=== PATIENT | female | born 1945 | race Caucasian/White ===

== ENCOUNTER 2022-08-26 08:41 | Emergency (ER) | payer MEDICARE, BC, SELFPAY ==
[2022-08-26 08:54] VITALS: BP 205/90; PULSE 54; RESP 18; TEMP 36.6; O2SAT 98; BMI 33.8
[2022-08-26 09:00] VITALS: BP 210/91; PULSE 53; RESP 16; O2SAT 98; O2SAT 99
--- NOTE | 2022-08-26 09:03 | CRLHL7_ITS ---
For Patients: As a result of the Century Cures Act, medical imaging exams and procedure reports are released immediately into your electronic medical record. You may view this report before your referring provider. If you have questions, please contact your health care provider. HISTORY: Chest pain. TECHNIQUE: One view of the chest. COMPARISON: 08/26/2012. FINDINGS: Cardiac size is within normal limits. No pulmonary vascular congestion. No focal lung infiltrate or pulmonary edema. No pneumothorax or pleural effusion. No acute bony abnormality. IMPRESSION: No acute disease. Dictated by Manuel Araiza MD @ 08/26/2022 9:45:52 AM Dictated by: Manuel Araiza MD @ 08/26/2022 09:45:59 (Electronically Signed)
--- NOTE | 2022-08-26 09:05 | ED_ITS ---
"HPI - General Adult General Time Seen by Provider: 09:06 Date Seen: 08/26/22 Chief complaint: Chest Pain Stated complaint: Chest pain Time Seen by Provider: 08/26/22 08:42 Source: patient Mode of arrival: ambulatory Limitations: no limitations History of Present Illness HPI narrative: Patient is a very pleasant 76-year-old female from [place] who has hypertension and non-insulin diabetes presents with chest pain after midnight last night. She reported the last several hours.. She also reports that it did not radiate to her neck or jaw or arm. No shortness of breath, no diaphoresis. Patient has no history of cardiac issues, but as mentioned does have hypertension and non-insulin diabetes. She also reports that she has had pain in her chest in a similar area when she turns or moves certain ways. No leg swelling, no edema in the lower extremities are upper extremities, no travel or clotting history. Past medical history significant for hypertension, non insulin-dependent diabetes, hypothyroidism Related Data Home Medications Medication Instructions Recorded Confirmed aspirin 81 mg tablet,delayed 81 mg PO DAILY 08/26/22 08/26/22 release (Adult Aspirin Regimen) atenolol 50 mg tablet mg 08/26/22 atorvastatin 40 mg tablet mg 08/26/22 hydrochlorothiazide 25 mg tablet mg 08/26/22 levothyroxine 88 mcg tablet mcg 08/26/22 losartan 100 mg tablet mg 08/26/22 metformin 500 mg tablet mg 08/26/22 Allergies Allergy/AdvReac Type Severity Reaction Status Date / Time No Known Drug Allergies Allergy Verified 08/26/22 09:52 Review of Systems Status of ROS: Reports: 10 or more systems reviewed and unremarkable except as noted in History and below [facility] Social History service: No Exam Narrative: Exam Narrative: Objective: Vital signs show elevated blood pressure Patient is in no apparent distress, denies any symptoms at all at this time HEENT is unremarkable Neck is supple Chest is clear Heart rhythm regular with occasional ectopic beat 2/6 systolic murmur Abdomen obese benign nontender extremities without edema neurologic nonfocal Skin warm and dry Mental status appropriate Const: Vital Signs, click to edit/add: Vital Signs - 24 hr 08/26/22 08:54 08/26/22 09:00 08/26/22 09:00 Temperature 98 F Pulse Rate [Pulse Oximeter] 54 L 53 L Respiratory Rate 18 16 Blood Pressure [Le ft Upper Arm] 205/90 H 210/91 H Pulse Oximetry 98 98 99 Oxygen Delivery Me thod Room Air Room Air 08/26/22 10:00 08/26/22 10:30 Temperature Pulse Rate [Pulse Oximeter] 50 L 52 L Respiratory Rate 18 18 Blood Pressure [Le ft Upper Arm] 181/80 H 169/88 H Pulse Oximetry 96 96 Oxygen Delivery Me thod Room Air Room Air Course Vital Signs Vital signs: Initial Vital Signs Temperature 98 F 08/26/22 08:54 Temperature Source Oral 08/26/22 08:54 Pulse Rate 54 L 08/26/22 08:54 Respiratory Rate 18 08/26/22 08:54 Blood Pressure 205/90 H 08/26/22 08:54 Blood Pressure Mean 128 08/26/22 08:54 Blood Pressure Position Supine 08/26/22 08:54 Pulse Oximetry 98 08/26/22 08:54 Oxygen Delivery Method 08/26/22 08:54 Vital Signs Temperature 98 F 08/26/22 08:54 Pulse Rate 54 L 08/26/22 08:54 Respiratory Rate 18 08/26/22 08:54 Blood Pressure 205/90 H 08/26/22 08:54 Pulse Oximetry 98 08/26/22 08:54 Oxygen Delivery Method 08/26/22 08:54 Temperature 98 F 08/26/22 08:54 Pulse Rate 52 L 08/26/22 10:30 Respiratory Rate 18 08/26/22 10:30 Blood Pressure 169/88 H 08/26/22 10:30 Pulse Oximetry 96 08/26/22 10:30 Oxygen Delivery Method 08/26/22 10:30 Medical Decision Making [facility] Narrative Medical decision making narrative: Patient is a 76-year-old female with episode of chest discomfort after midnight now resolved. She also has some symptoms of some chest wall discomfort with certain movement causing pain. I think could be appropriate to get an EKG, labs, chest x-ray, troponin. Will give aspirin, cardiac monitoring and oximetry. Disposition pending findings above. Addendum: The patient's EKG by my read shows sinus bradycardia with occasional PACs no obvious ischemic changes. Patient's chest x-ray by my read is unremarkable, because of her elevated D-dimer a chest CT was done that shows some micro nodules but no acute inflammatory change, no pneumonia and no pulmonary embolus. As mention her proBNP is slightly elevated 159 troponin less than 0.01 white count was elevated 14,007 and 30, hemoglobin 13.8. ER profile is largely unremarkable, glucose is 223 nonfasting CRP is 0.8 which is normal COVID influenza and RSV are negative. I think at this point she likely has some chest wall discomfort prep some mild inflammatory chest wall condition, would recommend some ibuprofen over the next few days, follow-up with primary care in the next 2-3 days changes concerns worsening. Also her blood pressure is elevated she should follow this up with her primary care doctor within the next couple of days. Continue her at-home medicines Lab Data Labs: Lab Results 08/26/22 08/26/22 08/26/22 Range/Units 09:00 09:00 09:00 WBC 14.73 H (4.50-11.00) K/uL RBC 5.16 (4.00-5.20) m/uL Hgb 13.8 (12.0-16.0) gm/dL Hct 42.3 (33.0-51.0) % MCV 82 (80-100) fL MCH 27 (26-34) pg MCHC 33 (32-36) gm/dL RDW Coeff of Jordyn 12.8 (11.5-15.5) % Plt Count 361 (140-440) K/uL Neut % (Auto) 82.1 H (42.0-72.0) % Lymph % (Auto) 11.5 L (20-44) % [place] % (Auto) 5.0 (0.0-11.0) % Eos % (Auto) 0.7 (0.0-7.0) % Baso % (Auto) 0.4 (0.0-3.0) % Neut # (Auto) 12.10 H (1.7-7.0) K/uL Lymph # (Auto) 1.70 (0.90-2.90) K/uL [place] # (Auto) 0.70 (0.00-0.90) K/UL Eos # (Auto) 0.10 (0.00-0.50) K/uL Baso # (Auto) 0.10 (0.00-0.30) K/uL Abs Immat Gran (auto) 0.00 (0.00-0.30) K/uL Imm/Tot Granulo (auto) 0.3 % INR 1.05 (0.91-1.10) D-Dimer Quant (PE/DVT) 2.30 H (0.00-0.50) ug/ml Sodium 137 (135-149) mmol/L Potassium 3.6 (3.6-5.1) mmol/L Chloride 100 (96-114) mmol/L Carbon Dioxide 28 (20-32) mmol/L BUN 20 (7-30) mg/dL Creatinine 1.1 (0.5-1.5) mg/dL Estimated Creat Clear 38.75 Estimated GFR 53 ml/min Glucose 223 H (60-115) mg/dL Calcium 9.3 (8.4-10.6) mg/dL Total Bilirubin 0.8 (0.1-1.5) mg/dL Direct Bilirubin 0.1 (0.0-0.5) mg/dL AST 26 (12-35) U/L ALT 24 (4-35) U/L Alkaline Phosphatase 127 (40-150) U/L Troponin I < 0.01 L (0.01-0.04) ng/mL C-Reactive Protein 0.8 (0.5-1.0) mg/dL NT-Pro-B Natriuret Pep 159 H (0-125) PG/mL Total Protein 7.9 (6.0-8.3) g/dL Albumin 4.5 (3.3-5.0) g/dL SARS-CoV-2 (PCR) (Negative) Influenza Type A (PCR) (Negative) Influenza Type B (PCR) (Negative) RSV (PCR) (Negative) 08/26/22 Range/Units 09:00 WBC (4.50-11.00) K/uL RBC (4.00-5.20) m/uL Hgb (12.0-16.0) gm/dL Hct (33.0-51.0) % MCV (80-100) fL MCH (26-34) pg MCHC (32-36) gm/dL RDW Coeff of Jordyn (11.5-15.5) % Plt Count (140-440) K/uL Neut % (Auto) (42.0-72.0) % Lymph % (Auto) (20-44) % [place] % (Auto) (0.0-11.0) % Eos % (Auto) (0.0-7.0) % Baso % (Auto) (0.0-3.0) % Neut # (Auto) (1.7-7.0) K/uL Lymph # (Auto) (0.90-2.90) K/uL [place] # (Auto) (0.00-0.90) K/UL Eos # (Auto) (0.00-0.50) K/uL Baso # (Auto) (0.00-0.30) K/uL Abs Immat Gran (auto) (0.00-0.30) K/uL Imm/Tot Granulo (auto) % INR (0.91-1.10) D-Dimer Quant (PE/DVT) (0.00-0.50) ug/ml Sodium (135-149) mmol/L Potassium (3.6-5.1) mmol/L Chloride (96-114) mmol/L Carbon Dioxide (20-32) mmol/L BUN (7-30) mg/dL Creatinine (0.5-1.5) mg/dL Estimated Creat Clear Estimated GFR ml/min Glucose (60-115) mg/dL Calcium (8.4-10.6) mg/dL Total Bilirubin (0.1-1.5) mg/dL Direct Bilirubin (0.0-0.5) mg/dL AST (12-35) U/L ALT (4-35) U/L Alkaline Phosphatase (40-150) U/L Troponin I (0.01-0.04) ng/mL C-Reactive Protein (0.5-1.0) mg/dL NT-Pro-B Natriuret Pep (0-125) PG/mL Total Protein (6.0-8.3) g/dL Albumin (3.3-5.0) g/dL SARS-CoV-2 (PCR) Negative SARS-CoV-2 (Negative) Influenza Type A (PCR) Negative PCR FLU A (Negative) Influenza Type B (PCR) Negative PCR FLU B (Negative) RSV (PCR) Negative PCR RSV (Negative) Discharge Plan Discharge Clinical Impression: Chest pain, Chest wall pain Patient Disposition: Home, Self-Care Condition: Improved Additional Instructions: Light activity, regular diet, continue home medications, monitor blood pressure and get recheck with primary care clinic within the next 2 days. Return any change concerns worsening, blood tests and EKG and CT scan of the chest were reassuring, will recommend Advil 2 tablets 3 times a day for the next 3 days. Continue to monitor blood pressure as mentioned as it was elevated today and follow up with regular doctor the appointment 2 days. could usealeve if dont have advil, 2 tablets 2 x day x 3 days. Activity Level: Light activity Discharge Diet: Regular Prescriptions: No Action atorvastatin 40 mg tablet Label Comments: TAKE 1 TABLET BY MOUTH EVERY DAY metformin 500 mg tablet Label Comments: TAKE 1 TABLET BY MOUTH TWICE A DAY WITH MEALS levothyroxine 88 mcg tablet Label Comments: TAKE 1 TABLET BY MOUTH EVERY DAY hydrochlorothiazide 25 mg tablet Label Comments: TAKE 1 TABLET BY MOUTH EVERY DAY losartan 100 mg tablet Label Comments: TAKE 1 TABLET BY MOUTH EVERY DAY atenolol 50 mg tablet aspirin [Adult Aspirin Regimen] 81 mg tablet,delayed release (DR/EC) 81 mg PO DAILY Stand Alone Forms: [employer] - Payments Anytime | Anywhere Info Instructions"
--- NOTE | 2022-08-26 09:11 | ED.NURSE ---
forestry technician swab for covid
[2022-08-26 09:21] LABS: Basophils Percent Auto 0.4 % (0.0-3.0); Eosinophils Percent Auto 0.7 % (0.0-7.0); Hematocrit 42.3 % (33.0-51.0); Hemoglobin* 13.8 gm/dL (12.0-16.0); Immature Granulocytes Pct Auto 0.3 %; Lymphocytes Percent Auto 11.5 % (20-44); Mean Corpuscular HGB Conc 33 gm/dL (32-36); Mean Corpuscular Hemoglobin 27 pg (26-34); Mean Corpuscular Volume 82 fL (80-100); Neutrophils Percent Auto 82.1 % (42.0-72.0); Platelet Count* 361 K/uL (140-440); RDW Coefficient of Variation % 12.8 % (11.5-15.5); Red Blood Count 5.16 m/uL (4.00-5.20); White Blood Count* 14.73 K/uL (4.50-11.00)
[2022-08-26 09:22] LABS: Slide Review Reflex No
[2022-08-26 09:28] LABS: Chloride* 100 mmol/L (96-114)
[2022-08-26 09:29] LABS: Albumin* 4.5 g/dL (3.3-5.0); Potassium* 3.6 mmol/L (3.6-5.1); Sodium* 137 mmol/L (135-149)
[2022-08-26 09:31] LABS: Creatinine* 1.1 mg/dL (0.5-1.5); Est. Creatinine Clearance* 38.75; Estimated Glomerular Filt Rate 53 ml/min
[2022-08-26 09:32] LABS: Alanine Aminotransferase* 24 U/L (4-35); Alkaline Phosphatase* 127 U/L (40-150); Aspartate Amino Transferase* 26 U/L (12-35); Bilirubin Direct* 0.1 mg/dL (0.0-0.5); Bilirubin Total* 0.8 mg/dL (0.1-1.5); Blood Urea Nitrogen* 20 mg/dL (7-30); Calcium* 9.3 mg/dL (8.4-10.6); Carbon Dioxide* 28 mmol/L (20-32); Glucose* 223 mg/dL (60-115); INR 1.05 (0.91-1.10); Prothrombin Time 14.3 Seconds; Total Protein* 7.9 g/dL (6.0-8.3)
[2022-08-26 09:35] LABS: C Reactive Protein* 0.8 mg/dL (0.5-1.0)
[2022-08-26] MEDS: ASPIRIN 81 MG TAB.CHEW 324 MG PO (09:37)
[2022-08-26] MEDS: 0.9 % SODIUM CHLORIDE 500 ML 500 ML IV (09:38)
[2022-08-26 09:41] LABS: NT Pro B Type NatriureticPept* 159 PG/mL (0-125)
--- NOTE | 2022-08-26 09:43 | CRLHL7_ITS ---
For Patients: As a result of the Cures Act, medical imaging exams and procedure reports are released immediately into your electronic medical record. You may view this report before your referring provider. If you have questions, please contact your health care provider. HISTORY: Chest pain. Elevated D-dimer. TECHNIQUE: Intravenous contrast enhanced CT of the chest. 95 mL Isovue 370 intravenous contrast administered. COMPARISON: Chest radiograph 08/26/2022. FINDINGS: There is no acute pulmonary embolism. Atherosclerotic changes of the thoracic aorta without aneurysm. Coronary calcifications are present. There is no pericardial effusion. No technically enlarged mediastinal or hilar lymph nodes. No technically enlarged axillary lymph nodes. - There are scattered bilateral pulmonary micro nodules. For example, 3 - 4 mm micro nodule right lower lobe image #95 series 4. 3 mm micro nodule right lower lobe image #139. 3 mm micro nodule left lower lobe image 147. Greater than 20 micro nodules are present. There is no lung consolidation. No pleural effusion or pneumothorax. - Small hiatal hernia. - Degenerative changes of the spine. No acute fractures. IMPRESSION: 1. No acute pulmonary embolism. 2. Scattered bilateral pulmonary micro nodules. 3. No lung consolidation. 4. Atherosclerotic changes of the thoracic aorta without aneurysm. 5. Coronary artery disease. Dictated by Manuel Araiza MD @ 08/26/2022 10:39:55 AM Please note that all CT scans at this facility use dose modulation, iterative reconstruction, and/or weight-based dosing when appropriate to reduce radiation dose to as low as reasonably achievable. Dictated by: Manuel Araiza MD @ 08/26/2022 10:40:01 (Electronically Signed)
[2022-08-26 09:47] LABS: Troponin I* < 0.01 ng/mL (0.01-0.04)
[2022-08-26 10:00] VITALS: BP 181/80; PULSE 50; RESP 18; O2SAT 96
[2022-08-26 10:04] LABS: PCR FLU A Negative PCR FLU A (Negative); PCR FLU B Negative PCR FLU B (Negative); PCR RSV Negative PCR RSV (Negative)
[2022-08-26 10:28] LABS: SARS PCR* Negative SARS-CoV-2 (Negative)
[2022-08-26 10:30] VITALS: BP 169/88; PULSE 52; RESP 18; O2SAT 96
== END 2022-08-26 11:05 | disposition home or self-care (01) ==
PROVIDERS: Emergency Provider Family Medicine
DX: R07.89 Other chest pain (principal); I10 Essential (primary) hypertension
CPT/HCPCS: 36415; 71045; 71260; 80048; 80076; 83880; 84484; 85025; 85379; 85610; 86140; 87502; 87634; 87635; 93005; 94761; 96360; 99284; A9270; J7120; Q9967

== ENCOUNTER 2022-09-21 10:50 | Outpatient (CLI) | payer MEDICARE, BC, SELFPAY ==
[2022-09-21 22:13] LABS: Cholesterol* 201 mg/dL (90-199)
[2022-09-21 22:14] LABS: HDL Cholesterol* 36 mg/dL (>=50); LDL Cholesterol Calculated 124 mg/dL (<100); Triglycerides* 203 mg/dL (40-149)
== END 2022-09-21 10:51 | disposition home or self-care (01) ==
PROVIDERS: Visit Provider Physician Assistant Medical
DX: E78.5 Hyperlipidemia, unspecified (principal); I10 Essential (primary) hypertension; E03.9 Hypothyroidism, unspecified; E11.9 Type 2 diabetes mellitus without complications; R30.0 Dysuria
CPT/HCPCS: 80061; 84443; 87086

== ENCOUNTER 2024-03-23 07:04 | Emergency (ER) | payer MEDICARE, BC, SELFPAY ==
[2024-03-23 07:13] VITALS: BP 202/96; PULSE 75; RESP 20; TEMP 36.4; O2SAT 97; BMI 32.8
--- NOTE | 2024-03-23 07:26 | CRLHL7_ITS ---
For Patients: As a result of the Cures Act, medical imaging exams and procedure reports are released immediately into your electronic medical record. You may view this report before your referring provider. If you have questions, please contact your health care provider. Indication: Weakness recent bronchitis Comparison: None available. Technique: Single AP view chest Findings: Mild nonspecific central bronchial thickening. There is no focal consolidation, effusion, or pneumothorax. The cardiomediastinal silhouette is within normal limits. The bony thorax is grossly intact. Impression: Mild nonspecific central bronchial thickening without dense consolidation. Dictated by Mohit Lane MD @ 03/23/2024 8:10:13 AM (Electronically Signed)
--- NOTE | 2024-03-23 07:46 | ED_ITS ---
HPI - General Adult General Chief complaint: Weakness Stated complaint: Dizziness Time Seen by Provider: 03/23/24 07:46 Source: patient and EMS Limitations: no limitations History of Present Illness HPI narrative: 78-year-old female presents the emergency department with generalized weakness. Reports that she does typically use a cane or walker to ambulate but did not have these around her this morning. She says when she got up this morning she wishes feeling off balance. No specific focal neurological changes. She thought maybe her blood sugar might be low so than check it, she drank an entire bottle of cranberry juice. She had recently been on prednisone for an upper respiratory infection by her primary care provider and completed her last dose last night. She was worried that she would fall when she was feeling off ben nce so she lowered herself to the floor and called 911. She considered using the furniture to get herself back up since she was feeling better but was worried with her knee replacements and strength this would be difficult for her. EMS checked her blood sugar and it was over 600. Appetite has been good. No fever. She has not been having any dysuria or diarrhea. She other than the prednisone, there have been no recent medication changes. She continues to take her diabetes medications, is not typically insulin-dependent. Denies any recent fall, no chest pain, abdominal pain. She still has a cough that is productive of yellowish sputum. Past medical history notable for diabetes, depression, bipolar disorder, hypothyroidism, hypertension. Home meds are reviewed, accurate as listed. ROS is notable for the generalized weakness and elevated blood sugar as described above. Otherwise she denies any focal symptoms besides the respiratory changes times 12 systems. She does typically have to call police or EMS to help her up at least once a year. Related Data Home Medications ?Medication ?Instructions ?Recorded ?Confirmed aspirin 81 mg tablet,delayed 81 mg PO DAILY 08/26/22 12/12/23 release (Adult Aspirin Regimen) metformin 1,000 mg tablet 1,000 mg PO BID 12/31/23 Previous Rx's ?Medication ?Instructions ?Recorded blood-glucose meter (Blood Glucose #1 ea 09/22/22 Monitoring kit) lancets #100 ea 09/22/22 levothyroxine 88 mcg tablet 88 mcg PO QDAY #90 tabs 09/22/22 losartan 100 mg tablet 100 mg PO QDAY #90 tabs 09/22/22 blood sugar diagnostic (Accu-Chek #100 ea 10/04/22 Guide test strips) albuterol sulfate 90 mcg/actuation 2 puff inhalation Q6H PRN 03/06/23 aerosol inhaler (Ventolin HFA) shortness of breath or wheezing #8.5 grams glipizide 10 mg tablet 10 mg PO BID #180 tabs 03/21/23 oxybutynin chloride 10 mg 10 mg PO QDAY #30 tabs 03/21/23 tablet,extended release 24 hr bupropion HCl 150 mg 24 hr tablet, 150 - 300 mg (1 - 2 x 150 mg) PO 04/10/23 extended release QAM #60 tabs divalproex 250 mg tablet,delayed 250 - 500 mg (1 - 2 x 250 mg) PO 04/10/23 release (Depakote) BID #100 tabs rosuvastatin 20 mg tablet 20 mg PO DAILY #90 tabs 10/02/23 hydrochlorothiazide 25 mg tablet 25 mg PO DAILY #90 tabs 11/16/23 atenolol 50 mg tablet 50 mg PO DAILY #90 tabs 12/28/23 blood sugar diagnostic (Blood #100 ea 01/14/24 Glucose Test strips) levofloxacin 250 mg tablet 250 mg PO DAILY #4 tabs 03/23/24 Allergies Allergy/AdvReac Type Severity Reaction Status Date / Time NSAIDS (Non-Steroidal AdvReac Low Kidney Verified 12/12/23 14:05 Anti-Inflamma Function [facility] Medical History Bipolar depression ?F31.9 - Bipolar disorder, unspecified (ICD-10) Hx of falling ?Z91.81 - History of falling (ICD-10) Hx of gout ?Z87.39 - Personal history of other diseases of the musculoskeletal system and connective tissue (ICD-10) Hx of colonic polyps ?Z86.010 - Personal history of colonic polyps (ICD-10) History of depression ?Z86.59 - Personal history of other mental and behavioral disorders (ICD-10) Medication management ?Z79.899 - Other long term care administrator (current) drug therapy (ICD-10) Chronic kidney disease (CKD) stage G3a/A1, moderately decreased glomerular filtration rate (GFR) between 45-59 mL/min/1.73 square meter and albuminuria c reatinine ratio less than 30 mg/g ?N18.31 - Chronic kidney disease, stage 3a (ICD-10) Anxiety ?F41.9 - Anxiety disorder, unspecified (ICD-10) Surgical History History of colonoscopy ?Z98.890 - Other specified postprocedural states (ICD-10) Family History Brother Multiple sclerosis Social History Smoking Status: Never smoker Do you use any of these nicotine containing products: None Second hand tobacco smoke exposure: No How often do you have a drink containing alcohol: never AUDIT-C Alcohol total score: 0 Non-prescribed substance use: denies use Little interest or pleasure in doing things: nearly every day Feeling down, depressed, or hopeless: nearly every day service: No Exam Const: Vital Signs, click to edit/add: Vital Signs - 24 hr 03/23/24 07:13 03/23/24 08:40 Temperature 97.6 F Pulse Rate [Pulse Oximeter] 75 64 Respiratory Rate 20 18 Blood Pressure [Ri ght Upper Arm] 202/96 H 146/83 H Pulse Oximetry 97 96 Oxygen Delivery Me thod Room Air Room Air Documenting provider has reviewed patient's vital signs: yes Common normals: no apparent distress General appearance: cooperative, comfortable and well kempt HENMT: Common normals: normocephalic and oropharynx normal Head and scalp: normocephalic Mouth: oral and palatal mucosa normal Eye: Common normals: conjunctivae normal General eye: normal appearance of both eyes Conjunctiva: conjunctiva(e) normal Neck & C-Spine: General: normal visual inspection Resp: Common normals: normal respiratory effort Other: Coarse upper airway sounds to improve mostly with cough. I thought I was hearing a little bit of consolidation in the right posterior mid lung devlin but it did seem to improve with cough. No wheeze. Cardio: Common normals: regular rate, regular rhythm, S1 normal heart sound, S2 normal heart sound and no murmurs Rate: regular rate Rhythm: regular rhythm Heart sounds: S1 normal and S2 normal GI: Common normals: Normal to inspection, nondistended, normoactive bowel sounds present, soft to palpation, non-tender, no hepatosplenomegaly and no masses Palpation: soft and no hepatosplenomegaly Extremity: Common normals: normal capillary refill Other: Trace bilateral edema, equal and symmetric. Extremities do move easily on command, is able to transfer to bedside commode without difficulty. Neuro: Common normals: moves all extremities Psych: Appearance: well kempt Attitude: engaged Activity/motor behavior: appropriate eye contact Mood and affect: euthymic mood Insight: insight good Judgement: judgment good Skin: Common normals: no rashes or lesions noted General skin exam: no rashes or lesions noted Course Course ED Course: 78-year-old female with weakness in the setting of hyperglycemia and recent respiratory infection. Seems to be feeling better and probably not that dissimilar to her baseline. I recommend we check a chest x-ray, some basic labs, give 1 L of fluid and 10 of subQ insulin. The hyperglycemia is most likely from the prednisone and also her decision to drink a whole jug of cranberry juice. Will also check a urinalysis. Will need road testing prior to discharge but can likely be discharged home if everything checks out okay. She has completed her steroids, therefore I do not think additional blood sugar management will be needed at home other than resuming her typical metformin and glipizide. Will be handing over care to my in coming day shift partner. Reevaluation(s) Reevaluation #1: Patient updated on lab and imaging findings. Concern for early bladder infection. Leukocytosis with left shift noted. This could either be from the bronchitis which is not fully improving after the prednisone or early bladder infection. I think OB best if we do treat with antibiotics. Will begin Levaquin 250 for 5 days. First dose given here in ED. Renally dosed due to her abnormal creatinine. No additional steroids indicated. She was given a dose of subcu insulin for her hyperglycemia. Is tolerating this well. Blood sugars are coming down. 1 L of IV fluid has been given. Will be allowed to drink water. Will restart her typical oral medications. Can discharge once blood sugar under 470. No signs of acidosis based on labs. Encouraged not to drink large amounts of sugary juice again. Vital Signs Vital signs: Initial Vital Signs Temperature 97.6 F 03/23/24 07:13 Temperature Source Temporal Artery Scan 03/23/24 07:13 Pulse Rate 75 03/23/24 07:13 Pulse Rhythm Regular 03/23/24 07:13 Respiratory Rate 20 03/23/24 07:13 Blood Pressure 202/96 H 03/23/24 07:13 Blood Pressure Mean 131 H 03/23/24 07:13 Blood Pressure Position Sitting 03/23/24 07:13 Pulse Oximetry 97 03/23/24 07:13 Oxygen Delivery Method Room Air 03/23/24 07:13 Vital Signs Temperature 97.6 F 03/23/24 07:13 Pulse Rate 75 03/23/24 07:13 Respiratory Rate 20 03/23/24 07:13 Blood Pressure 202/96 H 03/23/24 07:13 Pulse Oximetry 97 03/23/24 07:13 Oxygen Delivery Method Room Air 03/23/24 07:13 Temperature 97.6 F 03/23/24 07:13 Pulse Rate 64 03/23/24 08:40 Respiratory Rate 18 03/23/24 08:40 Blood Pressure 146/83 H 03/23/24 08:40 Pulse Oximetry 96 03/23/24 08:40 Oxygen Delivery Method Room Air 03/23/24 08:40 Medications Administered Medications: Discontinued Medications Generic Name Dose Route Start Last Admin Trade Name Freq PRN Reason Stop Dose Admin Sodium Chloride 1,000 mls @ 500 mls/hr 03/23/24 07:27 03/23/24 08:24 0.9 % Sodium Chloride 1000 Ml IV 03/23/24 09:26 500 mls/hr .Q2H ANNA Administration Insulin Human Regular 10 unit 03/23/24 07:54 03/23/24 08:27 Insulin Regular 100 Unit/Ml Inj SUBCUT 03/23/24 07:55 10 unit ONCE ONE Administration Medical Decision Making Lab Data Lab results reviewed: Yes I reviewed the patient's lab results Lab results narrative: Mild leukocytosis could be secondary to respiratory infection, findings of mild bladder infection and or margins a alcocer from her prednisone, difficult to tell. Hyperglycemia. Labs: Lab Results 03/23/24 03/23/24 03/23/24 Range/Units 07:10 08:12 09:05 WBC 15.52 H (4.50-11.00) K/uL RBC 5.11 (4.00-5.20) m/uL Hgb 13.6 (12.0-16.0) gm/dL Hct 41.6 (33.0-51.0) % MCV 81 (80-100) fL MCH 27 (26-34) pg MCHC 33 (32-36) gm/dL RDW Coeff of Jordyn 13.6 (11.5-15.5) % Plt Count 306 (140-440) K/uL Neut % (Auto) 86.3 H (42.0-72.0) % Lymph % (Auto) 8.1 L (20-44) % [place] % (Auto) 5.2 (0.0-11.0) % Eos % (Auto) 0.0 (0.0-7.0) % Baso % (Auto) 0.1 (0.0-3.0) % Neut # (Auto) 13.40 H (1.7-7.0) K/uL Lymph # (Auto) 1.30 (0.90-2.90) K/uL [place] # (Auto) 0.80 (0.00-0.90) K/UL Eos # (Auto) 0.00 (0.00-0.50) K/uL Baso # (Auto) 0.00 (0.00-0.30) K/uL Abs Immat Gran (auto) 0.00 (0.00-0.30) K/uL Imm/Tot Granulo (auto) 0.3 % VBG pH 7.460 H (7.32-7.43) VBG pCO2 37 L (40-50) mmHG VBG pO2 64.9 H (25-47) mmHG VBG HCO3 27 (21-28) mmol/L Sodium 132 L (135-149) mmol/L Potassium 4.4 (3.6-5.1) mmol/L Chloride 97 (96-114) mmol/L Carbon Dioxide 27 (20-32) mmol/L Anion Gap 8 (7-15) mEq/L BUN 31 H (7-30) mg/dL Creatinine 0.8 (0.5-1.5) mg/dL Estimated Creat Clear 39.59 Estimated GFR 76 ml/min Glucose 593 H* (60-115) mg/dL Lactate 2.5 H (0.5-1.9) mmol/L Calcium 9.1 (8.4-10.6) mg/dL Total Bilirubin 0.8 (0.1-1.5) mg/dL AST 17 (12-35) U/L ALT 19 (4-35) U/L Alkaline Phosphatase 140 (40-150) U/L Troponin I < 0.01 L (0.01-0.04) ng/mL C-Reactive Protein 1.7 H (0.5-1.0) mg/dL Total Protein 7.0 (6.0-8.3) g/dL Albumin 3.9 (3.3-5.0) g/dL Urine Color Yellow (Yellow) Urine Appearance Slightly Cloudy A (Clear) Urine pH 5.0 (5.0-8.5) Ur Specific [place] <= 1.005 (1.000-1.030) Urine Protein Negative (Negative) Urine Glucose (UA) 3+ A (Negative) Urine Ketones Negative (Negative) Urine Blood Trace-intact A (Negative) Urine Nitrite Negative (Negative) Urine Bilirubin Negative (Negative) Urine Urobilinogen 0.2 (0.2-1.0) Ur Leukocyte Esterase 1+ A (Negative) Urine RBC 5-10 A (0-2) Urine WBC 5-10 A (0-5) Ur Squamous Epith Cells Few (None-Few) Urine Bacteria Few A (None) Urine Yeast Few A (None) POC Glucose 510 H* (60-115) mg/dl POC Troponin I 0.01 (0.01-0.04) ng/ml Imaging Data Chest x-ray: Attestation: I have reviewed the pertinent imaging results. My impression: Bronchial congestion but no pleural effusions or focal infiltrate. Radiologist's impression: Impression: Mild nonspecific central bronchial thickening without dense consolidation. Dictated by Mohit Lane MD @ 03/23/2024 8:10:13 AM Discharge Plan Discharge Clinical Impression: Bladder infection, Generalized weakness, Acute hyperglycemia Patient Disposition: Home w/ Parent or Adult Condition: Improved Instructions: Diabetic Hyperglycemia (ED) Additional Instructions: Your blood sugar was quite elevated, likely from a combination of the prednisone and the cranberry juice. The insulin will help this come down. Try to limit your sugar and carbohydrate intake for today but the prednisone should wear off by tomorrow. Continue to take your glipizide and metformin as prescribed. You do seem to have a mild bladder infection. I have sent a prescription for levofloxacin to your pharmacy. You will take this for 4 more days, 1st dose was given here in the emergency department. Your next dose will be tomorrow morning. The remainder of your labs look quite good. Use your cane or walker until you are feeling stronger. Follow up with her primary care provider if you are not feeling better in 5 days. Activity Level: Activity as Tolerated Discharge Diet: Diabetic Prescriptions: New levofloxacin 250 mg tablet 250 mg PO DAILY Qty: 4 0RF No Action levothyroxine 88 mcg tablet 88 mcg PO QDAY Qty: 90 3RF losartan 100 mg tablet 100 mg PO QDAY Qty: 90 3RF albuterol sulfate [Ventolin HFA] 90 mcg/actuation HFA aerosol inhaler 2 puff inhalation Q6H PRN (Reason: shortness of breath or wheezing) Qty: 8.5 12RF Rx Instructions: dispense whichever albuterol inhaler is covered oxybutynin chloride 10 mg tablet extended release 24hr 10 mg PO QDAY Qty: 30 0RF glipizide 10 mg tablet 10 mg PO BID Qty: 180 0RF divalproex [Depakote] 250 mg tablet,delayed release (DR/EC) 250 - 500 mg PO BID Qty: 100 0RF Rx Instructions: take 1 t po bid x 1 wk then increase to 2 t bid for mood bupropion HCl 150 mg tablet extended release 24 hr 150 - 300 mg PO QAM Qty: 60 0RF Rx Instructions: take 1 t po qam x 1 wk then increase to 2 t po qam for mood aspirin [Adult Aspirin Regimen] 81 mg tablet,delayed release (DR/EC) 81 mg PO DAILY ([facility]) blood-glucose meter [Blood Glucose Monitoring] Kit See Rx Instructions .Route Qty: 1 0RF Rx Instructions: As directed ([facility]) lancets Misc See Rx Instructions .Route Qty: 100 3RF Rx Instructions: use once per day (DME) Accu-Chek Guide test strips Strip See Rx Instructions .Route Qty: 100 3RF Rx Instructions: Test once daily rosuvastatin 20 mg tablet 20 mg PO DAILY Qty: 90 0RF hydrochlorothiazide 25 mg tablet 25 mg PO DAILY Qty: 90 0RF atenolol 50 mg tablet 50 mg PO DAILY Qty: 90 0RF metformin 1,000 mg tablet 1,000 mg PO BID (DME) Blood Glucose Test Strip See Rx Instructions .Route Qty: 100 0RF Rx Instructions: Test once per day Follow Up/Referrals: Kayla Montelongo PA-C [Physician Composition Weatherboard Installer] - Stand Alone Forms: [employer] Info Instructions
--- OUTSIDE RECORDS SUMMARY | 2024-03-23 08:04 | XMS_ITS | Clinical Summary ---
Author Organization [place] Address [address] [place] [address] Care Team Providers Care Mix Chemist Name Role Phone Anne-Marie Pike MD Unavailable [phone] Ricky Munoz PA-C Primary Care Provider Ricky Munoz PA-C Unavailable [phone] Allergies Active Allergy Reactions Criticality Noted Date Comments Nsaids 04/10/2017 Low kidney function Medications Medication Sig Dispensed Refills Start Date End Date Status Divalproex Sodium (DEPAKOTE PO) Take 500 mg by mouth 2 times daily Active aspirin (ASA) 81 MG EC tablet Take 81 mg by mouth Active buPROPion (WELLBUTRIN XL) 300 MG 24 hr tablet TAKE 1 TABLET BY MOUTH EVERY DAY IN THE MORNING 05/10/2021 Active cholecalciferol 25 MCG (1000 UT) TABS Take 1 tablet by mouth daily 08/31/2021 Active escitalopram (LEXAPRO) 10 MG tablet TAKE ONE AND ONE-HALF TABLETS BY MOUTH EVERY DAY . 11/28/2021 Active atenolol (TENORMIN) 50 MG tabletIndications:Esse ntial hypertension with goal blood pressure less than 140/90 TAKE 1 TABLET BY MOUTH TWICE A DAY 180 tablet 1 05/30/2022 Active atorvastatin (LIPITOR) 40 MG tabletIndications:Type 2 diabetes mellitus with diabetic neuropathy, without long-term current use of insulin (H),Mixed hyperlipidemia TAKE 1 TABLET BY MOUTH EVERY DAY 90 tablet 06/28/2022 Active levothyroxine (SYNTHROID/LEVOTHROID) 88 MCG tabletIndications:Hypo thyroidism, unspecified type TAKE 1 TABLET BY MOUTH EVERY DAY 90 tablet 07/17/2022 Active hydrochlorothiazide (HYDRODIURIL) 25 MG tabletIndications:Esse ntial hypertension with goal blood pressure less than 140/90 TAKE 1 TABLET BY MOUTH EVERY DAY 90 tablet 08/27/2022 Active losartan (COZAAR) 100 MG tabletIndications:Esse ntial hypertension with goal blood pressure less than 140/90 TAKE 1 TABLET BY MOUTH EVERY DAY 30 tablet 09/05/2022 Active metFORMIN (GLUCOPHAGE) 500 MG tabletIndications:Type 2 diabetes mellitus with diabetic neuropathy, without long-term current use of insulin (H) TAKE 1 TABLET BY MOUTH TWICE A DAY WITH MEALS 60 tablet 09/11/2022 Active Active Problems Problem Noted Date Diagnosed Date Generalized anxiety disorder 05/27/2020 Adjustment disorder with mixed anxiety and depre ssed mood 04/16/2019 Hypertensive heart and chron ic kidney disease with heart failure and stage 1 through stage 4 chronic kidney disease, or chronic kidney disease 03/24/2019 Obesity (BMI 35.0-39.9) with comorbidity 018 Status post total knee replacement, left 018 Status post total knee replacement, right 2016 Chronic pain of left knee 01/10/2017 Chronic pain of right knee 01/10/2017 Major depressive disorder, recurrent episode, mi ld (H24) 10/05/2016 Type 2 diabetes mellitus wit h diabetic neuropathy, without long-term current use of insulin 10/05/2016 CKD stage 3 due to type 2 diabetes mellitus 07/16 Diabetic nephropathy associa oscar with type 2 diabetes mellitus 08/05/2015 Foreign body 01/07/2015 CKD (chronic kidney disease) stage 3, GFR 30-59 ml/min 01/07/2015 Advanced directives, counseling/discussion 03/20 Overview: Advance Care Planning: ACP Review and Resources Provided: Reviewed chart for advance care plan. Ely Ramachandran has no plan or code status on file. Discussed available resources and provided with information. Added by Tea Quintana on 03/20/2013 HTN, goal below 140/90 03/11/2013 Hyperlipidemia LDL goal <100 02/23/2013 S/P colonoscopy 03/11/2011 Overview: F/u 5 yrs, benign colon polyp PSC (posterior subcapsular cataract) 01/18/2010 Hypermetropia 08/27/2007 Presbyopia 08/27/2007 Benign neoplasm of colon 12/18/2006 Overview: Overview: Colonoscopy 06/2009 normal repeat in 5 years Depressive disorder 12/18/2006 Sebaceous cyst 12/18/2006 Overview: Overview: hydradenitis suppurativa Pure hypercholesterolemia 09/03/2006 Bipolar 2 disorder 06/11/2006 Overview: Overview: [place] was effective but caused skin problems. Zyprexa led to her feeling like a zombie. She did not tolerate prozac at doses high enough to treat her depression. She was hospitalized at [facility] in May 2004 with depression. Hypothyroidism 01/01/2004 Overview: Problem list name updated by automated process. Provider to review Bipolar I disorder, most recent episode depresse d 01/01/2004 Overview: Problem list name updated by automated process. Provider to review Rheumatoid arthritis 01/01/2004 Overview: Problem list name updated by automated process. Provider to review Resolved Problems Problem Noted Date Diagnosed Date Resolved Date Left knee pain 01/23/2018 03/20/2018 Aftercare following left kne e joint replacement surgery 01/23/2018 03/20/2018 Right knee pain 04/26/2017 07/09/2017 Aftercare following right kn ee joint replacement surgery 04/26/2017 07/09/2017 Morbid obesity 08/05/2015 08/16/2015 Neck pain 04/21/2013 06/02/2013 Obesity 03/11/2013 08/05/2015 Type 2 diabetes, HbA1c goal < 7% 02/23/2005 08/05/2015 Essential hypertension, benign 01/01/2004 03/11/2013 Immunizations Name Administration Dates Next Due COVID-19 Bivalent 12+ (Pfizer) 08/16/2022 COVID-19 MONOVALENT 12+ (Pfizer) 12/28/2020,11/16 Influenza (H1N1) 11/29/2009 Influenza (High Dose) 3 raúl nt vaccine 08/06/2022,08/02/2021,09/24/2019,2016 Influenza (IIV3) PF 07/24/2008, 7,07/31/2006,2004,08/16/2004,08/15/2003 Influenza Vaccine 65+ (FLUAD) 08/05/2022, 021 Influenza Vaccine 65+ (Fluzone HD) 07/13/2020 Influenza Vaccine >6 months,quad, PF 08/07/2013 Influenza, seasonal, injectable, PF 10/11/2012,1 11/13/2010,12/22/2010 Pneumo Conj 13-V (2010&after) 11/28/2016 Pneumococcal 23 valent 01/01/2014,10/16/2007, TD,PF 7+ (Tenivac) 06/30/2005 TDAP (Adacel,Boostrix) 12/22/2010 Zoster vaccine, live 03/18/2012,11/26/2011 Family History Medical History Relation Comments Neurologic Disorder Brother 3 MS [place] Brother 4 Diabetes Brother 5 Diabetes Father Hypertension Father Breast Cancer Maternal Aunt Hypertension Mother Relation Status Comments Brother 1 Alive Brother 2 Alive Brother 3 Brother 4 Brother 5 Daughter Alive Father Maternal Aunt Mother Social History Tobacco Use Types Packs/Day Years Used Date Smoking Tobacco: Never Smokeless Tobacco: Never Alcohol Use Standard Drinks/Week Comments No 0 (1 standard drink = 0.6 oz pur e alcohol) PHQ-2 Answer Date Recorded PHQ-2 Score 1 06/16/2021 Adolescent Education Answer Date Record ed Getting School Help Needed Not on file 07/06 Sex and Gender Information Value Date Recorded Sex Assigned at Not on file Gender Identity Not on file Sexual Orientation Not on file Last Filed Vital Signs Vital Sign Reading Time Taken Comments Blood Pressure 128/88 06/16/2021 10:56 AM CDT Pulse 56 06/16/2021 10:56 AM CDT Temperature 36.8 ??C (98.2 ??F) 06/16/2021 10:56 AM C DT Respiratory Rate 16 06/16/2021 10:56 AM CDT Oxygen Saturation 95% 06/16/2021 10:56 AM CDT Inhaled Oxygen Concentration - - Weight 95.9 kg (211 lb 8 oz) 06/16/2021 10:56 AM CDT Height 162.6 cm (5' 4) 07/01/2020 12:04 PM CDT Body Mass Index 36.3 07/01/2020 12:04 PM CDT Plan of Treatment Health Maintenance Due Date Last Done Comments CT COLONOGRAPHY 1945 FIT 1945 FLEX SIG 1945 HF ACTION PLAN 1945 URINE DRUG SCREEN 1945 sDNA (Cologuard) 1945 RSV VACCINE ( & 60+) (1 - 1-dose 60+ series) 2007 ZOSTER IMMUNIZATION (2 of 3) 05/13/2012 03/18/2012, 11/26/2011 DTAP/TDAP/TD IMMUNIZATION (2 - Td or Tdap) 12/22/2020 12/22/2010, 06/30/2005 MICROALBUMIN 07/13/2021 07/13/2020, 11/16, 03/30/2017, Additional history exists A1C 12/14/2021 06/16/2021, 06/16, 09/24/2019, Additional history exists BMP 12/14/2021 06/16/2021, 06/16, 09/24/2019, Additional history exists ANNUAL REVIEW OF HM ORDERS 04/07/2022 04/07/2021 ALT 06/16/2022 06/16/2021, 06/16, 03/15/2018, Additional history exists CBC 06/16/2022 06/16/2021, 09/15, 03/15/2018, Additional history exists DIABETIC FOOT EXAM 06/16/2022 06/16/2021, 0 03/24/2019, 05/04/2017, Additional history exists FALL RISK ASSESSMENT 06/16/2022 06/16/2021, 09/24/2019, 09/24/2019, Additional history exists HEMOGLOBIN 06/16/2022 06/16/2021, 09/15, 03/15/2018, Additional history exists LIPID 06/16/2022 06/16/2021, 06/16, 03/24/2019, Additional history exists MEDICARE ANNUAL WELLNESS VISIT 06/16/2022 06/16/2021, 09/24/2019 COVID-19 Vaccine ( season) 2023 08/16/2022, 07/25/2021, 12/28/2020, Additional history exists INFLUENZA VACCINE (Season Ended) 2024 08/06/2022, 08/05/2022, 08/02/2021, Additional history exists EYE EXAM 08/15/2024 08/15/2023, 10/2022, 08/10/2022, Additional history exists ADVANCE CARE PLANNING 06/16/2026 06/16/2021 , 03/20/2013, 03/11/2013 COLONOSCOPY 08/31/2026 08/31/2021, 08/15, 06/08/2015, Additional history exists COLORECTAL CANCER SCREENING 08/31/2026 DEXA 09/19/2034 09/19/2019, 09/02/2013 HEPATITIS C SCREENING Completed 10/05/2016 Pneumococcal Vaccine: 65+ Years Completed 11/28/2016, 01/01/2014, 10/16/2007, Additional history exists URINALYSIS Completed 04/13/2017 MAMMO SCREENING Discontinued 09/19/2019, 12/13, 09/02/2013, Additional history exists TSH W/FREE T4 REFLEX Completed 06/16/2021, 07/13/2020, 03/24/2019, Additional history exists HPV IMMUNIZATION Aged Out No longer e ligible based on patient's age to complete this topic IPV IMMUNIZATION Aged Out No longer e ligible based on patient's age to complete this topic MENINGITIS IMMUNIZATION Aged Out No l onger eligible based on patient's age to complete this topic RSV MONOCLONAL ANTIBODY Aged Out No l onger eligible based on patient's age to complete this topic Medical Devices Implanted Type Area Director Of Plant Operations Device Identifier Shelf Expiration Date Model / Serial / Lot Bone Cement Radiopaque Simplex Hv Full Dose 6194-1-001 Implanted:Qty: 1 on 04/10/2017 by Marlon Mcfadden MD at [facility] Cement, Bone Right: Knee [employer] 11/14/2018 6194-1-001 / / [id number] Bone Cement Simplex W/Gentamicin 6195-1-001 Implanted:Qty: 1 on 04/10/2017 by Marlon Mcfadden MD at [facility] Cement, Bone Right: Knee [employer] 06/14/2018 6195-1-001 / / [id number] Bone Cement Radiopaque Simplex Hv Full Dose 6194-1-001 Implanted:Qty: 1 on 01/08/2018 by Marlon Mcfadden MD at [facility] Cement, Bone Left: Knee [employer] 04/13/2019 6194-1-001 / / [id number] Bone Cement Simplex W/Gentamicin 6195-1-001 Implanted:Qty: 1 on 01/08/2018 by Marlon Mcfadden MD at [facility] Cement, Bone Left: Knee [employer] 05/14/2019 6195-1-001 / / [id number] Eye Imp Iol Lorrie Pcl [employer] Zcb00 21.0 Implanted:Qty: 1 on 09/19/2011 at [facility] Right: Eye [employer] 07/14/2014 ZCB00 21.0 / [id number] / Eye Imp Iol [place] Pcl Tecnis Zcb00 21.5 Implanted:Qty: 1 on 05/12/2014 by Akil Nguyen MD at [facility] Left: Eye [employer] 03/13/2018 ZCB00 21.5 / [id number] / Imp Tibial Tray Size 3 Implanted:Qty: 1 on 04/10/2017 by Marlon Mcfadden MD at [facility] Right: Knee 05/20/2021 90-SRK-200 300 / / [id number] Imp Femoral Component Type Ps Size 4r Implanted:Qty: 1 on 04/10/2017 by Marlon Mcfadden MD at [facility] Right: Knee 04/13/2021 90-SRK-331 400 / / [id number] Imp Patella Oval 38mm Implanted:Qty: 1 on 04/10/2017 by Marlon Mcfadden MD at [facility] Right: Knee 05/16/2021 90-SRK-410 300 / / [id number] Imp Poly Insert Type Ps Size 4 12mm Implanted:Qty: 1 on 04/10/2017 by Marlon Mcfadden MD at [facility] Right: Knee 05/15/2021 90-SRK-130 412 / / [id number] Poly Insert Implanted:Qty: 1 on 01/08/2018 by Marlon Mcfadden MD at [facility] Left: Knee [employer] 05/15/2021 90-SRK-130 412 / / [id number] Patella Implanted:Qty: 1 on 01/08/2018 by Marlon Mcfadden MD at [facility] Left: Knee [employer] 05/16/2021 90-SRK-410 300 / / [id number] Femoral Component Implanted:Qty: 1 on 01/08/2018 by Marlon Mcfadden MD at [facility] Left: Knee [employer] 04/13/2021 90-SRK-332 400 / / [id number] Tibial Tray Implanted:Qty: 1 on 01/08/2018 by Marlon Mcfadden MD at [facility] Left: Knee [employer] 05/17/2021 90-SRK-200 300 / / [id number] Procedures Procedure Name Priority Date/Time Associated Diagnosis Comments EYE EXAM - HIM SCAN 08/15/2023 1 2:00 AM CDT COLONOSCOPY - HIM SCAN 08/31/2021 12:00 AM FIELDWORK COORDINATOR CBC WITH PLATELETS Routine 06/16/2021 11 :32 AM CDT Encounter for Medicare annual wellness exam TSH WITH FREE T4 REFLEX Routine 06/16/2021 11:32 AM CDT Hypothyroidism, unspecified type LIPID REFLEX TO DIRECT LDL PANEL Routine 06/16/2021 11:32 AM CDT Encounter for Medicare annual wellness exam Screening for hyperlipidemia COMPREHENSIVE METABOLIC PANEL Routine 06/16/2021 11:32 AM CDT Type 2 diabetes mellitus with diabetic neuropathy, without long-term current use of insulin (H) Essential hypertension with goal blood pressure less than 140/90 HEMOGLOBIN A1C Routine 06/16/2021 11:32 AM CDT Type 2 diabetes mellitus with diabetic neuropathy, without long-term current use of insulin (H) ALBUMIN RANDOM URINE QUANTITATIVE Routine 07/13/2020 3:01 PM CDT Type 2 diabetes mellitus with diabetic neuropathy, without long-term current use of insulin (H) MA SCREENING DIGITAL BILATERAL Routine 09/19/2019 2:07 PM FIELDWORK COORDINATOR Visit for screening mammogram DX HIP/PELVIS/SPINE W LAT FRACTION ANALYSIS Routine 09/19/2019 1:23 PM FIELDWORK COORDINATOR Disorder of bone Osteopenia, unspecified location Rheumatoid arthritis involving right knee, unspecified rheumatoid factor presence (H) ROUTINE UA WITH MICROSCOPIC REFLEX TO CULTURE STAT 04/13/2017 9:55 AM CDT Status post total knee replacement, right HEPATITIS C SCREEN REFLEX TO HCV RNA QUANT AND GENOTYPE Routine 10/05/2016 11:02 AM FIELDWORK COORDINATOR Need for hepatitis C screening test C FOOT EXAM Routine 05/04/2014 11:01 AM CDT Screening for diabetic peripheral neuropathy from Last 3 Months or Most Recently Relevant to Health Maintenance Results * EYE EXAM - HIM SCAN (08/15/2023 12:00 AM CDT) RETINOPATHY NEGATIVE 08/15/2023 Provider Outside OTHER * COLONOSCOPY - HIM SCAN (08/31/2021 12:00 AM FIELDWORK COORDINATOR) 08/31/2021 Provider Outside PROCEDURES * TSH WITH FREE T4 REFLEX (06/16/2021 11:32 AM CDT) TSH 1.97 0.40 - 4.00 mU/L 06/17/2021 10:31 AM CDT [facility] Blood STRUCTURE OF LEFT UPPER LIMB / Unknown Venipuncture / Unknown 06/16/2021 11:32 AM CDT 06/16/2021 11:32 AM CDT Ricky Munoz PA-C LAB - BLOOD OR DERABLES [facility] [address] Lab (no room number, 1st floor of clinic) [place] [address], [facility] [phone] * (ABNORMAL) Lipid panel reflex to direct LDL Fasting (06/16/2021 11:32 AM CDT) Cholesterol 222(H) <200 mg/dL 06/17/2021 10:24 AM CDT [facility] Comment: Age 0-19 years Desirable: <170 mg/dL Borderline high: ??170-199 mg/dl High: ?>199 mg/dl Age 20 years and older Desirable: <200 mg/dL Triglycerides 197(H) <150 mg/dL 06/17/2021 10:24 AM CDT [facility] Comment: 0-9 years: Normal: ?Less than 75 mg/dL Borderline high: ??75-99 mg/dL High: ? Greater than or equal to 100 mg/dL 0-19 years: Normal: ?Less than 90 mg/dL Borderline high: ??90-129 mg/dL High: ? Greater than or equal to 130 mg/dL 20 years and older: Normal: ?Less than 150 mg/dL Borderline high: ??150-199 mg/dL High: ? 200-499 mg/dL Very high: ?? Greater than or equal to 500 mg/dL Direct Measure HDL 49(L) >=50 mg/dL 06/17/2021 10:24 AM CDT [facility] Comment: 0-19 years: ? Greater than or equal to 45 mg/dL Low: Less than 40 mg/dL Borderline low: 40-44 mg/dL 20 years and older: Female: Greater than or equal to 50 mg/dL Male: ?? Greater than or equal to 40 mg/dL LDL Cholesterol Calculated 134(H) <=100 mg/dL 06/17/2021 10:24 AM CDT [facility] Comment: Age 0-19 years: Desirable: 0-110 mg/dL Borderline high: 110-129 mg/dL High: >= 130 mg/dL Age 20 years and older: Desirable: <100mg/dL Above desirable: 100-129 mg/dL Borderline high: 130-159 mg/dL High: 160-189 mg/dL Very high: >= 190 mg/dL Non HDL Cholesterol 173(H) <130 mg/dL 06/17/2021 10:24 AM CDT [facility] Comment: 0-19 years: Desirable: ? Less than 120 mg/dL Borderline high: ?? 120-144 mg/dL High: ? Greater than or equal to 145 mg/dL 20 years and older: Desirable: ? 130 mg/dL Above Desirable: 130-159 mg/dL Borderline high: ?? 160-189 mg/dL High: ? 190-219 mg/dL Very high: ?? Greater than or equal to 220 mg/dL Patient Fasting > 8hrs? Yes 06/17/2021 10:24 AM CDT [facility] Blood STRUCTURE OF LEFT UPPER LIMB / Unknown Venipuncture / Unknown 06/16/2021 11:32 AM CDT 06/16/2021 11:32 AM CDT Ricky Munoz PA-C LAB - BLOOD OR DERABLES O[facility] [address] Lab (no room number, 1st floor of clinic) [place] [address], [facility] [phone] * (ABNORMAL) HEMOGLOBIN A1C (06/16/2021 11:32 AM CDT) Hemoglobin A1C 6.2(H) 0.0 - 5.6 % 06/16/2021 11:33 AM CDT [facility] Comment: Normal <5.7% Prediabetes 5.7-6.4% ?? Diabetes 6.5% or higher Note: Adopted from ADA consensus guidelines. Blood STRUCTURE OF LEFT UPPER LIMB / Unknown Venipuncture / Unknown 06/16/2021 11:32 AM CDT 06/16/2021 11:32 AM CDT Ricky Munoz PA-C LAB - BLOOD OR DERABLES RM [facility]AT[facility] [address] [facility] Lab (no room number, 1st floor of clinic) [place] [address], [facility] [phone] * (ABNORMAL) Comprehensive metabolic panel (BMP + Alb, Alk Phos, ALT, AST, Total. Bili, TP) (06/16/2021 11:32 AM CDT) Sodium 136 133 - 144 mmol/L 06/17/2021 10:23 AM CDT [facility] Potassium 4.3 3.4 - 5.3 mmol/L 06/17/2021 10:23 AM CDT [facility] Chloride 102 94 - 109 mmol/L 06/17/2021 10:23 AM CDT [facility] Carbon Dioxide (CO2) 24 20 - 32 mmol/L 06/17/2021 10:23 AM CDT [facility] Anion Gap 10 3 - 14 mmol/L 06/17/2021 10:23 AM CDT [facility] Urea Nitrogen 15 7 - 30 mg/dL 06/17/2021 10:23 AM CDT [facility] Creatinine 1.18(H) 0.52 - 1.04 mg/dL 06/17/2021 10:23 AM CDT [facility] Calcium 9.2 8.5 - 10.1 mg/dL 06/17/2021 10:23 AM CDT [facility] Glucose 84 70 - 99 mg/dL 06/17/2021 10:23 AM CDT [facility] Alkaline Phosphatase 65 40 - 150 U/L 06/17/2021 10:23 AM CDT [facility] AST 25 0 - 45 U/L 06/17/2021 10:23 AM CDT [facility] ALT 28 0 - 50 U/L 06/17/2021 10:23 AM CDT [facility] Protein Total 7.7 6.8 - 8.8 g/dL 06/17/2021 10:23 AM CDT [facility] Albumin 3.6 3.4 - 5.0 g/dL 06/17/2021 10:23 AM CDT [facility] Bilirubin Total 0.6 0.2 - 1.3 mg/dL 06/17/2021 10:23 AM CDT [facility] GFR Estimate 46(L) >60 mL/min/1.7 3m2 06/17/2021 10:23 AM CDT [facility] Comment:As of April 24, 2021, eGFR is calculated by the CKD-EPI creatinine equation, without race adjustment. eGFR can be influenced by muscle mass, exercise, and diet. The reported eGFR is an estimation only and is only applicable if the renal function is stable. Blood STRUCTURE OF LEFT UPPER LIMB / Unknown Venipuncture / Unknown 06/16/2021 11:32 AM CDT 06/16/2021 11:32 AM CDT Ricky Munoz PA-C LAB - BLOOD OR DERABLES LABORATORY [facility] [address] Lab (no room number, 1st floor of clinic) [place] [address], [facility] [phone] * CBC with platelets (06/16/2021 11:32 AM CDT) WBC Count 8.5 4.0 - 11.0 10e3/uL 06/16/2021 11:35 AM CDT [facility] RBC Count 4.93 3.80 - 5.20 10e6/uL 06/16/2021 11:35 AM CDT [facility] Hemoglobin 13.7 11.7 - 15.7 g/dL 06/16/2021 11:35 AM CDT [facility] Hematocrit 42.9 35.0 - 47.0 % 06/16/2021 11:35 AM CDT [facility] MCV 87 78 - 100 fL 06/16/2021 11:35 AM CDT LABORATORY MCH 27.8 26.5 - 33.0 pg 06/16/2021 11:35 AM CDT LABORATORY MCHC 31.9 31.5 - 36.5 g/dL 06/16/2021 11:35 AM CDT LABORATORY RDW 14.9 10.0 - 15.0 % 06/16/2021 11:35 AM CDT LABORATORY Platelet Count 300 150 - 450 10e3/uL 06/16/2021 11:35 AM CDT LABORATORY Blood STRUCTURE OF LEFT UPPER LIMB / Unknown Venipuncture / Unknown 06/16/2021 11:32 AM CDT 06/16/2021 11:32 AM CDT Ricky Munoz PA-C LAB - BLOOD OR DERABLES RM [facility]AT[facility] [address] [facility] (no room number, 1st floor of clinic) [place] [address], [facility] [phone] * Albumin Random Urine Quantitative with Creat Ratio (07/13/2020 3:01 PM CDT) Creatinine Urine 237 mg/dL 07/14/2020 3:27 PM CDT [facility] Albumin Urine mg/L 22 mg/L 07/14/2020 3:38 PM CDT [facility] Albumin Urine mg/g Cr 9.37 0 - 25 mg/g Cr 07/14/2020 3:38 PM CDT [facility] Urine specimen (specimen) 07/13/2020 3:01 PM CDT 07/13/2020 4:20 PM CDT Ricky Munoz PA-C LAB - URINE OR DERABLES Performing Organization Address City/[facility]/ZIP Co de Phone Number [facility] [address] [place] [address] * MA Screening Digital Bilateral (09/19/2019 2:07 PM FIELDWORK COORDINATOR) Anatomical Region Laterality Modality Breast Bilateral Mammography Impressions 09/19/2019 2:59 PM FIELDWORK COORDINATOR IMPRESSION: BI-RADS CATEGORY: 1 - ??Negative RECOMMENDED FOLLOW-UP: Annual Mammography. Exam results letter mailed to patient. NICK HARPER MD Narrative 09/19/2019 2:59 PM FIELDWORK COORDINATOR SCREENING MAMMOGRAM, BILATERAL, DIGITAL w/CAD - 09/19/2019 2:07 PM BREAST SYMPTOMS: No current breast complaints. COMPARISON: ??09/02/2013, 01/23/2012, 12/27/2010. BREAST DENSITY: Scattered fibroglandular densities. COMMENTS: No findings of suspicion for malignancy. Procedure Note Nick Harper MD - 09/19/2019 SCREENING MAMMOGRAM, BILATERAL, DIGITAL w/CAD - 09/19/2019 2:07 PM BREAST SYMPTOMS: No current breast complaints. COMPARISON: 09/02/2013, 01/23/2012, 12/27/2010. BREAST DENSITY: Scattered fibroglandular densities. COMMENTS: No findings of suspicion for malignancy. IMPRESSION: BI-RADS CATEGORY: 1 - Negative RECOMMENDED FOLLOW-UP: Annual Mammography. Exam results letter mailed to patient. NICK HARPER MD Kirsten Suarez MD IMG MAMMOGRAPHY ORDERABLES * DX Hip/Pelvis/Spine w Lateral (09/19/2019 1:23 PM FIELDWORK COORDINATOR) Anatomical Region Laterality Modality Dexa Bone Mineral Den sity Impressions 09/19/2019 2:12 PM FIELDWORK COORDINATOR IMPRESSION: Lumbar spine and right hip osteopenia. ROB MONTERO MD Narrative 09/19/2019 2:12 PM FIELDWORK COORDINATOR DX HIP/PELVIS/SPINE W LAT FRACTION ANALYSIS ??09/19/2019 1:23 PM HISTORY: ??osteopenia 2012; Disorder of bone; Osteopenia, unspecified location; Rheumatoid arthritis involving right knee, unspecified rheumatoid factor presence (H) FINDINGS: This DEXA scan was performed using a mLED scanner. DEXA results are reported according to T-score. ??The T-score is the standard deviation from the peak bone mass in a normal young adult population. ??In accordance with the ISCD (International Society of Clinical Densitometry), the lower of the total proximal femur vs femoral neck T-score is reported. ??Osteopenia is defined as a T-score of -1.0 to -2.5. ??Osteoporosis is defined as a T-score of less than -2.5. T-SCORES: Lumbar Spine L1-L4 T-score: -1.2 Left Hip T-score: -0.8 Right Hip T-score: -1.5 Hip lowest neck BMD: 0.832 gm/cm2. PERCENT CHANGE since 09/02/2013: Lumbar Spine: Not significantly changed, 0.1% Femurs: Not significantly changed, -6.7% No evidence of lumbar spine compression fracture. ??A spine fracture would indicate a 5x risk for subsequent spine fracture and a 2x risk for subsequent hip fracture. This study is only for screening purposes. Radiographic correlation should be obtained to verify abnormal findings or if there is clinical suspicion of lumbar spine fracture. Procedure Note Rob Montero MD - 09/19/2019 DX HIP/PELVIS/SPINE W LAT FRACTION ANALYSIS 09/19/2019 1:23 PM HISTORY: osteopenia 2012; Disorder of bone; Osteopenia, unspecified location; Rheumatoid arthritis involving right knee, unspecified rheumatoid factor presence (H) FINDINGS: This DEXA scan was performed using a mLED scanner. DEXA results are reported according to T-score. The T-score is the standard deviation from the peak bone mass in a normal young adult population. In accordance with the ISCD (International Society of Clinical Densitometry), the lower of the total proximal femur vs femoral neck T-score is reported. Osteopenia is defined as a T-score of -1.0 to -2.5. Osteoporosis is defined as a T-score of less than -2.5. T-SCORES: Lumbar Spine L1-L4 T-score: -1.2 Left Hip T-score: -0.8 Right Hip T-score: -1.5 Hip lowest neck BMD: 0.832 gm/cm2. PERCENT CHANGE since 09/02/2013: Lumbar Spine: Not significantly changed, 0.1% Femurs: Not significantly changed, -6.7% No evidence of lumbar spine compression fracture. A spine fracture would indicate a 5x risk for subsequent spine fracture and a 2x risk for subsequent hip fracture. This study is only for screening purposes. Radiographic correlation should be obtained to verify abnormal findings or if there is clinical suspicion of lumbar spine fracture. IMPRESSION: Lumbar spine and right hip osteopenia. ROB MONTERO MD Ricky Munoz PA-C IMG DEXA ORDER KYLE * (ABNORMAL) UA with Microscopic reflex to Culture (04/13/2017 9:55 AM CDT) Color Urine Yellow [facility] Appearance Urine Clear [facility] Glucose Urine Negative NEG mg/dL [facility] Bilirubin Urine Negative NEG [facility] Ketones Urine Negative NEG mg/dL [facility] Specific Braymer Urine 1.008 1.003 - 1.035 [facility] Blood Urine Negative NEG [facility] pH Urine 5.0 5.0 - 7.0 pH [facility] Protein Albumin Urine Negative NEG mg/dL [facility] Urobilinogen mg/dL Normal 0.0 - 2.0 mg/dL [facility] Nitrite Urine Negative NEG [facility] Leukocyte Esterase Urine Negative NEG [facility] Source Midstream Urine [facility] WBC Urine 3(H) 0 - 2 /HPF [facility] RBC Urine 1 0 - 2 /HPF [facility] Squamous Epithelial /HPF Urine 1 0 - 1 /HPF [facility] Urine specimen (specimen) URINE SPECIMEN OBTAINED BY CLEAN CATCH PROCEDURE / Unknown 04/13/2017 9:55 AM CDT 04/13/2017 11:11 AM CDT Nolan Godfrey MD LAB - URINE ORDERABL ES [facility] [address] [place] [address], [facility] [phone] * Hepatitis C Screen Reflex to HCV RNA Quant and Genotype (10/05/2016 11:02 AM FIELDWORK COORDINATOR) Hepatitis C Antibody Nonreactive Assay performance characteristics have not been established for newborns, infants, and children [facility] Blood specimen (specimen) 10/05/2016 11:02 AM FIELDWORK COORDINATOR 10/05/2016 11:03 AM FIELDWORK COORDINATOR Ricky Munoz PA-C LAB - BLOOD OR DERABLES [facility] [address] [place] [address] from Last 3 Months or Most Recently Relevant to Health Maintenance Advance Directives For more information, please contact: [phone] * Full Code (Latest Code Status on File) Date Activated Date Inactivated Comments 01/08/2018 4:01 PM 01/11/2018 3:55 PM * Full Code Date Activated Date Inactivated Comments 04/10/2017 5:22 PM 04/13/2017 4:22 PM Care Teams Mix Chemist Relationship Specialty Start Date End Date Ricky Munoz PA-C [address] [place] [address] PCP - General Physician Thread Clipper - Medical 06/18/20 Anne-Marie Pike MD [facility] [address] [place] [address] Family Practice 09/19/11 Ricky Munoz PA-C [address] [place] [address] Assigned PCP 06/26/21
--- OUTSIDE RECORDS SUMMARY | 2024-03-23 08:05 | XMS_ITS | Encounter Summary ---
Author Organization [place] Address [address] [place] [address]. [place] [address] Care Team Providers Care Glue Mixer Name Role Phone Anne-Marie Pike MD Unavailable [phone] Ricky Munoz PA-C Primary Care Provider Ricky Munoz PA-C Unavailable [phone] Reason for Visit * Reason Comments Medication Refill Encounter Details Date Type Department Care Team (Late st Contact Info) Description 08/12/[address] [address] [place] [address] [place] [address] Medication Refill Social History Tobacco Use Types Packs/Day Years Used Date Smoking Tobacco: Never Smokeless Tobacco: Never Alcohol Use Standard Drinks/Week Comments No 0 (1 standard drink = 0.6 oz pur e alcohol) PHQ-2 Answer Date Recorded PHQ-2 Score 1 06/16/2021 Sex and Gender Information Value Date Recorded Sex Assigned at Not on file Gender Identity Not on file Sexual Orientation Not on file COVID-19 Exposure Response Date Recorded In the last 10 days, have yo u been in contact with someone who was confirmed or suspected to have Coronavirus/COVID-19? No / Unsure 08/15/2022 2:31 PM CDT documented as of this encounter Miscellaneous Notes * Telephone Encounter - Leticia Gaona - 08/17/2022 10:34 AM CDT Pt is scheduled for A1C on 08/21 Leticia Gaona Human Factors Scientist * Telephone Encounter - Ricky Munoz PA-C - 08/16/2022 8:23 AM CDT She keeps cancelling. I need her to come in please. * Telephone Encounter - Katia Tesfaye RN - 08/14/2022 2:56 PM CDT Routing refill request to provider for review/approval because: Rosalia given x1 and patient did not follow up, please advise DM labs overdue Lab Results Component Value Date A1C 6.2 06/16/2021 Katia Tesfaye RN, BSN [facility] documented in this encounter Plan of Treatment Not on file documented as of this encounter Visit Diagnoses Diagnosis Type 2 diabetes mellitus with diabetic neuropathy, without long-term current use of insulin (H) documented in this encounter Additional Health Concerns Assessment Noted Time PHQ-9 Depression Total Score: 7 07/01/20 20 12:02 PM CDT documented as of this encounter Care Teams Glue Mixer Relationship Specialty Start Date End Date Ricky Munoz PA-C [address] [place] [address] PCP - General Physician Bpo Specialist - Medical 06/18/20 Anne-Marie Pike MD [place] [address] [place] [address] Family Practice 09/19/11 Ricky Munoz PA-C [address] [place] [address] Assigned PCP 06/26/21 documented as of this encounter
--- OUTSIDE RECORDS SUMMARY | 2024-03-23 08:05 | XMS_ITS | Encounter Summary ---
Author Organization [place] Address [address] [place] [address] Care Team Providers Care Furnace Setter Name Role Phone Anne-Marie Pike MD Unavailable [phone] Kirsten Suarez MD Primary Care Provider + Ricky Munoz PA-C Unavailable + Damon Escalante MD Unavailable + Ricky Munoz PA-C Primary Care Provider + Melida Lopez RN Unavailable Unavailable Ricky Munoz PA-C Unavailable + Ricky Munoz PA-C Unavailable + Ricky Munoz PA-C Unavailable + Encounter Details Date Type Department Care Team (Late st Contact Info) Description 12/08/2019 [facility] Advice [address], [address] [place] [address] Leisa Hernández Social History Tobacco Use Types Packs/Day Years Used Date Smoking Tobacco: Never Smokeless Tobacco: Never Alcohol Use Standard Drinks/Week Comments No 0 (1 standard drink = 0.6 oz pur e alcohol) PHQ-2 Answer Date Recorded PHQ-2 Score 0 09/24/2019 Sex and Gender Information Value Date Recorded Sex Assigned at Not on file Gender Identity Not on file Sexual Orientation Not on file documented as of this encounter Plan of Treatment Not on file documented as of this encounter Visit Diagnoses Not on filedocumented in this encounter Additional Health Concerns Assessment Noted Time PHQ-9 Depression Total Score: 5 03/24/20 19 12:08 PM CDT documented as of this encounter Care Teams Furnace Setter Relationship Specialty Start Date End Date Kirsten Suarez MD [address] [place] [address] PCP - General Family Practice 03/11/13 06/17/20 Ricky Munoz PA-C [address] [place] [address] PCP - General Physician Ehs Engineer - Medical 06/18/20 Anne-Marie Pike MD [address] [place] [address] Family Practice 09/19/11 Ricky Munoz PA-C [address] [place] [address] Assigned PCP 10/19/19 03/27/20 [place] [address] [place] [address] Assigned PCP 03/28/20 06/19/20 Melida Lopez, RN Personal Advocate & Liaison (PAL) Family Practice 06/23/20 10/20/20 Ricky Munoz PA-C [address] [place] [address] Assigned PCP 07/18/20 06/25/21 Ricky Munoz PA-C [address] [place] [address] Assigned PCP 06/20/20 07/17/20 Ricky Munoz PA-C [address] [address] Assigned PCP 06/26/21 documented as of this encounter
--- OUTSIDE RECORDS SUMMARY | 2024-03-23 08:05 | XMS_ITS | Encounter Summary ---
Author Organization [place] Address [address] [place] [address] Care Team Providers Care Compound Coating Machine Offbearer Name Role Phone Anne-Marie Pike MD Unavailable [phone] Ricky Munoz PA-C Primary Care Provider Ricky Munoz PA-C Unavailable + [phone] Encounter Details Date Type Department Care Team (Late st Contact Info) Description 08/15/2022 [facility] [id number] [place] [address] Emani Rivera Social History Tobacco Use Types Packs/Day Years [...] PM CDT documented as of this encounter Plan of Treatment Not on file documented as of this encounter Visit Diagnoses Not on filedocumented in this encounter Additional Health Concerns Assessment Noted Time PHQ-9 Depression Total Score: 7 07/01/20 20 12:02 PM CDT documented as of this encounter Care Teams Compound Coating Machine Offbearer Relationship Specialty Start Date End Date Ricky Munoz PA-C [address] [place] [address] PCP - General Physician Solutions Manager - Medical 06/18/20 Anne-Marie Pike MD [place] [id number] [facility] [place] [address] [facility] Practice 09/19/11 Ricky Munoz PA-C [address] [address] Assigned PCP 06/26/21 documented as of this encounter
--- OUTSIDE RECORDS SUMMARY | 2024-03-23 08:05 | XMS_ITS | Encounter Summary ---
Author Organization [place] Address [facility] [place] [address] Care Team Providers Care Clothing Patternmaker Name Role Phone Anne-Marie Pike MD Unavailable [phone] Ricky Munoz PA-C Primary Care Provider Ricky Munoz PA-C Unavailable + [phone] Ricky Munoz PA-C Unavailable + [phone] Reason for Visit * Reason Comments Medication Refill Atenolol Encounter Details Date Type Department Care Team (Late st Contact Info) Description 05/28/2021 Refill [facility] [address] [place] [address] Ricky Munoz PA-C [address] [place] [address] Medication Refill (Atenolol) Social History Tobacco Use Types Packs/Day Years Used Date Smoking Tobacco: Never Smokeless Tobacco: Never Alcohol Use Standard Drinks/Week Comments No 0 (1 standard drink = 0.6 oz pur e alcohol) PHQ-2 Answer Date Recorded PHQ-2 Score 3 07/01/2020 Sex and Gender Information Value Date Recorded Sex Assigned at Not on file Gender Identity Not on file Sexual Orientation Not on file documented as of this encounter Miscellaneous Notes * Telephone Encounter - Evon Reid RN - 05/30/2021 1:32 PM CDT Failed protocol for atenolol - has not had a bp checked since 2019. * Telephone Encounter - Rahel Garrett - 05/30/2021 7:16 AM CDT Patients appointment for today was cancelled by PCP. Please refill until she can be seen on 06/16/21. documented in this encounter Plan of Treatment Not on file documented as of this encounter Visit Diagnoses Diagnosis Essential hypertension with goal blood pressure less than 140/90 documented in this encounter Additional Health Concerns Assessment Noted Time PHQ-9 Depression Total Score: 7 07/01/20 12:02 PM CDT documented as of this encounter Care Teams Clothing Patternmaker Relationship Specialty Start Date End Date Ricky Munoz PA-C [address] [address] PCP - General Physician Racing Driver - Medical 06/18/20 Anne-Marie Pike MD [facility] MEDICAL [address] [place] [address] [facility] Practice 09/19/11 Ricky Munoz PA-C [address] [address] [address] Assigned PCP 07/18/20 06/25/21 Ricky Munoz PA-C [address] [address] [place] [address] Assigned PCP 06/26/21 documented as of this encounter
--- OUTSIDE RECORDS SUMMARY | 2024-03-23 08:05 | XMS_ITS | Encounter Summary ---
Author Organization [place] Address [address] [place] [address] Care Team Providers Care Protection Chief Industrial Plant Name Role Phone Anne-Marie Pike MD Unavailable [phone] Kirsten Suarez MD Primary Care Provider + Ricky MunozC Unavailable + Damon Escalante MD Unavailable + Ricky Munoz PA-C Unavailable + Damon Escalante MD Unavailable + Ricky Munoz PA-C Primary Care Provider + Melida Lopez RN Unavailable Unavailable Ricky MunozC Unavailable + Ricky MunozC Unavailable + Ricky MunozC Unavailable + Encounter Details Date Type Department Care Team (Late st Contact Info) Description 01/21/2019 [facility] Medical Advice [address], [address] [place] [address] Ximena Day RN Social History Tobacco Use Types Packs/Day Years Used Date Smoking Tobacco: Never Smokeless Tobacco: Never Alcohol Use Standard Drinks/Week Comments No 0 (1 standard drink = 0.6 oz pur e alcohol) PHQ-2 Answer Date Recorded PHQ-2 Score 1 10/22/2018 Sex and Gender Information Value Date Recorded Sex Assigned at Not on file Gender Identity Not on file Sexual Orientation Not on file documented as of this encounter Plan of Treatment Not on file documented as of this encounter Visit Diagnoses Not on filedocumented in this encounter Additional Health Concerns Assessment Noted Time PHQ-9 Depression Total Score: 3 02/03/20 18 7:40 AM CDT documented as of this encounter Care Teams Protection Chief Industrial Plant Relationship Specialty Start Date End Date Kirsten Suarez MD [address] [place] [address] PCP - General Family Practice 03/11/13 06/17/20 Ricky Munoz PA-C [address] [place] [address] PCP - General Physician Cotton Weigher - Medical 06/18/20 Anne-Marie Pike MD [address] [place] [address] Family Practice 09/19/11 Ricky Munoz PA-C [address] [place] [address] Assigned PCP 01/19/19 10/11/19 [place] [address] [place] [address] Assigned PCP 10/12/19 10/18/19 Ricky Munoz PA-C [address] [place] [address] Assigned PCP 10/19/19 03/27/20 [place] [address] [address] [place] [address] Assigned PCP 03/28/20 06/19/20 Melida Lopez, RN Personal Advocate & Liaison (PAL) Family Practice 06/23/20 10/20/20 Ricky Munoz PA-C [address] [address] [address] Assigned PCP 07/18/20 06/25/21 Ricky Munoz PA-C [address] [address] [id number] Assigned PCP 06/20/20 07/17/20 Ricky Munoz PA-C [address] [address] [id number] Assigned PCP 06/26/21 documented as of this encounter
--- OUTSIDE RECORDS SUMMARY | 2024-03-23 08:05 | XMS_ITS | Referral Summary ---
Author Organization [place] Address [address] [place] [address] Care Team Providers Care Stereo Compiler Name Role Phone Anne-Marie Pike MD Unavailable [phone] Ricky Munoz PA-C Primary Care Provider Ricky Munoz PA-C Unavailable [phone] Allergies Active Allergy Reactions Criticality Noted Date [...] 09/03/2006 Bipolar 2 disorder 06/11/2006 Overview: Overview: [place] was effective but caused skin problems. Zyprexa led to her feeling like a zombie. She did not tolerate prozac at doses high enough to treat her depression. She was hospitalized at [place] in May 2004 with depression. Hypothyroidism 01/01/2004 [...] TDAP (Adacel,Boostrix) 12/22/2010 Zoster vaccine, live 03/18/2012,11/26/2011 Social History Tobacco Use Types Packs/Day Years [...] 07/01/2020 12:04 PM CDT Plan of Treatment Not on file Medical Devices Implanted Type Area School Inspector Device Identifier Shelf Expiration Date Model / Serial / Lot Bone Cement Radiopaque Simplex Hv Full Dose 6194-1-001 Implanted:Qty: 1 on 04/10/2017 by Marlon Mcfadden MD at [facility] Cement, Bone Right: Knee [employer] 11/14/2018 6194-1-001 / / [id number] Bone Cement Simplex W/Gentamicin 6195-1-001 Implanted:Qty: 1 on 04/10/2017 by Marlon Mcfadden MD at [facility] Cement, Bone Right: Knee [employer] 06/14/2018 6195-1-001 / / [id number] Bone Cement Radiopaque Simplex Hv Full Dose 6194-1-001 Implanted:Qty: 1 on 01/08/2018 by Marlon Mcfadden MD at [facility] Cement, Bone Left: Knee [employer] 04/13/2019 6194-1-001 / / [id number] Bone Cement Simplex W/Gentamicin 6195-1-001 Implanted:Qty: 1 on 01/08/2018 by Marlon Mcfadden MD at [facility] Cement, Bone Left: Knee [employer] 05/14/2019 6195-1-001 / / [id number] Eye Imp Iol Lorrie Pcl Technis Zcb00 21.0 Implanted:Qty: 1 on 09/19/2011 at [facility] Right: Eye [employer] 07/14/2014 ZCB00 21.0 / [id number] / Eye Imp Iol Lorrie Pcl Tecnis Zcb00 21.5 Implanted:Qty: 1 on 05/12/2014 by Akil Nguyen MD at [facility] Left: Eye [employer] 03/13/2018 ZCB00 21.5 / [id number] / Imp Tibial Tray Size 3 Implanted:Qty: 1 on 04/10/2017 by Marlon Mcfadden MD at [facility] Right: Knee 05/20/2021 90-SRK-200 300 / / [id number] Imp Femoral Component Type Ps Size 4r Implanted:Qty: 1 on 04/10/2017 by Marlon Mcfadden MD at [facility] Right: Knee 04/13/2021 90-SRK-331 400 / / [id number] Imp Patella Oval 38mm Implanted:Qty: 1 on 04/10/2017 by Marlon Mcfadden MD at [facility] Right: Knee 05/16/2021 90-SRK-410 300 / / [id number] Imp Poly Insert Type Ps Size 4 12mm Implanted:Qty: 1 on 04/10/2017 by Marlon Mcfadden MD at [facility] Right: Knee 05/15/2021 90-SRK-130 412 / / [id number] Poly Insert Implanted:Qty: 1 on 01/08/2018 by Marlon Mcfadden MD at [facility] Left: Knee [employer] 05/15/2021 90-SRK-130 412 / / [id number] Patella Implanted:Qty: 1 on 01/08/2018 by Marlon Mcfadden MD at [facility] Left: Knee [employer] 05/16/2021 90-SRK-410 300 / / [id number] Femoral Component Implanted:Qty: 1 on 01/08/2018 by Marlon Mcfadden MD at [facility] Left: Knee [employer] 04/13/2021 90-SRK-332 400 / / [id number] Tibial Tray Implanted:Qty: 1 on 01/08/2018 by Marlon Mcfadden MD at [facility] Left: Knee [employer] 05/17/2021 90-SRK-200 300 / / [id number] Procedures Procedure Name Priority Date/Time Associated Diagnosis Comments EYE EXAM - HIM SCAN 08/15/2023 1 2:00 AM CDT COLONOSCOPY - HIM SCAN 08/31/2021 12:00 AM SAMPLE WASHER CBC WITH PLATELETS Routine 06/16/2021 11 :32 [...] SCREENING DIGITAL BILATERAL Routine 09/19/2019 2:07 PM SAMPLE WASHER Visit for screening mammogram DX HIP/PELVIS/SPINE W LAT FRACTION ANALYSIS Routine 09/19/2019 1:23 PM SAMPLE WASHER Disorder of bone Osteopenia, unspecified location Rheumatoid arthritis involving right knee, unspecified rheumatoid factor presence (H) ROUTINE UA WITH MICROSCOPIC REFLEX TO CULTURE STAT 04/13/2017 9:55 AM CDT Status post total knee replacement, right HEPATITIS C SCREEN REFLEX TO HCV RNA QUANT AND GENOTYPE Routine 10/05/2016 11:02 AM SAMPLE WASHER Need for hepatitis C screening test C FOOT EXAM Routine 05/04/2014 11:01 AM CDT Screening for diabetic peripheral neuropathy from Last 3 Months or Most Recently Relevant to Health Maintenance Results * EYE EXAM - HIM SCAN (08/15/2023 12:00 AM CDT) RETINOPATHY NEGATIVE 08/15/2023 Provider Outside OTHER * COLONOSCOPY - HIM SCAN (08/31/2021 12:00 AM SAMPLE WASHER) 08/31/2021 Provider Outside PROCEDURES * TSH WITH FREE T4 REFLEX (06/16/2021 11:32 AM CDT) TSH 1.97 0.40 - 4.00 mU/L 06/17/2021 10:31 AM CDT [facility] Blood STRUCTURE OF LEFT UPPER LIMB / Unknown Venipuncture / Unknown 06/16/2021 11:32 AM CDT 06/16/2021 11:32 AM CDT Ricky Munoz PA-C LAB - BLOOD OR DERABLES [facility] [address] Lab (no room number, 1st floor of clinic) [place] [address], [facility] [phone] * (ABNORMAL) Lipid panel reflex to direct [...] Munoz PA-C LAB - BLOOD OR DERABLES Performing Organization Address [facility]/ZIP Co de Phone Number OX LABORATORY [facility] [address] Lab (no room number, 1st floor of clinic) [place] [address], [facility] [phone] * (ABNORMAL) HEMOGLOBIN A1C (06/16/2021 11:32 AM CDT) Hemoglobin A1C 6.2(H) 0.0 - 5.6 % 06/16/2021 11:33 AM CDT LABORATORY Comment: Normal <5.7% Prediabetes 5.7-6.4% ?? Diabetes 6.5% or higher Note: Adopted from ADA consensus guidelines. Blood STRUCTURE OF LEFT UPPER LIMB / Unknown Venipuncture / Unknown 06/16/2021 11:32 AM CDT 06/16/2021 11:32 AM CDT Ricky Munoz PA-C LAB - BLOOD OR DERABLES Performing Organization Address [facility]/ZIP Co de Phone Number LABORATORY [facility] [address] [facility] Lab (no room number, 1st floor of [facility]) [place] [address], [facility] [phone] * (ABNORMAL) Comprehensive metabolic panel (BMP + [...] LAB - BLOOD OR DERABLES OX LABORATORY [facility] [address] Lab (no room number, 1st floor of clinic) [place] [address], [facility] [phone] * CBC with platelets (06/16/2021 11:32 AM CDT) WBC Count 8.5 4.0 - 11.0 10e3/uL 06/16/2021 11:35 AM CDT LABORATORY RBC Count 4.93 3.80 - 5.20 10e6/uL 06/16/2021 11:35 AM CDT LABORATORY Hemoglobin 13.7 11.7 - 15.7 g/dL 06/16/2021 11:35 AM CDT LABORATORY Hematocrit 42.9 35.0 - 47.0 % 06/16/2021 11:35 AM CDT LABORATORY MCV 87 78 - 100 fL [...] - BLOOD OR DERABLES LABORATORY [facility] [address] [facility] Lab (no room number, 1st floor of clinic) [place] [address], [facility] [phone] * Albumin Random Urine Quantitative with Creat Ratio (07/13/2020 3:01 PM CDT) Creatinine Urine 237 mg/dL 07/14/2020 3:27 PM CDT [facility] Albumin Urine mg/L 22 mg/L 07/14/2020 3:38 PM CDT [facility] Albumin Urine mg/g Cr 9.37 0 - 25 mg/g Cr 07/14/2020 3:38 PM CDT [facility] Urine specimen (specimen) 07/13/2020 3:01 PM CDT 07/13/2020 4:20 PM CDT Ricky Munoz PA-C LAB - URINE OR DERABLES [facility] [address] [place] [address] * MA Screening Digital Bilateral (09/19/2019 2:07 PM SAMPLE WASHER) Anatomical Region Laterality Modality Breast Bilateral Mammography Impressions 09/19/2019 2:59 PM SAMPLE WASHER IMPRESSION: BI-RADS CATEGORY: 1 - ??Negative RECOMMENDED FOLLOW-UP: Annual Mammography. Exam results letter mailed to patient. NICK HARPER MD Narrative 09/19/2019 2:59 PM SAMPLE WASHER SCREENING MAMMOGRAM, BILATERAL, DIGITAL w/CAD - 09/19/2019 [...] DX Hip/Pelvis/Spine w Lateral (09/19/2019 1:23 PM SAMPLE WASHER) Anatomical Region Laterality Modality Dexa Bone Mineral Den sity Impressions 09/19/2019 2:12 PM SAMPLE WASHER IMPRESSION: Lumbar spine and right hip osteopenia. ROB MONTERO MD Narrative 09/19/2019 2:12 PM SAMPLE WASHER DX HIP/PELVIS/SPINE W LAT FRACTION ANALYSIS ??09/19/2019 1:23 PM HISTORY: ??osteopenia 2012; Disorder of bone; Osteopenia, unspecified location; Rheumatoid arthritis involving right knee, unspecified rheumatoid factor presence (H) FINDINGS: This DEXA scan was performed using a [employer] iDXA scanner. DEXA results are reported according to [...] This DEXA scan was performed using a [employer] iDXA scanner. DEXA results are reported according to [...] (04/13/2017 9:55 AM CDT) Color Urine Yellow [facility] Appearance Urine Clear [facility] Glucose Urine Negative NEG mg/dL [facility] Bilirubin Urine Negative NEG [facility] Ketones Urine Negative NEG mg/dL [facility] Specific [place] Urine 1.008 1.003 - 1.035 [facility] Blood Urine Negative NEG [facility] pH Urine 5.0 5.0 - 7.[address] [facility] Protein Albumin Urine Negative NEG mg/dL [facility] Urobilinogen mg/dL Normal 0.0 - 2.0 mg/dL [facility] Nitrite Urine Negative NEG [facility] Leukocyte Esterase Urine Negative NEG [facility] Source Midstream Urine [facility] WBC Urine 3(H) 0 - 2 /HPF [facility] RBC Urine 1 0 - 2 /HPF [facility] Squamous Epithelial /HPF Urine 1 0 - 1 /HPF [facility] Urine specimen (specimen) URINE SPECIMEN OBTAINED BY CLEAN CATCH PROCEDURE / Unknown 04/13/2017 9:55 AM CDT 04/13/2017 11:11 AM CDT Nolan Godfrey MD LAB - URINE ORDERABL ES [facility] [address] [place] [address], [facility] [phone] * Hepatitis C Screen Reflex to HCV RNA Quant and Genotype (10/05/2016 11:02 AM SAMPLE WASHER) Hepatitis C Antibody Nonreactive Assay performance characteristics have not been established for newborns, infants, and children NR [facility] Blood specimen (specimen) 10/05/2016 11:02 AM SAMPLE WASHER 10/05/2016 11:03 AM SAMPLE WASHER Ricky Munoz PA-C LAB - BLOOD OR DERABLES [facility] [address] [place] [address] from Last 3 Months or Most Recently Relevant to Health Maintenance Advance Directives For more information, please contact: [phone] * Full Code (Latest Code Status on File) Date Activated Date Inactivated Comments 01/08/2018 4:01 PM 01/11/2018 3:55 PM * Full Code Date Activated Date Inactivated Comments 04/10/2017 5:22 PM 04/13/2017 4:22 PM Care Teams Stereo Compiler Relationship Specialty Start Date End Date Ricky Munoz PA-C [address] [place] [address] PCP - General Physician Learning Support Services Director - Medical 06/18/20 Anne-Marie Pike MD [address] [place] [address] Family Practice 09/19/11 Ricky Munoz PA-C [address] [place] [address] Assigned PCP 06/26/21
--- OUTSIDE RECORDS SUMMARY | 2024-03-23 08:05 | XMS_ITS | Encounter Summary ---
Author Organization [place] Address [address] [place] [address]. [place] [address] Care Team Providers Care Chief Radiologic Technologist Name Role Phone Anne-Marie Pike MD Unavailable [phone] Ricky Munoz PA-C Primary Care Provider Ricky Munoz PA-C Unavailable + [phone] Reason for Visit * Reason Comments Medication Refill Encounter Details Date Type Department Care Team (Late st Contact Info) Description 08/25/2022 Refill [facility] [address] [place] [address] Ricky Munoz PA-C [address] [place] [address] Medication Refill Social History Tobacco [...] suspected to have Coronavirus/COVID-19? No / Unsure 08/21/2022 4:07 PM SUPERVISOR TUMBLING AND ROLLING documented as of this encounter Miscellaneous Notes * Telephone Encounter - Katherine Sutton RN - 08/25/2022 11:27 AM SUPERVISOR TUMBLING AND ROLLING Routing refill request to provider for review/approval because: Labs out of range: creatinine Labs not current: potassium, sodium, BP Creatinine Date Value Ref Range Status 06/16/2021 1.18 (H) 0.52 - 1.04 mg/dL Final 07/13/2020 1.00 0.52 - 1.04 mg/dL Final BP Readings from Last 3 Encounters: 06/16/21 128/88 10/10/19 124/80 09/24/19 128/78 Potassium Date Value Ref Range Status 06/16/2021 4.3 3.4 - 5.3 mmol/L Final 07/13/2020 3.3 (L) 3.4 - 5.3 mmol/L Final Sodium Date Value Ref Range Status 06/16/2021 136 133 - 144 mmol/L Final 07/13/2020 138 133 - 144 mmol/L Final Katherine Sutton RN [employer]IS[employer]UMBLING [employer] ROLLING documented in this encounter Plan of Treatment Not on file documented as of this encounter Visit Diagnoses Diagnosis Essential hypertension with goal blood pressure less than 140/90 documented in this encounter Additional Health Concerns Assessment Noted Time PHQ-9 Depression Total Score: 7 07/01/20 20 12:02 PM CDT documented as of this encounter Care Teams Chief Radiologic Technologist Relationship Specialty Start Date End Date Ricky Munoz PA-C [address] [address] PCP - General Physician Chain Hoist Operator - Medical 06/18/20 Anne-Marie Pike MD [facility] MEDICAL [facility] [address] [place] [address] Family Practice 09/19/11 Ricky Munoz PA-C [address] [address] Assigned PCP 06/26/21 documented as of this encounter
--- OUTSIDE RECORDS SUMMARY | 2024-03-23 08:05 | XMS_ITS | Encounter Summary ---
Author Organization [place] Address [address] [place] [address] Care Team Providers Care Final Canoe Inspector Name Role Phone Anne-Marie Pike MD Unavailable [phone] Kirsten Suarez MD Primary Care Provider + Ricky Munoz-C Unavailable + Christa Schafer UNIX SYSTEM ADMINISTRATOR INSTALLMENT AGENT Unavailable + Ricky Munoz-C Unavailable + Christa Schafer UNIX SYSTEM ADMINISTRATOR INSTALLMENT AGENT Unavailable + Ricky Munoz-C Unavailable + Damon Escalante MD Unavailable + Ricky Munoz-C Unavailable + Damon Escalante MD Unavailable + Ricky Munoz-C Primary Care Provider + Melida Lopez RN Unavailable Unavailable Ricky Munoz-C Unavailable + Ricky Munoz-C Unavailable + Ricky Munoz-C Unavailable + Encounter Details Date Type Department Care Team (Late st Contact Info) Description 01/04/2016 MyC Medical Advice [facility] [id number] [place] [address], [address] [place] [address] Aleja Kramer BURLING AND JOINING SUPERVISOR Social History Tobacco Use Types Packs/Day Years Used Date Smoking Tobacco: Never Smokeless Tobacco: Never Alcohol Use Standard Drinks/Week Comments No 0 (1 standard drink = 0.6 oz pur e alcohol) Sex and Gender Information Value Date Recorded Sex Assigned at Not on file Gender Identity Not on file Sexual Orientation Not on file documented as of this encounter Plan of Treatment Not on file documented as of this encounter Visit Diagnoses Not on filedocumented in this encounter Care Teams Final Canoe Inspector Relationship Specialty Start Date End Date Kirsten Suarez MD [place] [id number] [place] [address] PCP - General [facility] Practice 03/11/13 06/17/20 Ricky Munoz PA-C [address] [place] [address] PCP - Assigned PCP 08/18/18 12/17/18 Christa Schafer APRN [facility] [place] [address] PCP - Assigned PCP 08/11/18 08/17/18 Ricky Munoz [place] [address] [place] [address] PCP - General Physician Bailer Operators Supervisor - Medical 06/18/20 Anne-Marie Pike MD [place] [id number] [place] [address] [facility] Practice 09/19/11 Ricky Munoz PA-C [address] [place] [address] Assigned PCP 08/18/18 12/21/18 Christa Schafer APRN INSTALLMENT AGENT [address] [place] [address] Assigned PCP 12/22/18 01/11/19 Ricky Munoz PA-C [address] [place] [address] Assigned PCP 01/19/19 10/11/19 [place] [address] [place] [address] Assigned PCP 10/12/19 10/18/19 Ricky Munoz PA-C [address] [place] [address] Assigned PCP 10/19/19 03/27/20 [place] [address] [place], [place] 0[address] Assigned PCP 03/28/20 06/19/20 Melida Lopez RN Personal Advocate & Liaison (PAL) Family Practice 06/23/20 10/20/20 Ricky Munoz PA-C [address] [place] [address] Assigned PCP 07/18/20 06/25/21 Ricky Munoz PA-C [address] [place] [address] Assigned PCP 06/20/20 07/17/20 Ricky Munoz PA-C [address] [address] Assigned PCP 06/26/21 documented as of this encounter
--- OUTSIDE RECORDS SUMMARY | 2024-03-23 08:05 | XMS_ITS | Encounter Summary ---
Author Organization [place] Address [address] [place] [address] Care Team Providers Care Four H Agent Name Role Phone Anne-Marie Pike MD Unavailable [phone] Kirsten Suarez MD Primary Care Provider Ricky Munoz PA-C Unavailable + Damon Escalante MD Unavailable + Ricky Munoz PA-C Unavailable + Damon Escalante MD Unavailable + Ricky Munoz PA-C Primary Care Provider + Melida Lopez RN Unavailable Unavailable Ricky Munoz PA-C Unavailable + Ricky Munoz PA-C Unavailable + Ricky Munoz PA-C Unavailable + Reason for Visit * Reason Onset Date Comments Medication Refill 03/07/2019 atenolol (TENO RMIN) 50 MG tablet Encounter Details Date Type Department Care Team (Late st Contact Info) Description 03/07/2019 Refill [facility], [address] [place] [address] Ricky Munoz PA-C [address] [place] [address] Medication Refill (atenolol (TENORMIN) 50 MG tablet) Social History Tobacco Use Types Packs/Day Years [...] encounter Miscellaneous Notes * Telephone Encounter - Kimber Vazquez - 03/07/2019 8:35 AM CDT Images from the original note were not included. Requested Prescriptions Pending Prescriptions Disp Refills ??? atenolol (TENORMIN) 50 MG tablet [Pharmacy Med Name: ATENOLOL 50 MG TABLET] 180 tablet 1 Sig: TAKE 1 TABLET (50 MG) BY MOUTH 2 TIMES DAILY Last Written Prescription Date: 08/15/18 Last Fill Quantity: 180, # refills: 1 Last Office Visit: 08/15/2018 Munoz Return in about 6 months (around 02/12/2019) for Med Check. Future Office Visit: Beta-Blockers Protocol Passed - 03/07/2019 1:27 AM Passed - Blood pressure under 140/90 in past 12 months BP Readings from Last 3 Encounters: 08/15/18 120/70 02/01/18 120/68 01/17/18 138/74 Passed - Patient is age 6 or older Passed - Recent (12 mo) or future (30 days) visit within the authorizing provider's specialty Patient had office visit in the last 12 months or has a visit in the next 30 days with authorizing provider or within the authorizing provider's specialty. See Patient Info tab in inbasket, or Choose Columns in Meds & Orders section of the refill encounter. Passed - Medication is active on med list documented in this encounter Plan of Treatment Not on file documented as of this encounter Visit Diagnoses Diagnosis Essential hypertension with goal blood pressure less than 140/90 documented in this encounter Additional Health Concerns Assessment Noted Time PHQ-9 Depression Total Score: 3 02/03/20 18 7:40 AM CDT documented as of this encounter Care Teams Four H Agent Relationship Specialty Start Date End Date Kirsten Suarez MD [facility] [address] [place] [address] PCP - General Family Practice 03/11/13 06/17/20 Ricky Munoz PA-C [address] [place] [address] PCP - General Physician Tapper Supervisor - Medical 06/18/20 Anne-Marie Pike MD [facility] [address] [place] [address] [facility] Practice 09/19/11 Ricky Munoz PA-C [address] [place] [address] Assigned PCP 01/19/19 10/11/19 [place] [address] [address] [address] Assigned PCP 10/12/19 10/18/19 Ricky Munoz PA-C [address] [place] [address] Assigned PCP 10/19/19 03/27/20 [place] [address] [address] [address] Assigned PCP 03/28/20 06/19/20 Melida Lopez, RN Personal Advocate & Liaison (PAL) Family Practice 06/23/20 10/20/20 Ricky Munoz PA-C [address] [place] [address] Assigned PCP 07/18/20 06/25/21 Ricky Munoz PA-C [address] [place] [address] Assigned PCP 06/20/20 07/17/20 Ricky Munoz PA-C [address] [place] [address] Assigned PCP 06/26/21 documented as of this encounter
--- OUTSIDE RECORDS SUMMARY | 2024-03-23 08:05 | XMS_ITS | Encounter Summary ---
Author Organization [place] Address [address] [place] [address] Care Team Providers Care Food Service Ambassador Name Role Phone Anne-Marie Pike MD Unavailable [phone] Kirsten Suarez MD Primary Care Provider Ricky Munoz PA-C Unavailable + Damon Escalante MD Unavailable + Ricky Munoz PA-C Unavailable + Damon Escalante MD Unavailable + Ricky Munoz PA-C Primary Care Provider + Melida Lopez RN Unavailable Unavailable Ricky MunozC Unavailable + Ricky Munoz PA-C Unavailable + Ricky Munoz PA-C Unavailable + Reason for Visit * Reason Onset Date Comments Outreach 07/24/2019 [facility] MAMMO -ATT 1 Encounter Details Date Type Department Care Team (Late st Contact Info) Description 07/24/2019 Telephone [place] Centralized Scheduling [facility] [place] [address] [place] [address] [place] [address] Outreach ([facility] MAMMO -ATT 1) Social History Tobacco Use Types Packs/Day Years [...] encounter Miscellaneous Notes * Telephone Encounter - Gertrude Templeton Carrie - 07/24/2019 4:07 PM CDT 07/24/2019 Attempt 1 Contacted patient in regards to scheduling [facility] mammogram, FM for AUG 04. Message on [employer] Patient is also due for - Comments: Outreach Rn Clinician LR documented in this encounter Plan of Treatment Not on file documented as of this encounter Visit Diagnoses Not on filedocumented in this encounter Additional Health Concerns Assessment Noted Time PHQ-9 Depression Total Score: 5 03/24/20 19 12:08 PM CDT documented as of this encounter Care Teams Food Service Ambassador Relationship Specialty Start Date End Date Kirsten Suarez MD [facility] MEDICAL [facility] [address] [place] [address] PCP - General Family Practice 03/11/13 06/17/20 Ricky Munoz PA-C [address] [place] [address] PCP - General Physician Warehouse Analyst - Medical 06/18/20 Anne-Marie Pike MD [facility] MEDICAL [facility] [address] [place] [address] Family Practice 09/19/11 Ricky Munoz PA-C [address] [place] [address] Assigned PCP 01/19/19 10/11/19 [place] [address] [place] [address] Assigned PCP 10/12/19 10/18/19 Ricky Munoz PA-C [address] [place] [address] Assigned PCP 10/19/19 03/27/20 [place] [address] [place] [address] Assigned PCP 03/28/20 06/19/20 Melida Lopez, RN Personal Advocate & Liaison (PAL) Family Practice 06/23/20 10/20/20 Ricky Munoz PA-C [address] [place] [address] Assigned PCP 07/18/20 06/25/21 Ricky Munoz PA-C [address] [place] [address] Assigned PCP 06/20/20 07/17/20 Ricky Munoz PA-C [address] [place] [address] Assigned PCP 06/26/21 documented as of this encounter
--- OUTSIDE RECORDS SUMMARY | 2024-03-23 08:05 | XMS_ITS | Encounter Summary ---
Author Organization [facility] Address [address] [place] [address] Care Team Providers Care Quill Layer Name Role Phone Anne-Marie Pike MD Unavailable [phone] Ricky Munoz PA-C Primary Care Provider Ricky Munoz PA-C Unavailable + [phone] Ricky Munoz PA-C Unavailable + [phone] Reason for Visit * Reason Comments Medication Refill Encounter Details Date Type Department Care Team (Late st Contact Info) Description 03/27/2021 Refill [place] [id number] [facility], [address] [place] [address] Ricky Munoz PA-C [address] [place] [address] Medication Refill Social History Tobacco [...] encounter Miscellaneous Notes * Telephone Encounter - Tea Quintana RN - 04/07/2021 4:08 PM CDT Images from the original note were not included. Spoke with patient and she is scheduled for her colonoscopy on 04/14/2021. MAY 30 2021 08:45 AM - PHYSICAL [facility] - VISHAL Sherman RN * Telephone Encounter - Tea Quintana RN - 04/07/2021 2:31 PM CDT LMOM for patient to call clinic back and talk to any of the triage nurses. Tea Quintana RN * Telephone Encounter - Ricky Munoz PA-C - 04/07/2021 2:16 PM CDT When is her colonoscopy? * Telephone Encounter - Evon Reid RN - 04/06/2021 3:58 PM CDT Will forward to Ricky Munoz - see below. * Telephone Encounter - Merline Parker - 04/06/2021 11:30 AM CDT Patient calls back, she wants to wait to come in for her physical until after she has her colonoscopy. If she has to come in sooner, please call her back.[phone] (home) * Telephone Encounter - Emani Rivera - 04/05/2021 10:26 AM CDT Attempt 2, LVM for Maryann to return call Kimmie Rivera- Pricing Analyst * Telephone Encounter - Emani Rivera - 03/29/2021 11:00 AM CDT LVM for Ely to call back to see if we can move up her PX Kimmie Rivera- Pricing Analyst * Telephone Encounter - Ricky Munoz PA-C - 03/29/2021 9:44 AM CDT Why is she waiting two months for the physical? Can we get her in sooner? Last in person visit was 09/2019. Please call to see if we can push up the visit. Thanks! Ricky * Telephone Encounter - Evon Reid RN - 03/28/2021 4:27 PM CDT Routing refill request to provider for review/approval because: Failed protocol for atenolol - needs bp - has appt in 2 months documented in this encounter Plan of Treatment Not on file documented as of this encounter Visit Diagnoses Diagnosis Essential hypertension with goal blood pressure less than 140/90 documented in this encounter Additional Health Concerns Assessment Noted Time PHQ-9 Depression Total Score: 7 07/01/20 20 12:02 PM CDT documented as of this encounter Care Teams Quill Layer Relationship Specialty Start Date End Date Ricky Munoz PA-C 475[address] [address]OY [address] PCP - General Physician Upper Shaper - Medical 06/18/20 Anne-Marie Pike MD [place] [address] [address] [place] [address] Family Practice 09/19/11 Ricky Munoz PA-C 31639 [address] [address] Assigned PCP 07/18/20 06/25/21 Ricky Munoz PA-C 52295 [address] [place] [address] Assigned PCP 06/26/21 documented as of this encounter
--- OUTSIDE RECORDS SUMMARY | 2024-03-23 08:05 | XMS_ITS | Encounter Summary ---
Author Organization [facility] Address [address] [place] [address] Care Team Providers Care Religion Professor Name Role Phone Anne-Marie Pike MD Unavailable [phone] Kirsten Suarez MD Primary Care Provider + Damon Escalante MD Unavailable + Ricky Munoz PA-C Primary Care Provider + Melida Lopez RN Unavailable Unavailable Ricky Munoz PA-C Unavailable + Ricky Munoz PA-C Unavailable + Ricky Munoz PA-C Unavailable + Encounter Details Date Type Department Care Team (Late st Contact Info) Description 03/31/2020 [facility] Medical Advice [address] [address] Leisa Hernández Social History Tobacco Use Types [...] documented as of this encounter Care Teams Religion Professor Relationship Specialty Start Date End Date Kirsten Suarez MD [place] [id number] [facility] [place] [address] PCP - General Family Practice 03/11/13 06/17/20 Ricky Munoz PA-C [address] [place] [address] PCP - General Physician Staying Machine Operator - Medical 06/18/20 Anne-Marie Pike MD [address] [place] [address] [facility] Practice 09/19/11 [place] [address] [place] [address] Assigned PCP 03/28/20 06/19/20 Melida Lopez, RN Personal Advocate & Liaison (PAL) [facility] Practice 06/23/20 10/20/20 Ricky Munoz PA-C [address] [place] [address] Assigned PCP 07/18/20 06/25/21 Ricky Munoz PA-C [address] [place] [address] Assigned PCP 06/20/20 07/17/20 Ricky Munoz PA-C [address] [place] [address] Assigned PCP 06/26/21 documented as of this encounter
--- OUTSIDE RECORDS SUMMARY | 2024-03-23 08:05 | XMS_ITS | Encounter Summary ---
Author Organization [place] Address [address] [place] [address] Care Team Providers Care Energy Systems Engineer Name Role Phone Anne-Marie Pike MD Unavailable [phone] Kirsten Suarez MD Primary Care Provider + Ricky Munoz-C Unavailable + Christa Schafer BOTTLE DEALER PIT FURNACE MELTER Unavailable + Ricky Munoz-C Unavailable + Christa Schafer BOTTLE DEALER PIT FURNACE MELTER Unavailable + Ricky Munoz-C Unavailable + Damon Escalante MD Unavailable + Ricky Munoz-C Unavailable + Damon Escalante MD Unavailable + Ricky Munoz-C Primary Care Provider + Melida Lopez RN Unavailable Unavailable Ricky Munoz PA-C Unavailable + Ricky Munoz-C Unavailable + Ricky Munoz-C Unavailable + Encounter Details Date Type Department Care Team (Late st Contact Info) Description 12/12/2017 [facility] [address] [place] [phone] Marlon Mcfadden MD [facility] [address] [place] [address] Pre-operative laboratory examination (Primary Dx) Social History Tobacco Use Types Packs/Day Years [...] on file documented as of this encounter Results * Methicillin Resist/Sens S. aureus PCR (12/13/2017 12:30 PM ENERGY TRADER) Specimen Description Nares 12/13/2017 1:52 PM ENERGY TRADER [facility] Methicillin Resist/Sens S. aureus PCR Negative NEG^Negat yonis 12/13/2017 6:52 PM ENERGY TRADER [facility] Comment: MRSA Negative: SA Positive MRSA target DNA not detected, presumed negative for MRSA colonization or the number of bacteria present may be below the limit of detection. Staphylococcus aureus target DNA detected, presumed positive for SA colonization. A positive test does not necessarily indicate the presence of viable organisms. ??It is, however, presumptive for the presence of SA. ??This result does not preclude MRSA nasal colonization. FDA approved assay performed using gantto GeneXpert(R) real-time PCR. Nasal structure (body structure) 12/13/2017 12:30 PM ENERGY TRADER 12/13/2017 1:52 PM ENERGY TRADER Marlon Mcfadden MD LAB - MICRO GENERAL ORDERABLES [facility] [address] [place] [address], [facility] [address] [place] [address], [facility] [phone] documented in this encounter Visit Diagnoses Diagnosis Pre-operative laboratory examination- Primary Pre-procedural laboratory examination documented in this encounter Additional Health Concerns Assessment Noted Time PHQ-9 Depression Total Score: 2 12/30/19 17 7:13 AM CDT documented as of this encounter Care Teams Energy Systems Engineer Relationship Specialty Start Date End Date Kirsten Suarez MD [place] [phone] [facility] [place] [address] PCP - General Family Practice 03/11/13 06/17/20 Ricky Munoz PA-C [address] [place] [address] PCP - Assigned PCP 08/18/18 12/17/18 Christa Schafer APRN PIT FURNACE MELTER [address] [place] [address] PCP - Assigned PCP 08/11/18 08/17/18 Ricky Munzo PA-C [address] [place] [address] PCP - General Physician Salon Shampoo Assistant - Medical 06/18/20 Anne-Marie Pike MD [address] [place] [address] [facility] Practice 09/19/11 Ricky Munoz PA-C [address] [place] [address] Assigned PCP 08/18/18 12/21/18 Christa Schafer APRN PIT FURNACE MELTER [address] [place] [address] Assigned PCP 12/22/18 01/11/19 Ricky Munoz PA-C [address] [place] [address] Assigned PCP 01/19/19 10/11/19 [place] [address] [address] [address] Assigned PCP 10/12/19 10/18/19 Ricky Munoz PA-C 55726 [address] [address] Assigned PCP 10/19/19 03/27/20 [place] [address] [place] [address] Assigned PCP 03/28/20 06/19/20 Melida Lopez RN Personal Advocate & Liaison (PAL) Family Practice 06/23/20 10/20/20 Ricky Munoz PA-C 40389 [place] [address] Assigned PCP 07/18/20 06/25/21 Ricky Munoz PA-C [address] [place] [address] Assigned PCP 06/20/20 07/17/20 Ricky Munoz PA-C [address] [place] [address] Assigned PCP 06/26/21 documented as of this encounter
--- OUTSIDE RECORDS SUMMARY | 2024-03-23 08:05 | XMS_ITS | Encounter Summary ---
Author Organization [facility] Address [address] [place] [address] Care Team Providers Care Groover And Turner Name Role Phone Anne-Marie Pike MD Unavailable [phone] Kirsten Suarez MD Primary Care Provider + Ricky Munoz-C Unavailable + Ricky Munoz-C Unavailable + Christa Schafer APRN FORM GRADER OPERATOR Unavailable + Ricky Munoz-C Unavailable + Damon Escalante MD Unavailable + Ricky Munoz-C Unavailable + Damon Escalante MD Unavailable + Ricky Munoz-C Primary Care Provider + Melida Lopez RN Unavailable Unavailable Ricky Munoz PA-C Unavailable + Ricky Munoz PA-C Unavailable + Ricky Munoz-C Unavailable + Reason for Visit * Reason Onset Date Comments Lab Result Notice 12/12/2018 Encounter Details Date Type Department Care Team (Late st Contact Info) Description 12/12/2018 [facility] Medical Advice [facility] [address] [facility], [address] [place] [address] Ricky Munoz PA-C [address] [address] [address] Lab Result Notice Social History Tobacco Use Types Packs/Day Years [...] documented as of this encounter Care Teams Groover And Turner Relationship Specialty Start Date End Date Kirsten Suarez MD [address] [place] [address] PCP - General Family Practice 03/11/13 06/17/20 Ricky Munoz PA-C 74385 [address] MALL[address] [address] PCP - Assigned PCP 08/18/18 12/17/18 Ricky Munoz PA-C 39227 [address] [address] PCP - General Physician Front End Loader Driver - Medical 06/18/20 Anne-Marie Pike MD [place] [address] [place] [address] Family Practice 09/19/11 Ricky Munoz PA-C 43260 [address] [address] Assigned PCP 08/18/18 12/21/18 Christa Schafer APRN [facility] [address] [place] [address] Assigned PCP 12/22/18 01/11/19 Ricky Munoz PA-C [address] [place] [address] Assigned PCP 01/19/19 10/11/19 [place] [address] [place] [address] Assigned PCP 10/12/19 10/18/19 Ricky Munoz PA-C 27397 [place] [address] Assigned PCP 10/19/19 03/27/20 [place] [address] [place] [address] Assigned PCP 03/28/20 06/19/20 Melida Lopez RN Personal Advocate & Liaison (PAL) Family Practice 06/23/20 10/20/20 Ricky Munoz PA-C [address] [place] [address] Assigned PCP 07/18/20 06/25/21 Ricky Munoz PA-C 46342 [place] [address] Assigned PCP 06/20/20 07/17/20 Ricky Munoz PA-C [address] [place] [address] Assigned PCP 06/26/21 documented as of this encounter
--- OUTSIDE RECORDS SUMMARY | 2024-03-23 08:05 | XMS_ITS | Encounter Summary ---
Author Organization [facility] Address [address] [place] [address] Care Team Providers Care Replenisher Name Role Phone Anne-Marie Pike MD Unavailable [phone] Kirsten Suarez MD Primary Care Provider + Ricky MunozC Unavailable + Christa Schafer WEB CONTENT DIRECTOR LABOR RELATIONS OFFICER Unavailable + Ricky MunozC Unavailable + Christa Schafer WEB CONTENT DIRECTOR LABOR RELATIONS OFFICER Unavailable + Ricky Munoz PA-C Unavailable + Damon Escalante MD Unavailable + Ricky Munoz PA-C Unavailable + Damon Escalante MD Unavailable + Ricky MunozC Primary Care Provider + Melida Lopez RN Unavailable Unavailable Ricky Munoz PA-C Unavailable + Ricky Munoz PA-C Unavailable + Ricky Munoz PA-C Unavailable + Reason for Visit * Reason Onset Date Comments Medication Refill 12/17/2017 atenolol (TENO RMIN) 50 MG tablet Encounter Details Date Type Department Care Team (Late st Contact Info) Description 12/17/2017 Refill [facility], [address] [place] [address] [place] [address] [place] [address] Medication Refill (atenolol (TENORMIN) 50 MG tablet) [...] Telephone Encounter - Tea Quintana RN - 12/18/2017 8:57 AM CST Prescription approved per [facility] Refill Protocol. Tea Quintana RN CY OFFICER * Telephone Encounter - Kimber Vazquez - 12/17/2017 1:36 PM CST Requested Prescriptions Pending Prescriptions Disp Refills ??? atenolol (TENORMIN) 50 MG tablet [Pharmacy Med Name: ATENOLOL 50 MG TABLET] 180 tablet 1 Last Written Prescription Date: 05/22/17 Last Fill Quantity: 60, # refills: 5 Last Office Visit: 05/22/2017 Future Office Visit: Next 5 appointments (look out 90 days) Dec 18, 2017 9:20 AM POLICY OFFICER Pre-Op physical with Kirsten Suarez MD [facility], [address] [place] [phone] Sig: TAKE 1 TABLET (50 MG) BY MOUTH 2 TIMES DAILY Beta-Blockers Protocol Passed 12/17/2017 9:15 AM Passed - Blood pressure under 140/90 in past 12 months BP Readings from Last 3 Encounters: 06/26/17 120/70 05/22/17 (!) 150/98 05/18/17 148/90 Passed - Patient is age 6 or older Passed - Recent (12 mo) or future (30 days) visit within the authorizing provider's specialty Patient had office visit in the last year or has a visit in the next 30 days with authorizing provider. See Patient Info tab in inbasket, or Choose Columns in Meds & Orders section of the refill encounter. CY OFFICER documented in this encounter Plan of Treatment Not on file documented as of this encounter Visit Diagnoses Diagnosis Essential hypertension with goal blood pressure less than 140/90 documented in this encounter Additional Health Concerns Assessment Noted Time PHQ-9 Depression Total Score: 2 12/30/19 17 7:13 AM CDT documented as of this encounter Care Teams Replenisher Relationship Specialty Start Date End Date Kirsten Suarez MD [address] [place] [address] PCP - General Family Practice 03/11/13 06/17/20 Ricky Munoz PA-C [address] [place] [address] PCP - Assigned PCP 08/18/18 12/17/18 Christa Schafer APRN CNP [address] [place] [address] PCP - Assigned PCP 08/11/18 08/17/18 Ricky Munoz PA-C [address] [place] [address] PCP - General Physician Parachute Line Tier - Medical 06/18/20 Anne-Marie Pike MD [place] [address] [place] [address] [facility] 09/19/11 Ricky Munoz PA-C [address] [place] [address] Assigned PCP 08/18/18 12/21/18 Christa Schafer APRN CNP [address] [place] [address] Assigned PCP 12/22/18 01/11/19 Ricky Munoz PA-C 36888 [place] [address] Assigned PCP 01/19/19 10/11/19 [place] [address] [place] [address] Assigned PCP 10/12/19 10/18/19 Ricky Munoz PA-C 154[address] [place] [address] Assigned PCP 10/19/19 03/27/20 [place] [address] [place] [address] Assigned PCP 03/28/20 06/19/20 Melida Lopez, RN Personal Advocate & Liaison (PAL) Family Practice 06/23/20 10/20/20 Ricky Munoz PA-C 37109 [place] [address] Assigned PCP 07/18/20 06/25/21 Ricky Munoz PA-C [address] [place] [address] Assigned PCP 06/20/20 07/17/20 Ricky Munoz PA-C 99011 [address] [address] Assigned PCP 06/26/21 documented as of this encounter
--- OUTSIDE RECORDS SUMMARY | 2024-03-23 08:05 | XMS_ITS | Encounter Summary ---
Author Organization [facility] Address [address] [place] [address] Care Team Providers Care Rn Examiner Name Role Phone Anne-Marie Pike MD Unavailable [phone] Kirsten Suarez MD Primary Care Provider + Ricky Munoz PA-C Unavailable + Christa Schafer LEVEL GLASS FORMING MACHINE OPERATOR BALANCE STAFF STAKER Unavailable + Ricky Munoz PA-C Unavailable + Christa Schafer LEVEL GLASS FORMING MACHINE OPERATOR BALANCE STAFF STAKER Unavailable + Ricky Munoz PA-C Unavailable + Damon Escalante MD Unavailable + Ricky Munoz PA-C Unavailable + Damon Escalante MD Unavailable + Ricky Munoz PA-C Primary Care Provider + Melida Lopez RN Unavailable Unavailable Ricky Munoz PA-C Unavailable + Ricky Munoz PA-C Unavailable + Ricky Munoz PA-C Unavailable + Reason for Visit * Reason Onset Date Comments Medication Refill 07/22/2018 levothyroxine (SYNTHROID/LEVOTHROID) 88 MCG tablet Encounter Details Date Type Department Care Team (Late st Contact Info) Description 07/21/[address], [address] [place] [address] Ricky Munoz PA-C [address] [place] [address] Medication Refill (levothyroxine (SYNTHROID/LEVOTHROID) 88 MCG tablet) Social History Tobacco Use Types Packs/Day [...] Telephone Encounter - Tea Quintana RN - 07/23/2018 12:38 PM CDT Prescription approved per [facility] Refill Protocol. Tea Quintana RN * Telephone Encounter - Kimber Vazquez - 07/22/2018 9:02 AM CDT Requested Prescriptions Pending Prescriptions Disp Refills ??? levothyroxine (SYNTHROID/LEVOTHROID) 88 MCG tablet [Pharmacy Med Name: LEVOTHYROXINE 88 MCG TABLET] 90 tablet 1 Last Written Prescription Date: 12/27/17 Last Fill Quantity: 90, # refills: 1 Last Office Visit: 02/01/2018 Future Office Visit: Sig: TAKE 1 TABLET (88 MCG) BY MOUTH DAILY Thyroid Protocol Passed 07/21/2018 1:37 AM Passed - Patient is 12 years or older Passed - Recent (12 mo) [...] section of the refill encounter. Passed - Normal TSH on file in past 12 months Recent Labs Lab Test 12/20/17 1054 TSH 2.21 Passed - No active on record If patient is or has had a positive test, please check TSH. Passed - No positive test in past 12 months If patient is or has had a positive test, please check TSH. documented in this encounter Plan of Treatment Not on file documented as of this encounter Visit Diagnoses Diagnosis Hypothyroidism, unspecified type documented in this encounter Additional Health Concerns Assessment Noted Time PHQ-9 Depression Total Score: 3 02/03/20 18 7:40 AM CDT documented as of this encounter Care Teams Rn Examiner Relationship Specialty Start Date End Date Kirsten Suarez MD [address] [place] [address] PCP - General Family Practice 03/11/13 06/17/20 Ricky Munoz PA-C [address] [place] [address] PCP - Assigned PCP 08/18/18 12/17/18 Christa Schafer APRN [facility] [address] [place] [address] PCP - Assigned PCP 08/11/18 08/17/18 Ricky Munoz PA-C [address] [place] [address] PCP - General Physician Dice Manager - Medical 06/18/20 Anne-Marie Pike MD [id number] [facility] 09/19/11 Ricky Munoz PA-C [address] [address] [address] Assigned PCP 08/18/18 12/21/18 Christa Schafer APRN [facility] [address] [place] [address] Assigned PCP 12/22/18 01/11/19 Ricky Munoz PA-C [address] [place] [address] Assigned PCP 01/19/19 10/11/19 [place] [address] [place] [address] Assigned PCP 10/12/19 10/18/19 Ricky Munoz PA-C [address] [place] [address] Assigned PCP 10/19/19 03/27/20 [place] [address] [place] [address] Assigned PCP 03/28/20 06/19/20 Melida Lopez RN Personal Advocate & Liaison (PAL) Family Practice 06/23/20 10/20/20 Ricky Munoz PA-C 66761 [place] [address] Assigned PCP 07/18/20 06/25/21 Ricky Munoz PA-C 95869 [place] [address] Assigned PCP 06/20/20 07/17/20 Ricky Munoz PA-C 30524 [place] [address] Assigned PCP 06/26/21 documented as of this encounter
--- OUTSIDE RECORDS SUMMARY | 2024-03-23 08:05 | XMS_ITS | Encounter Summary ---
Author Organization [place] Address [address] [place] [address] Care Team Providers Care Hand Rigger Name Role Phone Anne-Marie Pike MD Unavailable [phone] Kirsten Suarez MD Primary Care Provider + Ricky Munoz-C Unavailable + Christa Schafer DIET THERAPIST WEIGHT YARDAGE CHECKER Unavailable + Ricky Munoz-C Unavailable + Christa Schafer DIET THERAPIST WEIGHT YARDAGE CHECKER Unavailable + Ricky Munoz-C Unavailable + Damon Escalante MD Unavailable + Ricky Munoz-C Unavailable + Damon Escalante MD Unavailable + Ricky Munoz-C Primary Care Provider + Melida Lopez RN Unavailable Unavailable Ricky Munoz-C Unavailable + Ricky Munoz-C Unavailable + Ricky Munoz-Vineet Unavailable + Reason for Visit * Reason Onset Date Comments Medication Refill 08/09/2018 blood glucose monitoring (SOFTCLIX) lancets Encounter Details Date Type Department Care Team (Late st Contact Info) Description 08/09/[address] [facility] [id number] [place] [address], [address] [place] [phone] Ricky Munoz PA-C [address] [place] [address] Medication Refill (blood glucose monitoring (SOFTCLIX) lancets) Social History Tobacco Use Types Packs/Day Years [...] Telephone Encounter - Tea Quintana RN - 08/13/2018 9:28 AM CDT Prescription approved per [facility] Refill Protocol. Tea Quintana RN * Telephone Encounter - Kimber Vazquez - 08/09/2018 2:50 PM CDT Requested Prescriptions Pending Prescriptions Disp Refills ??? blood glucose monitoring (SOFTCLIX) lancets [Pharmacy Med Name: ACCU-CHEK SOFTCLIX LANCETS] 100each 1 Last Written Prescription Date: 10/05/16 Last Fill Quantity: 1 box, # refills: 3 Last Office Visit: 02/01/2018 Future Office Visit: Next 5 appointments (look out 90 days) Aug 15, 2018 11:00 AM CDT Office Visit with Ricky Munoz PA-C [facility] ([facility]) [facility], [address] [facility] [address] Sig: USE TO TEST BLOOD SUGARS 1 TIME DAILY OR DIRECTED Diabetic Supplies Protocol Passed 08/09/2018 2:07 PM Passed - Patient is 18 years of age or older Passed - Recent (6 mo) or future (30 days) visit within the authorizing provider's specialty Patient had office visit in the last 6 months or has a visit in the next 30 days with authorizing provider. See Patient Info tab in inbasket, or Choose Columns in Meds & Orders section of therefill encounter. documented in this encounter Plan of Treatment Not on file documented as of this encounter Visit Diagnoses Diagnosis Type 2 diabetes mellitus with diabetic neuropathy, without long-term current use of insulin (H) documented in this encounter Additional Health Concerns Assessment Noted Time PHQ-9 Depression Total Score: 3 02/03/20 18 7:40 AM CDT documented as of this encounter Care Teams Hand Rigger Relationship Specialty Start Date End Date Kirsten Suarez MD [address] [place] [address] PCP - General Family Practice 03/11/13 06/17/20 Ricky Munoz PA-C [address] [place] [address] PCP - Assigned PCP 08/18/18 12/17/18 Christa Schafer APRN [facility] [address] [place] [address] PCP - Assigned PCP 08/11/18 08/17/18 Ricky Munoz [place] [address] [place] [address] PCP - General Physician Embossing Press Operator Apprentice - Medical 06/18/20 Anne-Marie Pike MD [place] [address] [place] [address] [facility] 09/19/11 Ricky Munoz [place]-C [address] [place] [address] Assigned PCP 08/18/18 12/21/18 Christa Schafer APRN [facility] [address] [place] [address] Assigned PCP 12/22/18 01/11/19 Ricky Munoz PA-C [address] [place] [address] Assigned PCP 01/19/19 10/11/19 [place] [address] [place] [address] Assigned PCP 10/12/19 10/18/19 Ricky Munoz PA-C [address] [place] [address] Assigned PCP 10/19/19 03/27/20 [place] [address] [place] [address] Assigned PCP 03/28/20 06/19/20 Melida Lopez, RN Personal Advocate & Liaison (PAL) Family Practice 06/23/20 10/20/20 Ricky Munoz PA-C [address] [place] [address] Assigned PCP 07/18/20 06/25/21 Ricky Munoz PA-C [address] [place] [address] Assigned PCP 06/20/20 07/17/20 Ricky Munoz PA-C [address] [place] [address] Assigned PCP 06/26/21 documented as of this encounter
--- OUTSIDE RECORDS SUMMARY | 2024-03-23 08:05 | XMS_ITS | Encounter Summary ---
Author Organization [place] Address [facility] [place] [address] Care Team Providers Care Pediatric Psychologist Name Role Phone Anne-Marie Pike MD Unavailable [phone] Ricky Munoz PA-C Primary Care Provider Ricky Munoz PA-C Unavailable + [phone] Reason for Visit * Reason Onset Date Comments Refill Request 09/25/2022 metFORMIN (GLUCO PHAGE) 500 MG tablet Encounter Details Date Type Department Care Team (Late st Contact Info) Description 09/25/[address] [facility] [address] [place] [address] Ricky Munoz PA-C [address] [place] [address] Refill Request (metFORMIN (GLUCOPHAGE) 500 MG tablet) Social History Tobacco Use Types [...] encounter Miscellaneous Notes * Telephone Encounter - Sara Vaughn RN - 09/27/2022 4:20 PM CST Denied, per refill approved 2 weeks ago for a 1 month supply. Has upcoming appointment, further refills to be addressed at OV. Sara, RN on 09/27/2022 at 4:20 PM L WORKER * Telephone Encounter - Frieda Romo - 09/27/2022 2:00 PM CST Requesting a 90 day supply. L WORKER documented in this encounter Plan of Treatment Not on file documented as of this encounter Visit Diagnoses Diagnosis Type 2 diabetes mellitus with diabetic neuropathy, without long-term current use of insulin (H) documented in this encounter Additional Health Concerns Assessment Noted Time PHQ-9 Depression Total Score: 7 07/01/20 20 12:02 PM CDT documented as of this encounter Care Teams Pediatric Psychologist Relationship Specialty Start Date End Date Ricky Munoz PA-C [address] [address] [place] [address] PCP - General Physician Solar Installation Helper - Medical 06/18/20 Anne-Marie Pike MD [address] [place] [id number] Family Practice 09/19/11 Ricky Munoz PA-C [address] [place] [address] Assigned PCP 06/26/21 documented as of this encounter
--- OUTSIDE RECORDS SUMMARY | 2024-03-23 08:05 | XMS_ITS | Encounter Summary ---
Author Organization [facility] Address [address] [place] [address] Care Team Providers Care Orthopedic Shoe Maker Name Role Phone Anne-Marie Pike MD Unavailable [phone] Kirsten Suarez MD Primary Care Provider + [...] Team (Late st Contact Info) Description 07/24/2019 MyC Medical Advice [facility] Centralized Scheduling [facility] [place] [address] Reason, Gertrude Butler Social History Tobacco Use Types Packs/Day Years [...] documented as of this encounter Care Teams Orthopedic Shoe Maker Relationship Specialty Start Date End Date Kirsten Suarez MD [address] [place] [address] PCP - General Family Practice 03/11/13 06/17/20 Ricky Munoz PA-C [address] [place] [id number] PCP - General Physician Corporate Controller - Medical 06/18/20 Anne-Marie Pike MD [address] [place] [address] Family Practice 09/19/11 Ricky Munoz PA-C [address] [place] [address] Assigned PCP 01/19/19 10/11/19 [place] [address] [place] [address] Assigned PCP 10/12/19 10/18/19 Ricky Munoz PA-C [address] [place] [address] Assigned PCP 10/19/19 03/27/20 [place] [address] [address] [place] [id number] Assigned PCP 03/28/20 06/19/20 Melida Lopez, RN Personal Advocate & Liaison (PAL) Family Practice 06/23/20 10/20/20 Ricky Munoz PA-C [address] [place] [address] Assigned PCP 07/18/20 06/25/21 Ricky Munoz PA-C [address] [place] [address] Assigned PCP 06/20/20 07/17/20 Ricky Munoz PA-C [address] [place] [address] Assigned PCP 06/26/21 documented as of this encounter
--- OUTSIDE RECORDS SUMMARY | 2024-03-23 08:05 | XMS_ITS | Encounter Summary ---
Author Organization [place] Address [address] [place] [address]. [place] [address] Care Team Providers Care Shank Scourer Name Role Phone Anne-Marie Pike MD Unavailable [phone] Ricky Munoz PA-C Primary Care Provider Melida Lopez RN Unavailable Unavailable Ricky Munoz PA-C Unavailable + [phone] Ricky Munoz PA-C Unavailable + [phone] Encounter Details Date Type Department Care Team (Late st Contact Info) Description 10/04/2020 [facility] Medical Advice [facility] [address] [place] [address] Maida Bradford Social History Tobacco Use Types Packs/Day Years [...] documented as of this encounter Care Teams Shank Scourer Relationship Specialty Start Date End Date Ricky Munoz PA-C [address] [place] [address] PCP - General Physician Stitching Machine Feeder Or Offbearer - Medical 06/18/20 Anne-Marie Pike MD [place] [phone] [facility] [place] [address] [facility] 09/19/11 Melida Lopez, RN Personal Advocate & Liaison (PAL) [facility] 06/23/20 10/20/20 Ricky Munoz PA-C [address] [place] [address] Assigned PCP 07/18/20 06/25/21 Ricky Munoz PA-C [address] [place] [address] Assigned PCP 06/26/21 documented as of this encounter
--- OUTSIDE RECORDS SUMMARY | 2024-03-23 08:05 | XMS_ITS | Encounter Summary ---
Author Organization [facility] Address [address] [place] [address] Care Team Providers Care Continuous Washer Operator Name Role Phone Anne-Marie Pike MD Unavailable [phone] Kirsten Suarez MD Primary Care Provider Ricky Munoz PA-C Unavailable + Damon Escalante MD Unavailable + Ricky Munoz PA-C Unavailable + Damon Escalante MD Unavailable + Ricky Munoz PA-C Primary Care Provider + Melida Lopez RN Unavailable Unavailable Ricky Munoz PA-C Unavailable + Ricky Munoz PA-C Unavailable + Ricky Munoz PA-C Unavailable + Reason for Visit * Reason Onset Date Comments Medication Refill 03/18/2019 levothyroxine (SYNTHROID/LEVOTHROID) 88 MCG tablet Encounter Details Date Type Department Care Team (Late st Contact Info) Description 03/17/[address], [address] [place] [address] Ricky Munoz PA-C [address] [place] [address] Medication Refill (levothyroxine (SYNTHROID/LEVOTHROID) 88 [...] encounter Miscellaneous Notes * Telephone Encounter - Winnie Jara RN - 03/20/2019 10:29 AM CDT Routing refill request to provider for review/approval because: Rosalia given x1 and patient did not follow up, please advise Labs not current: TSH Patient needs to be seen because: Past due for OV Winnie Jara RN, BSN * Telephone Encounter - George Kimber - 03/18/2019 9:12 AM CDT Images from the original note were not included. Requested Prescriptions Pending Prescriptions Disp Refills ??? levothyroxine (SYNTHROID/LEVOTHROID) 88 MCG tablet [Pharmacy Med Name: LEVOTHYROXINE 88 MCG TABLET] 30 tablet 0 Sig: TAKE 1 TABLET (88 MCG) BY MOUTH DAILY NEEDS APPT Last Written Prescription Date: 01/21/19 Last Fill Quantity: 30, # refills: 0 Last Office Visit: 08/15/2018 Munoz Return in about 6 months (around 02/12/2019) for Med Check. Future Office Visit: Thyroid Protocol Failed - 03/17/2019 11:34 AM Failed - Normal TSH on file in past 12 months Recent Labs Lab Test 12/20/17 1054 TSH 2.21 Passed - Patient is 12 years or [...] - Medication is active on med list Passed - No active on record If [...] documented as of this encounter Care Teams Continuous Washer Operator Relationship Specialty Start Date End Date Kirsten Suarez MD [address] [place] [address] PCP - General Family Practice 03/11/13 06/17/20 Ricky Munoz PA-C [address] [place] [address] PCP - General Physician Cold Roll Inspector - Medical 06/18/20 Anne-Marie Pike MD [address] [place] [address] Family Practice 09/19/11 Ricky Munoz PA-C [address] [place] [address] Assigned PCP 01/19/19 10/11/19 [place] [address] [place] [address] Assigned PCP 10/12/19 10/18/19 Ricky Munoz PA-C 64793 [place] [address] Assigned PCP 10/19/19 03/27/20 [place] [address] [place] [address] Assigned PCP 03/28/20 06/19/20 Melida Lopez RN Personal Advocate & Liaison (PAL) Family Practice 06/23/20 10/20/20 Ricky Munoz PA-C [address] [address] [place], [place] [address] Assigned PCP 07/18/20 06/25/21 Ricky Munoz PA-C [address] [place] [address] Assigned PCP 06/20/20 07/17/20 Ricky Munoz PA-C 416[address] [address] [place], JASSON [id number] Assigned PCP 06/26/21 documented as of this encounter
--- OUTSIDE RECORDS SUMMARY | 2024-03-23 08:05 | XMS_ITS | Encounter Summary ---
Author Organization [place] Address [address] [place] [address] Care Team Providers Care Pill Coater Name Role Phone Anne-Marie Pike MD Unavailable [phone] Kirsten Suarez MD Primary Care Provider + Ricky Munoz-C Unavailable + Christa Schafer CORPORATE COUNSELOR COOK SPECIALTY Unavailable + Ricky Munoz-C Unavailable + Christa Schafer CORPORATE COUNSELOR COOK SPECIALTY Unavailable + Ricky Munoz-C Unavailable + Damon Escalante MD Unavailable + Ricky Munoz-C Unavailable + Damon Escalante MD Unavailable + Ricky MunozC Primary Care Provider + Melida Lopez RN Unavailable Unavailable Ricky Munoz-C Unavailable + Ricky Munoz-C Unavailable + Ricky Munoz PA-C Unavailable + Reason for Visit * Reason Onset Date Comments Lab Result Notice 04/02/2017 Kidney functio ns Encounter Details Date Type Department Care Team (Late st Contact Info) Description 04/02/2017 MyC Medical Advice [facility] [id number] [place] [address], [address] [place] [phone] [place] [address] [place] [address] Lab Result Notice (Kidney functions) Social History Tobacco Use Types Packs/Day Years [...] documented as of this encounter Care Teams Pill Coater Relationship Specialty Start Date End Date Kirsten Suarez MD [place] [address] [place] [address] PCP - General Family Practice 03/11/13 06/17/20 Ricky Munoz PA-C [address] [place] [address] PCP - Assigned PCP 08/18/18 12/17/18 Christa Schafer APRN [facility] [address] [place] [address] PCP - Assigned PCP 08/11/18 08/17/18 Ricky Munoz PA-C [address] [place] [address] PCP - General Physician Electricians Top Helper - Medical 06/18/20 Anne-Marie Pike MD [place] [address] [place] [address] Family Practice 09/19/11 Ricky Munoz PA-C [address] [place] [address] Assigned PCP 08/18/18 12/21/18 Christa Schafer APRN [facility] [address] [place] [address] Assigned PCP 12/22/18 01/11/19 Ricky Munoz PA-C [address] [place] [address] Assigned PCP 01/19/19 10/11/19 [place] [address] [place] [address] Assigned PCP 10/12/19 10/18/19 Ricky Munoz PA-C [address] [place] [address] Assigned PCP 10/19/19 03/27/20 [place] [address] [place] [address] Assigned PCP 03/28/20 06/19/20 Melida Lopez, LUCRECIA Personal Advocate & Liaison (PAL) Family Practice 06/23/20 10/20/20 Ricky Munoz PA-C [address] [place] [address] Assigned PCP 07/18/20 06/25/21 Ricky Munoz PA-C [address] [place] [address] Assigned PCP 06/20/20 07/17/20 Ricky Munoz PA-C 29981 [place] [address] Assigned PCP 06/26/21 documented as of this encounter
--- OUTSIDE RECORDS SUMMARY | 2024-03-23 08:05 | XMS_ITS | Encounter Summary ---
Author Organization [place] [facility] Address [address] [place] [address] Care Team Providers Care Block And Case Maker Name Role Phone Anne-Marie Pike MD Unavailable [phone] Kirsten Suarez MD Primary Care Provider Ricky Munoz PA-C Unavailable + Damon Escalante MD Unavailable [phone] Ricky Munoz PA-C Primary Care Provider Melida Lopez RN Unavailable Unavailable Ricky Munoz PA-C Unavailable + Ricky Munoz PA-C Unavailable + Ricky Munoz PA-C Unavailable [phone] Reason for Visit * Reason Comments Medication Refill Encounter Details Date Type Department Care Team (Late st Contact Info) Description 02/06/2020 Refill [facility] [address] [facility], [address] [place] [address] Ricky Munoz PA-C [address] [place] [address] Medication Refill Social History Tobacco [...] encounter Miscellaneous Notes * Telephone Encounter - Sharon Roper Sanford - 02/10/2020 9:01 AM CDT Prescription approved per [facility] Refill Protocol. documented in this encounter Plan of Treatment Not on file documented as of this encounter Visit Diagnoses Diagnosis Essential hypertension with goal blood pressure less than 140/90 documented in this encounter Additional Health Concerns Assessment Noted Time PHQ-9 Depression Total Score: 5 03/24/20 19 12:08 PM CDT documented as of this encounter Care Teams Block And Case Maker Relationship Specialty Start Date End Date Kirsten Suarez MD [address] [place] [address] PCP - General Family Practice 03/11/13 06/17/20 Ricky Munoz PA-C [address] [place] [address] PCP - General Physician Nuclear Plant Instrument Technician - Medical 06/18/20 Anne-Marie Pike MD [address] [place] [address] Family Practice 09/19/11 Ricky Munoz PA-C [address] [place] [address] Assigned PCP 10/19/19 03/27/20 [place] [address] [address] [place] [id number] Assigned PCP 03/28/20 06/19/20 Melida Lopez, RN Personal Advocate & Liaison (PAL) Family Practice 06/23/20 10/20/20 Ricky Munoz PA-C 16103 [place] [address] Assigned PCP 07/18/20 06/25/21 Ricky Munoz PA-C [address]7938 [place] [address] Assigned PCP 06/20/20 07/17/20 Ricky Munoz PA-C [address]8462 [place] [address] Assigned PCP 06/26/21 documented as of this encounter
--- OUTSIDE RECORDS SUMMARY | 2024-03-23 08:05 | XMS_ITS | Encounter Summary ---
Author Organization [facility] Address [address] [place] [address]. [place] [address] Care Team Providers Care Shuttle Inspector Name Role Phone Anne-Marie Pike MD Unavailable [phone] Ricky Munoz PA-C Primary Care Provider Ricky Munoz PA-C Unavailable + [phone] Encounter Details Date Type Department Care Team (Late st Contact Info) Description 05/09/2022 [facility] Medical Advice [address] [address] Maida Bradford Social History Tobacco Use Types [...] documented as of this encounter Care Teams Shuttle Inspector Relationship Specialty Start Date End Date Ricky Munoz PA-C [address] [place] [address] PCP - General Physician Dining Room Busser - Medical 06/18/20 Anne-Marie Pike MD [facility] [address] [place] [address] [facility] Practice 09/19/11 Ricky Munoz PA-C [address] [place] [place] [address] Assigned PCP 06/26/21 documented as of this encounter
--- OUTSIDE RECORDS SUMMARY | 2024-03-23 08:05 | XMS_ITS | Encounter Summary ---
Author Organization [facility] Address [address] [place] [address] Care Team Providers Care Human Resources Office Manager Name Role Phone Anne-Marie Pike MD Unavailable [phone] Kirsten Suarez MD Primary Care Provider + [...] Care Team (Late st Contact Info) Description 01/23/2019 [facility] Medical Advice [address], [address] [place] [address] Tracey Hunt MA Social History Tobacco Use Types Packs/Day Years [...] documented as of this encounter Care Teams Human Resources Office Manager Relationship Specialty Start Date End Date Kirsten Suarez MD [address] [place] [address] PCP - General Family Practice 03/11/13 06/17/20 Ricky Munoz PA-C [address] [place] [address] PCP - General Physician Backend Python Developer - Medical 06/18/20 Anne-Marie Pike MD [address] [place] [address] Family Practice 09/19/11 Ricky Munoz PA-C 77154 [place] [address] Assigned PCP 01/19/19 10/11/19 [place] [address] [place] [address] Assigned PCP 10/12/19 10/18/19 Ricky Munoz PA-C 32052 [place] [address] Assigned PCP 10/19/19 03/27/20 [place] [address] [address] [place] [address] Assigned PCP 03/28/20 06/19/20 Melida Lopez RN Personal Advocate & Liaison (PAL) Family Practice 06/23/20 10/20/20 Ricky Munoz PA-C 55261 [place] [id number] Assigned PCP 07/18/20 06/25/21 Ricky Munoz PA-C 31698 [place] [address] Assigned PCP 06/20/20 07/17/20 Ricky Munoz PA-C [address]1442 [place] [address] Assigned PCP 06/26/21 documented as of this encounter
--- OUTSIDE RECORDS SUMMARY | 2024-03-23 08:05 | XMS_ITS | Encounter Summary ---
Author Organization [place] Address [address] [place] [address]. [place] [address] Care Team Providers Care Toy Electric Train Repairer Name Role Phone Anne-Marie Pike MD Unavailable [phone] Ricky Munoz PA-C Primary Care Provider Ricky Munoz PA-C Unavailable [phone] Reason for Visit * Reason Comments Medication Refill Encounter Details Date Type Department Care Team (Late st Contact Info) Description 09/27/2021 Refill [facility] [address] [place] [phone] Heriberto Leblanc PA-C [address] [place] [id number] Medication Refill Social History Tobacco Use Types [...] encounter Miscellaneous Notes * Telephone Encounter - Lexi Cooley RN - 09/28/2021 4:19 PM SPRAY PAINTER HELPER Prescription approved per [facility], [facility] or [facility] refill protocol. Lexi Castro - Registered Nurse [facility] Acute [facility] Diagnostic Services Y PAINTER HELPER documented in this encounter Plan of Treatment Not on file documented as of this encounter Visit Diagnoses Diagnosis Type 2 diabetes mellitus with diabetic neuropathy, without long-term current use of insulin (H) documented in this encounter Additional Health Concerns Assessment Noted Time PHQ-9 Depression Total Score: 7 07/01/20 20 12:02 PM CDT documented as of this encounter Care Teams Toy Electric Train Repairer Relationship Specialty Start Date End Date Ricky Munoz PA-C [address] [place] [address] PCP - General Physician Brush Maker - Medical 06/18/20 Anne-Marie Pike MD [address] [place] [address] [facility] Practice 09/19/11 Ricky Munoz PA-C [address] [place] [address] Assigned PCP 06/26/21 documented as of this encounter
--- OUTSIDE RECORDS SUMMARY | 2024-03-23 08:06 | XMS_ITS | Encounter Summary ---
Author Organization [facility] Address [address] [place] [id number] Care Team Providers Care Manufacturing Millwright Name Role Phone Anne-Marie Pike MD Unavailable [phone] Kirsten Suarez MD Primary Care Provider + Ricky Munoz-C Unavailable + Christa Schafer RUBBER PRODUCTION MACHINE OPERATOR SECURITY SYSTEMS SALES REPRESENTATIVE Unavailable + Ricky Munoz-C Unavailable + Christa Schafer APRN SECURITY SYSTEMS SALES REPRESENTATIVE Unavailable + Ricky Munoz-C Unavailable + Damon Escalante MD Unavailable + Ricky Munoz-C Unavailable + Damon Escalante MD Unavailable + Ricky Munoz-C Primary Care Provider + Melida Lopez RN Unavailable Unavailable Ricky Munoz PA-C Unavailable + Ricky Munoz-C Unavailable + Ricky Munoz-C Unavailable + Encounter Details Date Type Department Care Team (Late st Contact Info) Description 06/22/2015 [facility] [id number] [place] [id number] Winnie Jara APRN SECURITY SYSTEMS SALES REPRESENTATIVE [address] [place] [address] Social History Tobacco Use Types Packs/Day Years [...] on filedocumented in this encounter Care Teams Manufacturing Millwright Relationship Specialty Start Date End Date Kirsten Suarez MD [address] [place] [address] PCP - General Family Practice 03/11/13 06/17/20 Ricky Munoz PA-C [address] [place] [address] PCP - Assigned PCP 08/18/18 12/17/18 Christa Schafer APRN SECURITY SYSTEMS SALES REPRESENTATIVE [address] [place] [address] PCP - Assigned PCP 08/11/18 08/17/18 Ricky Munoz PA-C [address] [place] [address] PCP - General Physician [facility] [facility] [facility] - Medical 06/18/20 Anne-Marie Pike MD [place] [address] [place] [address] [facility] 09/19/11 Ricky Munoz PA-C [address] [place] [address] Assigned PCP 08/18/18 12/21/18 Christa Schafer APRN SECURITY SYSTEMS SALES REPRESENTATIVE [address] [place] [address] Assigned PCP 12/22/18 01/11/19 Ricky Munoz PA-C [address] [place] [address] Assigned PCP 01/19/19 10/11/19 [place] [address] [place] [address] Assigned PCP 10/12/19 10/18/19 Ricky Munoz PA-C [address] [place] [address] Assigned PCP 10/19/19 03/27/20 [place] [address] [place] [address] Assigned PCP 03/28/20 06/19/20 Melida Lopez, RN Personal Advocate & Liaison (PAL) Family Practice 06/23/20 10/20/20 Ricky Munoz PA-C [address] [place] [address] Assigned PCP 07/18/20 06/25/21 Ricky Munoz PA-C [address] [place] [address] Assigned PCP 06/20/20 07/17/20 Ricky Munoz PA-C [address] [place] [address] Assigned PCP 06/26/21 documented as of this encounter
--- OUTSIDE RECORDS SUMMARY | 2024-03-23 08:06 | XMS_ITS | Clinical Summary ---
Author Organization [facility] Address [place], [place] [address] Care Team Providers Care Land Reclamation Specialist Name Role Phone None Primary Care Provider Unavailabl e Allergies Active Allergy Reactions Criticality Noted Date Comments Aripiprazole Nausea And Vomiting 01/17/2024 Nsaids (Non-Steroidal Anti-Inflammatory Drug) Other - Describe In Comment Field 04/10/2017 Low kidney function Medications Medication Sig Dispensed Refills Start Date End Date Status SOFTCLIX LANCETSIndications:Type II or unspecified type diabetes mellitus without mention of complication, not stated as uncontrolled use tid 200 1 year 7 Active BLOOD GLUCOSE TEST STRIPS use tid 200 1 year 7 Active aspirin (ADULT LOW DOSE ASPIRIN) 81 mg enteric coated tablet Take 81 mg by mouth. Active lancets (ACCU-CHEK SOFTCLIX LANCETS) Use to test blood sugars 1 time daily or as directed 6 Active ACCU-CHEK COMPACT PLUS TEST strp USE TO TEST BLOOD SUGARS 1 TIMES EVERY DAY OR DIRECTED. 2 6 Active cholecalciferol (VITAMIN D3) 1,000 unit tablet Take 1 Tablet by mouth once daily. 1 Active divalproex (DEPAKOTE) 500 mg Delayed-Release tabletIndications:Bipola r 2 disorder (HC) Take 1 Tablet (500 mg) by mouth two times daily. 180 Tablet 4 Active rosuvastatin (CRESTOR) 20 mg tabletIndications:Pure hypercholesterolemia Take 1 Tablet (20 mg) by mouth once daily. 90 Tablet 3 4 Active losartan (COZAAR) 100 mg tabletIndications:Essent ial hypertension Take 1 Tablet (100 mg) by mouth once daily. 90 Tablet 3 4 Active hydroCHLOROthiazide 25 mg tabletIndications:Essent ial hypertension Take 1 Tablet (25 mg) by mouth once daily. 90 Tablet 3 4 Active atenoloL (TENORMIN) 50 mg tabletIndications:Essent ial hypertension One tab twice daily 180 Tablet 3 4 Active metFORMIN (GLUCOPHAGE) 500 mg tabletIndications:Diabet es mellitus without complication (HC) Take 1 Tablet (500 mg) by mouth two times daily with meals. 180 Tablet 3 4 Active levothyroxine (Synthroid) 88 mcg tabletIndications:Hypoth yroidism, unspecified type Take 1 Tablet (88 mcg) by mouth once daily. 90 Tablet 3 4 Active fluconazole (DIFLUCAN) 150 mg tabletIndications:Yeast infection of the vagina Take 1 Tablet (150 mg) by mouth every 72 hours. 3 Tablet 4 Active benzonatate (TESSALON) 200 mg capsuleIndications:Acute cough Take 1 Capsule (200 mg) by mouth 3 times daily if needed for Cough. 21 Capsule 4 Active MULTIVITAMIN ORAL occasional 0 024 Discontinu ed(*Patien t states no longer taking) predniSONE (DELTASONE) 20 mg tabletIndications:Bronch itis Take 2 Tablets (40 mg) by mouth once daily with a meal for 5 days. 10 Tablet 4 024 Active Problems Problem Noted Date Diagnosed Date Hypertensive heart and chron ic kidney disease with heart failure and stage 1 through stage 4 chronic kidney disease, or chronic kidney disease 11/30/2021 Type 2 diabetes mellitus wit h diabetic neuropathy, without long-term current use of insulin 11/30/2021 Morbid obesity 11/30/2021 Stage 3a chronic kidney disease 11/30/2021 Generalized anxiety disorder 05/27/2020 Adjustment disorder with mixed anxiety and depre ssed mood 04/16/2019 PSC (posterior subcapsular cataract) 01/18/2010 Hypermetropia 08/27/2007 Presbyopia 08/27/2007 Obesity, unspecified 12/18/2006 Depressive disorder, not elsewhere classified Sebaceous cyst 12/18/2006 Overview: hydradenitis suppurativa Benign neoplasm of colon 12/18/2006 Overview: Colonoscopy 06/2009 normal repeat in 5 years Unspecified hypothyroidism 09/03/2006 Unspecified essential hypertension 09/03/2006 Pure hypercholesterolemia 09/03/2006 Bipolar 2 disorder 06/11/2006 Overview: [place] was effective but caused skin problems. Zyprexa led to her feeling like a zombie. She did not tolerate prozac at doses high enough to treat her depression. She was hospitalized at [facility] in May 2004 with depression. Type II or unspecified type diabetes mellitus without mention of complication, not stated as uncontrolled 03/02/2006 Overview: Next eye exam 01/23 Resolved Problems Problem Noted Date Diagnosed Date Resolved Date DIABETES MELLITUS TYPE II 01/20/2010 Overview: Next eye exam 01/23 Rheumatoid arthritis(714.0) 12/18/2006 11/30/2021 Overview: [facility] Encounters Date Type Department Care Team Description 03/17/2024 3:50 PM CDT Office Visit [facility] [address] [place] [address] Diego Smyth MD URI (Cough, chest congestion and shortness of breath) 03/17/2024 Travel 03/06/2024 9:45 AM CDT Office Visit [facility] [address] [place] [address] Lloyd Mckeon PsyD, LP Individual Therapy 03/06/2024 Travel 02/21/2024 11:00 AM CDT Office Visit [facility] [address] [place] [address] Liss De uGzman NP Follow Up; Medication Management (feeling, very good) 02/21/2024 Travel 02/12/2024 Telephone [facility] [address] [place] [address] Lloyd Mckeon PsyD, LINETTE Appointment 02/04/2024 11:15 AM CDT Office Visit [facility] [address] [place] [address] Diego Smyth MD Follow Up (Blood pressure has been running high) 02/04/2024 Travel 01/25/2024 3:00 PM CDT Office Visit [facility] [address] [place] [address] Diego Smyth MD Animal Bite; Vaginal Problem 01/25/2024 Travel 01/25/2024 Nurse Triage [facility] [address] [place] [address] Diego Smyth MD Bite; Vaginal Problem 01/17/2024 7:30 AM CDT Office Visit [facility] [address] [place] [address] Liss De Guzman NP Follow Up; Medication Management 01/17/2024 Travel 01/16/2024 Telephone [facility] [address] [place] [address] Liss De Guzman NP 01/11/2024 9:00 AM CDT Orders Only [facility] [address] [place] [address] Lab, [facility] 01/11/2024 Travel 01/10/2024 Telephone [facility] [address] [place] [address] Liss De Guzman NP Follow Up 12/26/2023 Telephone [facility] [address] [place] [address] Liss De Guzman NP Questions 12/24/2023 1:00 PM CDT Office Visit [facility] [address] [place] [address] Malecha, Liss Katia, PORTFOLIO ASSISTANT Follow Up; Medication Management 12/24/2023 Telephone [facility] [address] [place] [address] Liss De Guzman NP Form (RANDY) 12/24/2023 Telephone [facility] [address] [place] [address] Liss De Guzman NP Call Return 12/24/2023 Travel from Last 3 Months Immunizations Name Administration Dates Next Due COVID-19 vaccine (Yotpo 30mcg/0.3mL) PF, MDV 07/25/2021 Influenza A (H1N1), Inactivated 11/29/2009 Influenza, High-dose Inactivated 08/02/2021,09/14,11/28/2016 Influenza, High-dose Quadriv alent Inactivated 07/13/2020 Influenza, IIV3 (Age 6-35 mos) 10/11/2012,2010,12/22/2010 Influenza, IIV3 (Age >=3 years) 07/24/20 08,09/02/2007,07/31/2006,2004,08/16/2004,08/15/2003 Influenza, IIV4 08/07/2013 Influenza, Inactivated AIIV4 (Age 65+ Years) Preserv Free 08/05/2022,08/02/2021 Pneumococcal Poly,23-Valent (Pneumovax) 01/01/2014,10/16/2007,06/30/2005 Pneumococcal conj 13-Valent (Prevnar 13) 11/28/2016 Td (Age >=7 Years) 06/30/2005 Td, Preservative Free (age > = 7 Years) 06/30/2005 Tdap 12/22/2010 Zoster (Zostavax-ZVL, live) 03/18/2012, 2 Family History Medical History Relation Name Comments Allergies Child Diabetes Father Hyperlipidemia Father high choleste rol. Father 2006, age 88. Hypertension Father Other Father dementia/periph eral neuropathy/blindness Psychiatric illness Father mental i llness/depression Arthritis Mother Hyperlipidemia Mother high choleste rol Hypertension Mother Other Mother TIA Stroke Mother age 89 , 2006 Genetic Other diabetes, HTN-D ad~HTN-Mom Relation Name Status Comments Child Father Mother Other Social History Tobacco Use Types Packs/Day Years Used Date Smoking Tobacco: Never Smokeless Tobacco: Never Tobacco Cessation:Counseling Given: No Alcohol Use Standard Drinks/Week Comments No 0 (1 standard drink = 0.6 oz pur e alcohol) PHQ-2 Answer Date Recorded PHQ-2 TOTAL SCORE 0 02/21/2024 Social Connections Answer Date Recorded Frequency of Communication with Friends and Fami ly 0 02/04/2024 Alcohol Use Answer Date Recorded How often do you have a drink containing alcohol ? 0 02/06/2022 Average Number of Drinks Not on file 022 Frequency of Binge Drinking Not on file 01/14 Financial Resource Strain Answer Date R ecorded Difficulty of Paying Living Expenses 3 02/04/2024 Difficulty of Paying Living Expenses Not on file 02/04/2024 Food Insecurity Answer Date Recorded Worried About Running Out of Food in the Last Ye ar 1 02/04/2024 Transportation Needs Answer Date Record ed Lack of Transportation (Medical) 1 02/04/2024 Housing Stability Answer Date Recorded Unable to Pay for Housing in the Last Year 1 02/04/2024 Sex and Gender Information Value Date Recorded Sex Assigned at Not on file Gender Identity Not on file Sexual Orientation Not on file Obstetrics History Para Term AB IAB SAB Ectopic Multiple Livin g Live Births 1 1 1 Date Outcome GA Total Labor Labor/2nd/3rd Weight Sex Type Anes PTL Anne A1 A5 Name Clin Para Last Filed Vital Signs Vital Sign Reading Time Taken Comments Blood Pressure 123/77 03/17/2024 3:55 PM CDT Pulse 65 03/17/2024 3:55 PM CDT Temperature 36.8 ??C (98.2 ??F) 03/17/2024 3:55 PM CD T Respiratory Rate 20 01/25/2024 2:36 PM CDT Oxygen Saturation 94% 03/17/2024 3:55 PM CDT Inhaled Oxygen Concentration - - Weight 96.4 kg (212 lb 8 oz) 03/17/2024 3:55 PM CDT Height 161.3 cm (5' 3.5) 01/25/2024 2:36 PM CDT Body Mass Index 37.05 01/25/2024 2:36 PM CDT Plan of Treatment Upcoming Encounters Date Type Department Care Team (Late st Contact Info) Description 05/12/2024 10:00 AM CDT Office Visit [facility] [address] [place] [address] [place] [address] [place] [address] 06/02/2024 1:30 PM CDT Office Visit [facility] [address] [place] [address] Liss De Guzman NP [address] [place] [address] Health Maintenance Due Date Last Done Comments Hepatitis C screening for ag e 18-79 1963 Zoster (shingles) series for age 50+ (2 of 3) 05/13/2012 03/18/2012, 11/26/2011 DEXA/DXA scan for age 65+ 2012 Medicare Wellness for age 65+ 2012 Tetanus booster 12/22/2020 12/22/2010, 06/15, 06/30/2005 COVID-19 vaccine series ( season) 2023 08/16/2022, 07/25/2021, 12/28/2020, Additional history exists Influenza for age 65+ 06/15/2024 08/05/2022 , 08/02/2021, 08/02/2021, Additional history exists BMI (ht and wt on same day) for age 18+ 01/24/2025 01/25/2024, 03/01/2020, 09/04/2019 Depression screening for age 12+ 02/20/2025 02/21/2024, 01/17/2024, 01/16/2024, Additional history exists Tdap Completed 12/22/2010 Pneumococcal series for age 65+ Completed 11/28/2016, 01/01/2014, 10/16/2007, Additional history exists Procedures Procedure Name Priority Date/Time Associated Diagnosis Comments CBC WITH AUTO DIFFERENTIAL Routine 01/11/2024 9:01 AM CDT Encounter for long-term (current) use of other medications CBC WITH AUTO DIFFERENTIAL Routine 01/11/2024 9:01 AM CDT Encounter for long-term (current) use of other medications COMP METABOLIC PANEL Routine 01/11/2024 9:01 AM CDT Encounter for long-term (current) use of other medications VALPROIC ACID TOTAL Routine 01/11/2024 9 :01 AM CDT Encounter for long-term (current) use of other medications HEMOGLOBIN A1C SCREENING Routine 01/11/2024 9:01 AM CDT Encounter for long-term (current) use of other medications LIPID PANEL W REFLEX MEASURED LDL Routine 01/11/2024 9:01 AM CDT Encounter for long-term (current) use of other medications from Last 3 Months Results * (ABNORMAL) CBC WITH AUTO DIFFERENTIAL (01/11/2024 9:01 AM CDT) WHITE BLOOD COUNT 12.6(H) 4.5 - 11.0 thou/cu mm 01/11/2024 9:16 AM CDT [facility] [place] BLOOD [place] 5.48(H) 4.00 - 5.20 mil/cu mm 01/11/2024 9:16 AM CDT [facility] HEMOGLOBIN 14.8 12.0 - 16.0 g/dL 01/11/2024 9:16 AM CDT [facility] HEMATOCRIT 45.7 33.0 - 51.0 % 01/11/2024 9:16 AM CDT [facility] MCV 83 80 - 100 fL 01/11/2024 9:16 AM CDT [facility] MCH 27.0 26.0 - 34.0 pg 01/11/2024 9:16 AM CDT [facility] MCHC 32.4 32.0 - 36.0 g/dL 01/11/2024 9:16 AM CDT [facility] RDW 14.2 11.5 - 15.5 % 01/11/2024 9:16 AM CDT [facility] PLATELET COUNT 268 140 - 440 thou/cu mm 01/11/2024 9:16 AM CDT [facility] MPV 10.8 6.5 - 11.0 fL 01/11/2024 9:16 AM CDT [facility] [place] % NEUT 70.3 % 01/11/2024 9:16 AM CDT [facility] % LYMPH 19.9 % 01/11/2024 9:16 AM CDT [facility] % MONO 7.5 % 01/11/2024 9:16 AM CDT [facility] % EOS 1.8 % 01/11/2024 9:16 AM CDT [facility] [place] % BASO 0.5 % 01/11/2024 9:16 AM CDT [facility] ABSOLUTE NEUTROPHILS 8.9(H) 1.7 - 7.0 thou/cu mm 01/11/2024 9:16 AM CDT [facility] [place] ABSOLUTE LYMPHOCYTES 2.5 0.9 - 2.9 thou/cu mm 01/11/2024 9:16 AM CDT [facility] [place] ABSOLUTE MONOCYTES 0.9(H) <0.9 thou/cu mm 01/11/2024 9:16 AM CDT [facility] ABSOLUTE EOSINOPHILS 0.2 <0.5 thou/cu mm 01/11/2024 9:16 AM CDT [facility] [place] [place] ABSOLUTE BASOPHILS 0.1 <0.3 thou/cu mm 01/11/2024 9:16 AM CDT [facility] [place] Blood BLOOD SPECIMEN / Unknown Venipuncture / Unknown 01/11/2024 9:01 AM CDT 01/11/2024 9:02 AM CDT Narrative [facility] [place] - 01/11/2024 9:16 AM CDT This procedure was originally ordered at [facility]. Liss De Guzman NP HEMATOLOGY [facility] [place] [address] [place] [address], * (ABNORMAL) HEMOGLOBIN A1C SCREENING (01/11/2024 9:01 AM CDT) HEMOGLOBIN A1C SCREENING 7.5(H) <=6.4 % 01/11/2024 6:58 PM CDT [facility] Blood BLOOD SPECIMEN / Unknown Venipuncture / Unknown 01/11/2024 9:01 AM CDT 01/11/2024 9:02 AM CDT Narrative [facility] - 01/11/2024 6:58 PM CDT ? (<5.7%) ?Normal ? (5.7% to 6.4%) ? Indicates prediabetes ? (>=6.5%) ? Confirms diabetes Falsely low levels may be seen with: Recent Transfusion, Recent Significant Blood Loss, Hemolytic Diseases, or Falsely elevated levels may be seen with: Untreated Anemias, Splenectomy Liss De Guzman NP CHEMISTRY [facility] [address] [place] [address], * LIPID PANEL W REFLEX MEASURED LDL (01/11/2024 9:01 AM CDT) CHOLESTEROL,TOTAL 151 100 - 199 mg/dL 01/11/2024 5:41 PM CDT [facility] Comment: Cholesterol, Total Reference Ranges Desirable <200 mg/dL Borderline 200-239 mg/dL High >=240 mg/dL TRIGLYCERIDES 141 <150 mg/dL 01/11/2024 5:41 PM CDT [facility] HDL CHOLESTEROL 42 >40 mg/dL 5:41 PM CDT [facility] NON-HDL CHOLESTEROL 109 <145 mg/dl 01/11/2024 5:41 PM CDT [facility] CHOL/HDL RATIO 3.60 <4.50 01/11/2024 5:41 PM CDT [facility] LDL CHOLESTEROL 81 <=130 mg/dL 01/11/2024 5:41 PM CDT [facility] VLDL CHOLESTEROL 28 <=30 mg/dL 01/11/2024 5:41 PM CDT [facility] PROVIDER ORDERED STATUS RANDOM 01/11/2024 5:41 PM CDT [facility] Blood BLOOD SPECIMEN / Unknown Venipuncture / Unknown 01/11/2024 9:01 AM CDT 01/11/2024 9:02 AM CDT Liss Katia Gab PORTFOLIO ASSISTANT CHEMISTRY [facility] [address] [place] [address], [place] * VALPROIC ACID TOTAL (01/11/2024 9:01 AM CDT) VALPROIC ACID,TOTAL 68.6 50.0 - 100.0 ug/mL 01/11/2024 5:41 PM CDT [facility] DATE OF LAST DOSE 01/10/2024 01/11/2024 5:41 PM CDT [facility] TIME OF LAST DOSE 11:00 PM 01/11/2024 5:41 PM CDT [facility] Blood BLOOD SPECIMEN / Unknown Venipuncture / Unknown 01/11/2024 9:01 AM CDT 01/11/2024 9:02 AM CDT Liss De Guzman NP CHEMISTRY [facility] [address] [place] [address], [place] * (ABNORMAL) COMP METABOLIC PANEL (01/11/2024 9:01 AM CDT) SODIUM 137 136 - 145 mmol/L 01/11/2024 5:41 PM CDT [facility] POTASSIUM 4.6 3.5 - 5.1 mmol/L 01/11/2024 5:41 PM CDT [facility] CHLORIDE 95(L) 98 - 107 mmol/L 01/11/2024 5:41 PM T [facility] CO2,TOTAL 28 22 - 29 mmol/L 01/11/2024 5:41 PM T [facility] ANION GAP 14 5 - 18 01/11/2024 5:41 PM [facility] GLUCOSE 119(H) 70 - 99 mg/dL 01/11/2024 5:41 PM [facility] CALCIUM 9.9 8.8 - 10.2 mg/dL 01/11/2024 5:41 PM [facility] BUN 20 8 - 23 mg/dL 01/11/2024 5:41 PM [facility] CREATININE 1.21(H) 0.50 - 0.90 mg/dL 01/11/2024 5:41 PM [facility] BUN/CREAT RATIO 17 10 - 20 5:41 PM [facility] eGFR 47(L) >90 mL/min/1.7 3m2 01/11/2024 5:41 PM [facility] Comment:As of 2021, eG FR is calculated by the CKD-EPI creatinine equation without race adjustment. ??eGFR can be influenced by muscle mass, exercise, and diet. ??The reported eGFR is an estimation only and is only applicable if the renal function is stable. ALBUMIN 4.3 4.0 - 4.9 g/dL 01/11/2024 5:41 PM T [facility] PROTEIN,TOTAL 7.7 6.0 - 8.0 g/dL 01/11/2024 5:41 PM [facility] BILIRUBIN,TOTAL 0.5 0.0 - 1.2 mg/dL 01/11/2024 5:41 PM [facility] ALK PHOSPHATASE 94 35 - 104 IU/L 01/11/2024 5:41 PM [facility] ALT (SGPT) 12 10 - 35 IU/L 01/11/2024 5:41 PM CDT [facility] AST (SGOT) 22 10 - 35 IU/L 01/11/2024 5:41 PM CDT [facility] Blood BLOOD SPECIMEN / Unknown Venipuncture / Unknown 01/11/2024 9:01 AM CDT 01/11/2024 9:02 AM CDT Liss De Guzman NP CHEMISTRY [facility] [address] [place] [address], from Last 3 Months Care Teams Land Reclamation Specialist Relationship Specialty Start Date End Date None . PCP - General 10/25/23
--- OUTSIDE RECORDS SUMMARY | 2024-03-23 08:06 | XMS_ITS | Encounter Summary ---
Author Organization [facility] Address [address] [place] [id number] Care Team Providers Care Eyeglass Frames Polisher Name Role Phone Anne-Marie Pike MD Unavailable [phone] Kirsten Suarez MD Primary Care Provider + Ricky Munoz-C Unavailable + Christa Schafer SILVER DESIGNER KNOT TIER Unavailable + Ricky Munoz-C Unavailable + Christa Schafer SILVER DESIGNER KNOT TIER Unavailable + Ricky Munoz-C Unavailable + Damon Escalante MD Unavailable + Ricky Munoz-C Unavailable + Damon Escalante MD Unavailable + Ricky Munoz-C Primary Care Provider + Melida Lopez RN Unavailable Unavailable Ricky Munoz-C Unavailable + Ricky Munoz-C Unavailable + Ricky Munoz-C Unavailable + Reason for Visit * Reason Onset Date Comments Results 01/08/2015 Encounter Details Date Type Department Care Team (Late st Contact Info) Description 01/08/2015 MyC Medical Advice [facility], [address] [place] [address] [place] [id number] [place] [address] Results Social History Tobacco Use Types Packs/Day Years [...] on filedocumented in this encounter Care Teams Eyeglass Frames Polisher Relationship Specialty Start Date End Date Kirsten Suarez MD [address] [place] [address] PCP - General Family Practice 03/11/13 06/17/20 Ricky Munoz PA-C [address] [place] [address] PCP - Assigned PCP 08/18/18 12/17/18 Christa Schafer APRN [facility] [address] [place] [id number] PCP - Assigned PCP 08/11/18 08/17/18 Ricky Munoz PA-C [address] [place] [address] PCP - General Physician Phone Specialist - Medical 06/18/20 Anne-Marie Pike MD [place] [address] [place] [address] Family Practice 09/19/11 Ricky Munoz PA-C [address] [place] [address] Assigned PCP 08/18/18 12/21/18 Christa Schafer AbdirizakWILBERT KNOT TIER [address] [place] [address] Assigned PCP 12/22/18 01/11/19 Ricky Munoz PA-C [address] [place] [address] Assigned PCP 01/19/19 10/11/19 [place] [address] [place] [address] Assigned PCP 10/12/19 10/18/19 Ricky Munoz PA-C [address] [place] [address] Assigned PCP 10/19/19 03/27/20 [place] [address] [place] [address] Assigned PCP 03/28/20 06/19/20 Melida Lopez, RN Personal Advocate & Liaison (PAL) Family Practice 06/23/20 10/20/20 Ricky Munoz PA-C [address] [place] [address] Assigned PCP 07/18/20 06/25/21 Ricky Munoz PA-C [address] [address] Assigned PCP 06/20/20 07/17/20 Ricky Munoz PA-C [address] [address] Assigned PCP 06/26/21 documented as of this encounter
[2024-03-23] MEDS: 0.9 % SODIUM CHLORIDE 1000 ml 1,000 ML 500 ML IV (08:24)
[2024-03-23 08:27] LABS: Basophils Percent Auto 0.1 % (0.0-3.0); HCO3 VBG 27 mmol/L (21-28); Hematocrit 41.6 % (33.0-51.0); Hemoglobin* 13.6 gm/dL (12.0-16.0); Immature Granulocytes Pct Auto 0.3 %; Lactate* 2.5 mmol/L (0.5-1.9); Lymphocytes Percent Auto 8.1 % (20-44); Mean Corpuscular HGB Conc 33 gm/dL (32-36); Mean Corpuscular Hemoglobin 27 pg (26-34); Mean Corpuscular Volume 81 fL (80-100); Monocytes Percent Auto 5.2 % (0.0-11.0); Neutrophils Percent Auto 86.3 % (42.0-72.0); PCO2 VBG 37 mmHG (40-50); PO2 VBG 64.9 mmHG (25-47); Platelet Count* 306 K/uL (140-440); RDW Coefficient of Variation % 13.6 % (11.5-15.5); Red Blood Count 5.11 m/uL (4.00-5.20); White Blood Count* 15.52 K/uL (4.50-11.00)
[2024-03-23 08:29] LABS: Slide Review Reflex No
[2024-03-23 08:32] LABS: Appearance Urine Slightly Cloudy (Clear); Bilirubin Urine Negative (Negative); Blood Urine Trace-intact (Negative); Color Urine Yellow (Yellow); Glucose Urine 3+ (Negative); Ketones Urine Negative (Negative); Leukocyte Esterase Urine 1+ (Negative); Nitrite Urine Negative (Negative); Protein Urine Negative (Negative); Specific Gravity Urine <= 1.005 (1.000-1.030); Urobilinogen Urine 0.2 (0.2-1.0)
[2024-03-23 08:40] VITALS: BP 146/83; PULSE 64; RESP 18; O2SAT 96
[2024-03-23 08:40] LABS: Bacteria Urine Few; Squamous Epithelial Cell Urine Few (None-Few)
[2024-03-23 08:44] LABS: Troponin, Point-of-Care* 0.01 ng/ml (0.01-0.04)
[2024-03-23 08:47] LABS: Albumin* 3.9 g/dL (3.3-5.0); Chloride* 97 mmol/L (96-114)
[2024-03-23 08:48] LABS: Potassium* 4.4 mmol/L (3.6-5.1); Sodium* 132 mmol/L (135-149)
[2024-03-23 08:50] LABS: Bilirubin Total* 0.8 mg/dL (0.1-1.5); Creatinine* 0.8 mg/dL (0.5-1.5); Est. Creatinine Clearance* 39.59; Estimated Glomerular Filt Rate 76 ml/min
[2024-03-23 08:51] LABS: Alanine Aminotransferase* 19 U/L (4-35); Alkaline Phosphatase* 140 U/L (40-150); Anion Gap 8 mEq/L (7-15); Aspartate Amino Transferase* 17 U/L (12-35); Blood Urea Nitrogen* 31 mg/dL (7-30); Calcium* 9.1 mg/dL (8.4-10.6); Carbon Dioxide* 27 mmol/L (20-32)
[2024-03-23 08:53] LABS: C Reactive Protein* 1.7 mg/dL (0.5-1.0)
[2024-03-23 09:08] LABS: Glucose, Point-of-Care* 510 mg/dl (60-115)
[2024-03-23 09:10] LABS: Glucose* 593 mg/dL (60-115); Troponin I* < 0.01 ng/mL (0.01-0.04)
[2024-03-23 09:58] LABS: Glucose, Point-of-Care* 468 mg/dl (60-115)
[2024-03-23] MEDS: levoFLOXacin 250 MG TABLET PO (10:12)
== END 2024-03-23 10:23 | disposition home or self-care (01) ==
PROVIDERS: Emergency Provider Family Medicine; PCP Family Medicine
DX: R53.1 Weakness (principal); N39.0 Urinary tract infection, site not specified; R73.9 Hyperglycemia, unspecified
CPT/HCPCS: 36415; 71045; 80053; 81001; 81003; 82803; 82947; 83605; 84484; 85025; 86140; 87086; 99284; A9270; J7030

== ENCOUNTER 2024-03-26 09:50 | Emergency (ER) | payer MEDICARE, BC, SELFPAY ==
[2024-03-26 09:58] VITALS: BP 135/75; PULSE 63; RESP 18; TEMP 35.9; O2SAT 93; BMI 34.3
--- NOTE | 2024-03-26 10:16 | CRLHL7_ITS ---
For Patients: As a result of the Century Cures Act, medical imaging exams and procedure reports are released immediately into your electronic medical record. You may view this report before your referring provider. If you have questions, please contact your health care provider. INDICATION: Weakness TECHNIQUE: Chest 1 views. COMPARISON: Chest x-ray March 23, 2024. FINDINGS: Cardiovascular and mediastinum: Heart size and vasculature are normal in caliber and appearance. Lungs and pleural spaces: Lungs are clear. No sign of infiltrate. No sign of pleural effusion. No pneumothorax. Bones and soft tissues: No significant findings. IMPRESSION: No evidence of acute cardiopulmonary process. Dictated by Иван Kirby MD @ 03/26/2024 10:58:29 AM (Electronically Signed)
--- NOTE | 2024-03-26 10:18 | ED.GENADULT ---
HPI - General Adult General Chief complaint: Weakness Stated complaint: weakness Time Seen by Provider: 03/26/24 10:06 History of Present Illness HPI narrative: [age] white female was here for weakness in the presumed UTI, started on Levaquin. Just a few days left of the antibiotic. She reported today that her blood pressure was elevated her blood sugar was high. She feels better with the UTI, apparently she got a yeast infection as well she is treating vaginally, but also she is ambulatory. She lives alone in [place] in a condo, her daughter is here reports the patient has pretty significant bipolar disorder and has trouble keeping up her apartment she is contemplating to contacting a social group worker in getting some assessment help for her. Patient denies chest pain breathing problem, fevers, chills, rigors, continue any dysuria, any weakness in her arms or legs that is focal, she describes being a little bit weak when she comes and gets up and goes the bathroom but she is able to walk without difficulty. Related Data Home Medications ?Medication ?Instructions ?Recorded ?Confirmed aspirin 81 mg tablet,delayed 81 mg PO DAILY 08/26/22 12/12/23 release (Adult Aspirin Regimen) metformin 1,000 mg tablet 1,000 mg PO BID 12/31/23 Previous Rx's ?Medication ?Instructions ?Recorded blood-glucose meter (Blood Glucose #1 ea 09/22/22 Monitoring kit) lancets #100 ea 09/22/22 levothyroxine 88 mcg tablet 88 mcg PO QDAY #90 tabs 09/22/22 losartan 100 mg tablet 100 mg PO QDAY #90 tabs 09/22/22 blood sugar diagnostic (Accu-Chek #100 ea 10/04/22 Guide test strips) albuterol sulfate 90 mcg/actuation 2 puff inhalation Q6H PRN 03/06/23 aerosol inhaler (Ventolin HFA) shortness of breath or wheezing #8.5 grams glipizide 10 mg tablet 10 mg PO BID #180 tabs 03/21/23 oxybutynin chloride 10 mg 10 mg PO QDAY #30 tabs 03/21/23 tablet,extended release 24 hr bupropion HCl 150 mg 24 hr tablet, 150 - 300 mg (1 - 2 x 150 mg) PO 04/10/23 extended release QAM #60 tabs divalproex 250 mg tablet,delayed 250 - 500 mg (1 - 2 x 250 mg) PO 04/10/23 release (Depakote) BID #100 tabs rosuvastatin 20 mg tablet 20 mg PO DAILY #90 tabs 10/02/23 hydrochlorothiazide 25 mg tablet 25 mg PO DAILY #90 tabs 11/16/23 atenolol 50 mg tablet 50 mg PO DAILY #90 tabs 12/28/23 blood sugar diagnostic (Blood #100 ea 01/14/24 Glucose Test strips) levofloxacin 250 mg tablet 250 mg PO DAILY #4 tabs 03/23/24 Allergies Allergy/AdvReac Type Severity Reaction Status Date / Time NSAIDS (Non-Steroidal AdvReac Low Kidney Verified 03/26/24 10:04 Anti-Inflamma Function Review of Systems Status of ROS: Reports: 6 or more systems reviewed and unremarkable except as noted in History and below PFSH PFS Medical History Bipolar depression ?F31.9 - Bipolar disorder, unspecified (ICD-10) Hx of falling ?Z91.81 - History of falling (ICD-10) Hx of gout ?Z87.39 - Personal history of other diseases of the musculoskeletal system and connective tissue (ICD-10) Hx of colonic polyps ?Z86.010 - Personal history of colonic polyps (ICD-10) History of depression ?Z86.59 - Personal history of other mental and behavioral disorders (ICD-10) Medication management ?Z79.899 - Other long-term (current) drug therapy (ICD-10) Chronic kidney disease (CKD) stage G3a/A1, moderately decreased glomerular filtration rate (GFR) between 45-59 mL/min/1.73 square meter and albuminuria creatinine ratio less than 30 mg/g ?N18.31 - Chronic kidney disease, stage 3a (ICD-10) Anxiety ?F41.9 - Anxiety disorder, unspecified (ICD-10) Surgical History History of colonoscopy ?Z98.890 - Other specified postprocedural states (ICD-10) Family History Brother Multiple sclerosis Social History Smoking Status: Never smoker Do you use any of these nicotine containing products: None Second hand tobacco smoke exposure: No How often do you have a drink containing alcohol: never AUDIT-C Alcohol total score: 0 Non-prescribed substance use: denies use Little interest or pleasure in doing things: nearly every day Feeling down, depressed, or hopeless: nearly every day service: No Exam Narrative: Exam Narrative: Objective: Patient's vital signs look unremarkable and within normal limits, no fever, blood pressure is 135/75 Alert orient x3 no distress, no cyanosis, mouth is just slightly dry but she is alert, noncyanotic, oriented x3 Neck is supple Chest clear Heart rhythm regular with 2/6 systolic ejection murmur Abdomen benign soft nontender Extremities are no edema neurologic nonfocal, normal strength sensation in upper lower extremities. Patient's peripheral skin is warm and dry. Const: Vital Signs, click to edit/add: Vital Signs - 24 hr 03/26/24 09:58 03/26/24 11:54 03/26/24 11:55 Temperature 96.7 F L Pulse Rate 59 L 61 Pulse Rate [Right Pulse Oximeter] 63 Respiratory Rate 18 16 Blood Pressure 151/57 H Blood Pressure [Ri ght Upper Arm] 135/75 Pulse Oximetry 93 98 98 Oxygen Delivery Me thod Room Air Course Vital Signs Vital signs: Initial Vital Signs Temperature 96.7 F L 03/26/24 09:58 Temperature Source Temporal Artery Scan 03/26/24 09:58 Pulse Rate 63 03/26/24 09:58 Pulse Rhythm Regular 03/26/24 09:58 Respiratory Rate 18 03/26/24 09:58 Blood Pressure 135/75 03/26/24 09:58 Blood Pressure Mean 95 03/26/24 09:58 Blood Pressure Position Supine 03/26/24 09:58 Pulse Oximetry 93 03/26/24 09:58 Oxygen Delivery Method Room Air 03/26/24 09:58 Vital Signs Temperature 96.7 F L 03/26/24 09:58 Pulse Rate 63 03/26/24 09:58 Respiratory Rate 18 03/26/24 09:58 Blood Pressure 135/75 03/26/24 09:58 Pulse Oximetry 93 03/26/24 09:58 Oxygen Delivery Method Room Air 03/26/24 09:58 Temperature 96.7 F L 03/26/24 09:58 Pulse Rate 61 03/26/24 11:55 Respiratory Rate 16 03/26/24 11:54 Blood Pressure 151/57 H 03/26/24 11:54 Pulse Oximetry 98 03/26/24 11:55 Oxygen Delivery Method Room Air 03/26/24 09:58 Medications Administered Medications: Discontinued Medications Generic Name Dose Route Start Last Admin Trade Name Lizeth PRN Reason Stop Dose Admin Sodium Chloride 1,000 mls @ 6,000 mls/hr 03/26/24 10:30 03/26/24 11:50 0.9 % Sodium Chloride 1000 Ml IV 03/26/24 10:39 Infused .Q10M ANNA Infusion Ceftriaxone Sodium 500 mg/ 100 mls @ 200 mls/hr 03/26/24 12:08 03/26/24 13:40 Sodium Chloride IVPB 03/26/24 12:09 Infused ONCE ONE Infusion Insulin Human Regular 5 unit 03/26/24 12:07 03/26/24 12:51 Insulin Regular 100 Unit/Ml Inj SUBCUT 03/26/24 12:08 5 unit ONCE ONE Administration Medical Decision Making MDM Narrative Medical decision making narrative: [age] year white female who presents with ambulance with weakness, she had a recent presumed UTI, but her urinalysis shows mixed Gram-positive mi that is likely contaminant. Will check labs including electrolytes CBC, repeat urinalysis, will give 1 L IV fluid. Her daughter is here with her and can get her home, would recommend observation, follow-up with primary care in the next couple of days, Schmitt ensure that your labs are reassuring. Do think she has mild dehydration which we can correct with hydration. Addendum 12:08 p.m.: The patient still has pyuria, she did have what appeared to be contaminant on her UA, but I think would be appropriate to have her finish her Levaquin, will give her an additional dose of Rocephin 500 mg IV. Have her follow up with primary care in the next week or so. Her blood sugars 340, and should be getting 5 units of subcu insulin. She should monitor her blood sugars at home will check it again before she goes home today, she does feel little bit better. She should monitor blood sugars at home and then follow up with regular doctor in the next 2-3 days. Addendum 1:40 p.m.: The patient was able to walk with a walker quite easily, able to go the bathroom on her own. I think she could try going home. Daughter will investigate other assisted options. I do not really have a good admittable diagnosis at this point. I think she needs continue to monitor sugars see her regular doctor in the next few days, continue home medications. She will finish her antibiotic at home. Return as needed. Of note the patient's chest x-ray looked negative, vital signs look reassuring, white count is elevated slightly at 14,000 but she was just on prednisone, hemoglobin is normal at 14.2, ER profile looks largely unremarkable other than glucose was elevated 343 she did get some insulin. She will continue to monitor her sugar, a urinalysis looked showed some white cells and pyuria, she did not have a specific infection last visit but I think additional Rocephin IV and then finished the Levaquin to be appropriate. Given that she has already started this medication. She did have bacteriuria. Follow up with regular doctor in the next 2-3 days. Lab Data Labs: Lab Results 03/26/24 03/26/24 Range/Units 10:28 10:50 WBC 14.17 H (4.50-11.00) K/uL RBC 5.29 H (4.00-5.20) m/uL Hgb 14.2 (12.0-16.0) gm/dL Hct 42.6 (33.0-51.0) % MCV 81 (80-100) fL MCH 27 (26-34) pg MCHC 33 (32-36) gm/dL RDW Coeff of Jordyn 13.9 (11.5-15.5) % Plt Count 340 (140-440) K/uL Neut % (Auto) 75.5 H (42.0-72.0) % Lymph % (Auto) 16.8 L (20-44) % [place] % (Auto) 6.1 (0.0-11.0) % Eos % (Auto) 0.8 (0.0-7.0) % Baso % (Auto) 0.4 (0.0-3.0) % Neut # (Auto) 10.70 H (1.7-7.0) K/uL Lymph # (Auto) 2.40 (0.90-2.90) K/uL [place] # (Auto) 0.90 (0.00-0.90) K/UL Eos # (Auto) 0.10 (0.00-0.50) K/uL Baso # (Auto) 0.10 (0.00-0.30) K/uL Abs Immat Gran (auto) 0.10 (0.00-0.30) K/uL Imm/Tot Granulo (auto) 0.4 % Sodium 133 L (135-149) mmol/L Potassium 4.0 (3.6-5.1) mmol/L Chloride 97 (96-114) mmol/L Carbon Dioxide 27 (20-32) mmol/L Anion Gap 9 (7-15) mEq/L BUN 27 (7-30) mg/dL Creatinine 0.9 (0.5-1.5) mg/dL Estimated Creat Clear 41.33 Estimated GFR 66 ml/min Glucose 343 H (60-115) mg/dL Calcium 9.1 (8.4-10.6) mg/dL Total Bilirubin 1.3 (0.1-1.5) mg/dL Direct Bilirubin 0.4 (0.0-0.5) mg/dL AST 19 (12-35) U/L ALT 15 (4-35) U/L Alkaline Phosphatase 102 (40-150) U/L C-Reactive Protein 2.1 H (0.5-1.0) mg/dL Total Protein 7.2 (6.0-8.3) g/dL Albumin 4.0 (3.3-5.0) g/dL Urine Color Dark yellow (Yellow) Urine Appearance Turbid A (Clear) Urine pH 5.5 (5.0-8.5) Ur Specific Protivin >= 1.030 (1.000-1.030) Urine Protein 1+ A (Negative) Urine Glucose (UA) 3+ A (Negative) Urine Ketones Trace A (Negative) Urine Blood 1+ A (Negative) Urine Nitrite Negative (Negative) Urine Bilirubin 1+ A (Negative) Urine Urobilinogen 1.0 (0.2-1.0) Ur Leukocyte Esterase Trace A (Negative) Urine RBC 0-2 (0-2) Urine WBC 10-25 A (0-5) Ur Squamous Epith Cells Moderate A (None-Few) Amorphous Sediment Few A (None) Urine Bacteria Moderate A (None) Discharge Plan Discharge Clinical Impression: Dehydration, Pyuria Patient Disposition: Home w/ Parent or Adult Condition: Improved Additional Instructions: Rest, light activity, it would be helpful if he could check her blood sugars a couple times a day and report that your doctor in the next 2-3 days. Would recommend appointment at that time. Would recommend finishing , will give you an additional antibiotic through the vein today to make sure your bladder infection is gone. Light activity as mentioned and return if problems concerns difficulty. Recommend using her walker at all times. Return as needed. Activity Level: Light activity Discharge Diet: Diabetic Prescriptions: No Action levothyroxine 88 mcg tablet 88 mcg PO QDAY Qty: 90 3RF losartan 100 mg tablet 100 mg PO QDAY Qty: 90 3RF albuterol sulfate [Ventolin HFA] 90 mcg/actuation HFA aerosol inhaler 2 puff inhalation Q6H PRN (Reason: shortness of breath or wheezing) Qty: 8.5 12RF Rx Instructions: dispense whichever albuterol inhaler is covered oxybutynin chloride 10 mg tablet extended release 24hr 10 mg PO QDAY Qty: 30 0RF glipizide 10 mg tablet 10 mg PO BID Qty: 180 0RF divalproex [Depakote] 250 mg tablet,delayed release (DR/EC) 250 - 500 mg PO BID Qty: 100 0RF Rx Instructions: take 1 t po bid x 1 wk then increase to 2 t bid for mood bupropion HCl 150 mg tablet extended release 24 hr 150 - 300 mg PO QAM Qty: 60 0RF Rx Instructions: take 1 t po qam x 1 wk then increase to 2 t po qam for mood aspirin [Adult Aspirin Regimen] 81 mg tablet,delayed release (DR/EC) 81 mg PO DAILY levofloxacin 250 mg tablet 250 mg PO DAILY Qty: 4 0RF (DME) blood-glucose meter [Blood Glucose Monitoring] Kit See Rx Instructions .Route Qty: 1 0RF Rx Instructions: As directed (DME) lancets [facility] [place] See Rx Instructions .Route Qty: 100 3RF Rx Instructions: use once per day (DME) Accu-Chek Guide test strips Strip See Rx Instructions .Route Qty: 100 3RF Rx Instructions: Test once daily rosuvastatin 20 mg tablet 20 mg PO DAILY Qty: 90 0RF hydrochlorothiazide 25 mg tablet 25 mg PO DAILY Qty: 90 0RF atenolol 50 mg tablet 50 mg PO DAILY Qty: 90 0RF metformin 1,000 mg tablet 1,000 mg PO BID (DME) Blood Glucose Test Strip See Rx Instructions .Route Qty: 100 0RF Rx Instructions: Test once per day Follow Up/Referrals: Diego Smyth MD [Primary Care Provider] - Stand Alone Forms: Countdown Info Instructions
--- OUTSIDE RECORDS SUMMARY | 2024-03-26 10:29 | XMS_ITS | Encounter Summary ---
Author Organization [facility] Address [facility] [place] [address] Care Team Providers Care Head Of Digital Name Role Phone Anne-Marie Pike MD Unavailable [phone] Ricky Munoz PA-C Primary Care Provider Ricky Munoz PA-C Unavailable + [phone] Reason for Visit * Reason Onset Date Comments Refill Request 09/25/2022 metFORMIN (GLUCO PHAGE) 500 MG tablet Encounter Details Date Type Department Care Team (Late st Contact Info) Description 09/25/2022 Refill [facility] [address] [place] [address] Ricky Munoz PA-C [address] [place] [address] Refill Request (metFORMIN (GLUCOPHAGE) 500 [...] Sara, RN on 09/27/2022 at 4:20 PM FITTER * Telephone Encounter - Frieda Romo - 09/27/2022 2:00 PM CST Requesting a 90 day supply. FITTER documented in this encounter Plan of Treatment Not on file documented as of this encounter Visit Diagnoses Diagnosis Type 2 diabetes mellitus with diabetic neuropathy, without long-term current use of insulin (H) documented in this encounter Additional Health Concerns Assessment Noted Time PHQ-9 Depression Total Score: 7 07/01/20 20 12:02 PM CDT documented as of this encounter Care Teams Head Of Digital Relationship Specialty Start Date End Date Ricky Munoz PA-C [address] [address] [address] PCP - General Physician Rn Medication - Medical 06/18/20 Anne-Marie Pike MD [address] [place] [id number] Family Practice 09/19/11 Ricky Munoz PA-C [address] [address] Assigned PCP 06/26/21 documented as of this encounter
--- OUTSIDE RECORDS SUMMARY | 2024-03-26 10:29 | XMS_ITS | Referral Summary ---
Author Organization [facility] Address [address] [place] [address] Care Team Providers Care Steam Pan Sponger Name Role Phone Anne-Marie Pike MD Unavailable [phone] Ricky Munoz PA-C Primary Care Provider Ricyk Munoz PA-C Unavailable [phone] Allergies Active Allergy Reactions Criticality Noted Date [...] 09/03/2006 Bipolar 2 disorder 06/11/2006 Overview: Overview: [place] was effective but caused skin problems. Zyprexa led to her feeling like a zombie. She did not tolerate prozac at doses high enough to treat her depression. She was hospitalized at [place] in May 2004 with depression. Hypothyroidism 01/01/2004 [...] on file Medical Devices Implanted Type Area Neuro Urologist Device Identifier Shelf Expiration Date Model / Serial / Lot Bone Cement Radiopaque Simplex Hv Full Dose 6194-1-001 Implanted:Qty: 1 on 04/10/2017 by Marlon Mcfadden MD at [facility] Cement, Bone Right: Knee [employer] 11/14/2018 6194-1-001 / / [id number] Bone Cement Simplex W/Gentamicin 6195-1-001 Implanted:Qty: 1 on 04/10/2017 by Marlon Mcfadden MD at [facility] Cement, Bone Right: Knee [employer] 06/14/2018 6195-1-001 / / [id number] Bone Cement Radiopaque Simplex Hv Full Dose 6194-1-001 Implanted:Qty: 1 on 01/08/2018 by Marlon Mcfadden MD at [facility] Cement, Bone Left: Knee [employer] 04/13/2019 6194-1-001 / / [id number] Bone Cement Simplex W/Gentamicin 6195-1-001 Implanted:Qty: 1 on 01/08/2018 by Marlon Mcfadden MD at [facility] Cement, Bone Left: Knee [employer] 05/14/2019 6195-1-001 / / [id number] Eye Imp Iol Davis Pcl Technis Zcb00 21.0 Implanted:Qty: 1 on 09/19/2011 at [facility] Right: Eye [employer] 07/14/2014 ZCB00 21.0 / [id number] / Eye Imp Iol Lorrie Pcl Tecnis Zcb00 21.5 Implanted:Qty: 1 on 05/12/2014 by Akil Nguyen MD at [facility] Left: Eye [employer] 03/13/2018 ZCB00 21.5 / [id number] / Imp Tibial Tray Size 3 Implanted:Qty: 1 on 04/10/2017 by Marlon Mcfadden MD at [facility] Right: Knee 05/20/2021 90-SRK-200 300 / / [id number] Imp Femoral Component Type Ps Size 4r Implanted:Qty: 1 on 04/10/2017 by Marlon Mcfadden MD at [facility] Right: Knee 04/13/2021 90-SRK-331 400 / / [id number] Imp Patella Oval 38mm Implanted:Qty: 1 on 04/10/2017 by Marlon Mcfadden MD at [facility] Right: Knee 05/16/2021 90-SRK-410 300 / / [id number] Imp Poly Insert Type Ps Size 4 12mm Implanted:Qty: 1 on 04/10/2017 by Marlon Mcfadden MD at [facility] Right: Knee 05/15/2021 90-SRK-130 412 / / [id number] Poly Insert Implanted:Qty: 1 on 01/08/2018 by Marlon Mcfadden MD at [facility] Left: Knee [employer] 05/15/2021 90-SRK-130 412 / / [id number] Patella Implanted:Qty: 1 on 01/08/2018 by Marlon Mcfadden MD at [facility] Left: Knee [employer] 05/16/2021 90-SRK-410 300 / / [id number] Femoral Component Implanted:Qty: 1 on 01/08/2018 by Marlon Mcfadden MD at [facility] Left: Knee [employer] 04/13/2021 90-SRK-332 400 / / [id number] Tibial Tray Implanted:Qty: 1 on 01/08/2018 by Marlon Mcfadden MD at [facility] Left: Knee [employer] 05/17/2021 90-SRK-200 300 / / [id number] Procedures Procedure Name Priority Date/Time Associated Diagnosis Comments EYE EXAM - HIM SCAN 08/15/2023 1 2:00 AM CDT COLONOSCOPY - HIM SCAN 08/31/2021 12:00 AM FINANCIAL REPORTING ADVISOR CBC WITH PLATELETS Routine 06/16/2021 11 :32 [...] SCREENING DIGITAL BILATERAL Routine 09/19/2019 2:07 PM FINANCIAL REPORTING ADVISOR Visit for screening mammogram DX HIP/PELVIS/SPINE W LAT FRACTION ANALYSIS Routine 09/19/2019 1:23 PM FINANCIAL REPORTING ADVISOR Disorder of bone Osteopenia, unspecified location Rheumatoid arthritis involving right knee, unspecified rheumatoid factor presence (H) ROUTINE UA WITH MICROSCOPIC REFLEX TO CULTURE STAT 04/13/2017 9:55 AM CDT Status post total knee replacement, right HEPATITIS C SCREEN REFLEX TO HCV RNA QUANT AND GENOTYPE Routine 10/05/2016 11:02 AM FINANCIAL REPORTING ADVISOR Need for hepatitis C screening test C FOOT EXAM Routine 05/04/2014 11:01 AM CDT Screening for diabetic peripheral neuropathy from Last 3 Months or Most Recently Relevant to Health Maintenance Results * EYE EXAM - HIM SCAN (08/15/2023 12:00 AM CDT) RETINOPATHY NEGATIVE 08/15/2023 Provider Outside OTHER * COLONOSCOPY - HIM SCAN (08/31/2021 12:00 AM FINANCIAL REPORTING ADVISOR) 08/31/2021 Provider Outside PROCEDURES * TSH WITH FREE T4 REFLEX (06/16/2021 11:32 AM CDT) TSH 1.97 0.40 - 4.00 mU/L 06/17/2021 10:31 AM CDT [facility] Blood STRUCTURE OF LEFT UPPER LIMB / Unknown Venipuncture / Unknown 06/16/2021 11:32 AM CDT 06/16/2021 11:32 AM CDT Ricky Munoz PA-C LAB - BLOOD OR DERABLES [facility] [address] Lab (no room number, 1st floor of clinic) [place] [address], [facility] [phone] * (ABNORMAL) Lipid panel reflex to direct [...] - BLOOD OR DERABLES Performing Organization Address [facility]/ZIP Co de Phone Number [facility] [address] Lab (no room number, 1st floor of clinic) [place] [address], [facility] [phone] * (ABNORMAL) HEMOGLOBIN A1C (06/16/2021 11:32 AM [...] - BLOOD OR DERABLES Performing Organization Address [facility]/ZIP Co de Phone Number LABORATORY [facility] [address] [facility] Lab (no room number, 1st floor [facility]) [place] [address], [facility] [phone] * (ABNORMAL) Comprehensive metabolic panel (BMP + [...] LAB - BLOOD OR DERABLES OX LAB[facility]AT[facility] [address] Lab (no room number, 1st floor of clinic) [place] [address], [facility] [phone] * CBC with platelets (06/16/2021 11:32 AM [...] PA-C LAB - BLOOD OR DERABLES LABORATORY [facility] [address] [facility] Lab (no room number, 1st floor of clinic) [place] [address], [facility] [phone] * Albumin Random Urine Quantitative with Creat Ratio (07/13/2020 3:01 PM CDT) Creatinine Urine 237 mg/dL 07/14/2020 3:27 PM CDT [facility] Albumin Urine mg/L 22 mg/L 07/14/2020 3:38 PM CDT [facility] Albumin Urine mg/g Cr 9.37 0 - 25 mg/g Cr 07/14/2020 3:38 PM CDT [facility] Urine specimen (specimen) 07/13/2020 3:01 PM CDT 07/13/2020 4:20 PM CDT Ricky Munoz PA-C LAB - URINE OR DERABLES [facility] [address] [place] [address] * MA Screening Digital Bilateral (09/19/2019 2:07 PM FINANCIAL REPORTING ADVISOR) Anatomical Region Laterality Modality Breast Bilateral Mammography Impressions 09/19/2019 2:59 PM FINANCIAL REPORTING ADVISOR IMPRESSION: BI-RADS CATEGORY: 1 - ??Negative RECOMMENDED FOLLOW-UP: Annual Mammography. Exam results letter mailed to patient. NICK HARPER MD Narrative 09/19/2019 2:59 PM FINANCIAL REPORTING ADVISOR SCREENING MAMMOGRAM, BILATERAL, DIGITAL w/CAD - 09/19/2019 [...] DX Hip/Pelvis/Spine w Lateral (09/19/2019 1:23 PM FINANCIAL REPORTING ADVISOR) Anatomical Region Laterality Modality Dexa Bone Mineral Den sity Impressions 09/19/2019 2:12 PM FINANCIAL REPORTING ADVISOR IMPRESSION: Lumbar spine and right hip osteopenia. ROB MONTERO MD Narrative 09/19/2019 2:12 PM FINANCIAL REPORTING ADVISOR DX HIP/PELVIS/SPINE W LAT FRACTION ANALYSIS ??09/19/2019 1:23 PM HISTORY: ??osteopenia 2012; Disorder of bone; Osteopenia, unspecified location; Rheumatoid arthritis involving right knee, unspecified rheumatoid factor presence (H) FINDINGS: This DEXA scan was performed using a PLUQ iDXA scanner. DEXA results are reported according [...] This DEXA scan was performed using a PLUQ iDXA scanner. DEXA results are reported according [...] (04/13/2017 9:55 AM CDT) Color Urine Yellow [facility] Appearance Urine Clear [facility] Glucose Urine Negative NEG mg/dL [facility] Bilirubin Urine Negative NEG [facility] Ketones Urine Negative NEG mg/dL [facility] Specific [place] Urine 1.008 1.003 - 1.035 [facility] Blood Urine Negative NEG [facility] pH Urine 5.0 5.0 - 7.0 pH [facility] Protein Albumin Urine Negative NEG mg/dL [facility] Urobilinogen mg/dL Normal 0.0 - 2.0 mg/dL [facility] Nitrite Urine Negative NEG [facility] Leukocyte Esterase Urine Negative NEG [facility] Source Midstream Urine [facility] WBC Urine 3(H) 0 - 2 /HPF [facility] RBC Urine 1 0 - 2 /HPF [facility] Squamous Epithelial /HPF Urine 1 0 - 1 /HPF [facility] Urine specimen (specimen) URINE SPECIMEN OBTAINED BY CLEAN CATCH PROCEDURE / Unknown 04/13/2017 9:55 AM CDT 04/13/2017 11:11 AM CDT Nolan Godfrey MD LAB - URINE ORDERABL ES [facility] [address] [place] [address], [facility] [phone] * Hepatitis C Screen Reflex to HCV RNA Quant and Genotype (10/05/2016 11:02 AM FINANCIAL REPORTING ADVISOR) Hepatitis C Antibody Nonreactive Assay performance characteristics have not been established for newborns, infants, and children [facility] Blood specimen (specimen) 10/05/2016 11:02 AM FINANCIAL REPORTING ADVISOR 10/05/2016 11:03 AM FINANCIAL REPORTING ADVISOR Ricky Munoz PA-C LAB - BLOOD OR DERABLES [facility] [address] [place] [address] from Last 3 Months or Most Recently Relevant to Health Maintenance Advance Directives For more information, please contact: [phone] * Full Code (Latest Code Status on File) Date Activated Date Inactivated Comments 01/08/2018 4:01 PM 01/11/2018 3:55 PM * Full Code Date Activated Date Inactivated Comments 04/10/2017 5:22 PM 04/13/2017 4:22 PM Care Teams Steam Pan Sponger Relationship Specialty Start Date End Date Ricky Munoz PA-C [address] [place] [address] PCP - General Physician Electrolysis Investigator - Medical 06/18/20 Anne-Marie Pike MD [address] [place] [address] Family Practice 09/19/11 Ricky Munoz PA-C [address] [place] [address] Assigned PCP 06/26/21
--- OUTSIDE RECORDS SUMMARY | 2024-03-26 10:29 | XMS_ITS | Clinical Summary ---
Author Organization [facility] Address [address] [place] [address] Care Team Providers Care Combination Machine Tool Operator Name Role Phone Anne-Marie Pike MD Unavailable [phone] Ricky Munoz PA-C Primary Care Provider Ricky Munoz PA-C Unavailable [phone] Allergies Active Allergy Reactions Criticality Noted Date [...] 09/03/2006 Bipolar 2 disorder 06/11/2006 Overview: Overview: [place] was effective but caused skin problems. Zyprexa led to her feeling like a zombie. She did not tolerate prozac at doses high enough to treat her depression. She was hospitalized at [place] in May 2004 with depression. Hypothyroidism 01/01/2004 [...] this topic Medical Devices Implanted Type Area Avionic Technician Device Identifier Shelf Expiration Date Model / Serial / Lot Bone Cement Radiopaque Simplex Hv Full Dose 6194-1-001 Implanted:Qty: 1 on 04/10/2017 by Marlon Mcfadden MD at [facility] Cement, Bone Right: Knee [employer] 11/14/2018 6194-1-001 / / [id number] Bone Cement Simplex W/Gentamicin 6195-1-001 Implanted:Qty: 1 on 04/10/2017 by Marlon Mcfadden MD at [facility] Cement, Bone Right: Knee [employer] 06/14/2018 6195-1-001 / / [id number] Bone Cement Radiopaque Simplex Hv Full Dose 6194-1-001 Implanted:Qty: 1 on 01/08/2018 by Marlon Mcfadden MD at [facility] Cement, Bone Left: Knee [employer] 04/13/2019 6194-1-001 / / [id number] Bone Cement Simplex W/Gentamicin 6195-1-001 Implanted:Qty: 1 on 01/08/2018 by Marlon Mcfadden MD at [facility] Cement, Bone Left: Knee [employer] 05/14/2019 6195-1-001 / / [id number] Eye Imp Iol Lorrie Pcl Technis Zcb00 21.0 Implanted:Qty: 1 on 09/19/2011 at [facility] Right: Eye [employer] 07/14/2014 ZCB00 21.0 / [id number] / Eye Imp Iol [place] Pcl Tecnis Zcb00 21.5 Implanted:Qty: 1 on 05/12/2014 by Akil Nguyen MD at [facility] Left: Eye [employer] 03/13/2018 ZCB00 21.5 / [id number] / Imp Tibial Tray Size 3 Implanted:Qty: 1 on 04/10/2017 by Marlon Mcfadden MD at [facility] Right: Knee 05/20/2021 90-SRK-200 300 / / [id number] Imp Femoral Component Type Ps Size 4r Implanted:Qty: 1 on 04/10/2017 by Marlon Mcfadden MD at [facility] Right: Knee 04/13/2021 90-SRK-331 400 / / [id number] Imp Patella Oval 38mm Implanted:Qty: 1 on 04/10/2017 by Marlon Mcfadden MD at [facility] Right: Knee 05/16/2021 90-SRK-410 300 / / [id number] Imp Poly Insert Type Ps Size 4 12mm Implanted:Qty: 1 on 04/10/2017 by Marlon Mcfadden MD at [facility] Right: Knee 05/15/2021 90-SRK-130 412 / / [id number] Poly Insert Implanted:Qty: 1 on 01/08/2018 by Marlon Mcfadden MD at [facility] Left: Knee [employer] 05/15/2021 90-SRK-130 412 / / [id number] Patella Implanted:Qty: 1 on 01/08/2018 by Marlon Mcfadden MD at [facility] Left: Knee [employer] 05/16/2021 90-SRK-410 300 / / [id number] Femoral Component Implanted:Qty: 1 on 01/08/2018 by Marlon Mcfadden MD at [facility] Left: Knee [employer] 04/13/2021 90-SRK-332 400 / / [id number] Tibial Tray Implanted:Qty: 1 on 01/08/2018 by Marlon Mcfadden MD at [facility] Left: Knee [employer] 05/17/2021 90-SRK-200 300 / / [id number] Procedures Procedure Name Priority Date/Time Associated Diagnosis Comments EYE EXAM - HIM SCAN 08/15/2023 1 2:00 AM CDT COLONOSCOPY - HIM SCAN 08/31/2021 12:00 AM TINSMITH HELPER CBC WITH PLATELETS Routine 06/16/2021 11 :32 [...] SCREENING DIGITAL BILATERAL Routine 09/19/2019 2:07 PM TINSMITH HELPER Visit for screening mammogram DX HIP/PELVIS/SPINE W LAT FRACTION ANALYSIS Routine 09/19/2019 1:23 PM TINSMITH HELPER Disorder of bone Osteopenia, unspecified location Rheumatoid arthritis involving right knee, unspecified rheumatoid factor presence (H) ROUTINE UA WITH MICROSCOPIC REFLEX TO CULTURE STAT 04/13/2017 9:55 AM CDT Status post total knee replacement, right HEPATITIS C SCREEN REFLEX TO HCV RNA QUANT AND GENOTYPE Routine 10/05/2016 11:02 AM TINSMITH HELPER Need for hepatitis C screening test C FOOT EXAM Routine 05/04/2014 11:01 AM CDT Screening for diabetic peripheral neuropathy from Last 3 Months or Most Recently Relevant to Health Maintenance Results * EYE EXAM - HIM SCAN (08/15/2023 12:00 AM CDT) RETINOPATHY NEGATIVE 08/15/2023 Provider Outside OTHER * COLONOSCOPY - HIM SCAN (08/31/2021 12:00 AM TINSMITH HELPER) 08/31/2021 Provider Outside PROCEDURES * TSH WITH FREE T4 REFLEX (06/16/2021 11:32 AM CDT) TSH 1.97 0.40 - 4.00 mU/L 06/17/2021 10:31 AM CDT [facility] Blood STRUCTURE OF LEFT UPPER LIMB / Unknown Venipuncture / Unknown 06/16/2021 11:32 AM CDT 06/16/2021 11:32 AM CDT Ricky Munoz PA-C LAB - BLOOD OR DERABLES O[facility] LAB[facility]ATORY [facility] [address] Lab (no room number, 1st floor of clinic) [place] [address], [facility] [phone] * (ABNORMAL) Lipid panel reflex to direct [...] LAB - BLOOD OR DERABLES OX LAB[facility]ATORY [facility] [address] Lab (no room number, 1st floor of clinic) [place] [address], [facility] [phone] * (ABNORMAL) HEMOGLOBIN A1C (06/16/2021 11:32 AM [...] LAB - BLOOD OR DERABLES RM LABORATORY [facility] [address] [facility] Lab (no room number, 1st floor of clinic) [place] [address], [facility] [phone] * (ABNORMAL) Comprehensive metabolic panel (BMP + [...] PA-C LAB - BLOOD OR DERABLES LABORATORY [facility] [address] Lab (no room number, 1st floor of clinic) [place] [address], [facility] [phone] * CBC with platelets (06/16/2021 11:32 AM [...] LAB - BLOOD OR DERABLES RM LABORATORY [facility] [address] [facility] (no room number, 1st floor of clinic) [place] [address], [facility] [phone] * Albumin Random Urine Quantitative with Creat Ratio (07/13/2020 3:01 PM CDT) Creatinine Urine 237 mg/dL 07/14/2020 3:27 PM CDT [facility] Albumin Urine mg/L 22 mg/L 07/14/2020 3:38 PM CDT [facility] Albumin Urine mg/g Cr 9.37 0 - 25 mg/g Cr 07/14/2020 3:38 PM CDT [facility] Urine specimen (specimen) 07/13/2020 3:01 PM CDT 07/13/2020 4:20 PM CDT Ricky Munoz PA-C LAB - URINE OR DERABLES Performing Organization Address City/[facility]/ZIP Co de Phone Number [facility] [address] [place] [address] * MA Screening Digital Bilateral (09/19/2019 2:07 PM TINSMITH HELPER) Anatomical Region Laterality Modality Breast Bilateral Mammography Impressions 09/19/2019 2:59 PM TINSMITH HELPER IMPRESSION: BI-RADS CATEGORY: 1 - ??Negative RECOMMENDED FOLLOW-UP: Annual Mammography. Exam results letter mailed to patient. NICK HARPER MD Narrative 09/19/2019 2:59 PM TINSMITH HELPER SCREENING MAMMOGRAM, BILATERAL, DIGITAL w/CAD - 09/19/2019 [...] DX Hip/Pelvis/Spine w Lateral (09/19/2019 1:23 PM TINSMITH HELPER) Anatomical Region Laterality Modality Dexa Bone Mineral Den sity Impressions 09/19/2019 2:12 PM TINSMITH HELPER IMPRESSION: Lumbar spine and right hip osteopenia. ROB MONTERO MD Narrative 09/19/2019 2:12 PM TINSMITH HELPER DX HIP/PELVIS/SPINE W LAT FRACTION ANALYSIS ??09/19/2019 1:23 PM HISTORY: ??osteopenia 2012; Disorder of bone; Osteopenia, unspecified location; Rheumatoid arthritis involving right knee, unspecified rheumatoid factor presence (H) FINDINGS: This DEXA scan was performed using a XAware scanner. DEXA results are reported according to [...] This DEXA scan was performed using a XAware scanner. DEXA results are reported according to [...] (04/13/2017 9:55 AM CDT) Color Urine Yellow [facility] Appearance Urine Clear TASHI RVIEW [facility] Glucose Urine Negative NEG mg/dL [facility] Bilirubin Urine Negative NEG [facility] Ketones Urine Negative NEG mg/dL [facility] Specific [place] Urine 1.008 1.003 - 1.035 [facility] Blood Urine Negative NEG [facility] pH Urine 5.0 5.0 - 7.0 pH [facility] Protein Albumin Urine Negative NEG mg/dL [facility] Urobilinogen mg/dL Normal 0.0 - 2.0 mg/dL [facility] Nitrite Urine Negative NEG [facility] Leukocyte Esterase Urine Negative NEG [facility] Source Midstream Urine [facility] WBC Urine 3(H) 0 - 2 /HPF [facility] RBC Urine 1 0 - 2 /HPF [facility] Squamous Epithelial /HPF Urine 1 0 - 1 /HPF [facility] Urine specimen (specimen) URINE SPECIMEN OBTAINED BY CLEAN CATCH PROCEDURE / Unknown 04/13/2017 9:55 AM CDT 04/13/2017 11:11 AM CDT Nolan Godfrey MD LAB - URINE ORDERABL ES [facility] [address] [place] [address], [facility] [phone] * Hepatitis C Screen Reflex to HCV RNA Quant and Genotype (10/05/2016 11:02 AM TINSMITH HELPER) Hepatitis C Antibody Nonreactive Assay performance characteristics have not been established for newborns, infants, and children [facility] Blood specimen (specimen) 10/05/2016 11:02 AM TINSMITH HELPER 10/05/2016 11:03 AM TINSMITH HELPER Ricky Munoz PA-C LAB - BLOOD OR DERABLES [facility] [address] [place] [address] from Last 3 Months or Most Recently Relevant to Health Maintenance Advance Directives For more information, please contact: [phone] * Full Code (Latest Code Status on File) Date Activated Date Inactivated Comments 01/08/2018 4:01 PM 01/11/2018 3:55 PM * Full Code Date Activated Date Inactivated Comments 04/10/2017 5:22 PM 04/13/2017 4:22 PM Care Teams Combination Machine Tool Operator Relationship Specialty Start Date End Date Ricky Munoz PA-C [address] [place] [address] PCP - General Physician Purchase Request Editor - Medical 06/18/20 Anne-Marie Pike MD [facility] [address] [place] [address] Family Practice 09/19/11 Ricky Munoz PA-C [address] [place] [address] Assigned PCP 06/26/21
--- OUTSIDE RECORDS SUMMARY | 2024-03-26 10:30 | XMS_ITS | Encounter Summary ---
Author Organization [facility] Address [address] [place] [address] Care Team Providers Care Process Coach Name Role Phone Anne-Marie Pike MD Unavailable [phone] Kirsten Suarez MD Primary Care Provider Ricky [...] (Late st Contact Info) Description 03/07/[address] [facility], [address] [place] [address] Ricky Munoz PA-C [address] [place] [address] Medication Refill (atenolol (TENORMIN) 50 [...] documented as of this encounter Care Teams Process Coach Relationship Specialty Start Date End Date Kirsten Suarez MD [facility] [address] [place] [address] PCP - General Family Practice 03/11/13 06/17/20 Ricky Munoz PA-C [address] [place] [address] PCP - General Physician Road Grader - Medical 06/18/20 Anne-Marie Pike MD [facility] [address] [facility] [place] [address] [facility] Practice 09/19/11 Ricky Munoz PA-C [address] [place] [address] Assigned PCP 01/19/19 10/11/19 [place] [address] [address] [address] Assigned PCP 10/12/19 10/18/19 Ricky Munoz PA-C [address] [place] [address] Assigned PCP 10/19/19 03/27/20 [place] [address] [address] [address] Assigned PCP 03/28/20 06/19/20 Melida Lopez, RN Personal Advocate & Liaison (PAL) Family Practice 06/23/20 10/20/20 Ricky Munoz PA-C [address] [place] [address] Assigned PCP 07/18/20 06/25/21 Ricky Mnuoz PA-C [address] [place] [address] Assigned PCP 06/20/20 07/17/20 Ricky Munoz PA-C [address] [place] [address] Assigned PCP 06/26/21 documented as of this encounter
--- OUTSIDE RECORDS SUMMARY | 2024-03-26 10:30 | XMS_ITS | Encounter Summary ---
Author Organization [facility] Address [address] [place] [address]. [place] [address] Care Team Providers Care Parts Interpreter Name Role Phone Anne-Marie Pike MD Unavailable [phone] Ricky Munoz PA-C Primary Care Provider Ricky Munoz PA-C Unavailable [phone] Reason for Visit * Reason Comments Medication Refill Encounter Details Date Type Department Care Team (Late st Contact Info) Description 09/27/2021 Refill [facility] [id number] [place] [address] [phone] Heriberto Leblanc PA-C [address] [place] [address] [id number] Medication Refill Social History Tobacco Use Types [...] Lexi Cooley RN - 09/28/2021 4:19 PM PATIENT CARE ASSISTANT Prescription approved per [facility], [facility] or [facility] refill protocol. Lexi Castro - Registered Nurse [facility] Acute and Diagnostic Services ENT CARE ASSISTANT documented in this encounter Plan of Treatment Not on file documented as of this encounter Visit Diagnoses Diagnosis Type 2 diabetes mellitus with diabetic neuropathy, without long-term current use of insulin (H) documented in this encounter Additional Health Concerns Assessment Noted Time PHQ-9 Depression Total Score: 7 07/01/20 20 12:02 PM CDT documented as of this encounter Care Teams Parts Interpreter Relationship Specialty Start Date End Date Ricky Munoz PA-C [address] [address] [place] [address] PCP - General Physician Museum Technician - Medical 06/18/20 Anne-Marie Pike MD [address] [place] [address] [facility] Practice 09/19/11 Ricky Munoz PA-C [address]4685 [address] [place] [address] Assigned PCP 06/26/21 documented as of this encounter
--- OUTSIDE RECORDS SUMMARY | 2024-03-26 10:30 | XMS_ITS | Encounter Summary ---
Author Organization [place] Address [address] [place] [address] Care Team Providers Care Casino Floor Supervisor Name Role Phone Anne-Marie Pike MD Unavailable [phone] Kirsten Suarez MD Primary Care Provider + Ricky MunozC Unavailable + Christa Schafer CARDIOLOGY PHYSICIAN SENIOR DIRECTOR CREATIVE SERVICES Unavailable + Ricky MunozC Unavailable + Christa Schafer CARDIOLOGY PHYSICIAN SENIOR DIRECTOR CREATIVE SERVICES Unavailable + Ricky Munoz PA-C Unavailable + [...] (Late st Contact Info) Description 12/17/2017 Refill [facility], [address] [place] [phone] [place] [address] [place] [address] Medication Refill (atenolol (TENORMIN) 50 MG tablet) [...] 12/18/2017 8:57 AM CST Prescription approved per [facility] Refill Protocol. Tea Quintana RN [facility] * Telephone Encounter - Kimber Vazquez - [...] 90 days) Dec 18, 2017 9:20 AM [facility] Pre-Op physical with Kirsten Suarez MD [facility], [address] [place] [phone] Sig: TAKE 1 TABLET (50 MG) BY [...] & Orders section of the refill encounter. [facility] documented in this encounter Plan of Treatment Not on file documented as of this encounter Visit Diagnoses Diagnosis Essential hypertension with goal blood pressure less than 140/90 documented in this encounter Additional Health Concerns Assessment Noted Time PHQ-9 Depression Total Score: 2 12/30/19 17 7:13 AM CDT documented as of this encounter Care Teams Casino Floor Supervisor Relationship Specialty Start Date End Date Kirsten Suarez MD [address] [place] [address] PCP - General Family Practice 03/11/13 06/17/20 Ricky Munoz PA-C [address] [place] [address] PCP - Assigned PCP 08/18/18 12/17/18 Christa Schafer APRN CNP [address]00 [place] [address] PCP - Assigned PCP 08/11/18 08/17/18 Ricky Munoz PA-C [address] [place] [address] PCP - General Physician Content Producer - Medical 06/18/20 Anne-Marie Pike MD [place] [address] [place] [address] [facility] 09/19/11 Ricky Munoz PA-C [address] [place] [address] Assigned PCP 08/18/18 12/21/18 Christa Schafer APRN CNP [address] [place] [address] Assigned PCP 12/22/18 01/11/19 Ricky Munoz PA-C [address]658 [place] [address] Assigned PCP 01/19/19 10/11/19 [place] [address] [place] [address] Assigned PCP 10/12/19 10/18/19 Ricky Munoz PA-C 132[address] [place] [address] Assigned PCP 10/19/19 03/27/20 [place] [address] [place] [address] Assigned PCP 03/28/20 06/19/20 Melida Lopez, RN Personal Advocate & Liaison (PAL) Family Practice 06/23/20 10/20/20 Ricky Munoz PA-C [address] [place] [address] Assigned PCP 07/18/20 06/25/21 Ricky Munoz PA-C [address] [place] [address] Assigned PCP 06/20/20 07/17/20 Ricky Munoz PA-C 46789 [place] [address] Assigned PCP 06/26/21 documented as of this encounter
--- OUTSIDE RECORDS SUMMARY | 2024-03-26 10:30 | XMS_ITS | Encounter Summary ---
Author Organization [facility] Address [address] [place] [address]. [place] [address] Care Team Providers Care Paper Mill Supervisor Name Role Phone Anne-Marie Pike MD Unavailable [phone] Ricky Munoz PA-C Primary Care Provider Ricky Munoz PA-C Unavailable [phone] Reason for Visit * Reason Comments Medication Refill Encounter Details Date Type Department Care Team (Late st Contact Info) Description 08/12/[address] [address] [place] [address] [place] [address] Medication Refill Social History Tobacco [...] scheduled for A1C on 08/21 Leticia Gaona Housekeeping Assistant * Telephone Encounter - Ricky Munoz PA-C [...] A1C 6.2 06/16/2021 Katia Tesfaye RN, BSN [facility] documented in this encounter Plan of Treatment Not on file documented as of this encounter Visit Diagnoses Diagnosis Type 2 diabetes mellitus with diabetic neuropathy, without long-term current use of insulin (H) documented in this encounter Additional Health Concerns Assessment Noted Time PHQ-9 Depression Total Score: 7 07/01/20 20 12:02 PM CDT documented as of this encounter Care Teams Paper Mill Supervisor Relationship Specialty Start Date End Date Ricky Munoz PA-C [address] [address] [place] [address] PCP - General Physician Wine Steward - Medical 06/18/20 Anne-Marie Pike MD [place] [address] [address] [place] [address] Family Practice 09/19/11 Ricky Munoz PA-C 64472 [place] [address] Assigned PCP 06/26/21 documented as of this encounter
--- OUTSIDE RECORDS SUMMARY | 2024-03-26 10:30 | XMS_ITS | Encounter Summary ---
Author Organization [place] Address [address] [place] [address] Care Team Providers Care Neon Glass Bender Name Role Phone Anne-Marie Pike MD Unavailable [phone] Kirsten Suarez MD Primary Care Provider Ricky Munoz PA-C Unavailable + Damon Escalante MD Unavailable + Ricky Munoz PA-C Unavailable + Damon Escalante MD Unavailable + Ricky Munoz PA-C Primary Care Provider + Melida Lopez RN Unavailable Unavailable Rciky Munoz PA-C Unavailable + Ricky Munoz PA-C Unavailable + Ricky Munoz PA-C Unavailable + Reason for Visit * Reason Onset Date Comments Medication Refill 03/18/2019 levothyroxine (SYNTHROID/LEVOTHROID) 88 MCG tablet Encounter Details Date Type Department Care Team (Late st Contact Info) Description 03/17/[address], [address] [place] [address] Ricky Munoz PA-C [address] [place] [address] Medication Refill (levothyroxine (SYNTHROID/LEVOTHROID) 88 [...] documented as of this encounter Care Teams Neon Glass Bender Relationship Specialty Start Date End Date Kirsten Suarez MD [address] [place] [address] PCP - General Family Practice 03/11/13 06/17/20 Ricky Munoz PA-C 27585 [place] [address] PCP - General Physician Rotor Winder - Medical 06/18/20 Anne-Marie Pike MD [address] [place] [address] Family Practice 09/19/11 iRcky Munoz PA-C [address] [place] [address] Assigned PCP 01/19/19 10/11/19 [place] [address] [place] [address] Assigned PCP 10/12/19 10/18/19 Ricky Munoz PA-C 60023 [place] [address] Assigned PCP 10/19/19 03/27/20 [place] [address] [place] [address] Assigned PCP 03/28/20 06/19/20 Melida Lopez RN Personal Advocate & Liaison (PAL) Family Practice 06/23/20 10/20/20 Ricky Munoz PA-C 154[address] [address] [place], [place] [address] Assigned PCP 07/18/20 06/25/21 Ricky Munoz PA-C 87256 [place] [address] Assigned PCP 06/20/20 07/17/20 Ricky Munoz PA-C 14357 [place], JASSON [id number] Assigned PCP 06/26/21 documented as of this encounter
--- OUTSIDE RECORDS SUMMARY | 2024-03-26 10:30 | XMS_ITS | Encounter Summary ---
Author Organization [facility] Address [address] [place] [address] Care Team Providers Care Runner Man Name Role Phone Anne-Marie Pike MD Unavailable [phone] Kirsten Suarez MD Primary Care Provider + Ricky Munoz-C Unavailable + Christa Schafer GOOD HUMOR VENDOR AUTOMATIC SEAMER Unavailable + Ricky Munoz-C Unavailable + Christa Schafer GOOD HUMOR VENDOR AUTOMATIC SEAMER Unavailable + Ricky Munoz-C Unavailable + Damon Escalante MD Unavailable + Ricky Munoz-C Unavailable + Damon Escalante MD Unavailable + iRcky Munoz-C Primary Care Provider + Melida Lopez RN Unavailable Unavailable Ricky Munoz-C Unavailable + Ricky Munoz-C Unavailable + Ricky Munoz-Vineet Unavailable + Reason for Visit * Reason Onset Date Comments Medication Refill 08/09/2018 blood glucose monitoring (SOFTCLIX) lancets Encounter Details Date Type Department Care Team (Late st Contact Info) Description 08/09/2018 Refill [facility] [address] [place] [address], [address] [place] [phone] Ricky Munoz PA-C [address] [place] [address] Medication Refill (blood glucose monitoring (SOFTCLIX) lancets) [...] 08/13/2018 9:28 AM CDT Prescription approved per [facility] Refill Protocol. Tea Quintana RN * Telephone [...] CDT Office Visit with Ricky Munoz PA-C [facility], [address] [facility] [address] Sig: USE TO TEST BLOOD [...] documented as of this encounter Care Teams Runner Man Relationship Specialty Start Date End Date Kirsten Suarez MD [address] [place] [address] PCP - General Family Practice 03/11/13 06/17/20 Ricky Munoz PA-C [address] [place] [address] PCP - Assigned PCP 08/18/18 12/17/18 Christa Schafer APRN [facility] [address] [place] [address] PCP - Assigned PCP 08/11/18 08/17/18 Ricky Munoz PA-C [address] [place] [address] PCP - General Physician Merchandise Deliverer - Medical 06/18/20 Anne-Marie Pike MD [place] [address] [place] [address] [facility] 09/19/11 Ricky Munoz PA-C [address] [place] [address] Assigned PCP 08/18/18 12/21/18 Christa Schafer APRN [facility] [address] [place] [address] Assigned PCP 12/22/18 01/11/19 Ricky Munoz PA-C [address] [place] [address] Assigned PCP 01/19/19 10/11/19 [place] [address] [place] [address] Assigned PCP 10/12/19 10/18/19 Ricky Munoz PA-C [address] [place] [address] Assigned PCP 10/19/19 03/27/20 [place] [address] [place] [address] Assigned PCP 03/28/20 06/19/20 Melida Lopez, RN Personal Advocate & Liaison (PAL) Family Practice 06/23/20 10/20/20 Ricky Munoz PA-C [address] [place] [address] Assigned PCP 07/18/20 06/25/21 Ricky Munoz PA-C 17868 [place] [address] Assigned PCP 06/20/20 07/17/20 Ricky Munoz PA-C [address] [place] [address] Assigned PCP 06/26/21 documented as of this encounter
--- OUTSIDE RECORDS SUMMARY | 2024-03-26 10:30 | XMS_ITS | Encounter Summary ---
Author Organization [facility] Address [address] [place] [address] Care Team Providers Care Professional Skater Name Role Phone Anne-Marie Pike MD Unavailable [phone] Kirsten Suarez MD Primary Care Provider + Ricky Munoz-C Unavailable + Christa Schafer SENIOR PORTFOLIO MANAGER TRACK REPAIR PERSON Unavailable + Ricky Munoz-C Unavailable + Christa Schafer SENIOR PORTFOLIO MANAGER TRACK REPAIR PERSON Unavailable + Ricky Munoz-C Unavailable + Damon [...] Contact Info) Description 04/02/2017 [facility] Medical Advice [facility] [address] [place] [address], [address] [place] [phone] [place] [address] [place] [address] Lab Result Notice (Kidney functions) Social History [...] documented as of this encounter Care Teams Professional Skater Relationship Specialty Start Date End Date Kirsten Suarez MD [place] [address] [place] [address] PCP - General Family Practice 03/11/13 06/17/20 Ricky Munoz PA-C [address] [place] [address] PCP - Assigned PCP 08/18/18 12/17/18 Christa Schafer APRN TRACK REPAIR PERSON 1700 [place] [address] PCP - Assigned PCP 08/11/18 08/17/18 Ricky Munoz PA-C [address] [place] [address] PCP - General Physician Automatic Tire Tester - Medical 06/18/20 Anne-Marie Pike MD [place] [address] [place] [address] Family Practice 09/19/11 Ricky Munoz PA-C [address] [place] [address] Assigned PCP 08/18/18 12/21/18 Christa Schafer APRN TRACK REPAIR PERSON [address] [place] [address] Assigned PCP 12/22/18 01/11/19 Ricky Munoz PA-C [address] [place] [address] Assigned PCP 01/19/19 10/11/19 [place] [address] [place] [address] Assigned PCP 10/12/19 10/18/19 Ricky Munoz PA-C [address] [place] [address] Assigned PCP 10/19/19 03/27/20 [place] [address] [place] [address] Assigned PCP 03/28/20 06/19/20 Melida Lopez, LUCRECIA Personal Advocate & Liaison (PAL) Family Practice 06/23/20 10/20/20 Ricky Munoz PA-C [address] [place] [address] Assigned PCP 07/18/20 06/25/21 Ricky Munoz PA-C 77636 [address] [place] [address] Assigned PCP 06/20/20 07/17/20 Ricky Munoz PA-C 61879 [address] [place] [address] Assigned PCP 06/26/21 documented as of this encounter
--- OUTSIDE RECORDS SUMMARY | 2024-03-26 10:30 | XMS_ITS | Encounter Summary ---
Author Organization [facility] Address [address] [place] [address] Care Team Providers Care Brim Cutter Name Role Phone Anne-Marie Pike MD Unavailable [phone] Kirsten Suarez MD Primary Care Provider + Ricky Munoz-C Unavailable + Christa Schafer MEASUREMENT AND SENSING TECHNICIAN MANAGER LOSS PREVENTION Unavailable + Ricky Munoz-C Unavailable + Christa Schafer MEASUREMENT AND SENSING TECHNICIAN MANAGER LOSS PREVENTION Unavailable + Ricky Munoz-C Unavailable + Damon Escalante MD Unavailable + Ricky Munoz-C Unavailable + Damon Escalante MD Unavailable + Ricky Munoz-C Primary Care Provider + Melida Lopez RN Unavailable Unavailable Ricky Munoz PA-C Unavailable + Ricky Munoz-C Unavailable + Ricky Munoz-C Unavailable + Encounter Details Date Type Department Care Team (Late st Contact Info) Description 12/12/2017 [facility] [address] [place] [phone] Marlon Mcfadden MD [facility] [address] [place] [address] Pre-operative laboratory examination (Primary Dx) Social History [...] Resist/Sens S. aureus PCR (12/13/2017 12:30 PM BUSINESS SUPPORT MANAGER) Specimen Description Nares 12/13/2017 1:52 PM BUSINESS SUPPORT MANAGER [facility] Methicillin Resist/Sens S. aureus PCR Negative NEG^Negat yonis 12/13/2017 6:[address] [facility] Comment: MRSA Negative: SA Positive MRSA [...] nasal colonization. FDA approved assay performed using [employer] GeneXpert(R) real-time PCR. Nasal structure (body structure) 12/13/2017 12:30 PM BUSINESS SUPPORT MANAGER 12/13/2017 1:52 PM BUSINESS SUPPORT MANAGER Marlon Mcfadden MD LAB - MICRO GENERAL ORDERABLES [facility] [address] [place] [address], [facility] [address] [place] [address], [facility] [phone] documented in this encounter Visit Diagnoses Diagnosis Pre-operative laboratory examination- Primary Pre-procedural laboratory examination documented in this encounter Additional Health Concerns Assessment Noted Time PHQ-9 Depression Total Score: 2 12/30/19 17 7:13 AM CDT documented as of this encounter Care Teams Brim Cutter Relationship Specialty Start Date End Date Kirsten Suarez MD [place] [id number] [facility] [place] [address] PCP - General Family Practice 03/11/13 06/17/20 Ricky Munoz PA-C [address] [place] [address] PCP - Assigned PCP 08/18/18 12/17/18 Christa Schafer APRN MANAGER LOSS PREVENTION [address] [place] [address] PCP - Assigned PCP 08/11/18 08/17/18 Ricky Munoz [place]-C [address] [place] [address] PCP - General Physician Harness Brusher - Medical 06/18/20 Anne-Marie Pike MD [address] [place] [place] [address] [facility] Practice 09/19/11 Ricky Munoz PA-C [address] [place] [address] Assigned PCP 08/18/18 12/21/18 Christa Schafer APRN MANAGER LOSS PREVENTION [address] [place] [address] Assigned PCP 12/22/18 01/11/19 Ricky Munoz [place]-C [address] [place] [address] Assigned PCP 01/19/19 10/11/19 [place] [address] [address] [place] [address] Assigned PCP 10/12/19 10/18/19 Ricky Munoz PA-C 35833 [address] [address] Assigned PCP 10/19/19 03/27/20 [place] [address] [place] [address] Assigned PCP 03/28/20 06/19/20 Melida Lopez RN Personal Advocate & Liaison (PAL) Family Practice 06/23/20 10/20/20 Ricky Munoz PA-C 67877 [place] [address] Assigned PCP 07/18/20 06/25/21 Ricky Munoz PA-C [address] [place] [address] Assigned PCP 06/20/20 07/17/20 Ricky Munoz PA-C 27433 [place] [address] Assigned PCP 06/26/21 documented as of this encounter
--- OUTSIDE RECORDS SUMMARY | 2024-03-26 10:30 | XMS_ITS | Encounter Summary ---
Author Organization [place] Address [address] [place] [address] Care Team Providers Care Cafe Team Member Name Role Phone Anne-Marie Pike MD Unavailable [phone] Kirsten Suarez MD Primary Care Provider + Ricky Munoz PA-C Unavailable + Damon Escalante MD Unavailable + Ricky Munoz PA-C Primary Care Provider + Melida Lopez RN Unavailable Unavailable Ricky Munoz PA-C Unavailable + Ricky Munoz PA-C Unavailable + Ricky Munoz PA-C Unavailable + Encounter Details Date Type Department Care Team (Late st Contact Info) Description 12/08/2019 [facility] Medical Advice [address], [address] [place] [address] Leisa Hernández Social History Tobacco [...] documented as of this encounter Care Teams Cafe Team Member Relationship Specialty Start Date End Date Kirsten Suarez MD [address] [place] [address] PCP - General Family Practice 03/11/13 06/17/20 Ricky Munoz PA-C [address] [place] [address] PCP - General Physician Ambulance Dispatcher - Medical 06/18/20 Anne-Marie Pike MD [address] [place] [address] Family Practice 09/19/11 Ricky Munoz PA-C [address] [place] [address] Assigned PCP 10/19/19 03/27/20 [place] [address] [place] [address] Assigned PCP 03/28/20 06/19/20 Melida Lopez, RN Personal Advocate & Liaison (PAL) Family Practice 06/23/20 10/20/20 Ricky Munoz PA-C 34182 [place] [address] Assigned PCP 07/18/20 06/25/21 Ricky Munoz PA-C 324[address] [place] [address] Assigned PCP 06/20/20 07/17/20 Ricky Munoz PA-C 44611 [address] [place] [address] Assigned PCP 06/26/21 documented as of this encounter
--- OUTSIDE RECORDS SUMMARY | 2024-03-26 10:30 | XMS_ITS | Encounter Summary ---
Author Organization [place] Address [address] [place] [address]. [place] [address] Care Team Providers Care Rectification Printer Name Role Phone Anne-Marie Pike MD Unavailable [phone] Ricky Munoz PA-C Primary Care Provider Ricky Munoz PA-C Unavailable + [phone] Reason for Visit * Reason Comments Medication Refill Encounter Details Date Type Department Care Team (Late st Contact Info) Description 08/25/2022 Refill [facility] [address] [place] [address] Ricky Munoz PA-C [address] [place] [address] Medication Refill Social History Tobacco [...] Coronavirus/COVID-19? No / Unsure 08/21/2022 4:07 PM PLANT BUYER documented as of this encounter Miscellaneous Notes * Telephone Encounter - Katherine Sutton RN - 08/25/2022 11:27 AM PLANT BUYER Routing refill request to provider for review/approval [...] - 144 mmol/L Final Katherine Sutton RN T BUYER documented in this encounter Plan of Treatment Not on file documented as of this encounter Visit Diagnoses Diagnosis Essential hypertension with goal blood pressure less than 140/90 documented in this encounter Additional Health Concerns Assessment Noted Time PHQ-9 Depression Total Score: 7 07/01/20 20 12:02 PM CDT documented as of this encounter Care Teams Rectification Printer Relationship Specialty Start Date End Date Ricky Munoz PA-C [address] [address] [address] PCP - General Physician Sustainability Manager - Medical 06/18/20 Anne-Marie Pike MD [facility] [address] [place] [address] Family Practice 09/19/11 Ricky Munoz PA-C 10622 [address] [place] [address] Assigned PCP 06/26/21 documented as of this encounter
--- OUTSIDE RECORDS SUMMARY | 2024-03-26 10:30 | XMS_ITS | Encounter Summary ---
Author Organization [facility] [place] Address [address] [place] [address]. [place] [address] Care Team Providers Care Senior Teradata Developer Name Role Phone Anne-Marie Pike MD Unavailable [phone] Ricky Munoz PA-C Primary Care Provider Melida Lopez RN Unavailable Unavailable Ricky Munoz PA-C Unavailable + [phone] Ricky Munoz PA-C Unavailable + [phone] Encounter Details Date Type Department Care Team (Late st Contact Info) Description 10/04/2020 [facility] Medical Advice [facility] [address] [place] [address] Maida Bradford Social History [...] documented as of this encounter Care Teams Senior Teradata Developer Relationship Specialty Start Date End Date Ricky Munoz PA-C [address] [place] [address] PCP - General Physician Extruding Press Operator - Medical 06/18/20 Anne-Marie Pike MD [place] [id number] [facility] [place] [address] [facility] 09/19/11 Melida Lopez, RN Personal Advocate & Liaison (PAL) [facility] 06/23/20 10/20/20 Ricky Munoz PA-C [address]4525 [address] [place] [address] Assigned PCP 07/18/20 06/25/21 Ricky Munoz PA-C 50193 [address] [place] [address] Assigned PCP 06/26/21 documented as of this encounter
--- OUTSIDE RECORDS SUMMARY | 2024-03-26 10:30 | XMS_ITS | Encounter Summary ---
Author Organization [facility] Address [address] [place] [address] Care Team Providers Care Gis Technician Name Role Phone Anne-Marie Pike MD Unavailable [phone] Kirsten Suarez MD Primary Care Provider + Ricky Munoz PA-C Unavailable + Christa Schafer SAP BW ARCHITECT SPECIAL FORCES WEAPONS SERGEANT Unavailable + Ricky Munoz PA-C Unavailable + Christa Schafer SAP BW ARCHITECT SPECIAL FORCES WEAPONS SERGEANT Unavailable + Ricky Munoz PA-C Unavailable + [...] (Late st Contact Info) Description 07/21/[address], [address] [place] [address] Ricky Munoz PA-C [address] [place] [address] Medication Refill (levothyroxine (SYNTHROID/LEVOTHROID) 88 [...] 07/23/2018 12:38 PM CDT Prescription approved per [facility] Refill Protocol. Tea Quintana RN * [...] documented as of this encounter Care Teams Gis Technician Relationship Specialty Start Date End Date Kirsten Suarez MD [address] [place] [address] PCP - General Family Practice 03/11/13 06/17/20 Ricky Munoz PA-C [address] [place] [address] PCP - Assigned PCP 08/18/18 12/17/18 Christa Schafer APRN [facility] [address] [place] [address] PCP - Assigned PCP 08/11/18 08/17/18 Ricky Munoz PA-C [address] [place] [address] PCP - General Physician Blacking Machine Operator - Medical 06/18/20 Anne-Marie Pike MD [address] [id number] [facility] 09/19/11 Ricky Munoz PA-C 56135 JASS[address] MALLOY [address] Assigned PCP 08/18/18 12/21/18 Christa Schafer APRN [facility] [address] [place] [address] Assigned PCP 12/22/18 01/11/19 Ricky Munoz PA-C 70790 [place] [address] Assigned PCP 01/19/19 10/11/19 [place] [address] [place] [address] Assigned PCP 10/12/19 10/18/19 Ricky Munoz PA-C 52563 [place] [address] Assigned PCP 10/19/19 03/27/20 [place] [address] [place] [address] Assigned PCP 03/28/20 06/19/20 Melida Lopez RN Personal Advocate & Liaison (PAL) Family Practice 06/23/20 10/20/20 Ricky Munoz PA-C 60639 [address] [place] [address] Assigned PCP 07/18/20 06/25/21 Ricky Munoz PA-C 61931 [place] [address] Assigned PCP 06/20/20 07/17/20 Ricky Munoz PA-C 12304 [place] [address] Assigned PCP 06/26/21 documented as of this encounter
--- OUTSIDE RECORDS SUMMARY | 2024-03-26 10:30 | XMS_ITS | Encounter Summary ---
Author Organization [place] Address [address] [place] [address] Care Team Providers Care Pumping Station Engineer Name Role Phone Anne-Marie Pike MD Unavailable [phone] Kirsten Suarez MD Primary Care Provider + Ricky Munoz-C Unavailable + Christa Schafer MEDICAL CODING INSTRUCTOR PROPELLER DRIVEN AIRPLANE MECHANIC Unavailable + Ricky Munoz-C Unavailable + Christa Schafer MEDICAL CODING INSTRUCTOR PROPELLER DRIVEN AIRPLANE MECHANIC Unavailable + Ricky Munoz-C Unavailable + Damon Escalante MD Unavailable + Ricky Munoz-C Unavailable + Damon Escalante MD Unavailable + Ricky Munoz-C Primary Care Provider + Melida Lopez RN Unavailable Unavailable Ricky Munoz-C Unavailable + Ricky Munoz-C Unavailable + Ricky Munoz-C Unavailable + Encounter Details Date Type Department Care Team (Late st Contact Info) Description 01/04/2016 MyC Medical Advice [facility] [id number] [place] [address], [address] [place] [address] Aleja Kramer RAILWAY PATROL OFFICER Social History Tobacco Use Types Packs/Day Years [...] on filedocumented in this encounter Care Teams Pumping Station Engineer Relationship Specialty Start Date End Date Kirsten Suarez MD [place] [phone] [place] [address] PCP - General [facility] Practice 03/11/13 06/17/20 Ricky Munoz PA-C [address] [place] [address] PCP - Assigned PCP 08/18/18 12/17/18 Christa Schafer APRN [facility] [place] [address] PCP - Assigned PCP 08/11/18 08/17/18 Ricky Munoz PA-C [address] [place] [address] PCP - General Physician Brazer Induction - Medical 06/18/20 Anne-Marie Pike MD [place] [phone] [place] [address] [facility] Practice 09/19/11 Ricky Munoz PA-C [address] [place] [address] Assigned PCP 08/18/18 12/21/18 Christa Schafer APRN [employer]PL[employer] MECHANIC [address] [place] [address] Assigned PCP 12/22/18 01/11/19 Ricky Munoz PA-C 86866 [place] [address] Assigned PCP 01/19/19 10/11/19 [place] [address] [place] [address] Assigned PCP 10/12/19 10/18/19 Ricky Munoz PA-C [address] [place] [address] Assigned PCP 10/19/19 03/27/20 [place] [address] [address] [place], [place] 5057768 Assigned PCP 03/28/20 06/19/20 Melida Lopez RN Personal Advocate & Liaison (PAL) Family Practice 06/23/20 10/20/20 Ricky Munoz PA-C 49543 [place] [address] Assigned PCP 07/18/20 06/25/21 Ricky Munoz PA-C 28936 [place] [address] Assigned PCP 06/20/20 07/17/20 Ricky Munoz PA-C 21043 JASSON MALLOY [address] Assigned PCP 06/26/21 documented as of this encounter
--- OUTSIDE RECORDS SUMMARY | 2024-03-26 10:30 | XMS_ITS | Encounter Summary ---
Author Organization [facility] Address [address] [place] [address] Care Team Providers Care Verifier Operator Name Role Phone Anne-Marie Pike MD Unavailable [phone] Ricky Munoz PA-C Primary Care Provider Ricky Munoz PA-C Unavailable + [phone] Ricky Munoz PA-C Unavailable + [phone] Reason for Visit * Reason Comments Medication Refill Encounter Details Date Type Department Care Team (Late st Contact Info) Description 03/27/2021 Refill [place] [id number] [facility], [address] [place] [address] Ricky Munoz PA-C 279[address] [place] [address] Medication Refill Social History Tobacco [...] MAY 30 2021 08:45 AM - PHYSICAL [facility] - VISHAL Sherman RN * Telephone Encounter [...] to come in sooner, please call her back.[phone] (home) * Telephone Encounter - Emani Rivera - 04/05/2021 10:26 AM CDT Attempt 2, LVM for Maryann to return call Kimmie Rivera- Leadite Heater * Telephone Encounter - Emani Rivera - 03/29/2021 11:00 AM CDT LVM for Ely to call back to see if we can move up her PX Kimmie Rivera- Leadite Heater * Telephone Encounter - Ricky Munoz PA-C [...] documented as of this encounter Care Teams Verifier Operator Relationship Specialty Start Date End Date Ricky Munoz PA-C 03900 JASSON MALLOY [address] PCP - General Physician Plant Accountant - Medical 06/18/20 Anne-Marie Pike MD [place] [address] [address] [place] [address] Family Practice 09/19/11 Ricky Munoz PA-C 63044 JASS[address] MALLOY [address] Assigned PCP 07/18/20 06/25/21 Ricky Munoz PA-C 44288 JASS[place] M[place] 168[address] Assigned PCP 06/26/21 documented as of this encounter
--- OUTSIDE RECORDS SUMMARY | 2024-03-26 10:30 | XMS_ITS | Encounter Summary ---
Author Organization [facility] Address [address] [place] [address] Care Team Providers Care Superintendent Stevedoring Name Role Phone Anne-Marie Pike MD Unavailable [phone] Kirsten Suarez MD Primary Care Provider + Ricky MunozC Unavailable + Damon Escalante MD Unavailable + Ricky Munoz PA-C Unavailable + Damon Escalante MD Unavailable + Ricky Munoz PA-C Primary Care Provider + Melida Lopez RN Unavailable Unavailable Ricky MunozC Unavailable + Ricky MunozC Unavailable + Ricky MunozC Unavailable + Encounter Details Date Type Department Care Team (Late st Contact Info) Description 01/21/2019 [facility] [address], [address] [place] [address] Ximena Day RN Social History [...] documented as of this encounter Care Teams Superintendent Stevedoring Relationship Specialty Start Date End Date Kirsten Suarez MD [address] [place] [address] PCP - General Family Practice 03/11/13 06/17/20 Ricky Munoz PA-C [address] [place] [address] PCP - General Physician Junior Media Buyer - Medical 06/18/20 Anne-Marie Pike MD [address] [place] [address] Family Practice 09/19/11 Ricky Munoz PA-C 20287 [place] [address] Assigned PCP 01/19/19 10/11/19 [place] [address] [place] [address] Assigned PCP 10/12/19 10/18/19 Ricky Munoz PA-C 24807 [place] [address] Assigned PCP 10/19/19 03/27/20 [place] [address] [address] [place] JASSON [address] Assigned PCP 03/28/20 06/19/20 Melida Lopez, RN Personal Advocate & Liaison (PAL) Family Practice 06/23/20 10/20/20 Ricky Munoz PA-C 62649 JASSON MALLOY [address] Assigned PCP 07/18/20 06/25/21 Ricky Munoz PA-C 66095 JASSON MALLOY [id number] Assigned PCP 06/20/20 07/17/20 Ricky Munoz PA-C 24124 JASSON MALLOY [id number] Assigned PCP 06/26/21 documented as of this encounter
--- OUTSIDE RECORDS SUMMARY | 2024-03-26 10:30 | XMS_ITS | Encounter Summary ---
Author Organization [facility] Address [facility] [place] [address] Care Team Providers Care Boring Machine Operator Helper Name Role Phone Anne-Marie Pike MD Unavailable [phone] Ricky Munoz PA-C Primary Care Provider Ricky Munoz PA-C Unavailable + [phone] Ricky Munoz PA-C Unavailable + [phone] Reason for Visit * Reason Comments Medication Refill Atenolol Encounter Details Date Type Department Care Team (Late st Contact Info) Description 05/28/2021 Refill [facility] [address] [place] [address] Ricky Munoz PA-C [address] [place] [address] Medication Refill (Atenolol) Social History [...] documented as of this encounter Care Teams Boring Machine Operator Helper Relationship Specialty Start Date End Date Ricky Munoz PA-C 09095 JASSON MALLOY [address] PCP - General Physician Director Of Billing - Medical 06/18/20 Anne-Marie Pike MD [facility] [address] [place] [address] [facility] Practice 09/19/11 Ricky Munoz PA-C 82831 JASSON MALLOY [address] Assigned PCP 07/18/20 06/25/21 Ricky Munoz PA-C 50917 JASSON MALLOY [address] Assigned PCP 06/26/21 documented as of this encounter
--- OUTSIDE RECORDS SUMMARY | 2024-03-26 10:30 | XMS_ITS | Encounter Summary ---
Author Organization [place] Address [address] [place] [address]. [place] [address] Care Team Providers Care Cotton Gin Yard Supervisor Name Role Phone Anne-Marie Pike MD Unavailable [phone] Ricky Munoz PA-C Primary Care Provider Ricky Munoz PA-C Unavailable + [phone] Encounter Details Date Type Department Care Team (Late st Contact Info) Description 05/09/2022 [facility] [place] [address] [address] Maida Bradford Social History Tobacco [...] documented as of this encounter Care Teams Cotton Gin Yard Supervisor Relationship Specialty Start Date End Date Ricky Munoz PA-C [address] [place] [address] PCP - General Physician Edge Polisher - Medical 06/18/20 Anne-Marie Pike MD [facility] [address] [facility] [place] [address] [facility] Practice 09/19/11 Ricky Munoz PA-C 54655 JASSON MALLOY [address]871 Assigned PCP 06/26/21 documented as of this encounter
--- OUTSIDE RECORDS SUMMARY | 2024-03-26 10:30 | XMS_ITS | Encounter Summary ---
Author Organization [facility] Address [address] [place] [address] Care Team Providers Care Felt Pad Cutter Name Role Phone Anne-Marie Pike MD Unavailable [phone] Kirsten Suarez MD Primary Care Provider + [...] Contact Info) Description 07/24/2019 MyC Medical Advice [facility] Centralized Scheduling [facility] [place] [address] Reason, Gertrude Butler Social History [...] documented as of this encounter Care Teams Felt Pad Cutter Relationship Specialty Start Date End Date Kirsten Suarez MD [address] [place] [address] PCP - General Family Practice 03/11/13 06/17/20 Ricky Munoz PA-C 95051 JASSON MALLOY [id number] PCP - General Physician Budget Examiner - Medical 06/18/20 Anne-Marie Pike MD [address] [place] [address] Family Practice 09/19/11 Ricky Munoz PA-C 27040 JASSON MALLOY [address] Assigned PCP 01/19/19 10/11/19 [place] [address] JASS[address] MALLOY 06184 Assigned PCP 10/12/19 10/18/19 Ricky Munoz PA-C 64362 JASSON MALLOY [address] Assigned PCP 10/19/19 03/27/20 [place] [address] JASSON MALLOY [id number] Assigned PCP 03/28/20 06/19/20 Melida Lopez, RN Personal Advocate & Liaison (PAL) Family Practice 06/23/20 10/20/20 Ricky Munoz PA-C 19302 [place] [address] Assigned PCP 07/18/20 06/25/21 Ricky Munoz PA-C 64227 [place] [address] Assigned PCP 06/20/20 07/17/20 Ricky Munoz PA-C [address] [place] [address] Assigned PCP 06/26/21 documented as of this encounter
--- OUTSIDE RECORDS SUMMARY | 2024-03-26 10:30 | XMS_ITS | Encounter Summary ---
Author Organization [facility] Address [address] [place] [address] Care Team Providers Care Agent Name Role Phone Anne-Marie Pike MD Unavailable [phone] Kirsten Suarez MD Primary Care Provider Ricky Munoz PA-C Unavailable +[phone] Damon Escalante MD Unavailable [phone] Ricky Munoz PA-C Primary Care Provider Melida Lopez RN Unavailable Unavailable Ricky Munoz PA-C Unavailable + Ricky Munoz PA-C Unavailable + Ricky Munoz PA-C Unavailable +[phone] Reason for Visit * Reason Comments Medication Refill Encounter Details Date Type Department Care Team (Late st Contact Info) Description 02/06/2020 Refill [facility] [address] [facility], [address] [place] [address] Ricky Munoz PA-C [address] [place] [address] Medication Refill Social History Tobacco [...] 02/10/2020 9:01 AM CDT Prescription approved per [facility] Refill Protocol. documented in this encounter Plan of Treatment Not on file documented as of this encounter Visit Diagnoses Diagnosis Essential hypertension with goal blood pressure less than 140/90 documented in this encounter Additional Health Concerns Assessment Noted Time PHQ-9 Depression Total Score: 5 03/24/20 19 12:08 PM CDT documented as of this encounter Care Teams Agent Relationship Specialty Start Date End Date Kirsten Suarez MD [address] [place] [address] PCP - General Family Practice 03/11/13 06/17/20 Ricky Munoz PA-C 18330 [place] [address] PCP - General Physician Solutions Architect Consultant - Medical 06/18/20 Anne-Marie Pike MD [address] [place] [address] Family Practice 09/19/11 Ricky Munoz PA-C 26107 JASSON MALLOY [address] Assigned PCP 10/19/19 03/27/20 [place] [address] JASSON MALLOY [id number] Assigned PCP 03/28/20 06/19/20 Melida Lopez, RN Personal Advocate & Liaison (PAL) Family Practice 06/23/20 10/20/20 Ricky Munoz PA-C 85532 JASSON MALLOY 32346 Assigned PCP 07/18/20 06/25/21 Ricky Munoz PA-C 31326 JASSON MALLOY 577[address] Assigned PCP 06/20/20 07/17/20 Ricky Munoz PA-C 01195 JASSON MALLOY [address] Assigned PCP 06/26/21 documented as of this encounter
--- OUTSIDE RECORDS SUMMARY | 2024-03-26 10:30 | XMS_ITS | Encounter Summary ---
Author Organization [facility] Address [address] [place] [address] Care Team Providers Care Forester Aide Name Role Phone Anne-Marie Pike MD Unavailable [phone] Ricky Munoz PA-C Primary Care Provider Ricky Munoz PA-C Unavailable + [phone] Encounter Details Date Type Department Care Team (Late st Contact Info) Description 08/15/2022 [facility] Medical [facility] [id number] [place] [address] Emani Rivera Social History Tobacco Use [...] documented as of this encounter Care Teams Forester Aide Relationship Specialty Start Date End Date Ricky Munoz PA-C 89885 JASSON MALLOY [address] PCP - General Physician Security Alarm Technician - Medical 06/18/20 Anne-Marie Pike MD [place] [id number] [facility] JASSON [place] [address] [facility] Practice 09/19/11 Ricky Munoz PA-C 89522 JASSON MALLOY 164[address] Assigned PCP 06/26/21 documented as of this encounter
--- OUTSIDE RECORDS SUMMARY | 2024-03-26 10:30 | XMS_ITS | Encounter Summary ---
Author Organization [place] Address [address] [place] [address] Care Team Providers Care Industrial Designer Name Role Phone Anne-Marie Pike MD Unavailable [phone] Kirsten Suarez MD Primary Care Provider + [...] Team (Late st Contact Info) Description 01/23/2019 [facility] Medical Advice [address], [address] [place] [address] Tracey Hunt MA Social History [...] documented as of this encounter Care Teams Industrial Designer Relationship Specialty Start Date End Date Kirsten Suarez MD [address] [place] [address] PCP - General Family Practice 03/11/13 06/17/20 Ricky Munoz PA-C 30189 JASSON MALLOY [address] PCP - General Physician Counselor Camp - Medical 06/18/20 Anne-Marie Pike MD [address] [place] [address] Family Practice 09/19/11 Ricky Munoz PA-C 28222 JASSON MALLOY 17873 Assigned PCP 01/19/19 10/11/19 [place] [address] JASSON MALLOY [address] Assigned PCP 10/12/19 10/18/19 Ricky Munoz PA-C 20967 JASSON MALLOY [address] Assigned PCP 10/19/19 03/27/20 [place] [address] JASSON MALLOY 09910 Assigned PCP 03/28/20 06/19/20 Melida Lopez RN Personal Advocate & Liaison (PAL) Family Practice 06/23/20 10/20/20 Ricky Munoz PA-C 85247 JASSON MALLOY [id number] Assigned PCP 07/18/20 06/25/21 Ricky Munoz PA-C 59504 JASSON MALLOY [address] Assigned PCP 06/20/20 07/17/20 Ricky Munoz PA-C 49037 JASSON MALLOY 333[address] Assigned PCP 06/26/21 documented as of this encounter
--- OUTSIDE RECORDS SUMMARY | 2024-03-26 10:30 | XMS_ITS | Encounter Summary ---
Author Organization [place] Address [address] [place] [address] Care Team Providers Care Eyewear Manufacturing Tech Name Role Phone Anne-Marie Pike MD Unavailable [phone] Kirsten Suarez MD Primary Care Provider + Ricky Munoz-C Unavailable + Ricky Munoz-C Unavailable + Christa Schafer APRN TERRAZZO FINISHER Unavailable + Ricky Munoz-C Unavailable + Damon [...] Team (Late st Contact Info) Description 12/12/2018 [facility] Medical Advice [facility] [address] [facility], [address] [place] [address] Ricky Munoz PA-C 63277 JASSON MALLOY [address] Lab Result Notice Social History Tobacco Use [...] documented as of this encounter Care Teams Eyewear Manufacturing Tech Relationship Specialty Start Date End Date Kirsten Suarez MD [address] [place] [address] PCP - General Family Practice 03/11/13 06/17/20 Ricky Munoz PA-C 57316 JASSON MALLOY [address] PCP - Assigned PCP 08/18/18 12/17/18 Ricky Munoz PA-C 93110 JASSON MALLOY [address] PCP - General Physician Manager Company - Medical 06/18/20 Anne-Marie Pike MD [place] [address] [place] [address] Family Practice 09/19/11 Ricky Munoz PA-C 80674 JASSON MALLOY [address] Assigned PCP 08/18/18 12/21/18 Christa Schafer APRN [facility] 1700 [place] [address] Assigned PCP 12/22/18 01/11/19 Ricky Munoz PA-C 16689 [place] [address] Assigned PCP 01/19/19 10/11/19 [place] [address] [place] [address] Assigned PCP 10/12/19 10/18/19 Ricky Munoz PA-C 10939 [place] [address] Assigned PCP 10/19/19 03/27/20 [place] [address] [place] [address] Assigned PCP 03/28/20 06/19/20 Melida Lopez RN Personal Advocate & Liaison (PAL) Family Practice 06/23/20 10/20/20 Ricky Munoz PA-C 35555 [place] [address] Assigned PCP 07/18/20 06/25/21 Ricky Munoz PA-C 41241 [place] [address] Assigned PCP 06/20/20 07/17/20 Ricky Munoz PA-C 10916 [place] [address] Assigned PCP 06/26/21 documented as of this encounter
--- OUTSIDE RECORDS SUMMARY | 2024-03-26 10:30 | XMS_ITS | Encounter Summary ---
Author Organization [facility] Address [address] [place] [address] Care Team Providers Care Natural Gas Shothole Driller Name Role Phone Anne-Marie Pike MD Unavailable [phone] Kirsten Suarez MD Primary Care Provider + Damon Escalante MD Unavailable + Ricky Munoz PA-C Primary Care Provider + Melida Lopez RN Unavailable Unavailable Ricky Munoz PA-C Unavailable + Ricky Munoz PA-C Unavailable + Ricky Munoz PA-C Unavailable + Encounter Details Date Type Department Care Team (Late st Contact Info) Description 03/31/2020 [facility] Medical Advice [address] [address] Leisa Hernández Social History Tobacco [...] documented as of this encounter Care Teams Natural Gas Shothole Driller Relationship Specialty Start Date End Date Kirsten Suarez MD [place] [id number] [place] [address] PCP - General Family Practice 03/11/13 06/17/20 Ricky Munoz PA-C 57266 [place] [address] PCP - General Physician Distance Education Teacher - Medical 06/18/20 Anne-Marie Pike MD [address] [place] [address] [facility] Practice 09/19/11 [place] [address] [place] [address] Assigned PCP 03/28/20 06/19/20 Melida Lopez, RN Personal Advocate & Liaison (PAL) [facility] Practice 06/23/20 10/20/20 Ricky Munoz PA-C 53777 [place] [address] Assigned PCP 07/18/20 06/25/21 Ricky Munoz PA-C 10797 [place] [address] Assigned PCP 06/20/20 07/17/20 Ricky Munoz PA-C 12278 [place] [address] Assigned PCP 06/26/21 documented as of this encounter
--- OUTSIDE RECORDS SUMMARY | 2024-03-26 10:30 | XMS_ITS | Encounter Summary ---
Author Organization [facility] Address [address] [place] [address] Care Team Providers Care Systems Mgr Name Role Phone Anne-Marie Pike MD Unavailable [phone] Kirsten Suarez MD Primary Care Provider Ricky Munoz PA-C Unavailable + Damon Escalante MD Unavailable + Ricky Munoz PA-C Unavailable + Damon Escalante MD Unavailable + Ricky Munoz PA-C Primary Care Provider + Melida Lopez RN Unavailable Unavailable Ricky MunozC Unavailable + Ricky Munoz PA-C Unavailable + Ricky Munoz PA-C Unavailable + Reason for Visit * Reason Onset Date Comments Outreach 07/24/2019 [facility] MAM[facility] -ATT 1 Encounter Details Date Type Department Care Team (Late st Contact Info) Description 07/24/2019 Telephone [facility] Centralized Scheduling [facility] [place] [address] [place] [address] [place] [address] Outreach ([facility] MAMMO -ATT 1) [...] mammogram, FM for AUG 04. Message on [employer] Patient is also due for - Comments: Outreach Tab Builder LR documented in this encounter Plan of Treatment Not on file documented as of this encounter Visit Diagnoses Not on filedocumented in this encounter Additional Health Concerns Assessment Noted Time PHQ-9 Depression Total Score: 5 03/24/20 19 12:08 PM CDT documented as of this encounter Care Teams Systems Mgr Relationship Specialty Start Date End Date Kirsten Suarez MD [facility] [address] [place] [address] PCP - General Family Practice 03/11/13 06/17/20 Ricky Munoz PA-C [address] [place] [address] PCP - General Physician Credit Risk Management Director - Medical 06/18/20 Anne-Marie Pike MD [facility] [address] [place] [address] Family Practice 09/19/11 Ricky Munoz PA-C [address] [place] [address] Assigned PCP 01/19/19 10/11/19 [place] [address] [place] [address] Assigned PCP 10/12/19 10/18/19 Ricky Munoz PA-C [address] [place] [address] Assigned PCP 10/19/19 03/27/20 [place] [address] [place] [address] Assigned PCP 03/28/20 06/19/20 Melida Lopez, RN Personal Advocate & Liaison (PAL) Family Practice 06/23/20 10/20/20 Ricky Munoz PA-C [address] [place] [address] Assigned PCP 07/18/20 06/25/21 Ricky Munoz PA-C [address] [place] [address] Assigned PCP 06/20/20 07/17/20 Ricky Munoz PA-C [address] [place] [address] Assigned PCP 06/26/21 documented as of this encounter
--- OUTSIDE RECORDS SUMMARY | 2024-03-26 10:31 | XMS_ITS | Encounter Summary ---
Author Organization [place] Address [address] [place] [address] Care Team Providers Care Dental Professional Name Role Phone Anne-Marie Pike MD Unavailable [phone] Kirsten Suarez MD Primary Care Provider + Ricky Munoz-C Unavailable + Christa Schafer SAP FICO BUSINESS ANALYST MARKETING ACCOUNT EXECUTIVE Unavailable + Ricky Munoz-C Unavailable + Christa Schafer SAP FICO BUSINESS ANALYST MARKETING ACCOUNT EXECUTIVE Unavailable + Ricky Munoz-C Unavailable + Damon [...] Contact Info) Description 01/08/2015 MyC Medical Advice [facility], [address] [place] [address] [place] [address] [place] [address] Results Social History Tobacco Use Types Packs/Day [...] on filedocumented in this encounter Care Teams Dental Professional Relationship Specialty Start Date End Date Kirsten Suarez MD [address] [place] [address] PCP - General Family Practice 03/11/13 06/17/20 Ricky Munoz PA-C [address] [place] [address] PCP - Assigned PCP 08/18/18 12/17/18 Christa Schafer APRN [facility] [address] [place] [address] PCP - Assigned PCP 08/11/18 08/17/18 Ricky Munoz PA-[place] [address] [place] [address] PCP - General Physician Internet Marketing Coordinator - Medical 06/18/20 Anne-Marie Pike MD [place] [address] [place] [address] Family Practice 09/19/11 Ricky Munoz PA-C [address] [place] [address] Assigned PCP 08/18/18 12/21/18 Christa Schafer AbdirizakWILBERT MARKETING ACCOUNT EXECUTIVE [address] [place] [address] Assigned PCP 12/22/18 01/11/19 Ricky Munoz PA-C [address] [place] [address] Assigned PCP 01/19/19 10/11/19 [place] [address] [place] [address] Assigned PCP 10/12/19 10/18/19 Ricky Munoz PA-C [address] [place] [address] Assigned PCP 10/19/19 03/27/20 [place] [address] [place] [address] Assigned PCP 03/28/20 06/19/20 Melida Lopez, RN Personal Advocate & Liaison (PAL) Family Practice 06/23/20 10/20/20 Ricky Munoz PA-C [address] [place] [address] Assigned PCP 07/18/20 06/25/21 Ricky Munoz PA-C [address] [address] Assigned PCP 06/20/20 07/17/20 Ricky Munoz PA-C [address] [address] Assigned PCP 06/26/21 documented as of this encounter
--- OUTSIDE RECORDS SUMMARY | 2024-03-26 10:31 | XMS_ITS | Encounter Summary ---
Author Organization [place] Address [address] [place] [address] Care Team Providers Care Data Processing Systems Consultant Name Role Phone Anne-Marie Pike MD Unavailable [phone] Kirsten Suarez MD Primary Care Provider + Ricky Munoz-C Unavailable + Christa Schafer DIRECTOR CAREER CONTRACT ADMINISTRATION COORDINATOR Unavailable + Ricky Munoz-C Unavailable + Christa Schafer APRN CONTRACT ADMINISTRATION COORDINATOR Unavailable + Ricky Munoz-C Unavailable + Damon Escalante MD Unavailable + Ricky Munoz-C Unavailable + Damon Escalante MD Unavailable + Ricky Munoz-C Primary Care Provider + Melida Lopez RN Unavailable Unavailable Ricky Munoz PA-C Unavailable + Ricky Munoz-C Unavailable + Ricky Munoz-C Unavailable + Encounter Details Date Type Department Care Team (Late st Contact Info) Description 06/22/2015 [facility] [address] [place] [phone] Winnie Jara APRN CONTRACT ADMINISTRATION COORDINATOR [address] [place] [address] Social History Tobacco Use Types Packs/Day Years [...] on filedocumented in this encounter Care Teams Data Processing Systems Consultant Relationship Specialty Start Date End Date Kirsten Suarez MD [address] [place] [address] PCP - General Family Practice 03/11/13 06/17/20 Ricky Munoz PA-C [address] [place] [address] PCP - Assigned PCP 08/18/18 12/17/18 Christa Schafer APRN CONTRACT ADMINISTRATION COORDINATOR [address] [place] [address] PCP - Assigned PCP 08/11/18 08/17/18 Ricky Munoz PA-C [address] [place] [address] PCP - General Physician Shop Router - Medical 06/18/20 Anne-Marie Pike MD [place] [address] [place] [address] [facility] Practice 09/19/11 Ricky Munoz PA-C [address] [place] [address] Assigned PCP 08/18/18 12/21/18 Christa Schafer APRN CONTRACT ADMINISTRATION COORDINATOR [address] [place] [address] Assigned PCP 12/22/18 01/11/19 Ricky Munoz PA-C 50[address] [place] [address] Assigned PCP 01/19/19 10/11/19 [place] [address] [place] [address] Assigned PCP 10/12/19 10/18/19 Ricky Munoz PA-C [address] [place] [address] Assigned PCP 10/19/19 03/27/20 [place] [address] [place] [address] Assigned PCP 03/28/20 06/19/20 Melida Lopez, RN Personal Advocate & Liaison (PAL) Family Practice 06/23/20 10/20/20 Ricky Munoz PA-C [address] [place] [address] Assigned PCP 07/18/20 06/25/21 Ricky Munoz PA-C 35[address] [place] [address] Assigned PCP 06/20/20 07/17/20 Ricky Munoz PA-C [address] [address] Assigned PCP 06/26/21 documented as of this encounter
--- OUTSIDE RECORDS SUMMARY | 2024-03-26 10:31 | XMS_ITS | Clinical Summary ---
Author Organization [facility] Address [place], [place] [address] Care Team Providers Care Donkey Ride Operator Name Role Phone None Primary Care Provider [...] once daily. 90 Tablet 3 4 Active benzonatate (TESSALON) 200 mg capsuleIndications:Acute cough Take 1 Capsule (200 mg) by mouth 3 times daily if needed for Cough. 21 Capsule 4 Active levoFLOXacin (LEVAQUIN) 250 mg tablet Take 250 mg by mouth once daily. 4 Active fluconazole (DIFLUCAN) 150 mg tabletIndications:Yeast infection of the vagina Take 1 Tablet (150 mg) by mouth every 72 hours. 3 Tablet 4 Active MULTIVITAMIN ORAL occasional 0 Discontinu ed(*Patien t states no longer taking) fluconazole (DIFLUCAN) 150 mg tabletIndications:Yeast infection of the vagina Take 1 Tablet (150 mg) by mouth every 72 hours. 3 Tablet 4 024 Discontinu ed(Reorder (E-cancel not sent)) predniSONE (DELTASONE) 20 mg tabletIndications:Bronch itis Take 2 Tablets (40 mg) by mouth once daily with a meal for 5 days. 10 Tablet 4 Active Problems Problem Noted Date Diagnosed Date [...] hypercholesterolemia 09/03/2006 Bipolar 2 disorder 06/11/2006 Overview: Nanafalia was effective but caused skin problems. Zyprexa led to her feeling like a zombie. She did not tolerate prozac at doses high enough to treat her depression. She was hospitalized at [facility] in May 2004 with depression. Type II or unspecified type diabetes mellitus without mention of complication, not stated as uncontrolled 03/02/2006 Overview: Next eye exam 01/23 Resolved Problems Problem Noted Date Diagnosed Date Resolved Date DIABETES MELLITUS TYPE II 01/20/2010 Overview: Next eye exam 01/23 Rheumatoid arthritis(714.0) 12/18/2006 11/30/2021 Overview: [facility] ' Encounters Date Type Department Care Team Description 03/25/2024 Telephone [facility] [address] [place] [address] Diego Smyth MD Medication Management (UTI/vaginal itch ) 03/24/2024 11:40 AM CDT Office Visit [facility] [address] [place] [address] Diego Smyth MD ER Follow up 03/24/2024 Travel 03/17/2024 3:50 PM CDT Office Visit [facility] [address] [place] [address] Diego Smyth MD URI (Cough, chest congestion and shortness of breath) 03/17/2024 Travel 03/06/2024 9:45 AM CDT Office Visit [facility] [address] [place] [address] Lloyd Mckeon PsyD, LP Individual Therapy 03/06/2024 Travel 02/21/2024 11:00 AM CDT Office Visit [facility] [address] [place] [address] Liss De Guzman NP Follow Up; Medication Management (feeling, very good) 02/21/2024 Travel 02/12/2024 Telephone [facility] [address] [place] [address] Lloyd Mckeon PsyD, LP Appointment 02/04/2024 11:15 AM CDT Office Visit [facility] [address] [place] [address] Diego Smyth MD Follow Up (Blood pressure has been running high) 02/04/2024 Travel 01/25/2024 3:00 PM CDT Office Visit [facility] [address] [place] [address] Diego Smyth MD Animal Bite; Vaginal Problem 01/25/2024 Travel 01/25/2024 Nurse Triage [facility] [address] [place] [address] Diego Smyth MD Bite; Vaginal Problem 01/17/2024 7:30 AM CDT Office Visit [facility] [address] [place] [address] Liss De Guzman NP Follow Up; Medication Management 01/17/2024 Travel 01/16/2024 Telephone [facility] [address] [place] [address] Liss De Guzman NP 01/11/2024 9:00 AM CDT Orders Only [facility] [address] [place] [address] Lab, [facility] 01/11/2024 Travel 01/10/2024 Telephone [facility] [address] [place] [address] Liss De Guzman NP Follow Up 12/26/2023 Telephone [facility] [address] [place] [address] Lsis De Guzman NP Questions from Last 3 Months Immunizations Name Administration Dates Next Due COVID-19 vaccine (Indexing 30mcg/0.3mL) PF, MDV 07/25/2021 Influenza A (H1N1), [...] Other Mother TIA Stroke Mother age 89 2006 Genetic Other diabetes, HTN-D ad~HTN-Mom Relation [...] Sign Reading Time Taken Comments Blood Pressure 124/72 03/24/2024 11:50 AM CDT Pulse 71 03/24/2024 11:50 AM CDT Temperature 36.8 ??C (98.2 ??F) 03/17/2024 [...] Care Team (Late st Contact Info) Description 03/28/2024 3:25 PM CDT Office Visit [facility] [address] [place] [address] [place] [address] [place] [address] 05/12/2024 10:00 AM CDT Office Visit [facility] [address] [place] [address] [place] [address] [place] [address] 06/02/2024 1:30 PM CDT Office Visit [facility] [address] [place] [address] Liss De Guzman, [place] [address] [place] [address] Health Maintenance Due Date Last Done Comments [...] WITH AUTO DIFFERENTIAL (01/11/2024 9:01 AM CDT) [facility] WHITE BLOOD COUNT 12.6(H) 4.5 - 11.0 thou/cu mm 01/11/2024 9:16 AM CDT [facility] RED BLOOD COUNT 5.48(H) 4.00 - 5.20 mil/cu mm 01/11/2024 9:16 AM CDT [facility] HEMOGLOBIN 14.8 12.0 - 16.0 g/dL 01/11/2024 9:16 AM CDT [facility] HEMATOCRIT 45.7 33.0 - 51.0 % 01/11/2024 9:16 AM CDT [facility] MCV 83 80 - 100 fL 01/11/2024 9:16 AM CDT [facility] MCH 27.0 26.0 - 34.0 pg 01/11/2024 9:16 AM CDT [facility] MCHC 32.4 32.0 - 36.0 g/dL 01/11/2024 9:16 AM CDT [facility] RDW 14.2 11.5 - 15.5 % 01/11/2024 9:16 AM CDT [facility] PLATELET COUNT 268 140 - 440 thou/cu mm 01/11/2024 9:16 AM CDT [facility] MPV 10.8 6.5 - 11.0 fL 01/11/2024 9:16 AM CDT [facility] % NEUT 70.3 % 01/11/2024 9:16 AM CDT [facility] % LYMPH 19.9 % 01/11/2024 9:16 AM CDT [facility] % MONO 7.5 % 01/11/2024 9:16 AM CDT [facility] % EOS 1.8 % 01/11/2024 9:16 AM CDT [facility] % BASO 0.5 % 01/11/2024 9:16 AM CDT [facility] ABSOLUTE NEUTROPHILS 8.9(H) 1.7 - 7.0 thou/cu mm 01/11/2024 9:16 AM CDT [facility] ABSOLUTE LYMPHOCYTES 2.5 0.9 - 2.9 thou/cu mm 01/11/2024 9:16 AM CDT [facility] ABSOLUTE MONOCYTES 0.9(H) <0.9 thou/cu mm 01/11/2024 9:16 AM CDT [facility] ABSOLUTE EOSINOPHILS 0.2 <0.5 thou/cu mm 01/11/2024 9:16 AM CDT [facility] ABSOLUTE BASOPHILS 0.1 <0.3 thou/cu mm 01/11/2024 9:16 AM T [facility] Blood BLOOD SPECIMEN / Unknown Venipuncture / Unknown 01/11/2024 9:01 AM CDT 01/11/2024 9:02 AM CDT Narrative [facility] - 01/11/2024 9:16 AM CDT This procedure was originally ordered at [facility]. Liss De Guzman NP HEMATOLOGY Performing Organization Address City/[facility]/ZIP Co de Phone Number [facility] [address] [place] [address], * (ABNORMAL) HEMOGLOBIN A1C SCREENING (01/11/2024 9:01 AM CDT) HEMOGLOBIN A1C SCREENING 7.5(H) <=6.4 % 01/11/2024 6:58 PM CDT [facility] Blood BLOOD SPECIMEN / Unknown Venipuncture / Unknown 01/11/2024 9:01 AM CDT 01/11/2024 9:02 AM CDT Narrative [facility] - 01/11/2024 6:58 PM CDT ? (<5.7%) ?Normal ? (5.7% to 6.4%) ? Indicates prediabetes ? (>=6.5%) ? Confirms diabetes Falsely low levels may be seen with: Recent Transfusion, Recent Significant Blood Loss, Hemolytic Diseases, or Falsely elevated levels may be seen with: Untreated Anemias, Splenectomy Liss De Guzman NP CHEMISTRY [facility] [address] [place] [address], * LIPID PANEL W REFLEX MEASURED LDL (01/11/2024 9:01 AM CDT) CHOLESTEROL,TOTAL 151 100 - 199 mg/dL 01/11/2024 5:41 PM CDT [facility] Comment: Cholesterol, Total Reference Ranges Desirable <200 mg/dL Borderline 200-239 mg/dL High >=240 mg/dL TRIGLYCERIDES 141 <150 mg/dL 01/11/2024 5:41 PM CDT [facility] HDL CHOLESTEROL 42 >40 mg/dL 5:41 PM CDT [facility] NON-HDL CHOLESTEROL 109 <145 mg/dl 01/11/2024 5:41 PM CDT [facility] CHOL/HDL RATIO 3.60 <4.50 01/11/2024 5:41 PM CDT [facility] LDL CHOLESTEROL 81 <=130 mg/dL 01/11/2024 5:41 PM CDT [facility] VLDL CHOLESTEROL 28 <=30 mg/dL 01/11/2024 5:41 PM CDT [facility] PROVIDER ORDERED STATUS RANDOM 01/11/2024 5:41 PM CDT [facility] Blood BLOOD SPECIMEN / Unknown Venipuncture / Unknown 01/11/2024 9:01 AM CDT 01/11/2024 9:02 AM CDT Liss De Guzman NP [facility]Y [facility] [address] [place] [address], * VALPROIC ACID TOTAL (01/11/2024 9:01 AM CDT) VALPROIC ACID,TOTAL 68.6 50.0 - 100.0 ug/mL 01/11/2024 5:41 PM CDT [facility] DATE OF LAST DOSE 01/10/2024 01/11/2024 5:41 PM CDT [facility] TIME OF LAST DOSE 11:00 PM 01/11/2024 5:41 PM CDT [facility] Blood BLOOD SPECIMEN / Unknown Venipuncture / Unknown 01/11/2024 9:01 AM CDT 01/11/2024 9:02 AM CDT Liss De Guzman PARIMUTUEL CLERK CHEMISTRY [facility] [address] [place] [address], * (ABNORMAL) COMP METABOLIC PANEL (01/11/2024 9:01 AM CDT) SODIUM 137 136 - 145 mmol/L 01/11/2024 5:41 PM CDT [facility] POTASSIUM 4.6 3.5 - 5.1 mmol/L 01/11/2024 5:41 PM CDT [facility] CHLORIDE 95(L) 98 - 107 mmol/L 01/11/2024 5:41 PM CDT [facility] CO2,TOTAL 28 22 - 29 mmol/L 01/11/2024 5:41 PM CDT [facility] ANION GAP 14 5 - 18 01/11/2024 5:41 PM CDT [facility] GLUCOSE 119(H) 70 - 99 mg/dL 01/11/2024 5:41 PM CDT [facility] CALCIUM 9.9 8.8 - 10.2 mg/dL 01/11/2024 5:41 PM CDT [facility] BUN 20 8 - 23 mg/dL 01/11/2024 5:41 PM T [facility] CREATININE 1.21(H) 0.50 - 0.90 mg/dL 01/11/2024 5:41 PM T [facility] BUN/CREAT RATIO 17 10 - 20 5:41 PM T [facility] eGFR 47(L) >90 mL/min/1.7 3m2 01/11/2024 5:41 PM T [facility] Comment:As of 2021, eG FR is calculated by the CKD-EPI creatinine equation without race adjustment. ??eGFR can be influenced by muscle mass, exercise, and diet. ??The reported eGFR is an estimation only and is only applicable if the renal function is stable. ALBUMIN 4.3 4.0 - 4.9 g/dL 01/11/2024 5:41 PM CDT [facility] PROTEIN,TOTAL 7.7 6.0 - 8.0 g/dL 01/11/2024 5:41 PM CDT [facility] BILIRUBIN,TOTAL 0.5 0.0 - 1.2 mg/dL 01/11/2024 5:41 PM CDT [facility] ALK PHOSPHATASE 94 35 - 104 IU/L 01/11/2024 5:41 PM CDT [facility] ALT (SGPT) 12 10 - 35 IU/L 01/11/2024 5:41 PM CDT [facility] AST (SGOT) 22 10 - 35 IU/L 01/11/2024 5:41 PM CDT [facility] Blood BLOOD SPECIMEN / Unknown Venipuncture / Unknown 01/11/2024 9:01 AM CDT 01/11/2024 9:02 AM CDT Liss De Guzman NP CHEMISTRY [facility] [address] [place] [address], from Last 3 Months Care Teams Donkey Ride Operator Relationship Specialty Start Date End Date None . PCP - General 10/25/23
[2024-03-26 10:34] LABS: Appearance Urine Turbid (Clear); Bilirubin Urine 1+ (Negative); Blood Urine 1+ (Negative); Color Urine Dark yellow (Yellow); Glucose Urine 3+ (Negative); Ketones Urine Trace (Negative); Leukocyte Esterase Urine Trace (Negative); Nitrite Urine Negative (Negative); Protein Urine 1+ (Negative); Specific Gravity Urine >= 1.030 (1.000-1.030); pH Urine 5.5 (5.0-8.5)
[2024-03-26 10:49] LABS: Amorphous Sediment Urine Few; Bacteria Urine Moderate; RBC Urine 0-2 (0-2); Squamous Epithelial Cell Urine Moderate (None-Few)
[2024-03-26] MEDS: 0.9 % SODIUM CHLORIDE 1000 ml 1,000 ML 6000 ML IV (10:54)
[2024-03-26 11:12] LABS: Basophils Percent Auto 0.4 % (0.0-3.0); Eosinophils Percent Auto 0.8 % (0.0-7.0); Hematocrit 42.6 % (33.0-51.0); Hemoglobin* 14.2 gm/dL (12.0-16.0); Immature Granulocytes Pct Auto 0.4 %; Lymphocytes Percent Auto 16.8 % (20-44); Mean Corpuscular HGB Conc 33 gm/dL (32-36); Mean Corpuscular Hemoglobin 27 pg (26-34); Mean Corpuscular Volume 81 fL (80-100); Monocytes Percent Auto 6.1 % (0.0-11.0); Neutrophils Percent Auto 75.5 % (42.0-72.0); Platelet Count* 340 K/uL (140-440); RDW Coefficient of Variation % 13.9 % (11.5-15.5); Red Blood Count 5.29 m/uL (4.00-5.20); White Blood Count* 14.17 K/uL (4.50-11.00)
[2024-03-26 11:25] LABS: Slide Review Reflex No
[2024-03-26 11:46] LABS: Chloride* 97 mmol/L (96-114)
[2024-03-26 11:47] LABS: Sodium* 133 mmol/L (135-149)
[2024-03-26 11:49] LABS: Alanine Aminotransferase* 15 U/L (4-35); Alkaline Phosphatase* 102 U/L (40-150); Anion Gap 9 mEq/L (7-15); Aspartate Amino Transferase* 19 U/L (12-35); Bilirubin Direct* 0.4 mg/dL (0.0-0.5); Bilirubin Total* 1.3 mg/dL (0.1-1.5); Blood Urea Nitrogen* 27 mg/dL (7-30); Carbon Dioxide* 27 mmol/L (20-32); Creatinine* 0.9 mg/dL (0.5-1.5); Est. Creatinine Clearance* 41.33; Estimated Glomerular Filt Rate 66 ml/min; Glucose* 343 mg/dL (60-115); Total Protein* 7.2 g/dL (6.0-8.3)
[2024-03-26 11:50] LABS: Calcium* 9.1 mg/dL (8.4-10.6)
[2024-03-26 11:52] LABS: C Reactive Protein* 2.1 mg/dL (0.5-1.0)
[2024-03-26 11:54] VITALS: BP 151/57; PULSE 59; RESP 16; O2SAT 98
[2024-03-26 11:55] VITALS: PULSE 61; O2SAT 98
[2024-03-26] MEDS: cefTRIAXone 500 MG in 0.9 % SODIUM CHLORIDE Mini-bag 100 ML 200 MG IVPB (12:52)
--- NOTE | 2024-03-26 15:27 | PC.SOCIAL ---
Social work: Met with pt and dtr Kayla Jimenez ([phone]) in the ED for discharge planning. Pt is not interested in moving into a higher level of care. She currently lives in an apartment alone and is connected with [facility] services who provide some meals and limited assistance at home. Pt is willing to consider hiring someone to provide additional service or possibly a short term stay in an enhanced assisted living facility with the goal of returning home after a few days. Provided pt and dtr with written information on the Senior Linkage Line, hatchery attendant care, Home delivered meals, and assisted living options. Pt agreed to this social studies department chair making an online referal to the Senior Linkage Line to have her screened to see if she is eligible for any free supportive services at home. Pt also requested social studies department chair contact the [facility] and ask them to contact her to discuss if a short stay there from home would be a good fit for her. She is aware this is a private pay option. Secure emailed Bonnie Swan at the Enhanced Assisted Living and requested she contact pt. Completed online referral requesting an assessment for eligibility for community resources through the Senior Linkage Line. They will follow up with pt and dtr at home. Pt and dtr are aware of how to contact this social studies department chair for additional resources or questions.
== END 2024-03-26 14:42 | disposition home or self-care (01) ==
PROVIDERS: Emergency Provider Family Medicine; PCP Family Medicine
DX: E86.0 Dehydration (principal); R82.81 Pyuria
CPT/HCPCS: 36415; 71045; 80048; 80076; 81001; 85025; 86140; 87086; 93005; 96365; 99284; 99285; J0696; J7030

== ENCOUNTER 2024-12-15 13:58 | Outpatient (CLI) | payer MEDICARE, BC, SELFPAY | END 2024-12-15 13:59 | disposition home or self-care (01) | LOC: NFLDREF 12-16 02:44 | PROVIDERS: PCP Family Medicine; Referring Provider Family Medicine; Visit Provider Nurse Practitioner Family | DX: N30.00 Acute cystitis without hematuria (principal); R05.9 Cough, unspecified; B37.9 Candidiasis, unspecified; T36.95XA Adverse effect of unspecified systemic antibiotic, initial encounter | CPT/HCPCS: 87086 ==

== ENCOUNTER 2024-12-26 13:52 | Emergency (ER) | payer MEDICARE, BC, SELFPAY ==
[2024-12-26 14:14] VITALS: BP 154/76; PULSE 58; RESP 18; TEMP 37.2; O2SAT 93; BMI 34.3
--- NOTE | 2024-12-26 14:26 | CRLHL7_ITS ---
For Patients: As a result of the Century Cures Act, medical imaging exams and procedure reports are released immediately into your electronic medical record. You may view this report before your referring provider. If you have questions, please contact your health care provider. Indication: Weakness Technique: Chest 1 view Comparison: Chest x-ray 03/26/2024 Findings/Impression: Cardiovascular and mediastinum: Upper normal heart size with aortic tortuosity and atherosclerotic calcification. Lungs and pleural space: No pleural effusion or pneumothorax. Discoid atelectasis lung bases. Bones and soft tissues: No acute findings. Dictated by Rafael Wilks MD @ 12/26/2024 3:12:27 PM (Electronically Signed)
--- NOTE | 2024-12-26 14:27 | ED.GENADULT ---
HPI - General Adult General Chief complaint: Weakness Stated complaint: UTI Time Seen by Provider: 12/26/24 14:00 History of Present Illness HPI narrative: Patient is a 79-year-old woman who comes in today stating she just does not feel well. She has been weak for the last 2 days. She describes no palpitations no chest pain no shortness of breath no nausea no vomiting no dysuria no abdominal pain no rashes no focal weakness. Patient lives alone. She takes no medications and has been eating and drinking normally. Of note she does have a history of anxiety. She arrives via private car with her daughter with stable vital signs. Related Data Home Medications ?Medication ?Instructions ?Recorded ?Confirmed aspirin 81 mg tablet,delayed 81 mg PO DAILY 08/26/22 11/03/24 release (Adult Aspirin Regimen) metformin 1,000 mg tablet 1,000 mg PO BID 12/31/23 11/03/24 Previous Rx's ?Medication ?Instructions ?Recorded blood-glucose meter (Blood Glucose #1 ea 09/22/22 Monitoring kit) lancets #100 ea 09/22/22 levothyroxine 88 mcg tablet 88 mcg PO QDAY #90 tabs 09/22/22 losartan 100 mg tablet 100 mg PO QDAY #90 tabs 09/22/22 blood sugar diagnostic (Accu-Chek #100 ea 10/04/22 Guide test strips) albuterol sulfate 90 mcg/actuation 2 puff inhalation Q6H PRN 03/06/23 aerosol inhaler (Ventolin HFA) shortness of breath or wheezing #8.5 grams bupropion HCl 150 mg 24 hr tablet, 150 - 300 mg (1 - 2 x 150 mg) PO 04/10/23 extended release QAM #60 tabs divalproex 250 mg tablet,delayed 250 - 500 mg (1 - 2 x 250 mg) PO 04/10/23 release (Depakote) BID #100 tabs rosuvastatin 20 mg tablet 20 mg PO DAILY #90 tabs 10/02/23 hydrochlorothiazide 25 mg tablet 25 mg PO DAILY #90 tabs 11/16/23 atenolol 50 mg tablet 50 mg PO DAILY #90 tabs 12/28/23 blood sugar diagnostic (Blood #100 ea 01/14/24 Glucose Test strips) codeine 10 mg-guaifenesin 100 mg/5 10 ml PO Q4-6H PRN cough #118 mL 12/15/24 mL oral liquid fluconazole 150 mg tablet 150 mg PO Q3D 2 doses #2 tabs 12/15/24 Allergies Allergy/AdvReac Type Severity Reaction Status Date / Time NSAIDS (Non-Steroidal AdvReac Low Kidney Verified 12/26/24 14:13 Anti-Inflamma Function Review of Systems Status of ROS: Reports: 10 or more systems reviewed and unremarkable except as noted in History and below PFSH PFSH Medical History Bipolar depression ?F31.9 - Bipolar disorder, unspecified (ICD-10) Hx of falling ?Z91.81 - History of falling (ICD-10) Hx of gout ?Z87.39 - Personal history of other diseases of the musculoskeletal system and connective tissue (ICD-10) Hx of colonic polyps ?Z86.010 - Personal history of colonic polyps (ICD-10) History of depression ?Z86.59 - Personal history of other mental and behavioral disorders (ICD-10) Medication management ?Z79.899 - Other nursing home (current) drug therapy (ICD-10) Chronic kidney disease (CKD) stage G3a/A1, moderately decreased glomerular filtration rate (GFR) between 45-59 mL/min/1.73 square meter and albuminuria creatinine ratio less than 30 mg/g ?N18.31 - Chronic kidney disease, stage 3a (ICD-10) Anxiety ?F41.9 - Anxiety disorder, unspecified (ICD-10) Surgical History History of colonoscopy ?Z98.890 - Other specified postprocedural states (ICD-10) Family History Brother Multiple sclerosis Social History Smoking Status: Never smoker Do you use any of these nicotine containing products: None Second hand tobacco smoke exposure: No How often do you have a drink containing alcohol: never How often do you have six or more drinks on one occasion: Never AUDIT-C Alcohol total score: 0 Non-prescribed substance use: denies use service: No Exam Narrative: Exam Narrative: EXAM GENERAL: Patient appears comfortable and well. EYES: No scleral icterus. LYMPH: No supraclavicular or cervical lymphadenopathy. SKIN: Visible skin seen during exam normal or with benign process only. EXT: No dependent lower extremity pedal edema. HEART: Regular rate and rhythm with no murmurs, rubs, or gallops. LUNGS: Clear to auscultation bilaterally with no crackles or wheezes. ABD: Soft, non tender, non distended. PSYCH: Good eye contact, speech is not pressured. Const: Vital Signs, click to edit/add: Vital Signs - 24 hr 12/26/24 14:14 Temperature 99 F Pulse Rate [Pulse Oximeter] 58 L Respiratory Rate 18 Blood Pressure [Ri ght Forearm] 154/76 H Pulse Oximetry 93 Oxygen Delivery Me thod Room Air Course Course ED Course: Patient has stable vital signs and normal exam. I did star a workup including CBC basic metabolic panel chest x-ray UA troponin EKG. Vital Signs Vital signs: Initial Vital Signs Temperature 99 F 12/26/24 14:14 Temperature Source Temporal Artery Scan 12/26/24 14:14 Pulse Rate 58 L 12/26/24 14:14 Pulse Rhythm Regular 12/26/24 14:14 Respiratory Rate 18 12/26/24 14:14 Blood Pressure 154/76 H 12/26/24 14:14 Blood Pressure Mean 102 12/26/24 14:14 Blood Pressure Position Supine 12/26/24 14:14 Pulse Oximetry 93 12/26/24 14:14 Oxygen Delivery Method Room Air 12/26/24 14:14 Vital Signs Temperature 99 F 12/26/24 14:14 Pulse Rate 58 L 12/26/24 14:14 Respiratory Rate 18 12/26/24 14:14 Blood Pressure 154/76 H 12/26/24 14:14 Pulse Oximetry 93 12/26/24 14:14 Oxygen Delivery Method Room Air 12/26/24 14:14 Temperature 99 F 12/26/24 14:14 Pulse Rate 58 L 12/26/24 14:14 Respiratory Rate 18 12/26/24 14:14 Blood Pressure 154/76 H 12/26/24 14:14 Pulse Oximetry 93 12/26/24 14:14 Oxygen Delivery Method Room Air 12/26/24 14:14 Medical Decision Making MDM Narrative Medical decision making narrative: Patient presents with generalized weakness. She had a thorough evaluation with normal chest x-ray labs are reassuring with exception of hyperglycemia due to her chronic diabetes. Her urine shows signs of infection and she has had similar presentations in the past when she has urinary tract infection. Rest for evaluation including her exam vital signs was unremarkable. I do believe she is safe to go home and will treat her with Bactrim double strength p.o. b.i.d. for the next 5 days with outpatient follow-up. Lab Data Labs: Lab Results 12/26/24 12/26/24 Range/Units 14:05 14:15 WBC 10.60 (4.50-11.00) K/uL RBC 5.29 H (4.00-5.20) m/uL Hgb 14.1 (12.0-16.0) gm/dL Hct 43.1 (33.0-51.0) % MCV 82 (80-100) fL MCH 27 (26-34) pg MCHC 33 (32-36) gm/dL RDW Coeff of Jordyn 13.5 (11.5-15.5) % Plt Count 271 (140-440) K/uL Neut % (Auto) 70.1 (42.0-72.0) % Lymph % (Auto) 20.5 (20-44) % [place] % (Auto) 7.1 (0.0-11.0) % Eos % (Auto) 0.8 (0.0-7.0) % Baso % (Auto) 0.5 (0.0-3.0) % Neut # (Auto) 7.44 H (1.7-7.0) K/uL Lymph # (Auto) 2.17 (0.90-2.90) K/uL [place] # (Auto) 0.80 (0.00-0.90) K/UL Eos # (Auto) 0.08 (0.00-0.50) K/uL Baso # (Auto) 0.05 (0.00-0.30) K/uL Abs Immat Gran (auto) 0.11 (0.00-0.30) K/uL Imm/Tot Granulo (auto) 1.0 % Sodium 134 L (135-149) mmol/L Potassium 4.0 (3.6-5.1) mmol/L Chloride 96 (96-114) mmol/L Carbon Dioxide 26 (20-32) mmol/L Anion Gap 12 (7-15) mEq/L BUN 20 (7-30) mg/dL Creatinine 0.9 (0.5-1.5) mg/dL Estimated Creat Clear 40.68 Estimated GFR 66 ml/min Glucose 345 H (60-115) mg/dL Calcium 9.3 (8.4-10.6) mg/dL Troponin I < 0.01 L (0.01-0.04) ng/mL Urine Color Yellow (Yellow) Urine Appearance Slightly Cloudy A (Clear) Urine pH 5.5 (5.0-8.5) Ur Specific [place] 1.025 (1.000-1.030) Urine Protein Trace A (Negative) Urine Glucose (UA) 3+ A (Negative) Urine Ketones Negative (Negative) Urine Blood Trace-lysed A (Negative) Urine Nitrite Negative (Negative) Urine Bilirubin Negative (Negative) Urine Urobilinogen 0.2 (0.2-1.0) Ur Leukocyte Esterase Trace A (Negative) Urine RBC 0-2 (0-2) Urine WBC 10-25 A (0-5) Urine WBC Clumps Few A (None) Ur Squamous Epith Cells Many A (None-Few) Amorphous Sediment Moderate A (None) Urine Bacteria Moderate A (None) Discharge Plan Discharge Clinical Impression: Urinary tract infection Patient Disposition: Home, Self-Care Condition: Stable Instructions: Urinary Tract Infection in Women (ED) Additional Instructions: Bactrim as directed Rest Fluids Continue current medications Follow-up with your doctor next week. Activity Level: No Restrictions Discharge Diet: Regular Prescriptions: No Action codeine-guaifenesin 10-100 mg/5 mL liquid 10 ml PO Q4-6H PRN (Reason: cough) Qty: 118 0RF fluconazole 150 mg tablet 150 mg PO Q3D 0 Days Qty: 2 0RF Rx Instructions: may repeat second dose 72 hrs after first dose if symptoms persist levothyroxine 88 mcg tablet 88 mcg PO QDAY Qty: 90 3RF losartan 100 mg tablet 100 mg PO QDAY Qty: 90 3RF albuterol sulfate [Ventolin HFA] 90 mcg/actuation HFA aerosol inhaler 2 puff inhalation Q6H PRN (Reason: shortness of breath or wheezing) Qty: 8.5 12RF Rx Instructions: dispense whichever albuterol inhaler is covered divalproex [Depakote] 250 mg tablet,delayed release (DR/EC) 250 - 500 mg PO BID Qty: 100 0RF Rx Instructions: take 1 t po bid x 1 wk then increase to 2 t bid for mood bupropion HCl 150 mg tablet extended release 24 hr 150 - 300 mg PO QAM Qty: 60 0RF Rx Instructions: take 1 t po qam x 1 wk then increase to 2 t po qam for mood aspirin [Adult Aspirin Regimen] 81 mg tablet,delayed release (DR/EC) 81 mg PO DAILY (DME) blood-glucose meter [Blood Glucose Monitoring] Kit See Rx Instructions .Route Qty: 1 0RF Rx Instructions: As directed (DME) lancets Misc See Rx Instructions .Route Qty: 100 3RF Rx Instructions: use once per day (DME) Accu-Chek Guide test strips Strip See Rx Instructions .Route Qty: 100 3RF Rx Instructions: Test once daily rosuvastatin 20 mg tablet 20 mg PO DAILY Qty: 90 0RF hydrochlorothiazide 25 mg tablet 25 mg PO DAILY Qty: 90 0RF atenolol 50 mg tablet 50 mg PO DAILY Qty: 90 0RF metformin 1,000 mg tablet 1,000 mg PO BID (DME) Blood Glucose Test Strip See Rx Instructions .Route Qty: 100 0RF Rx Instructions: Test once per day Follow Up/Referrals: Diego Smyth MD [Primary Care Provider] - Stand Alone Forms: [employer] Info Instructions
[2024-12-26 14:36] LABS: Appearance Urine Slightly Cloudy (Clear); Bilirubin Urine Negative (Negative); Blood Urine Trace-lysed (Negative); Color Urine Yellow (Yellow); Glucose Urine 3+ (Negative); Ketones Urine Negative (Negative); Leukocyte Esterase Urine Trace (Negative); Nitrite Urine Negative (Negative); Protein Urine Trace (Negative); Specific Gravity Urine 1.025 (1.000-1.030); Urobilinogen Urine 0.2 (0.2-1.0); pH Urine 5.5 (5.0-8.5)
--- OUTSIDE RECORDS SUMMARY | 2024-12-26 14:38 | XMS_ITS | Encounter Summary ---
Author Organization [facility] Address [address] [place] [address] Care Team Providers Care Water Trainer Name Role Phone Anne-Marie Pike MD Unavailable [phone] Kirsten Suarez MD Primary Care Provider + Ricky Munoz PA-C Unavailable + Christa Schafer SURGICAL SERVICES ASST CLASSIFYING MACHINE OPERATOR Unavailable + Ricky Munoz PA-C Unavailable + Christa Schafer APRN CLASSIFYING MACHINE OPERATOR Unavailable + Ricky Munoz-C Unavailable + Damon Escalante MD Unavailable + Ricky Munoz PA-C Unavailable + Damon Escalante MD Unavailable + Ricky Munoz-Vineet Primary Care Provider [phone] Melida Lopez RN Unavailable Unavailable Ricky Munoz PA-C Unavailable + Ricky Munoz PA-C Unavailable + Ricky Munoz PA-C Unavailable + Reason for Visit * Reason Onset Date Comments Medication Refill 12/17/2017 atenolol (TENO RMIN) 50 MG tablet Encounter Details Date Type Department Care Team (Late st Contact Info) Description 12/17/[address], [address] [place] [address] [place] [address] [place] [address] Medication Refill (atenolol (TENORMIN) 50 MG tablet) Social History Tobacco Use Types Packs/Day Years Used Date Smoking Tobacco: Never Smokeless Tobacco: Never Alcohol Use Standard Drinks/Week Comments No 0 (1 standard drink = 0.6 oz pur e alcohol) Comments No Sex and Gender Information Value Date Recorded Sex Assigned at Not on file Legal Sex Female 4:10 AM TEXTILE CLOTHING AND FOOTWEAR MECHANIC Gender Identity Not on file Sexual Orientation Not on file Occupation Industry Job Start Date Job End Date teacher Not on file Not on file Not on file documented as of this encounter Miscellaneous Notes * Telephone Encounter - Tea Quintana RN - 12/18/2017 8:57 AM CST Prescription approved per [facility] Refill Protocol. Tea Quintana RN ILE CLOTHING AND FOOTWEAR MECHANIC * Telephone Encounter - GeorgeKimber - 12/17/2017 1:36 PM CST Requested Prescriptions Pending Prescriptions Disp Refills ??? atenolol (TENORMIN) 50 MG tablet [Pharmacy Med Name: ATENOLOL 50 MG TABLET] 180 tablet 1 Last Written Prescription Date: 05/22/17 Last Fill Quantity: 60, # refills: 5 Last Office Visit: 05/22/2017 Future Office Visit: Next 5 appointments (look out 90 days) Dec 18, 2017 9:20 AM TEXTILE CLOTHING AND FOOTWEAR MECHANIC Pre-Op physical with Kirsten Suarez MD [facility] [address] [place] [address], [address] [facility] [address] Sig: TAKE 1 TABLET (50 MG) BY [...] & Orders section of the refill encounter. ILE CLOTHING AND FOOTWEAR MECHANIC documented in this encounter Plan of Treatment Not on file documented as of this encounter Visit Diagnoses Diagnosis Essential hypertension with goal blood pressure less than 140/90 documented in this encounter Additional Health Concerns Assessment Noted Time PHQ-9 Depression Total Score: 2 12/30/19 17 7:13 AM CDT documented as of this encounter Care Teams Water Trainer Relationship Specialty Start Date End Date Kirsten Suarez MD [place] [address] [place] [address] PCP - General Family Practice 03/11/13 06/17/20 Ricky Munoz PA-C [address] [place] [address] PCP - Assigned PCP 08/18/18 12/17/18 Christa Schafer APRN [facility] [address] [place] [address] PCP - Assigned PCP 08/11/18 08/17/18 Ricky Munoz PA-C [address] [place] [address] PCP - General Physician Supervisor Carding - Medical 06/18/20 Anne-Marie Pike MD [place] [address] [place] [address] Family Practice 09/19/11 Ricky Munoz PA-C [address] [place] [address] Assigned PCP 08/18/18 12/21/18 Christa Schafer APRN [facility] [address] [place] [address] Assigned PCP 12/22/18 01/11/19 Ricky Munoz PA-C [address] [place] [place], [place] [address] Assigned PCP 01/19/19 10/11/19 [place] [address] [place] [address] Assigned PCP 10/12/19 10/18/19 Ricky Munoz PA-C [address] [place] [address] Assigned PCP 10/19/19 03/27/20 [place] [address] [place] [address] Assigned PCP 03/28/20 06/19/20 Melida Lopez, RN Personal Advocate & Liaison (PAL) Family Practice 06/23/20 10/20/20 Ricky Munoz PA-C [address] [place] [address] Assigned PCP 07/18/20 06/25/21 Ricky Munoz PA-C [address] [place] [address] Assigned PCP 06/20/20 07/17/20 Ricky Munoz PA-C [address] [place] [address] Assigned PCP 06/26/21 11/05/24 documented as of this encounter
--- OUTSIDE RECORDS SUMMARY | 2024-12-26 14:38 | XMS_ITS | Encounter Summary ---
Author Organization [facility] Address [address] [place] [address] Care Team Providers Care Equipment Detailer Name Role Phone Anne-Marie Pike MD Unavailable [phone] Kirsten Suarez MD Primary Care Provider + Ricky Munoz PA-C Unavailable + Christa Schafer BRAZER INDUCTION STREETCAR REPAIRER HELPER Unavailable + Ricky Munoz PA-C Unavailable + Christa Schafer BRAZER INDUCTION STREETCAR REPAIRER HELPER Unavailable + Ricky Munoz PA-C Unavailable + Damon Escalante MD Unavailable + Ricky Munoz PA-C Unavailable + Damon Escalante MD Unavailable + Ricky Munoz PA-C Primary Care Provider [phone] Melida Lopez RN Unavailable Unavailable Edwin Munozis PA-C Unavailable + Edwin Munozis PA-C Unavailable + Edwin Munozis PA-C Unavailable + Encounter Details Date Type Department Care Team (Late st Contact Info) Description 12/12/2017 [facility] [address] [place] [address] Marlon Mcfadden MD [facility] [address] [facility] [address] [place] [address] Pre-operative laboratory examination (Primary Dx) Social History Tobacco Use Types Packs/Day Years Used Date Smoking Tobacco: Never Smokeless Tobacco: Never Alcohol Use Standard Drinks/Week Comments No 0 (1 standard drink = 0.6 oz pur e alcohol) Comments No Sex and Gender Information Value Date Recorded Sex Assigned at Not on file Legal Sex Female 4:10 AM PIT FURNACE MELTER Gender Identity Not on file Sexual Orientation Not on file Occupation Industry Job Start Date Job End Date teacher Not on file Not on file Not on file documented as of this encounter Plan of Treatment Not on file documented as of this encounter Results * Methicillin Resist/Sens S. aureus PCR (12/13/2017 12:30 PM PIT FURNACE MELTER) Specimen Description Nares 12/13/2017 1:52 PM PIT FURNACE MELTER [facility] Methicillin Resist/Sens S. aureus PCR Negative NEG^Negat yonis 12/13/2017 6:52 PM PIT FURNACE MELTER [facility] Comment: MRSA Negative: SA Positive MRSA target DNA not detected, presumed negative for MRSA colonization or the number of bacteria present may be below the limit of detection. Staphylococcus aureus target DNA detected, presumed positive for SA colonization. A positive test does not necessarily indicate the presence of viable organisms. It is, however, presumptive for the presence of SA. This result does not preclude MRSA nasal colonization. FDA approved assay performed using [employer]fresh GeneXpert(R) real-time PCR. Nasal structure (body structure) 12/13/2017 12:30 PM PIT FURNACE MELTER 12/13/2017 1:52 PM PIT FURNACE MELTER us Marlon Mcfadden MD LAB - MICRO GENERAL ORDERABLE S Final Result [facility] [address] [place] [address], [facility] [address] [place] [address], [facility] [phone] documented in this encounter Visit Diagnoses Diagnosis Pre-operative laboratory examination- Primary Pre-procedural laboratory examination documented in this encounter Additional Health Concerns Assessment Noted Time PHQ-9 Depression Total Score: 2 12/30/19 17 7:13 AM CDT documented as of this encounter Care Teams Equipment Detailer Relationship Specialty Start Date End Date Kirsten Suarez MD [address] [place] [address] PCP - General Family Practice 03/11/13 06/17/20 Ricky Munoz PA-C [address] [place] [address] PCP - Assigned PCP 08/18/18 12/17/18 Christa Schafer APRN STREETCAR REPAIRER HELPER [address] [place] [address] PCP - Assigned PCP 08/11/18 08/17/18 Ricky Munoz PA-C [address] [place] [address] PCP - General Physician Gas System Operator - Medical 06/18/20 Anne-Marie Pike MD [address] [place] [address] Family Practice 09/19/11 Ricky Munoz PA-C [address] [place] [address] Assigned PCP 08/18/18 12/21/18 Christa Schafer APRN STREETCAR REPAIRER HELPER [address] [place] [address] Assigned PCP 12/22/18 01/11/19 Ricky Munoz PA-C [address] [place] [address] Assigned PCP 01/19/19 10/11/19 [place] [address] [place] [address] Assigned PCP 10/12/19 10/18/19 Ricky Munoz PA-C [address] [place] [address] Assigned PCP 10/19/19 03/27/20 [place] [address] [place] [address] Assigned PCP 03/28/20 06/19/20 Melida Lopez RN Personal Advocate & Liaison (PAL) Family Practice 06/23/20 10/20/20 Ricky Munoz PA-C [address] [place] [address] Assigned PCP 07/18/20 06/25/21 Ricky Munoz PA-C [address] [place] [address] Assigned PCP 06/20/20 07/17/20 Ricky Munoz PA-C [address] [place] [address] Assigned PCP 06/26/21 11/05/24 documented as of this encounter
--- OUTSIDE RECORDS SUMMARY | 2024-12-26 14:38 | XMS_ITS | Encounter Summary ---
Author Organization [facility] Address [address] [place] [address]. [place] [address] Care Team Providers Care Tape Weaver Name Role Phone Anne-Marie Pike MD Unavailable [phone] Ricky Munoz PA-C Primary Care Provider [phone] Ricky Munoz PA-C Unavailable [phone] Reason for Visit * Reason Comments Medication Refill Encounter Details Date Type Department Care Team (Late st Contact Info) Description 09/27/[address] [phone] Heriberto Leblanc PA-C [address] [place] [address] Medication Refill Social History Tobacco Use Types Packs/Day Years Used Date Smoking Tobacco: Never Smokeless Tobacco: Never Alcohol Use Standard Drinks/Week Comments No 0 (1 standard drink = 0.6 oz pur e alcohol) PHQ-2 Answer Date Recorded PHQ-2 Score 1 06/16/2021 Comments No Sex and Gender Information Value Date Recorded Sex Assigned at Not on file Legal Sex Female 4:10 AM CAR STARTER Gender Identity Not on file Sexual Orientation Not on file Occupation Industry Job Start Date Job End Date teacher Not on file Not on file Not on file documented as of this encounter Miscellaneous Notes * Telephone Encounter - Lexi Cooley RN - 09/28/2021 4:19 PM CAR STARTER Prescription approved per [facility], [facility] or [facility] refill protocol. Lexi Castro - Registered Nurse [facility] STARTER documented in this encounter Plan of Treatment Not on file documented as of this encounter Visit Diagnoses Diagnosis Type 2 diabetes mellitus with diabetic neuropathy, without long-term current use of insulin (H) documented in this encounter Additional Health Concerns Assessment Noted Time PHQ-9 Depression Total Score: 7 07/01/20 20 12:02 PM CDT documented as of this encounter Care Teams Tape Weaver Relationship Specialty Start Date End Date Ricky Munoz PA-C [address] [place] [address] PCP - General Physician Pressfitter - Medical 06/18/20 Anne-Marie Pike MD [address] [place] [address] Family Practice 09/19/11 Ricky Munoz PA-C [address] [place] [address] Assigned PCP 06/26/21 11/05/24 documented as of this encounter
--- OUTSIDE RECORDS SUMMARY | 2024-12-26 14:38 | XMS_ITS | Encounter Summary ---
Author Organization [facility] Address [address] [place] [address] Care Team Providers Care Building Architectural Designer Name Role Phone Anne-Marie Pike MD Unavailable [phone] Kirsten Suarez MD Primary Care Provider + Ricky Munoz PA-C Unavailable + Christa Schafer HISTOTECHNOLOGIST SUPERVISOR SERVICE ORDER DISPATCHER CHIEF Unavailable + Ricky Munoz PA-C Unavailable + Christa Schafer APRN SERVICE ORDER DISPATCHER CHIEF Unavailable + Ricky Munoz PA-C Unavailable + Damon Escalante MD Unavailable + Ricky Munoz PA-C Unavailable + Damon Escalante MD Unavailable + Ricky Munoz PA-C Primary Care Provider +10-20 Melida Lopez RN Unavailable Unavailable Edwin Munozis PA-C Unavailable + Edwin Munozis PA-C Unavailable + Ricky Munoz PA-C Unavailable + Reason for Visit * Reason Onset Date Comments Results 01/08/2015 Encounter Details Date Type Department Care Team (Late st Contact Info) Description 01/08/2015 MyC Medical Advice [facility], [address] [place] [id number] [place] [address] [place] [address] Results Social History Tobacco Use Types Packs/Day Years Used Date Smoking Tobacco: Never Smokeless Tobacco: Never Alcohol Use Standard Drinks/Week Comments No 0 (1 standard drink = 0.6 oz pur e alcohol) Comments No Sex and Gender Information Value Date Recorded Sex Assigned at Not on file Legal Sex Female 4:10 AM TRANSFER CAR OPERATOR DRIER Gender Identity Not on file Sexual Orientation Not on file Occupation Industry Job Start Date Job End Date teacher Not on file Not on file Not on file documented as of this encounter Plan of Treatment Not on file documented as of this encounter Visit Diagnoses Not on filedocumented in this encounter Care Teams Building Architectural Designer Relationship Specialty Start Date End Date Kirsten Suarez MD [place] [address] [place] [address] PCP - General Family Practice 03/11/13 06/17/20 Ricky Munoz PA-C [address] [place] [address] PCP - Assigned PCP 08/18/18 12/17/18 Christa Schafer APRN CNP [address] [place] [address] PCP - Assigned PCP 08/11/18 08/17/18 Ricky Munoz PA-C [address] [place] [address] PCP - General Physician Obstetrician/Gynecologist - Medical 06/18/20 Anne-Marie Pike MD [place] [address] [place] [address] Family Practice 09/19/11 Ricky Munoz PA-C [address] [place] [address] Assigned PCP 08/18/18 12/21/18 Christa Schafer APRN SERVICE ORDER DISPATCHER CHIEF [address] [place] [address] Assigned PCP 12/22/18 01/11/19 Ricky Munoz PA-C [address] [place] [address] Assigned PCP 01/19/19 10/11/19 [place] [address] [place] [address] Assigned PCP 10/12/19 10/18/19 Ricky Munoz PA-C [address] [place] [address] Assigned PCP 10/19/19 03/27/20 [place] [address] [place] [address] Assigned PCP 03/28/20 06/19/20 Melida Lopez, RN Personal Advocate & Liaison (PAL) Family Practice 06/23/20 10/20/20 Ricky Munoz PA-C [address] [place] [address] Assigned PCP 07/18/20 06/25/21 Ricky Munoz PA-C [address] [place] [address] Assigned PCP 06/20/20 07/17/20 Ricky Munoz PA-C [address] [address] Assigned PCP 06/26/21 11/05/24 documented as of this encounter
--- OUTSIDE RECORDS SUMMARY | 2024-12-26 14:38 | XMS_ITS | Encounter Summary ---
Author Organization [facility] Address [address] [place] [address] Care Team Providers Care Skidder Lever Operator Name Role Phone Anne-Marie Pike MD Unavailable [phone] Kirsten Suarez MD Primary Care Provider + Ricky Mnuoz PA-C Unavailable + Christa Schafer TRADE ECONOMIST TIMBER POISONER Unavailable + Ricky Munoz PA-C Unavailable + Christa Schafer APRN TIMBER POISONER Unavailable + Ricky Munoz PA-C Unavailable + Damon Escalante MD Unavailable + Ricky Munoz PA-C Unavailable + Damon Escalante MD Unavailable + Ricky Munoz PA-C Primary Care Provider +10-20 Melida Lopez RN Unavailable Unavailable Alexander Ricky PA-C Unavailable + Alexander Ricky PA-C Unavailable + Alexander Ricky PA-C Unavailable + Encounter Details Date Type Department Care Team (Late st Contact Info) Description 06/22/2015 MyC Medical [facility] [address] [place] [address] Winnie Jara, TRADE ECONOMIST TIMBER POISONER [address] [place] [address] [address] [place] [address] Social History Tobacco Use Types Packs/Day Years Used Date Smoking Tobacco: Never Smokeless Tobacco: Never Alcohol Use Standard Drinks/Week Comments No 0 (1 standard drink = 0.6 oz pur e alcohol) Comments No Sex and Gender Information Value Date Recorded Sex Assigned at Not on file Legal 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 Gender Identity Not on file Sexual Orientation Not on file Occupation Industry Job Start Date Job End Date teacher Not on file Not on file Not on file documented as of this encounter Plan of Treatment Not on file documented as of this encounter Visit Diagnoses Not on filedocumented in this encounter Care Teams Skidder Lever Operator Relationship Specialty Start Date End Date Kirsten Suarez MD [place] [address] [place] [address] PCP - General Family Practice 03/11/13 06/17/20 Ricky Munoz PA-C [address] [place] [address] PCP - Assigned PCP 08/18/18 12/17/18 Christa Schafer APRN [facility] [address] [place] [address] PCP - Assigned PCP 08/11/18 08/17/18 Ricky Munoz PA-C [address] [place] [address] PCP - General Physician Medical Office Assistant - Medical 06/18/20 Anne-Marie Pike MD [place] [address] [place] [address] Family Practice 09/19/11 Ricky Munoz PA-C [address] [place] [address] Assigned PCP 08/18/18 12/21/18 Christa Schafer APRN [facility] [address] [place] [address] Assigned PCP 12/22/18 01/11/19 Ricky Munoz PA-C [address] [place] [address] Assigned PCP 01/19/19 10/11/19 [place] [address] [place] [address] Assigned PCP 10/12/19 10/18/19 Ricky Munoz PA-C [address] [place] [address] Assigned PCP 10/19/19 03/27/20 [place] [address] [place] [address] Assigned PCP 03/28/20 06/19/20 Melida Lopez, RN Personal Advocate & Liaison (PAL) Family Practice 06/23/20 10/20/20 Ricky Munoz PA-C [address] [place] [address] Assigned PCP 07/18/20 06/25/21 Ricky Munoz PA-C [address] [place] [address] Assigned PCP 06/20/20 07/17/20 Ricky Munoz PA-C [address] [address] Assigned PCP 06/26/21 11/05/24 documented as of this encounter
--- OUTSIDE RECORDS SUMMARY | 2024-12-26 14:38 | XMS_ITS | Encounter Summary ---
Author Organization [facility] Address [address] [place] [address] Care Team Providers Care Online Content Editor Name Role Phone Anne-Marie Pike MD Unavailable [phone] Kirsten Suarez MD Primary Care Provider + Ricky Munoz PA-C Unavailable + Christa Schafer FAST FOOD COOK CHOPPING MACHINE OPERATOR Unavailable + Ricky Munoz PA-C Unavailable + Christa Schafer APRN CHOPPING MACHINE OPERATOR Unavailable + Ricky Munoz PA-C Unavailable + Damon Escalante MD Unavailable + Ricky Munoz PA-C Unavailable + Damon Escalante MD Unavailable + Ricky Munoz PA-C Primary Care Provider +10-20 Melida Lopez RN Unavailable Unavailable Ricky Munoz PA-C Unavailable + Edwin Munozis PA-C Unavailable + Ricky Munoz PA-C Unavailable + Reason for Visit * Reason Onset Date Comments Medication Refill 08/09/2018 blood glucose monitoring (SOFTCLIX) lancets Encounter Details Date Type Department Care Team (Late st Contact Info) Description 08/09/[address], [address] [place] [address] Ricky Munoz PA-C [address] [place], [place] [id number] Medication Refill (blood glucose monitoring (SOFTCLIX) lancets) Social History Tobacco Use Types Packs/Day Years Used Date Smoking Tobacco: Never Smokeless Tobacco: Never Alcohol Use Standard Drinks/Week Comments No 0 (1 standard drink = 0.6 oz pur e alcohol) Comments No Sex and Gender Information Value Date Recorded Sex Assigned at Not on file Legal Sex Female 4:10 AM TOP PRECIPITATOR OPERATOR Gender Identity Not on file Sexual Orientation Not on file Occupation Industry Job Start Date Job End Date teacher Not on file Not on file Not on file documented as of this encounter Miscellaneous Notes * Telephone Encounter - Tea Quintana RN - 08/13/2018 9:28 AM CDT Prescription approved per [facility] Refill Protocol. Tea Quintana RN * Telephone [...] Ricky Munoz PA-C [facility] [address] [place] [address], [address] [facility] [address] Sig: USE TO TEST BLOOD [...] documented as of this encounter Care Teams Online Content Editor Relationship Specialty Start Date End Date Kirsten Suaerz MD [place] [id number] [place] [address] PCP - General Family Practice 03/11/13 06/17/20 Ricky Munoz PA-C [address] [place] [address] PCP - Assigned PCP 08/18/18 12/17/18 Christa Schafer APRN [facility] [address] [place] [address] PCP - Assigned PCP 08/11/18 08/17/18 Ricky Munoz PA-C [address] [facility] [address] PCP - General Physician Chief Communications Officer - Medical 06/18/20 Anne-Marie Pike MD [place] [address] [place] [address] [facility] 09/19/11 Ricky Munoz PA-C [address] [address] [address] Assigned PCP 08/18/18 12/21/18 Christa Schafer APRN [facility] [address] [place] [address] Assigned PCP 12/22/18 01/11/19 Ricky Munoz PA-C [address] [place] [address] Assigned PCP 01/19/19 10/11/19 [place] [address] [place] [address] Assigned PCP 10/12/19 10/18/19 Ricky Munoz PA-C [address] [place] [address] Assigned PCP 10/19/19 03/27/20 [place] [address] [place] [address] Assigned PCP 03/28/20 06/19/20 Melida Lopez, RN Personal Advocate & Liaison (PAL) Family Practice 06/23/20 10/20/20 Ricky Munoz PA-C [address] [place] [address] Assigned PCP 07/18/20 06/25/21 Ricky Munoz PA-C [address] [place] [address] Assigned PCP 06/20/20 07/17/20 Ricky Munoz PA-C [address] [address] [address] Assigned PCP 06/26/21 11/05/24 documented as of this encounter
--- OUTSIDE RECORDS SUMMARY | 2024-12-26 14:38 | XMS_ITS | Encounter Summary ---
Author Organization [facility] Address [address] [place] [address] Care Team Providers Care Recreational Counselor Name Role Phone Anne-Marie Pike MD Unavailable [phone] Ricky Munoz PA-C Primary Care Provider [phone] Ricky Munoz PA-C Unavailable [phone] Encounter Details Date Type Department Care Team (Late st Contact Info) Description 05/09/2022 [facility] [address] [place] [address] Maida Bradford Social History Tobacco Use Types Packs/Day Years Used Date Smoking Tobacco: Never Smokeless Tobacco: Never Alcohol Use Standard Drinks/Week Comments No 0 (1 standard drink = 0.6 oz pur e alcohol) PHQ-2 Answer Date Recorded PHQ-2 Score 1 06/16/2021 Comments No Sex and Gender Information Value Date Recorded Sex Assigned at Not on file Legal Sex Female 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
--- OUTSIDE RECORDS SUMMARY | 2024-12-26 14:38 | XMS_ITS | Clinical Summary ---
Author Organization [facility] Address [address] [place] [address] Care Team Providers Care Client Account Representative Name Role Phone Anne-Marie Pike MD Unavailable [phone] Ricky Munoz PA-C Primary Care Provider [phone] Allergies Active Allergy Reactions Criticality Noted Date Comments Nsaids 04/10/2017 Low kidney function Medications Divalproex Sodium (DEPAKOTE PO) Take 500 mg by mouth 2 times daily Active aspirin (ASA) 81 MG EC tablet Take 81 mg by mouth Active buPROPion (WELLBUTRIN XL) 300 MG 24 hr tablet TAKE 1 TABLET BY MOUTH EVERY DAY IN THE MORNING 1 Active cholecalciferol 25 MCG (1000 UT) TABS Take 1 tablet by mouth daily 1 Active escitalopram (LEXAPRO) 10 MG tablet TAKE ONE AND ONE-HALF TABLETS BY MOUTH EVERY DAY . 2 Active atenolol (TENORMIN) 50 MG tabletIndications:E ssential hypertension with goal blood pressure less than 140/90 TAKE 1 TABLET BY MOUTH TWICE A DAY 180 tablet 1 2 Active atorvastatin (LIPITOR) 40 MG tabletIndications:T ype 2 diabetes mellitus with diabetic neuropathy, without long-term current use of insulin (H),Mixed hyperlipidemia TAKE 1 TABLET BY MOUTH EVERY DAY 90 tablet 2 Active levothyroxine (SYNTHROID/LEVOTHRO ID) 88 MCG tabletIndications:H ypothyroidism, unspecified type TAKE 1 TABLET BY MOUTH EVERY DAY 90 tablet 2 Active hydrochlorothiazide (HYDRODIURIL) 25 MG tabletIndications:E ssential hypertension with goal blood pressure less than 140/90 TAKE 1 TABLET BY MOUTH EVERY DAY 90 tablet 2 Active losartan (COZAAR) 100 MG tabletIndications:E ssential hypertension with goal blood pressure less than 140/90 TAKE 1 TABLET BY MOUTH EVERY DAY 30 tablet 2 Active metFORMIN (GLUCOPHAGE) 500 MG tabletIndications:T ype 2 diabetes mellitus with diabetic neuropathy, without long-term current use of insulin (H) TAKE 1 TABLET BY MOUTH TWICE A DAY WITH MEALS 60 tablet 2 Active Active Problems Problem Noted Date Diagnosed [...] Major depressive disorder, recurrent episode, mi ld 10/05/2016 Type 2 diabetes mellitus wit h diabetic neuropathy, without long-term current use of insulin 10/05/2016 CKD stage 3 due to type 2 diabetes mellitus 07/16 Diabetic nephropathy associa oscar with type 2 diabetes mellitus 08/05/2015 Foreign body 01/07/2015 CKD (chronic kidney disease) stage 3, GFR 30-59 ml/min 01/07/2015 HTN, goal below 140/90 03/11/2013 Hyperlipidemia LDL goal <100 02/23/2013 S/P colonoscopy 03/11/2011 Overview (03/11/2013): F/u 5 yrs, benign colon polyp PSC (posterior subcapsular cataract) 01/18/2010 Hypermetropia 08/27/2007 Presbyopia 08/27/2007 Benign neoplasm of colon 12/18/2006 Overview (07/01/2020): Overview: Colonoscopy 06/2009 normal repeat in 5 years Depressive disorder 12/18/2006 Sebaceous cyst 12/18/2006 Overview (07/01/2020): Overview: hydradenitis suppurativa Pure hypercholesterolemia 09/03/2006 Bipolar 2 disorder 06/11/2006 Overview (07/01/2020): Overview: [place] was effective but caused skin problems. Zyprexa led to her feeling like a zombie. She did not tolerate prozac at doses high enough to treat her depression. She was hospitalized at [facility] in May 2004 with depression. Hypothyroidism 01/01/2004 Overview (07/15/2015): Problem list name updated by automated process. Provider to review Bipolar I disorder, most recent episode depresse d 01/01/2004 Overview (07/15/2015): Problem list name updated by automated process. Provider to review Rheumatoid arthritis 01/01/2004 Overview (07/15/2015): Problem list name updated by automated process. Provider to review Resolved Problems Problem Noted Date Diagnosed Date Resolved Date Left knee pain 01/23/2018 03/20/2018 Aftercare following left kne e joint replacement surgery 01/23/2018 03/20/2018 Right knee pain 04/26/2017 07/09/2017 Aftercare following right kn ee joint replacement surgery 04/26/2017 07/09/2017 Morbid obesity 08/05/2015 08/16/2015 Neck pain 04/21/2013 06/02/2013 Advanced directives, counseling/discussion 03/20/2013 03/31/2024 Overview (03/20/2013): Advance Care Planning: ACP Review and Resources Provided: Reviewed chart for advance care plan. Ely Ramachandran has no plan or code status on file. Discussed available resources and provided with information. Added by Tea Quintana on 03/20/2013 Obesity 03/11/2013 08/05/2015 Type 2 diabetes, HbA1c goal < 7% 02/23/2005 08/05/2015 Essential hypertension, benign 01/01/2004 03/11/2013 Immunizations Name Administration Dates Next Due COVID-19 Bivalent 12+ (Pfizer) 08/16/2022 COVID-19 MONOVALENT 12+ (Pfizer) 12/28/2020,11/16 Influenza (H1N1) 11/29/2009 Influenza (High Dose) Trival ent,PF (Fluzone) 08/06/2022,08/02/2021,09/24/2019,2016 Influenza (IIV3) PF 07/24/2008, 7,07/31/2006,2004,08/16/2004,08/15/2003 Influenza (prior to 2023) 10/11/2012,09/13/2011, 12/22/2010 Influenza Vaccine 65+ (FLUAD) 08/05/2022, 021 Influenza Vaccine 65+ (Fluzone HD) 07/13/2020 Influenza Vaccine >6 months,quad, PF 08/07/2013 Pneumo Conj 13-V (2010&after) 11/28/2016 Pneumococcal 23 valent 01/01/2014,10/16/2007, TD,PF 7+ (Tenivac) 06/30/2005 TDAP (Adacel,Boostrix) 12/22/2010 Zoster vaccine, live 03/18/2012,11/26/2011 Family History Medical History Relation Comments Neurologic Disorder Brother 3 MS Salomon. Brother 4 Diabetes Brother 5 Diabetes Father [...] School Help Needed Not on file 07/06 Comments No Sex and Gender Information Value Date Recorded Sex Assigned at Not on file Legal Sex Female 4:10 AM SPECIMEN PREPARATION ASSISTANT Gender Identity Not on file Sexual Orientation Not on file Occupation Industry Job Start Date Job End Date teacher Not on file Not on file Not on file Last Filed Vital Signs Vital Sign Reading Time Taken Comments Blood Pressure 128/88 06/16/2021 10:56 AM CDT Pulse 56 06/16/2021 10:56 AM CDT Temperature 36.8 C (98.2 F) 06/16/2021 10:56 AM CDT Respiratory Rate 16 06/16/2021 10:56 AM CDT [...] URINE DRUG SCREEN 1945 sDNA (Cologuard) 1945 ZOSTER IMMUNIZATION (2 of 3) 05/13/2012 03/18/2012, [...] 06/16/2022 06/16/2021, 06/16, 03/24/2019, Additional history exists RSV VACCINE (1 - 1-dose 75+ series) 2022 COVID-19 Vaccine ( - season) 2024 08/16/2022, 07/25/2021, 12/28/2020, Additional history exists INFLUENZA VACCINE (#1) 2024 , 08/05/2022, 08/02/2021, Additional history exists MEDICARE ANNUAL WELLNESS VISIT 05/12/2025 05/12/2024, 06/16/2021, 09/24/2019 EYE EXAM 08/20/2025 08/20/2024, 03/2024, 08/15/2023, Additional history exists ADVANCE CARE PLANNING 06/16/2026 06/16/2021 , 03/20/2013, 03/11/2013 COLONOSCOPY 08/31/2026 08/31/2021, 08/15, 06/08/2015, Additional history exists COLORECTAL CANCER SCREENING 08/31/2026 DEXA 09/19/2034 09/19/2019, 09/02/2013 HEPATITIS C SCREENING Completed 10/05/2016 Pneumococcal Vaccine: 50+ Years Completed 11/28/2016, 01/01/2014, 10/16/2007, Additional history [...] this topic Medical Devices Implanted Type Area Travelift Operator Device Identifier Shelf Expiration Date Model / Serial / Lot Bone Cement Radiopaque Simplex Hv Full Dose 6194-1-001 Implanted:Qty: 1 on 04/10/2017 by Marlon Mcfadden MD at [facility] Cement, Bone Right: Knee [employer] 11/14/2018 6194-1-001 / / [id number] Bone Cement Simplex W/Gentamicin 6195-1-001 Implanted:Qty: 1 on 04/10/2017 by Marlon Mcfadden MD at [facility] Cement, Bone Right: Knee [employer] 06/14/2018 6195-1-001 / / [id number] Bone Cement Radiopaque Simplex Hv Full Dose 6194-1-001 Implanted:Qty: 1 on 01/08/2018 by Marlon Mcfadden MD at [facility] Cement, Bone Left: Knee [employer] 04/13/2019 6194-1-001 / / [id number] Bone Cement Simplex W/Gentamicin 6195-1-001 Implanted:Qty: 1 on 01/08/2018 by Marlon Mcfadden MD at [facility] Cement, Bone Left: Knee [employer] 05/14/2019 6195-1-001 / / [id number] Eye Imp Iol [place] Pcl [employer]is Zcb00 21.0 Implanted:Qty: 1 on 09/19/2011 at [facility] Right: Eye [employer] 07/14/2014 ZCB00 21.0 / [id number] / Eye Imp Iol [place] Pcl Tecnis Zcb00 21.5 Implanted:Qty: 1 on 05/12/2014 by Akil Nguyen MD at [facility] Left: Eye [employer] 03/13/2018 ZCB00 21.5 / [id number] / Imp Tibial Tray Size 3 Implanted:Qty: 1 on 04/10/2017 by Marlon Mcfadden MD at [facility] Right: Knee 05/20/2021 90-SRK-200 300 / / [id number] Imp Femoral Component Type Ps Size 4r Implanted:Qty: 1 on 04/10/2017 by Marlon Mcfadden MD at [facility] Right: Knee 04/13/2021 90-SRK-331 400 / / [id number] Imp Patella Oval 38mm Implanted:Qty: 1 on 04/10/2017 by Marlon Mcfadden MD at [facility] Right: Knee 05/16/2021 90-SRK-410 300 / / [id number] Imp Poly Insert Type Ps Size 4 12mm Implanted:Qty: 1 on 04/10/2017 by Marlon Mcfadden MD at [facility] Right: Knee 05/15/2021 90-SRK-130 412 / / [id number] Poly Insert Implanted:Qty: 1 on 01/08/2018 by Marlon Mcfadden MD at [facility] Left: Knee [employer] 05/15/2021 90-SRK-130 412 / / [id number] Patella Implanted:Qty: 1 on 01/08/2018 by Marlon Mcfadden MD at [facility] Left: Knee [employer] 05/16/2021 90-SRK-410 300 / / [id number] Femoral Component Implanted:Qty: 1 on 01/08/2018 by Marlon Mcfadden MD at [facility] Left: Knee [employer] 04/13/2021 90-SRK-332 400 / / [id number] Tibial Tray Implanted:Qty: 1 on 01/08/2018 by Marlon Mcfadden MD at [facility] Left: Knee [employer] 05/17/2021 90-SRK-200 300 / / [id number] Procedures Procedure Name Priority Date/Time Associated Diagnosis Comments EYE EXAM - HIM SCAN 08/20/2024 1 2:00 AM SPECIMEN PREPARATION ASSISTANT COLONOSCOPY - HIM SCAN 08/31/2021 12:00 AM SPECIMEN PREPARATION ASSISTANT CBC WITH PLATELETS Routine 06/16/2021 11 :32 [...] SCREENING DIGITAL BILATERAL Routine 09/19/2019 2:07 PM SPECIMEN PREPARATION ASSISTANT Visit for screening mammogram DX HIP/PELVIS/SPINE W LAT FRACTION ANALYSIS Routine 09/19/2019 1:23 PM SPECIMEN PREPARATION ASSISTANT Disorder of bone Osteopenia, unspecified location Rheumatoid arthritis involving right knee, unspecified rheumatoid factor presence (H) ROUTINE UA WITH MICROSCOPIC REFLEX TO CULTURE STAT 04/13/2017 9:55 AM CDT Status post total knee replacement, right HEPATITIS C SCREEN REFLEX TO HCV RNA QUANT AND GENOTYPE Routine 10/05/2016 11:02 AM SPECIMEN PREPARATION ASSISTANT Need for hepatitis C screening test C FOOT EXAM Routine 05/04/2014 11:01 AM CDT Screening for diabetic peripheral neuropathy from Last 3 Months or Most Recently Relevant to Health Maintenance Results * Eye Exam - HIM Scan (08/20/2024 12:00 AM SPECIMEN PREPARATION ASSISTANT) RETINOPATHY NEGATIVE 08/20/2024 Narrative Felton Morales - 08/20/2024 12:00 AM SPECIMEN PREPARATION ASSISTANT EYE EXAM [facility] us Provider Outside OTHER Edited Result - Final * COLONOSCOPY - HIM SCAN (08/31/2021 12:00 AM SPECIMEN PREPARATION ASSISTANT) 08/31/2021 us Provider Outside PROCEDURES Final Result * TSH WITH FREE T4 REFLEX (06/16/2021 11:32 AM CDT) TSH 1.97 0.40 - 4.00 mU/L 06/17/2021 10:31 AM CDT [facility]X LAB[facility]ATORY Blood STRUCTURE OF LEFT UPPER LIMB / Unknown Venipuncture / Unknown 06/16/2021 11:32 AM CDT 06/16/2021 11:32 AM CDT Ricky Munoz PA-C LAB - BLOOD ORDERABLES Alexandra villegas Result OX LABORATORY [facility] [address] Lab (no room number, 1st floor of clinic) [place] [address], [facility] [phone] * (ABNORMAL) Lipid panel reflex to direct LDL Fasting (06/16/2021 11:32 AM CDT) Cholesterol 222(H) <200 mg/dL 06/17/2021 10:24 AM CDT OX LABORATORY Comment: Age 0-19 years Desirable: <170 mg/dL Borderline high: 170-199 mg/dl High: >199 mg/dl Age 20 years and older Desirable: <200 mg/dL Triglycerides 197(H) <150 mg/dL 06/17/2021 10:24 AM CDT OX LABORATORY Comment: 0-9 years: Normal: Less than 75 mg/dL Borderline high: 75-99 mg/dL High: Greater than or equal to 100 mg/dL 0-19 years: Normal: Less than 90 mg/dL Borderline high: 90-129 mg/dL High: Greater than or equal to 130 mg/dL 20 years and older: Normal: Less than 150 mg/dL Borderline high: 150-199 mg/dL High: 200-499 mg/dL Very high: Greater than or equal to 500 mg/dL Direct Measure HDL 49(L) >=50 mg/dL 06/17/2021 10:24 AM CDT OX LABORATORY Comment: 0-19 years: Greater than or equal to 45 mg/dL Low: Less than 40 mg/dL Borderline low: 40-44 mg/dL 20 years and older: Female: Greater than or equal to 50 mg/dL Male: Greater than or equal to 40 mg/dL [...] CDT OX LABORATORY Comment: 0-19 years: Desirable: Less than 120 mg/dL Borderline high: 120-144 mg/dL High: Greater than or equal to 145 mg/dL 20 years and older: Desirable: 130 mg/dL Above Desirable: 130-159 mg/dL Borderline high: 160-189 mg/dL High: 190-219 mg/dL Very high: Greater than or equal to 220 mg/dL Patient Fasting > 8hrs? Yes 06/17/2021 10:24 AM CDT OX LABORATORY Blood STRUCTURE OF LEFT UPPER LIMB / Unknown Venipuncture / Unknown 06/16/2021 11:32 AM CDT 06/16/2021 11:32 AM CDT us Ricky Munoz PA-C LAB - BLOOD ORDERABLES Alexandra l Result LABORATORY [facility] [address] Lab (no room number, 1st floor of clinic) [place] [address], [facility] [phone] * (ABNORMAL) HEMOGLOBIN A1C (06/16/2021 11:32 AM CDT) Hemoglobin A1C 6.2(H) 0.0 - 5.6 % 06/16/2021 11:33 AM CDT LABORATORY Comment: Normal <5.7% Prediabetes 5.7-6.4% Diabetes 6.5% or higher Note: Adopted from ADA consensus guidelines. Blood STRUCTURE OF LEFT UPPER LIMB / Unknown Venipuncture / Unknown 06/16/2021 11:32 AM CDT 06/16/2021 11:32 AM CDT us Ricky Munoz PA-C LAB - BLOOD ORDERABLES Alexandra l Result LABORATORY [facility] [address] [facility] Lab (no room number, 1st floor of clinic) [place] [address], [facility] [phone] * (ABNORMAL) Comprehensive metabolic panel (BMP + [...] 11:32 AM CDT 06/16/2021 11:32 AM CDT us Ricky Munoz PA-C LAB - BLOOD ORDERABLES Alexandra villegas Result OX LABORATORY [facility] [address] Lab (no room number, 1st floor of clinic) [place] [address], [facility] [phone] * CBC with platelets (06/16/2021 11:32 AM [...] - 100 fL 06/16/2021 11:35 AM CDT RM LABORATORY MCH 27.8 26.5 - 33.0 pg 06/16/2021 11:35 AM CDT RM LABORATORY MCHC 31.9 31.5 - 36.5 g/dL 06/16/2021 11:35 AM CDT LABORATORY RDW 14.9 10.0 - 15.0 % 06/16/2021 11:35 AM CDT LABORATORY Platelet Count 300 150 - 450 10e3/uL 06/16/2021 11:35 AM CDT LABORATORY Blood STRUCTURE OF LEFT UPPER LIMB / Unknown Venipuncture / Unknown 06/16/2021 11:32 AM CDT 06/16/2021 11:32 AM CDT us Ricky Munoz PA-C LAB - BLOOD ORDERABLES Alexandra l Result LABORATORY [facility] [address] [facility] (no room number, 1st floor of clinic) [place] [address], [facility] [phone] * Albumin Random Urine Quantitative with Creat Ratio (07/13/2020 3:01 PM CDT) Creatinine Urine 237 mg/dL 07/14/2020 3:27 PM CDT [facility] Albumin Urine mg/L 22 mg/L 07/14/2020 3:38 PM CDT [facility] Albumin Urine mg/g Cr 9.37 0 - 25 mg/g Cr 07/14/2020 3:38 PM CDT [facility] Urine specimen (specimen) 07/13/2020 3:01 PM CDT 07/13/2020 4:20 PM CDT Ricky Munoz PA-C LAB - URINE ORDERABLES Alexandra l Result Performing Organization Address City/[facility]/ZIP Co de Phone Number [facility] [address] [place] [address] * MA Screening Digital Bilateral (09/19/2019 2:07 PM SPECIMEN PREPARATION ASSISTANT) Anatomical Region Laterality Modality Breast Bilateral Mammography Impressions 09/19/2019 2:59 PM SPECIMEN PREPARATION ASSISTANT IMPRESSION: BI-RADS CATEGORY: 1 - Negative RECOMMENDED FOLLOW-UP: Annual Mammography. Exam results letter mailed to patient. NICK HARPER MD Narrative 09/19/2019 2:59 PM SPECIMEN PREPARATION ASSISTANT SCREENING MAMMOGRAM, BILATERAL, DIGITAL w/CAD - 09/19/2019 [...] HARPER MD Kirsten Suarez MD IMG MAMMOGRAPHY ORDERAB LES Final Result * DX Hip/Pelvis/Spine w Lateral (09/19/2019 1:23 PM SPECIMEN PREPARATION ASSISTANT) Anatomical Region Laterality Modality Dexa Bone Mineral Den sity Impressions 09/19/2019 2:12 PM SPECIMEN PREPARATION ASSISTANT IMPRESSION: Lumbar spine and right hip osteopenia. ROB MONTERO MD Narrative 09/19/2019 2:12 PM SPECIMEN PREPARATION ASSISTANT DX HIP/PELVIS/SPINE W LAT FRACTION ANALYSIS 09/19/2019 1:23 PM HISTORY: osteopenia 2012; Disorder of bone; Osteopenia, unspecified location; Rheumatoid arthritis involving right knee, unspecified rheumatoid factor presence (H) FINDINGS: This DEXA scan was performed using a [employer] scanner. DEXA results are reported according to [...] This DEXA scan was performed using a [employer] scanner. DEXA results are reported according to [...] and right hip osteopenia. ROB MONTERO MD us Ricky Munoz PA-C IMG DEXA ORDERABLES Final R esult * (ABNORMAL) UA with Microscopic reflex to Culture (04/13/2017 9:55 AM CDT) Color Urine Yellow [facility] Appearance Urine Clear [facility] Glucose Urine Negative NEG mg/dL [facility] Bilirubin Urine Negative NEG [facility] Ketones Urine Negative NEG mg/dL [facility] Specific [place] Urine 1.008 1.003 - 1.035 [facility] Blood Urine Negative NEG [facility] pH Urine 5.0 5.0 - 7.0 pH [facility] Protein Albumin Urine Negative NEG mg/dL [facility] Urobilinogen mg/dL Normal 0.0 - 2.0 mg/dL [facility] Nitrite Urine Negative NEG [facility] Leukocyte Esterase Urine Negative NEG [facility] Source Midstream Urine [facility] WBC Urine 3(H) 0 - 2 /HPF [facility] RBC Urine 1 0 - 2 /HPF [facility] Squamous Epithelial /HPF Urine 1 0 - 1 /HPF [facility] Urine specimen (specimen) URINE SPECIMEN OBTAINED BY CLEAN CATCH PROCEDURE / Unknown 04/13/2017 9:55 AM CDT 04/13/2017 11:11 AM CDT Nolan Godfrey MD LAB - URINE ORDERABLES Final Result Performing Organization Address City/State/[place] Co de Phone Number [facility] [address] [place], [place] [address] [phone] * Hepatitis C Screen Reflex to HCV RNA Quant and Genotype (10/05/2016 11:02 AM SPECIMEN PREPARATION ASSISTANT) Hepatitis C Antibody Nonreactive Assay performance characteristics have not been established for newborns, infants, and children [facility] Blood specimen (specimen) 10/05/2016 11:02 AM SPECIMEN PREPARATION ASSISTANT 10/05/2016 11:03 AM SPECIMEN PREPARATION ASSISTANT Ricky Munoz PA-C LAB - BLOOD ORDERABLES Alexandra villegas Result [facility] [address] [place] [address] from Last 3 Months or Most Recently Relevant to Health Maintenance Insurance MEDICARE [facility] MEDICARE SUPPLEMENT Advance Directives For more information, please contact: [phone] * Full Code (Latest Code Status on File) Date Activated Date Inactivated Comments 01/08/2018 4:01 PM 01/11/2018 3:55 PM * Full Code Date Activated Date Inactivated Comments 04/10/2017 5:22 PM 04/13/2017 4:22 PM Care Teams Client Account Representative Relationship Specialty Start Date End Date Ricky Munoz PA-C [address] [address] PCP - General Physician Fiberglass Quality Technician - Medical 06/18/20 Anne-Marie Pike MD [address] [place] [address] Family Practice 09/19/11
--- OUTSIDE RECORDS SUMMARY | 2024-12-26 14:38 | XMS_ITS | Encounter Summary ---
Author Organization [facility] Address [address] [place] [address] Care Team Providers Care Pc Analyst Name Role Phone Anne-Marie Pike MD Unavailable [phone] Kirsten Suarez MD Primary Care Provider + Ricky Munoz PA-C Unavailable + Christa Schafer CLINICAL MANAGER HOME CARE METAL GAUGE MAKER Unavailable + Ricky Munoz PA-C Unavailable + Christa Schafer APRN METAL GAUGE MAKER Unavailable + Ricky Munoz-C Unavailable + Damon [...] (Late st Contact Info) Description 07/21/[address], [address] [place] [address] Ricky Munoz PA-C [address] [place] [address] Medication Refill (levothyroxine (SYNTHROID/LEVOTHROID) 88 MCG tablet) Social History Tobacco Use Types Packs/Day Years Used Date Smoking Tobacco: Never Smokeless Tobacco: Never Alcohol Use Standard Drinks/Week Comments No 0 (1 standard drink = 0.6 oz pur e alcohol) Comments No Sex and Gender Information Value Date Recorded Sex Assigned at Not on file Legal Sex Female 4:10 AM LIFE CONSULTANT Gender Identity Not on file Sexual Orientation Not on file Occupation Industry Job Start Date Job End Date teacher Not on file Not on file Not on file documented as of this encounter Miscellaneous Notes * Telephone Encounter - Tea Quintana RN - 07/23/2018 12:38 PM CDT Prescription approved per [facility] Refill Protocol. Tea Quintana RN * Telephone [...] documented as of this encounter Care Teams Pc Analyst Relationship Specialty Start Date End Date Kirsten Suarez MD [address] [place] [address] PCP - General Family Practice 03/11/13 06/17/20 Ricky Munoz PA-C [address] [place] [address] PCP - Assigned PCP 08/18/18 12/17/18 Christa Schafer APRN CNP [address] [place] [address] PCP - Assigned PCP 08/11/18 08/17/18 Ricky Munoz PA-C [address] [place] [address] PCP - General Physician Speed Belt Sander Tender - Medical 06/18/20 Anne-Marie Pike MD [place] [address] [place] [address] [facility] 09/19/11 Ricky Munoz PA-C [address] [place] [address] Assigned PCP 08/18/18 12/21/18 Christa Schafer APRN METAL GAUGE MAKER [address] [place] [address] Assigned PCP 12/22/18 01/11/19 Ricky Munoz PA-C [address] [place] [address] Assigned PCP 01/19/19 10/11/19 [place] [address] [place] [address] Assigned PCP 10/12/19 10/18/19 Ricky Munoz PA-C [address] [place] [address] Assigned PCP 10/19/19 03/27/20 [place] [address] [place] [address] Assigned PCP 03/28/20 06/19/20 Melida Lopez RN Personal Advocate & Liaison (PAL) Family Practice 06/23/20 10/20/20 Ricky Munoz PA-C [address] [place] [address] Assigned PCP 07/18/20 06/25/21 Ricky Munoz PA-C [address] [place] [address] Assigned PCP 06/20/20 07/17/20 Ricky Munoz PA-C [address] [place] [address] Assigned PCP 06/26/21 11/05/24 documented as of this encounter
--- OUTSIDE RECORDS SUMMARY | 2024-12-26 14:39 | XMS_ITS | Encounter Summary ---
Author Organization [facility] Address [address] [place] [address]. [place] [address] Care Team Providers Care Malt Liquors Sales Supervisor Name Role Phone Anne-Marie Pike MD Unavailable [phone] Ricky Munoz PA-C Primary Care Provider [phone] Ricky Munoz PA-C Unavailable [phone] Ricky Munoz PA-C Unavailable [phone] Reason for Visit * Reason Comments Medication Refill Atenolol Encounter Details Date Type Department Care Team (Late st Contact Info) Description 05/28/2021 Refill [facility] [address] [place] [address] Ricky Munoz PA-C [address] [place] [address] Medication Refill (Atenolol) Social History Tobacco Use Types Packs/Day Years Used Date Smoking Tobacco: Never Smokeless Tobacco: Never Alcohol Use Standard Drinks/Week Comments No 0 (1 standard drink = 0.6 oz pur e alcohol) PHQ-2 Answer Date Recorded PHQ-2 Score 3 07/01/2020 Comments No Sex and Gender Information Value Date Recorded Sex Assigned at Not on file Legal Sex Female 4:10 AM EXECUTIVE ACCOUNT MANAGER Gender Identity Not on file Sexual Orientation [...] documented as of this encounter Care Teams Malt Liquors Sales Supervisor Relationship Specialty Start Date End Date Ricky Munoz PA-C [address] [address] [place] [address] PCP - General Physician Manager Pathology - Medical 06/18/20 Anne-Marie Pike MD [address] [place] [address] Family Practice 09/19/11 Ricky Munoz PA-C [address] [place] [address] Assigned PCP 07/18/20 06/25/21 Ricky Munoz PA-C [address] [place] [address] Assigned PCP 06/26/21 11/05/24 documented as of this encounter
--- OUTSIDE RECORDS SUMMARY | 2024-12-26 14:39 | XMS_ITS | Encounter Summary ---
Author Organization [facility] Address [address] [place] [address] Care Team Providers Care Candle Wicker Name Role Phone Anne-Marie Pike MD Unavailable [phone] Kirstne Suarez MD Primary Care Provider + Ricky Munoz PA-C Unavailable + Christa Schafer FIRE RANGER LOCATION AND MEASUREMENT TECHNICIAN Unavailable + Ricky Munoz PA-C Unavailable + Christa Schafer APRN LOCATION AND MEASUREMENT TECHNICIAN Unavailable + Ricky Munoz-C Unavailable + Damon [...] Contact Info) Description 04/02/2017 MyC Medical Advice [facility] [address] [facility], [address] [place] [address] [place] [address] [address] [place] [address] Lab Result Notice (Kidney functions) Social History Tobacco Use Types Packs/Day Years Used Date Smoking Tobacco: Never Smokeless Tobacco: Never Alcohol Use Standard Drinks/Week Comments No 0 (1 standard drink = 0.6 oz pur e alcohol) Comments No Sex and Gender Information Value Date Recorded Sex Assigned at Not on file Legal Sex Female 4:10 AM DIVING BOARD ASSEMBLER Gender Identity Not on file Sexual Orientation [...] documented as of this encounter Care Teams Candle Wicker Relationship Specialty Start Date End Date Kirsten Suarez MD [address] [place] [address] PCP - General Family Practice 03/11/13 06/17/20 Ricky Munoz PA-C [address] [place] [address] PCP - Assigned PCP 08/18/18 12/17/18 Christa Schafer APRN LOCATION AND MEASUREMENT TECHNICIAN [address] [place] [address] PCP - Assigned PCP 08/11/18 08/17/18 Ricky Munoz PA-C [address] [place] [address] PCP - General Physician Dye Colorist Dyer - Medical 06/18/20 Anne-Marie Pike MD [facility] [address] [place] [address] Family Practice 09/19/11 Ricky Munoz PA-C [address] [place] [address] Assigned PCP 08/18/18 12/21/18 Christa Schafer APRN LOCATION AND MEASUREMENT TECHNICIAN [address] [place] [address] Assigned PCP 12/22/18 01/11/19 Ricky Munoz PA-C [address] [place] [address] Assigned PCP 01/19/19 10/11/19 [place] [address] [place] [address] Assigned PCP 10/12/19 10/18/19 Ricky Munoz PA-C [address] [place] [address] Assigned PCP 10/19/19 03/27/20 [place] [address] [place] [address] Assigned PCP 03/28/20 06/19/20 Melida Lopez, LUCRECIA Personal Advocate & Liaison (PAL) Family Practice 06/23/20 10/20/20 Ricky Munoz PA-C [address] [place] [address] Assigned PCP 07/18/20 06/25/21 Ricky Munoz PA-C [address] [address] [address] Assigned PCP 06/20/20 07/17/20 Ricky Munoz PA-C [address] [address] [address] Assigned PCP 06/26/21 11/05/24 documented as of this encounter
--- OUTSIDE RECORDS SUMMARY | 2024-12-26 14:39 | XMS_ITS | Clinical Summary ---
Author Organization [facility] [employer] [facility] Address [address] [place] [address] Care Team Providers Care Spout Positioner Name Role Phone Diego Smyth MD Primary Care Provider [phone] Allergies Active Allergy Reactions Criticality Noted Date Comments Aripiprazole Nausea And Vomiting 01/17/2024 Nsaids (Non-Steroidal Anti-Inflammatory Drug) Other - Describe In Comment Field 04/10/2017 Low kidney function Medications aspirin (ADULT LOW DOSE ASPIRIN) 81 mg enteric coated tablet Take 81 mg by mouth. Active cholecalciferol (VITAMIN D3) 1,000 unit tablet Take 1 Tablet by mouth once daily. 08/31/20 21 Active rosuvastatin (CRESTOR) 20 mg tabletIndications:Pure hypercholesterolemia Take 1 Tablet (20 mg) by mouth once daily. 90 Tablet 3 02/04/20 24 Active losartan (COZAAR) 100 mg tabletIndications:Essent ial hypertension Take 1 Tablet (100 mg) by mouth once daily. 90 Tablet 3 02/04/20 24 Active hydroCHLOROthiazide 25 mg tabletIndications:Essent ial hypertension Take 1 Tablet (25 mg) by mouth once daily. 90 Tablet 3 02/04/20 24 Active atenoloL (TENORMIN) 50 mg tabletIndications:Essent ial hypertension One tab twice daily 180 Tablet 3 02/04/20 24 Active metFORMIN (GLUCOPHAGE) 500 mg tabletIndications:Diabet es mellitus without complication (HC) Take 1 Tablet (500 mg) by mouth two times daily with meals. 180 Tablet 3 02/04/20 24 Active levothyroxine (Synthroid) 88 mcg tabletIndications:Hypoth yroidism, unspecified type Take 1 Tablet (88 mcg) by mouth once daily. 90 Tablet 3 02/04/20 24 Active glipiZIDE extended-release (GLUCOTROL XL) 5 mg Extended-Release tabletIndications:Diabet es mellitus without complication (HC) Take 1 Tablet (5 mg) by mouth once daily before a meal. 30 Tablet 04/04/20 24 Active blood sugar diagnostic (Blood Glucose Test) stripIndications:Type 2 diabetes mellitus with diabetic neuropathy, without long-term current use of insulin (HC) Dispense item covered by pt ins. E11.9 NIDDM type II - Test 2 times/day. Reason: High A1C 200 Each 3 05/12/20 24 Active lancets (Accu-Chek Softclix Lancets)Indications:Type 2 diabetes mellitus with diabetic neuropathy, without long-term current use of insulin (HC) Dispense item covered by pt ins. E11.9 NIDDM type II - Test 2 times/day. Reason: High A1C 200 Each 5 05/12/20 24 Active divalproex (DEPAKOTE) 500 mg Delayed-Release tabletIndications:Modera te depressed bipolar II disorder (HC) Take 1 Tablet (500 mg) by mouth two times daily. 180 Tablet 1 08/04/20 24 Active buPROPion (WELLBUTRIN XL) 300 mg Extended-Release tabletIndications:Modera te depressed bipolar II disorder (HC) Take 1 Tablet (300 mg) by mouth once daily in the morning. 90 Tablet 1 08/04/20 24 Active Active Problems Problem Noted Date Diagnosed [...] disorder, not elsewhere classified Sebaceous cyst 12/18/2006 Overview (12/18/2006): hydradenitis suppurativa Benign neoplasm of colon 12/18/2006 Overview (07/07/2009): Colonoscopy 06/2009 normal repeat in 5 years Unspecified hypothyroidism 09/03/2006 Unspecified essential hypertension 09/03/2006 Pure hypercholesterolemia 09/03/2006 Bipolar 2 disorder 06/11/2006 Overview (09/03/2006): Monona was effective but caused skin problems. Zyprexa led to her feeling like a zombie. She did not tolerate prozac at doses high enough to treat her depression. She was hospitalized at [facility] in May 2004 with depression. Type II or unspecified type diabetes mellitus without mention of complication, not stated as uncontrolled 03/02/2006 Overview (01/20/2010): Next eye exam 01/23 Resolved Problems Problem Noted Date Diagnosed Date Resolved Date DIABETES MELLITUS TYPE II 01/20/2010 Overview (01/20/2010): Next eye exam 01/23 Rheumatoid arthritis(714.0) 12/18/2006 11/30/2021 Overview (12/18/2006): [facility] Encounters Date Type Department Care Team Description 11/19/2024 1:30 PM DIRECTOR OF ANALYTICAL DEVELOPMENT Office Visit [facility] [address] [place] [address] Lloyd Mckeon PsyD, LP Individual Therapy; Trmt Plan 11/19/2024 Travel from Last 3 Months Immunizations Immunization Administration Dates Next Due COVID-19 vaccine ([facility] 30mcg/0.3mL) MARIFER HERNANDEZ 07/25/2021 Influenza A (H1N1), Inactivated 11/29/2009 Influenza Virus, Unspecified 08/06/2022 Influenza, High-dose Inactivated 08/02/2021,09/14,11/28/2016 Influenza, High-dose Quadriv alent Inactivated 07/13/2020 Influenza, IIV3 (Age 6-35 mos) 10/11/2012,2010,12/22/2010 Influenza, IIV3 (Age >=3 years) 07/24/20 08,09/02/2007,07/31/2006,2004,08/16/2004,08/15/2003 Influenza, IIV4 08/07/2013 Influenza, Inactivated AIIV4 (Age 65+ Years) Preserv Free 08/05/2022,08/02/2021 Pneumococcal Poly,23-Valent (Pneumovax) 01/01/2014,10/16/2007,06/30/2005 Pneumococcal conj 13-Valent (Prevnar 13) 11/28/2016 Td (Age >=7 Years) 06/30/2005 Td, Preservative Free (age > = 7 Years) 06/30/2005 Tdap 01/25/2024,12/22/2010 Zoster (Zostavax-ZVL, live) 03/18/2012, 2 Family History Medical History Relation Name Comments Allergies Child Diabetes Father Hyperlipidemia Father high choleste rol. Father 2006, age 88. Hypertension Father Other Father dementia/periph eral neuropathy/blindness Psychiatric illness Father mental i llness/depression Arthritis Mother Hyperlipidemia Mother high choleste rol Hypertension Mother Other Mother TIA Stroke Mother age 89 , 2007 Genetic Other diabetes, HTN-D ad~HTN-Mom Relation Name Status Comments Child Father Mother Other Social History Tobacco Use Types Packs/Day Years Used Date Smoking Tobacco: Never Smokeless Tobacco: Never Tobacco Cessation:Counseling Given: No Alcohol Use Standard Drinks/Week Comments No 0 (1 standard drink = 0.6 oz pur e alcohol) PHQ-2 Answer Date Recorded PHQ-2 TOTAL SCORE 1 08/04/2024 Social Connections Answer Date Recorded Do you often feel lonely or isolated from those around you? 0 02/04/2024 Alcohol Use Answer Date Recorded How often do you have a drink containing alcohol ? 0 02/06/2022 Average Number of Drinks Not on file 022 Frequency of Binge Drinking Not on file 01/14 Financial Resource Strain Answer Date R ecorded Difficulty of Paying Living Expenses 3 02/04/2024 Difficulty of Paying Living Expenses Not on file 02/04/2024 Food Insecurity Answer Date Recorded Do you worry your food will run out before you are able to buy more? 1 02/04/2024 Transportation Needs Answer Date Record ed Does lack of transportation keep you from medica l appointments? 1 02/04/2024 Does lack of transportation keep you from work, meetings or getting things that you need? 1 02/04/2024 Housing Stability Answer Date Recorded What is your housing situation today? 1 02/04/2024 Utilities Answer Date Recorded Do you have trouble paying f or utilities (for example, heat, electricity, water, phone)? 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 Not on file Not on fi le Obstetrics History Para Term AB IAB SAB Ectopic Multiple Livin g Live Births 1 1 Date Outcome GA Total Labor Labor/2nd/3rd Weight Sex Type Anes PTL Anne A1 A5 Name Clin Para Last Filed Vital Signs Vital Sign Reading Time Taken Comments Blood Pressure 126/58 08/04/2024 12:58 PM CDT Pulse 58 08/04/2024 12:58 PM CDT Temperature 36.7 C (98.1 F) 05/13/2024 8:50 AM CDT Respiratory Rate 12 05/13/2024 8:50 AM CDT Oxygen Saturation 96% 05/13/2024 8:50 AM CDT Inhaled Oxygen Concentration - - Weight 91 kg (200 lb 9.6 oz) 08/04/2024 12:58 PM CDT Height 161.3 cm (5' 3.5) 01/25/2024 2:36 PM CDT Body Mass Index 34.98 01/25/2024 2:36 PM CDT Plan of Treatment Upcoming Encounters Date Type Department Care Team (Late st Contact Info) Description 12/31/2024 1:30 PM CDT Office Visit [facility] [address] [place] [phone] Lloyd Mckeon, Mikaela, LP [address] [place] [address] Health Maintenance Due Date Last Done Comments Hepatitis C screening for ag e 18-79 1963 Zoster (shingles) series for age 50+ (2 of 3) 05/13/2012 03/18/2012, 11/26/2011 DEXA/DXA scan for age 65+ 2012 RSV vaccine for adults or (1 - 1-dose 75+ series) 2022 COVID-19 vaccine series ( season) 2024 08/16/2022, 07/25/2021, 12/28/2020, Additional history exists Influenza Vaccine (#1) 2024 , 08/05/2022, 08/02/2021, Additional history exists BMI (ht and wt on same day) for age 18+ 01/24/2025 01/25/2024, 03/01/2020, 09/04/2019 Medicare Wellness for age 65+ 05/13/2025 05/12/2024 Depression screening for age 12+ 08/04/2025 08/04/2024, 06/02/2024, 05/13/2024, Additional history exists Tetanus booster 01/24/2034 01/25/2024, 12/13, 06/30/2005, Additional history exists Pneumococcal series for age 50+ Completed 11/28/2016, 01/01/2014, 10/16/2007, Additional history exists Tdap Completed 01/25/2024, 12/22/2010 Insurance [address] [id number] [place] [address] [facility] MEDICARE [place] ONLY [address] [id number] [place] [id number] MEDICARE PB ONLY [address] [id number] [place] [id number] [facility] MEDICARE PPS Advance Directives Documents on File Type Date Recorded Patient Compressor Operator Expl anation POLST 03/28/2024 12:00 AM Care Teams Spout Positioner Relationship Specialty [place] [address] [place] [address] PCP - General Family Practice 04/02/24
--- OUTSIDE RECORDS SUMMARY | 2024-12-26 14:39 | XMS_ITS | Encounter Summary ---
Author Organization [facility] Address [address] [place] [address] Care Team Providers Care Hydrologic Engineer Name Role Phone Anne-Marie Pike MD Unavailable [phone] Ricky Munoz PA-C Primary Care Provider [phone] Ricky Munoz PA-C Unavailable [phone] Encounter Details Date Type Department Care Team (Late st Contact Info) Description 08/15/2022 [facility] Medical Advice [address] [address] Emani Rivera Social History Tobacco Use Types Packs/Day Years Used Date Smoking Tobacco: Never Smokeless Tobacco: Never Alcohol Use Standard Drinks/Week Comments No 0 (1 standard drink = 0.6 oz pur e alcohol) PHQ-2 Answer Date Recorded PHQ-2 Score 1 06/16/2021 Comments No Sex and Gender Information Value Date Recorded Sex Assigned at Not on file Legal Sex Female 4:10 AM DATABASE ARCHITECT Gender Identity Not on file Sexual Orientation Not on file Occupation Industry Job Start Date Job End Date teacher Not on file Not on file Not on file COVID-19 Exposure Response Date [...] documented as of this encounter Care Teams Hydrologic Engineer Relationship Specialty Start Date End Date Ricky Munoz PA-C [address] [address] [address] PCP - General Physician Program Consultant - Medical 06/18/20 Anne-Marie Pike MD [address] [facility] [place] [id number] [facility] 09/19/11 Ricky Munoz PA-C [address] [address] [address] Assigned PCP 06/26/21 11/05/24 documented as of this encounter
--- OUTSIDE RECORDS SUMMARY | 2024-12-26 14:39 | XMS_ITS ---
Author Organization [facility] Care Team Providers Care Detonator Maker Name Role Phone _, _ Unavailable Unavailable Aaron Kemp Unavailable Unavailable Marlon Martinez Unavailable Unavailable Freida Lutz Unavailable Unavailable Allergies and adverse reactions Code CodeSystem Substance Reaction Severity StartDate Concern Status 959195044 SNOMED CT NSAIDs Unknown 04/13/2017 active Care Team Name Role Address Phone Organization Dates Aaron Kemp PCP [address] [place], [address], [place] (Office): : [facility] 01/11/2018 - 01/20/2018 _ _ Attending Physician [facility] 01/11/2018 - 01/20/2018 Marlon Martinez Attending Physician [address], [place], [address], [place] (Office): [facility] 01/11/2018 - 01/20/2018 Freida Lutz Attending Physician [address], [place], [address], [place] (Office): : (Pager): [facility] 01/11/2018 - 01/20/2018 Immunizations Immunization Status Vaccine Details Vaccine Code CodeSystem Date Notes Influenza completed Influenza, high-dose, split virus, quadrivalent, injectable, preservative free 197 CVX created date: 04/14/2017 administer ed date: 11/28/2016 Pneumovax Dose 1 completed pneumococcal polysaccharide vaccine, 23 valent 33 CVX created date: 04/14/2017 administer ed date: 01/01/2014 TB 2 Step Mantoux Skin Test completed tuberculin skin test; unspecified formulation lotNumber: [id number] expiry: 05/23/2020 Mfg: Sanofi [employer] Given 0.1 ml Left Forearm intradermally Step 1 of Multi-step with next step required 98 CVX created date: 01/12/2018 consent date: 01/12/2018 administer ed date: 01/12/2018 TB 2 Step Mantoux Skin Test completed tuberculin skin test; unspecified formulation lotNumber: [id number] expiry: 08/30/2018 Mfg: Sanofi Pasteur limited Given 0.1 ml Left Forearm intradermally Step 1 of Multi-step with next step required 98 CVX created date: 04/14/2017 consent date: 04/14/2017 administer ed date: 04/14/[address] on 04/14/2017 Zoster / Shingles Vaccine completed varicella zoster immune globulin 36 CVX created date: 04/14/2017 administer ed date: 11/26/2011 TDap completed diphtheria, tetanus toxoids and acellular pertussis vaccine 20 CVX created date: 04/14/2017 administer ed date: 12/22/2010 Prevnar 13 completed pneumococcal conjugate vaccine, 13 valent 133 CVX created date: 04/14/2017 administer ed date: 11/28/2016 Mental Status Section Date Assessment Total Score Description 01/20/2018 BIMS 15 cognitively int act CAM 0 No delirium ind icated PHQ-9 05 mild depression 01/18/2018 BIMS 15 cognitively int act CAM 0 No delirium ind icated PHQ-9 05 mild depression Problems Problem # Description Date of onset Resolved Date Code CodeSystem Concern Status 1 ACUTE POSTHEMORRHAGIC ANEMIA 01/12/[address] active 2 ANXIETY DISORDER, UNSPECIFIED 01/12/[address] active 3 DIFFICULTY IN WALKING, NOT ELSEWHERE CLASSIFIED 01/12/[address] active 4 EFFUSION, LEFT KNEE 01/12/[address] active 5 PRESENCE OF LEFT ARTIFICIAL KNEE JOINT 01/12/[address] active 6 STIFFNESS OF LEFT KNEE, NOT ELSEWHERE CLASSIFIED 01/12/[address] active 7 TYPE 2 DIABETES MELLITUS WITH DIABETIC NEUROPATHY, UNSPECIFIED 01/12/[address] active 8 UNILATERAL PRIMARY OSTEOARTHRITIS, LEFT KNEE 01/12/[address] active 9 MUSCLE WEAKNESS (GENERALIZED) 04/14/[address] active 10 OTHER GENERAL SYMPTOMS AND SIGNS 04/14/[address] active 11 PAIN IN RIGHT KNEE 04/14/[address] active 12 STIFFNESS OF RIGHT KNEE, NOT ELSEWHERE CLASSIFIED 04/14/[address] active 13 AFTERCARE FOLLOWING JOINT REPLACEMENT SURGERY 04/13/[address] active 14 BIPOLAR DISORDER, UNSPECIFIED 04/13/[address] active 15 CHRONIC KIDNEY DISEASE, STAGE 3 (MODERATE) 04/13/[address] active 16 HYPERLIPIDEMIA, UNSPECIFIED 04/13/[address] active 17 HYPERTENSIVE CHRONIC KIDNEY DISEASE WITH STAGE 1 THROUGH STAGE 4 CHRONIC KIDNEY DISEASE, OR UNSPECIFIED CHRONIC KIDNEY DISEASE 04/13/[address] active 18 HYPOTHYROIDISM, UNSPECIFIED 04/13/[address] active 19 MAJOR DEPRESSIVE DISORDER, SINGLE EPISODE, UNSPECIFIED 04/13/[address] active 20 OTHER CHRONIC PAIN 04/13/[address] active 21 PAIN IN LEFT KNEE 04/13/[address] active 22 PRESENCE OF RIGHT ARTIFICIAL KNEE JOINT 04/13/[address] active 23 RHEUMATOID ARTHRITIS, UNSPECIFIED 04/13/[address] active 24 TYPE 2 DIABETES MELLITUS WITH DIABETIC NEPHROPATHY 04/13/[address] active 25 UNILATERAL PRIMARY OSTEOARTHRITIS, RIGHT KNEE 04/13/[address] active Reason for Referral No Reasons for Referral Entered Social History Social History Observation Description Start Date End Date Code Code System Current Smoking Status Tobacco smoking consumption unknown 200207175 SNOMED CT Sex Assigned At Female 1945 09258-4 [facility] Vital Signs Code Code System Vitals Name Values and Units Timing Information 73195-7 [facility] Pain Level Value=4.0 01/20/2018 2339-0 [facility] Blood Sugar Veexk=939.0 Units=mg/dL 01/20/2018 9279-1 [facility] Respiratory Rate Value=16.0 Units=/m in 01/20/2018 8462-4 [facility] Blood Pressure-Diastolic Value=59 Un its=mmHg 01/20/2018 8480-6 [facility] Blood Pressure-Systolic Uuhqq=054 Un its=mmHg 01/20/2018 8310-5 [facility] Body Temperature Value=97.9 Units= F 01/20/2018 8867-4 [facility] Heart rate Value=63.0 Units=/min 05/2018 65021-1 [facility] O2 % [facility] Oximetry Value=95.0 Units= % 01/20/2018 64261-1 [facility] Weight Gtnpm=834.1 Units=Lbs 8302-2 [facility] Height Value=64.0 Units=Inches 01/11/2018
--- OUTSIDE RECORDS SUMMARY | 2024-12-26 14:39 | XMS_ITS | Encounter Summary ---
Author Organization [facility] Address [address] [place] [address]. [place] [address] Care Team Providers Care Chemist Assistant Name Role Phone Anne-Marie Pike MD Unavailable [phone] Ricky Munoz PA-C Primary Care Provider [phone] Ricky Munoz PA-C Unavailable [phone] Reason for Visit * Reason Comments Medication Refill Encounter Details Date Type Department Care Team (Late st Contact Info) Description 08/25/2022 Refill [facility] [id number] [place] [address] Ricky Munoz PA-C [id number] [place] [address] Medication Refill Social History Tobacco Use Types Packs/Day Years Used Date Smoking Tobacco: Never Smokeless Tobacco: Never Alcohol Use Standard Drinks/Week Comments No 0 (1 standard drink = 0.6 oz pur e alcohol) PHQ-2 Answer Date Recorded PHQ-2 Score 1 06/16/2021 Comments No Sex and Gender Information Value Date Recorded Sex Assigned at Not on file Legal Sex Female 4:10 AM RECEPTIONIST NURSE Gender Identity Not on file Sexual Orientation Not on file Occupation Industry Job Start Date Job End Date teacher Not on file Not on file Not on file COVID-19 Exposure Response Date Recorded In the last 10 days, have yo u been in contact with someone who was confirmed or suspected to have Coronavirus/COVID-19? No / Unsure 08/21/2022 4:07 PM RECEPTIONIST NURSE documented as of this encounter Miscellaneous Notes * Telephone Encounter - Lesley, Katherine E, RN - 08/25/2022 11:27 AM RECEPTIONIST NURSE Routing refill request to provider for review/approval [...] - 144 mmol/L Final Katherine Sutton RN PTIONIST NURSE documented in this encounter Plan of Treatment Not on file documented as of this encounter Visit Diagnoses Diagnosis Essential hypertension with goal blood pressure less than 140/90 documented in this encounter Additional Health Concerns Assessment Noted Time PHQ-9 Depression Total Score: 7 07/01/20 20 12:02 PM CDT documented as of this encounter Care Teams Chemist Assistant Relationship Specialty Start Date End Date Ricky Munoz PA-C [address] [address] [address] PCP - General Physician Computer Programming Supervisor - Medical 06/18/20 Anne-Marie Pike MD [address] [place] [id number] [facility] 09/19/11 Ricky Munoz PA-C [address] [address] [address] Assigned PCP 06/26/21 11/05/24 documented as of this encounter
--- OUTSIDE RECORDS SUMMARY | 2024-12-26 14:39 | XMS_ITS | Encounter Summary ---
Author Organization [facility] Address [address] [place] [address]. [place] [address] Care Team Providers Care Lead Cashier Name Role Phone Anne-Marie Pike MD Unavailable [phone] Ricky Munoz PA-C Primary Care Provider [phone] Ricky Munoz PA-C Unavailable [phone] Reason for Visit * Reason Onset Date Comments Refill Request 09/25/2022 metFORMIN (GLUCO PHAGE) 500 MG tablet Encounter Details Date Type Department Care Team (Late st Contact Info) Description 09/25/2022 Refill [facility] [address] [place] [address] Ricky Munoz PA-C [address] [place] [address] Refill Request (metFORMIN (GLUCOPHAGE) 500 [...] on file Legal Sex Female 4:10 AM MATERIAL LOADER Gender Identity Not on file Sexual Orientation [...] further refills to be addressed at [facility]. LUCRECIA Ruiz on 09/27/2022 at 4:20 PM RIAL LOADER * Telephone Encounter - Frieda Romo - 09/27/2022 2:00 PM CST Requesting a 90 day supply. RIAL LOADER documented in this encounter Plan of Treatment Not on file documented as of this encounter Visit Diagnoses Diagnosis Type 2 diabetes mellitus with diabetic neuropathy, without long-term current use of insulin (H) documented in this encounter Additional Health Concerns Assessment Noted Time PHQ-9 Depression Total Score: 7 07/01/20 20 12:02 PM CDT documented as of this encounter Care Teams Lead Cashier Relationship Specialty Start Date End Date Ricky Munoz PA-C [address] [place] [address] PCP - General Physician Suede Cleaner - Medical 06/18/20 Anne-Marie Pike MD [facility] [address] [facility] [place] [address] Family Practice 09/19/11 Ricky Munoz PA-C [address] [place] [address] Assigned PCP 06/26/21 11/05/24 documented as of this encounter
--- OUTSIDE RECORDS SUMMARY | 2024-12-26 14:39 | XMS_ITS | Encounter Summary ---
Author Organization [facility] Address [address] [place] [address] Care Team Providers Care Network Engineer Name Role Phone Anne-Marie Pike MD Unavailable [phone] Kirsten Suarez MD Primary Care Provider Ricky Munoz PA-C Unavailable [phone] Damon Escalante MD Unavailable Ricky Munoz PA-C Primary Care Provider [phone] Melida Lopez RN Unavailable Unavailable Ricky Munoz PA-C Unavailable [phone] Ricky Munoz PA-C Unavailable [phone] Ricky Munoz PA-C Unavailable [phone] Encounter Details Date Type Department Care Team (Late st Contact Info) Description 12/08/2019 MyC Medical Advice [address], [address] [place] [address] Leisa Hernández Social History Tobacco Use Types Packs/Day Years Used Date Smoking Tobacco: Never Smokeless Tobacco: Never Alcohol Use Standard Drinks/Week Comments No 0 (1 standard drink = 0.6 oz pur e alcohol) PHQ-2 Answer Date Recorded PHQ-2 Score 0 09/24/2019 Comments No Sex and Gender Information Value Date Recorded Sex Assigned at Not on file Legal Sex Female 4:10 AM DUMPMAN Gender Identity Not on file Sexual Orientation [...] documented as of this encounter Care Teams Network Engineer Relationship Specialty Start Date End Date Kirsten Suarez MD [address] [place] [address] PCP - General Family Practice 03/11/13 06/17/20 Ricky Munoz PA-C 35170 [address] [id number] PCP - General Physician Guest Service Host - Medical 06/18/20 Anne-Marie Pike MD [address] [place] [id number] Family Practice 09/19/11 Ricky Munoz PA-C 539[address] [address] [id number] Assigned PCP 10/19/19 03/27/20 [place] [address] [place] M[place]OY [id number] Assigned PCP 03/28/20 06/19/20 Melida Lopez, LUCRECIA Personal Advocate & Liaison (PAL) Family Practice 06/23/20 10/20/20 Ricky Munoz PA-C [address] [place] [address] Assigned PCP 07/18/20 06/25/21 Ricky Munoz PA-C 93136 [place] [address] Assigned PCP 06/20/20 07/17/20 Ricky Munoz PA-C 62052 [place] [address] Assigned PCP 06/26/21 11/05/24 documented as of this encounter
--- OUTSIDE RECORDS SUMMARY | 2024-12-26 14:39 | XMS_ITS | Encounter Summary ---
Author Organization [facility] Address [address] [place] [address] Care Team Providers Care Inletter Name Role Phone Anne-Marie Pike MD Unavailable [phone] Kirsten Suarez MD Primary Care Provider Ricky Munoz PA-C Unavailable +[phone] Damon Escalante MD Unavailable Ricky Munoz PA-C Unavailable +[phone] Damon Escalante MD Unavailable Ricky Munoz PA-C Primary Care Provider [phone] Melida Lopez RN Unavailable Unavailable Ricky Munoz PA-C Unavailable [phone] Ricky Munoz PA-C Unavailable +[phone] Edwin Munozis PA-C Unavailable [phone] Encounter Details Date Type Department Care Team (Late st Contact Info) Description 01/23/2019 MyC Medical Advice [facility] [address] [facility], [address] [place] [address] Tracey Hunt MA Social History Tobacco Use Types Packs/Day Years Used Date Smoking Tobacco: Never Smokeless Tobacco: Never Alcohol Use Standard Drinks/Week Comments No 0 (1 standard drink = 0.6 oz pur e alcohol) PHQ-2 Answer Date Recorded PHQ-2 Score 1 10/22/2018 Comments No Sex and Gender Information Value Date Recorded Sex Assigned at Not on file Legal Sex Female 4:10 AM TILE ROOFER Gender Identity Not on file Sexual Orientation [...] documented as of this encounter Care Teams Inletter Relationship Specialty Start Date End Date Kirsten Suarez MD [address] [place] [address] PCP - General Family Practice 03/11/13 06/17/20 Ricky Munoz PA-C 90150 [place] [place] [address] PCP - General Physician Legal Investigator - Medical 06/18/20 Anne-Marie Pike MD [address] [place] [address] Family Practice 09/19/11 Ricky Munoz PA-C 32275 [place] [address] Assigned PCP 01/19/19 10/11/19 [place] [address] [address] [place] [address] Assigned PCP 10/12/19 10/18/19 Ricky Munoz PA-C 66400 [address] [place] [address] Assigned PCP 10/19/19 03/27/20 [place] [address] [address] M[place] [address] Assigned PCP 03/28/20 06/19/20 Melida Lopez RN Personal Advocate & Liaison (PAL) Family Practice 06/23/20 10/20/20 Ricky Munoz PA-C 25294 [place] [address] Assigned PCP 07/18/20 06/25/21 Ricky Munoz PA-C 01430 [place] [address] Assigned PCP 06/20/20 07/17/20 Ricky Munoz PA-C 25010 [place] [address] Assigned PCP 06/26/21 11/05/24 documented as of this encounter
--- OUTSIDE RECORDS SUMMARY | 2024-12-26 14:39 | XMS_ITS | Encounter Summary ---
Author Organization [facility] Address [address] [place] [address] Care Team Providers Care Regional Marketing Director Name Role Phone Anne-Marie Pike MD Unavailable [phone] Kirsten Suarez MD Primary Care Provider Ricky MunozC Unavailable [phone] Damon Escalante MD Unavailable Ricky Munoz PA-C Primary Care Provider [phone] Melida Lopez RN Unavailable Unavailable Ricky MunozC Unavailable [phone] Ricky Munoz PA-C Unavailable [phone] Ricky Munoz-Vineet Unavailable [phone] Reason for Visit * Reason Comments Medication Refill Encounter Details Date Type Department Care Team (Late st Contact Info) Description 02/06/2020 Refill [place] [id number] [facility], [address] [place] [address] Ricky Munoz PA-C [address] [place] [address] Medication Refill Social History Tobacco Use Types Packs/Day Years Used Date Smoking Tobacco: Never Smokeless Tobacco: Never Alcohol Use Standard Drinks/Week Comments No 0 (1 standard drink = 0.6 oz pur e alcohol) PHQ-2 Answer Date Recorded PHQ-2 Score 0 09/24/2019 Comments No Sex and Gender Information Value Date Recorded Sex Assigned at Not on file Legal Sex Female 4:10 AM RESEARCH TECH Gender Identity Not on file Sexual Orientation Not on file Occupation Industry Job Start Date Job End Date teacher Not on file Not on file Not on file documented as of this encounter Miscellaneous Notes * Telephone Encounter - Sharon Roper [facility] - 02/10/2020 9:01 AM CDT Prescription approved per [facility] Refill Protocol. documented in this encounter Plan of Treatment Not on file documented as of this encounter Visit Diagnoses Diagnosis Essential hypertension with goal blood pressure less than 140/90 documented in this encounter Additional Health Concerns Assessment Noted Time PHQ-9 Depression Total Score: 5 03/24/20 19 12:08 PM CDT documented as of this encounter Care Teams Regional Marketing Director Relationship Specialty Start Date End Date Kirsten Suarez MD [address] [place] [address] PCP - General Family Practice 03/11/13 06/17/20 Ricky Munoz PA-C 474[address] [address] [place] [address] PCP - General Physician Communications Controller - Medical 06/18/20 Anne-Marie Pike MD [address] [place] [address] Family Practice 09/19/11 Ricky Munoz PA-C 62571 [place] [place] [address] Assigned PCP 10/19/19 03/27/20 [place] [address] [place] [address] Assigned PCP 03/28/20 06/19/20 Melida Lopez, RN Personal Advocate & Liaison (PAL) Family Practice 06/23/20 10/20/20 Ricky Munoz PA-C [address] [place] [address] Assigned PCP 07/18/20 06/25/21 Ricky Munoz PA-C 08716 J[place] [address] Assigned PCP 06/20/20 07/17/20 Ricky Munoz PA-C 21424 [place] [address] Assigned PCP 06/26/21 11/05/24 documented as of this encounter
--- OUTSIDE RECORDS SUMMARY | 2024-12-26 14:39 | XMS_ITS | Encounter Summary ---
Author Organization [facility] Address [address] [place] [address] Care Team Providers Care Transformer Shop Supervisor Name Role Phone Anne-Marie Pike MD Unavailable [phone] Kirsten Suarez MD Primary Care Provider Ricky Munoz PA-C Unavailable [phone] Damon Escalante MD Unavailable Ricky Munoz PA-C Unavailable [phone] Damon Escalante MD Unavailable Ricky Munoz PA-C Primary Care Provider [phone] Melida Lopez RN Unavailable Unavailable Ricky Munoz PA-C Unavailable [phone] Alexander Ricky PA-C Unavailable [phone] Alexander Ricky PA-C Unavailable [phone] Reason for Visit * Reason Onset Date Comments Outreach 07/24/2019 [facility] MAMMO -ATT 1 Encounter Details Date Type Department Care Team (Late st Contact Info) Description 07/24/2019 Telephone [facility] Centralized Scheduling [facility] [place] [address] [place] [address] [facility] [place] [address] Outreach ([facility] MAMMO -ATT 1) Social History Tobacco Use Types Packs/Day Years Used Date Smoking Tobacco: Never Smokeless Tobacco: Never Alcohol Use Standard Drinks/Week Comments No 0 (1 standard drink = 0.6 oz pur e alcohol) PHQ-2 Answer Date Recorded PHQ-2 Score 1 10/22/2018 Comments No Sex and Gender Information Value Date Recorded Sex Assigned at Not on file Legal Sex Female 4:10 AM HUMAN SERVICE TECHNICIAN Gender Identity Not on file Sexual Orientation Not on file Occupation Industry Job Start Date Job End Date teacher Not on file Not on file Not on file documented as of this encounter Miscellaneous Notes * Telephone Encounter - Gertrude Templeton - 07/24/2019 4:07 PM CDT 07/24/2019 Attempt 1 Contacted patient in regards to scheduling VIP mammogram, FM for AUG 04. Message on NGIil Patient is also due for - Comments: Outreach Basket Hand Weaver LR documented in this encounter Plan of Treatment Not on file documented as of this encounter Visit Diagnoses Not on filedocumented in this encounter Additional Health Concerns Assessment Noted Time PHQ-9 Depression Total Score: 5 03/24/20 19 12:08 PM CDT documented as of this encounter Care Teams Transformer Shop Supervisor Relationship Specialty Start Date End Date Kirsten Suarez MD [address] [place] [address] PCP - General Family Practice 03/11/13 06/17/20 Ricky Munoz PA-C [address] [place] [address] PCP - General Physician Oil And Gas Well Treatment Operator - Medical 06/18/20 Anne-Marie Pike MD [address] [place] [address] [facility] Practice 09/19/11 Ricky Munoz PA-C 64987 JASS[address] MALLOY [address] Assigned PCP 01/19/19 10/11/19 [place] [address] [place] [address] Assigned PCP 10/12/19 10/18/19 Ricky Munoz PA-C [address] [place] [address] Assigned PCP 10/19/19 03/27/20 [place] [address] [place] [address] Assigned PCP 03/28/20 06/19/20 Melida Lopez RN Personal Advocate & Liaison (PAL) Family Practice 06/23/20 10/20/20 Ricky Munoz PA-C 97[address] [place] [address] Assigned PCP 07/18/20 06/25/21 Ricky Munoz PA-C [address] [place] [address] Assigned PCP 06/20/20 07/17/20 Ricky Munoz PA-C 366[address] [place] [address] Assigned PCP 06/26/21 11/05/24 documented as of this encounter
--- OUTSIDE RECORDS SUMMARY | 2024-12-26 14:39 | XMS_ITS | Encounter Summary ---
Author Organization [facility] Address [address] [place] [address] Care Team Providers Care Handle Turner Name Role Phone Anne-Marie Pike MD Unavailable [phone] Kirsten Suarez MD Primary Care Provider Damon Escalante MD Unavailable Ricky Munoz PA-C Primary Care Provider [phone] Melida Lopez RN Unavailable Unavailable Ricky Munoz PA-C Unavailable [phone] Ricky Munoz PA-C Unavailable [phone] Ricky Munoz PA-C Unavailable [phone] Encounter Details Date Type Department Care Team (Late st Contact Info) Description 03/31/2020 [facility] [place] [address] [address] Leisa Hernández Social History Tobacco Use Types Packs/Day Years Used Date Smoking Tobacco: Never Smokeless Tobacco: Never Alcohol Use Standard Drinks/Week Comments No 0 (1 standard drink = 0.6 oz pur e alcohol) PHQ-2 Answer Date Recorded PHQ-2 Score 0 09/24/2019 Comments No Sex and Gender Information Value Date Recorded Sex Assigned at Not on file Legal Sex Female 4:10 AM PAPER PRODUCTS PRINTER Gender Identity Not on file Sexual Orientation [...] documented as of this encounter Care Teams Handle Turner Relationship Specialty Start Date End Date Kirsten Suarez MD [facility] MEDICAL [place] [phone] [facility] [place] [address] PCP - General Family Practice 03/11/13 06/17/20 Ricky Munoz PA-C [address] [place] [address] PCP - General Physician Fusion Analyst - Medical 06/18/20 Anne-Marie Pike MD [place] [id number] [facility] JASSON [place] [address] Family Practice 09/19/11 [place] [address] [place] [address] Assigned PCP 03/28/20 06/19/20 Melida Lopez, RN Personal Advocate & Liaison (PAL) Family Practice 06/23/20 10/20/20 Ricky Munoz PA-C 67826 J[place] [place] [address] Assigned PCP 07/18/20 06/25/21 Ricky Munoz PA-C [address] [place] [address] Assigned PCP 06/20/20 07/17/20 Ricky Munoz PA-C [address] [place] [address] Assigned PCP 06/26/21 11/05/24 documented as of this encounter
--- OUTSIDE RECORDS SUMMARY | 2024-12-26 14:39 | XMS_ITS | Encounter Summary ---
Author Organization [facility] Address [address] [place] [address] Care Team Providers Care Service Restorer Emergency Name Role Phone Anne-Marie Pike MD Unavailable [phone] Kirsten Suarez MD Primary Care Provider + Ricky Munoz PA-C Unavailable + Christa Schafer TELEMETRY TECHNICIAN BICYCLE INSPECTOR Unavailable + Ricky Munoz PA-C Unavailable + Christa Schafer TELEMETRY TECHNICIAN BICYCLE INSPECTOR Unavailable + Ricky Munoz-C Unavailable + Damon [...] Contact Info) Description 01/04/2016 MyC Medical Advice [facility] [address] [facility], [address] [place] [address] Aleja Kramer, KOFI Social History Tobacco Use Types Packs/Day Years Used Date Smoking Tobacco: Never Smokeless Tobacco: Never Alcohol Use Standard Drinks/Week Comments No 0 (1 standard drink = 0.6 oz pur e alcohol) Comments No Sex and Gender Information Value Date Recorded Sex Assigned at Not on file Legal Sex Female 4:10 AM COUNSELOR/ART THERAPIST Gender Identity Not on file Sexual Orientation Not on file Occupation Industry Job Start Date Job End Date teacher Not on file Not on file Not on file documented as of this encounter Plan of Treatment Not on file documented as of this encounter Visit Diagnoses Not on filedocumented in this encounter Care Teams Service Restorer Emergency Relationship Specialty Start Date End Date Kirsten Suarez MD [place] [id number] [place] [address] PCP - General Family Practice 03/11/13 06/17/20 Ricky Munoz PA-C [address] [place] [address] PCP - Assigned PCP 08/18/18 12/17/18 Christa Schafer APRN [facility] [address] [place] [address] PCP - Assigned PCP 08/11/18 08/17/18 Ricky Munoz PA-C [address] [place] [address] PCP - General Physician Photonic Laboratory Technician - Medical 06/18/20 Anne-Marie Pike MD [place] [address] [place] [address] Family Practice 09/19/11 Ricky Munoz PA-C 48660 J[place] [address] Assigned PCP 08/18/18 12/21/18 Christa Schafer APRN [facility] [address] [place] [address] Assigned PCP 12/22/18 01/11/19 Ricky Munoz PA-C 27305 [place] [address] Assigned PCP 01/19/19 10/11/19 [place] [address] [address] [place], [place] [address] Assigned PCP 10/12/19 10/18/19 Ricky Munoz PA-C [address] [place] [address] Assigned PCP 10/19/19 03/27/20 [place] [address] [place] [address] Assigned PCP 03/28/20 06/19/20 Melida Lopez RN Personal Advocate & Liaison (PAL) Family Practice 06/23/20 10/20/20 Ricky Munoz PA-C [address] [place] [address] Assigned PCP 07/18/20 06/25/21 Ricky Munoz PA-C 17100 [place] [address] Assigned PCP 06/20/20 07/17/20 Ricky Munoz PA-C 38553 J[address] M[place] [address] Assigned PCP 06/26/21 11/05/24 documented as of this encounter
--- OUTSIDE RECORDS SUMMARY | 2024-12-26 14:39 | XMS_ITS | Encounter Summary ---
Author Organization [facility] Address [address] [place] [address] Care Team Providers Care Spa Receptionist Name Role Phone Anne-Marie Pike MD Unavailable [phone] Kirsten Suarez MD Primary Care Provider Ricky Munoz PA-C Unavailable [phone] Damon Escalante MD Unavailable Ricky Munoz PA-C Unavailable [phone] Damon Escalante MD Unavailable Ricky Munoz PA-C Primary Care Provider [phone] Melida Lopez RN Unavailable Unavailable Ricky Munoz PA-C Unavailable [phone] Ricky Munoz PA-C Unavailable [phone] Ricky Munoz PA-C Unavailable [phone] Reason for Visit * Reason Onset Date Comments Medication Refill 03/07/2019 atenolol (TENO RMIN) 50 MG tablet Encounter Details Date Type Department Care Team (Late st Contact Info) Description 03/07/[address] [place] [id number] [facility], [address] [place] [address] Ricky Munoz PA-C [address] [place] [address] Medication Refill (atenolol (TENORMIN) 50 [...] on file Legal Sex Female 4:10 AM BUSINESS SYSTEM CONSULTANT Gender Identity Not on file Sexual [...] documented as of this encounter Care Teams Spa Receptionist Relationship Specialty Start Date End Date Kirsten Suarez MD [place] [phone] [place] [address] PCP - General Family Practice 03/11/13 06/17/20 Ricky Munoz PA-C 412[address] [address] [place] [address] PCP - General Physician It Sales Executive - Medical 06/18/20 Anne-Marie Pike MD [address] [place] [address] Family Practice 09/19/11 Ricky Munoz PA-C 27184 [place] [address] Assigned PCP 01/19/19 10/11/19 [place] [address] [address] [address] Assigned PCP 10/12/19 10/18/19 Ricky Munoz PA-C 06521 [address] [address] Assigned PCP 10/19/19 03/27/20 [place] [address] [address] [address] Assigned PCP 03/28/20 06/19/20 Melida Lopez, LUCRECIA Personal Advocate & Liaison (PAL) Family Practice 06/23/20 10/20/20 Ricky Munoz PA-C [address] [place] [address] Assigned PCP 07/18/20 06/25/21 Ricky Munoz PA-C 35[address] [place] [address] Assigned PCP 06/20/20 07/17/20 Ricky Munoz PA-C 20307 [place] [address] Assigned PCP 06/26/21 11/05/24 documented as of this encounter
--- OUTSIDE RECORDS SUMMARY | 2024-12-26 14:39 | XMS_ITS | Encounter Summary ---
Author Organization [facility] Address [address] [place] [address] Care Team Providers Care Senior Director Marketing Name Role Phone Anne-Marie Pike MD Unavailable [phone] Ricky Munoz PA-C Primary Care Provider [phone] Melida Lopez RN Unavailable Unavailable Ricky Munoz PA-C Unavailable [phone] Ricky Munoz PA-C Unavailable [phone] Encounter Details Date Type Department Care Team (Late st Contact Info) Description 10/04/2020 [facility] Medical Advice [address] [address] Maida Bradford Social History Tobacco Use Types Packs/Day Years Used Date Smoking Tobacco: Never Smokeless Tobacco: Never Alcohol Use Standard Drinks/Week Comments No 0 (1 standard drink = 0.6 oz pur e alcohol) PHQ-2 Answer Date Recorded PHQ-2 Score 3 07/01/2020 Comments No Sex and Gender Information Value Date Recorded Sex Assigned at Not on file Legal Sex Female 4:10 AM STEWARD/STEWARDESS THIRD CLASS Gender Identity Not on file Sexual Orientation [...] as of this encounter Care Teams Senior Director Marketing Relationship Specialty Start Date End Date Ricky Munoz PA-C [address] [address] [address] PCP - General Physician Trailer Rental Clerk - Medical 06/18/20 Anne-Marie Pike MD [place] [phone] [facility] [place] [address] [facility] Practice 09/19/11 Melida Lopez RN Personal Advocate & Liaison (PAL) [facility] 06/23/20 10/20/20 Ricky Munoz PA-C 82319 [address] [address] Assigned PCP 07/18/20 06/25/21 Ricky Munoz PA-C 34850 [place] [address] Assigned PCP 06/26/21 11/05/24 documented as of this encounter
--- OUTSIDE RECORDS SUMMARY | 2024-12-26 14:39 | XMS_ITS | Encounter Summary ---
Author Organization [facility] Address [address] [place] [address] Care Team Providers Care Tap Dancer Name Role Phone Anne-Marie Pike MD Unavailable [phone] Ricky Munoz PA-C Primary Care Provider [phone] Ricky Munoz PA-C Unavailable [phone] Ricky Munoz PA-C Unavailable [phone] Reason for Visit * Reason Comments Medication Refill Encounter Details Date Type Department Care Team (Late st Contact Info) Description 03/27/[address], [address] [place] [address] Ricky Munoz PA-C [address] [place] [address] Medication Refill Social History Tobacco Use Types Packs/Day Years Used Date Smoking Tobacco: Never Smokeless Tobacco: Never Alcohol Use Standard Drinks/Week Comments No 0 (1 standard drink = 0.6 oz pur e alcohol) PHQ-2 Answer Date Recorded PHQ-2 Score 3 07/01/2020 Comments No Sex and Gender Information Value Date Recorded Sex Assigned at Not on file Legal Sex Female 4:10 AM FILAMENT SHAPER Gender Identity Not on file Sexual Orientation [...] 04/14/2021. MAY 30 2021 08:45 AM - [facility] Sherman RN * Telephone Encounter [...] to come in sooner, please call her back.[phone] (home) * Telephone Encounter - Emani Rivera - 04/05/2021 10:26 AM CDT Attempt 2, LVM for Maryann to return call Kimmie Rivera- Hand Sign Writer * Telephone Encounter - Emani Rivera - 03/29/2021 11:00 AM CDT LVM for Ely to call back to see if we can move up her PX Kimmie Rivera- Hand Sign Writer * Telephone Encounter - Ricky Munoz PA-C [...] documented as of this encounter Care Teams Tap Dancer Relationship Specialty Start Date End Date Ricky Munoz PA-C 18449 [address] [place] [address] PCP - General Physician Transportation Maintenance Specialist - Medical 06/18/20 Anne-Marie Pike MD [facility] MEDICAL [place] [address] [place] [address] Family Practice 09/19/11 Ricky Munoz PA-C 228[address] [address] [place], [place] [address] Assigned PCP 07/18/20 06/25/21 Ricky Munoz PA-C 22503 [place] [address] Assigned PCP 06/26/21 11/05/24 documented as of this encounter
--- OUTSIDE RECORDS SUMMARY | 2024-12-26 14:39 | XMS_ITS | Encounter Summary ---
Author Organization [place] Address [address] [place] [address] Care Team Providers Care Hot Molder Name Role Phone Anne-Marie Pike MD Unavailable [phone] Kirsten Suarez MD Primary Care Provider Ricky Munoz PA-C Unavailable [phone] Damon Escalante MD Unavailable Ricky Munoz PA-C Unavailable +[phone] Damon Escalante MD Unavailable Ricky Munoz PA-C Primary Care Provider [phone] Melida Lopez RN Unavailable Unavailable Ricky Munoz PA-C Unavailable [phone] Edwin Munozis PA-C Unavailable [phone] Edwin Munozis PA-C Unavailable [phone] Encounter Details Date Type Department Care Team (Late st Contact Info) Description 01/21/2019 MyC Medical Advice [facility] [address] [facility], [address] [place] [id number] Ximena Day, RN Social History Tobacco Use Types Packs/Day Years Used Date Smoking Tobacco: Never Smokeless Tobacco: Never Alcohol Use Standard Drinks/Week Comments No 0 (1 standard drink = 0.6 oz pur e alcohol) PHQ-2 Answer Date Recorded PHQ-2 Score 1 10/22/2018 Comments No Sex and Gender Information Value Date Recorded Sex Assigned at Not on file Legal Sex Female 4:10 AM FIRE CREW WORKER Gender Identity Not on file Sexual Orientation [...] documented as of this encounter Care Teams Hot Molder Relationship Specialty Start Date End Date Kirsten Suarez MD [address] [place] [address] PCP - General Family Practice 03/11/13 06/17/20 Ricky Munoz PA-C 89[address] [address] [place] [address] PCP - General Physician Social Media Campaign Manager - Medical 06/18/20 Anne-Marie Pike MD [address] [place] [address] Family Practice 09/19/11 Ricky Munoz PA-C 13377 [place] [place] [address] Assigned PCP 01/19/19 10/11/19 [place] [address] [address] [place] 18[address] Assigned PCP 10/12/19 10/18/19 Ricky Munoz PA-C 80398 [place] [address] Assigned PCP 10/19/19 03/27/20 [place] [address] [place] [address] Assigned PCP 03/28/20 06/19/20 Melida Lpoez, RN Personal Advocate & Liaison (PAL) Family Practice 06/23/20 10/20/20 Ricky Munoz PA-C 36166 [place], JASSON [address] Assigned PCP 07/18/20 06/25/21 Ricky Munoz PA-C 17467 [place] M[place]OY [address] Assigned PCP 06/20/20 07/17/20 Ricky Munoz PA-C 58574 JASS[address] MALLOY [id number] Assigned PCP 06/26/21 11/05/24 documented as of this encounter
--- OUTSIDE RECORDS SUMMARY | 2024-12-26 14:39 | XMS_ITS | Encounter Summary ---
Author Organization [place] Address [address] [place] [address] Care Team Providers Care Personnel Records Clerk Name Role Phone Anne-Marie Pike MD Unavailable [phone] Kirsten Suarez MD Primary Care Provider Ricky Munoz PA-C Unavailable [phone] Damon Escalante MD Unavailable Ricky Munoz PA-C Unavailable [phone] Dmaon Escalante MD Unavailable Ricky Munoz PA-C Primary Care Provider [phone] Melida Lopez RN Unavailable Unavailable Ricky Munoz PA-C Unavailable [phone] Ricky Munoz PA-C Unavailable [phone] Ricky Munoz PA-C Unavailable [phone] Reason for Visit * Reason Onset Date Comments Medication Refill 03/18/2019 levothyroxine (SYNTHROID/LEVOTHROID) 88 MCG tablet Encounter Details Date Type Department Care Team (Late st Contact Info) Description 03/17/[address], [address] [place] [address] Ricky Munoz PA-C [address] [place] [address] Medication Refill (levothyroxine (SYNTHROID/LEVOTHROID) 88 [...] on file Legal Sex Female 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 Gender Identity Not on file Sexual Orientation [...] Jara RN, BSN * Telephone Encounter - Kimber Vazquez - 03/18/2019 9:12 AM CDT Images from [...] documented as of this encounter Care Teams Personnel Records Clerk Relationship Specialty Start Date End Date Kirsten Suarez MD [address] [place] [address] PCP - General Family Practice 03/11/13 06/17/20 Ricky Munoz PA-C 17975 [address] [place] [address] PCP - General Physician Mud Mixer Helper - Medical 06/18/20 Anne-Marie Pike MD [address] [place] [address] Family Practice 09/19/11 Ricky Munoz PA-C 63934 [address] [place] [address] Assigned PCP 01/19/19 10/11/19 [place] [address] [place] [address] Assigned PCP 10/12/19 10/18/19 Ricky Munoz PA-C [address] [place] [address] Assigned PCP 10/19/19 03/27/20 [place] [address] [place] [address] Assigned PCP 03/28/20 06/19/20 Melida Lopez RN Personal Advocate & Liaison (PAL) Family Practice 06/23/20 10/20/20 Ricky Munoz PA-C [address] [place] [address] Assigned PCP 07/18/20 06/25/21 Ricky Munoz PA-C [address] [place] [address] Assigned PCP 06/20/20 07/17/20 Ricky Munoz PA-C [address] [place] [address] Assigned PCP 06/26/21 11/05/24 documented as of this encounter
--- OUTSIDE RECORDS SUMMARY | 2024-12-26 14:39 | XMS_ITS | Encounter Summary ---
Author Organization [place] Address [address] [place] [address] Care Team Providers Care Financial Services Rep Name Role Phone Anne-Marie Pike MD Unavailable [phone] Kirsten Suarez MD Primary Care Provider + Ricky Munoz-C Unavailable + Ricky Munoz PA-C Unavailable + Christa Schafer APRN HEMSTITCHING MACHINE OPERATOR Unavailable + Ricky Munoz-C Unavailable [...] Contact Info) Description 12/12/2018 MyC Medical Advice [facility] [address] [facility], [address] [place] [address] Ricky Munoz PA-C [address] [place] [address] Lab Result Notice Social History Tobacco Use Types Packs/Day Years Used Date Smoking Tobacco: Never Smokeless Tobacco: Never Alcohol Use Standard Drinks/Week Comments No 0 (1 standard drink = 0.6 oz pur e alcohol) PHQ-2 Answer Date Recorded PHQ-2 Score 1 10/22/2018 Comments No Sex and Gender Information Value Date Recorded Sex Assigned at Not on file Legal 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 Gender Identity Not on file Sexual [...] documented as of this encounter Care Teams Financial Services Rep Relationship Specialty Start Date End Date Kirsten Suarez MD [address] [place] [address] PCP - General Family Practice 03/11/13 06/17/20 Ricky Munoz PA-C 18744 J[address] M[place] [address] PCP - Assigned PCP 08/18/18 12/17/18 Ricky Munoz PA-C 84909 [address] [place] [address] PCP - General Physician Worm Grower - Medical 06/18/20 Anne-Marie Pike MD [place] [address] [place] [address] Family Practice 09/19/11 Ricky Munoz PA-C 65652 [place] [place] [address] Assigned PCP 08/18/18 12/21/18 Christa Schafer APRN [facility] [address] [place] [address] Assigned PCP 12/22/18 01/11/19 Ricky Munoz PA-C [address] [place] [address] Assigned PCP 01/19/19 10/11/19 [place] [address] [place] [address] Assigned PCP 10/12/19 10/18/19 Ricky Munoz PA-C [address]62[address] [place] [address] Assigned PCP 10/19/19 03/27/20 [place] [address] [place] [address] Assigned PCP 03/28/20 06/19/20 Melida Lopez RN Personal Advocate & Liaison (PAL) Family Practice 06/23/20 10/20/20 Ricky Munoz PA-C [address] [place] [address] Assigned PCP 07/18/20 06/25/21 Ricky Munoz PA-C [address] [place] [address] Assigned PCP 06/20/20 07/17/20 Ricky Munoz PA-C [address] [place] [address] Assigned PCP 06/26/21 11/05/24 documented as of this encounter
--- OUTSIDE RECORDS SUMMARY | 2024-12-26 14:39 | XMS_ITS | Encounter Summary ---
Author Organization [place] Address [address] [place] [address] Care Team Providers Care Entertainment Musician Name Role Phone Anne-Marie Pike MD Unavailable [phone] Kirsten Suarez MD Primary Care Provider Ricky Munoz PA-C Unavailable [phone] Damon Escalante MD Unavailable Ricky Munoz PA-C Unavailable [phone] Damon Escalante MD Unavailable Ricky Munoz PA-C Primary Care Provider [phone] Melida Lopez RN Unavailable Unavailable Ricky Munoz PA-C Unavailable [phone] Ricky Munoz PA-C Unavailable [phone] Ricky Munoz PA-C Unavailable [phone] Encounter Details Date Type Department Care Team (Late st Contact Info) Description 07/24/2019 MyC Medical Advice [place] Centralized Scheduling [id number] [place] [address] Reason, Gertrude D Social History Tobacco Use Types Packs/Day Years Used Date Smoking Tobacco: Never Smokeless Tobacco: Never Alcohol Use Standard Drinks/Week Comments No 0 (1 standard drink = 0.6 oz pur e alcohol) PHQ-2 Answer Date Recorded PHQ-2 Score 1 10/22/2018 Comments No Sex and Gender Information Value Date Recorded Sex Assigned at Not on file 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 Gender Identity Not on file Sexual Orientation [...] documented as of this encounter Care Teams Entertainment Musician Relationship Specialty Start Date End Date Kirsten Suarez MD [facility] [address] [facility] [place] [address] PCP - General Family Practice 03/11/13 06/17/20 Ricky Munoz PA-C 89138 [address] [place] [address] PCP - General Physician High School Business Teacher - Medical 06/18/20 Anne-Marie Pike MD [address] [place] [address] Family Practice 09/19/11 Ricky uMnoz PA-C 66802 [address] [place] [address] Assigned PCP 01/19/19 10/11/19 [place] [address] [address] [place] [address] Assigned PCP 10/12/19 10/18/19 Ricky Munoz PA-C 57740 [address] [place] [address] Assigned PCP 10/19/19 03/27/20 [place] [address] [address] [address] Assigned PCP 03/28/20 06/19/20 Melida Lopez RN Personal Advocate & Liaison (PAL) Family Practice 06/23/20 10/20/20 Ricky Munoz PA-C 70176 [address] [place] [address] Assigned PCP 07/18/20 06/25/21 Ricky Munoz PA-C 29202 [address] [place] [address] Assigned PCP 06/20/20 07/17/20 Ricky Munoz PA-C 58421 [address] [place] [address] Assigned PCP 06/26/21 11/05/24 documented as of this encounter
--- OUTSIDE RECORDS SUMMARY | 2024-12-26 14:39 | XMS_ITS | Encounter Summary ---
Author Organization [place] Address [address] [place] [address] Care Team Providers Care Pilot Fuel Engineer Name Role Phone Anne-Marie Pike MD Unavailable [phone] Ricky Munoz PA-C Primary Care Provider [phone] Ricky Munoz PA-C Unavailable [phone] Reason for Visit * Reason Comments Medication Refill Encounter Details Date Type Department Care Team (Late st Contact Info) Description 08/12/[address] [address] [place] [address] [place] [address] Medication Refill Social History Tobacco Use Types Packs/Day Years Used Date Smoking Tobacco: Never Smokeless Tobacco: Never Alcohol Use Standard Drinks/Week Comments No 0 (1 standard drink = 0.6 oz pur e alcohol) PHQ-2 Answer Date Recorded PHQ-2 Score 1 06/16/2021 Comments No Sex and Gender Information Value Date Recorded Sex Assigned at Not on file Legal Sex Female 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 documented in this encounter Plan of Treatment Not on file documented as of this encounter Visit Diagnoses Diagnosis Type 2 diabetes mellitus with diabetic neuropathy, without long-term current use of insulin (H) documented in this encounter Additional Health Concerns Assessment Noted Time PHQ-9 Depression Total Score: 7 07/01/20 20 12:02 PM CDT documented as of this encounter Care Teams Pilot Fuel Engineer Relationship Specialty Start Date End Date Ricky Munoz PA-C [address]83 [address] [address] PCP - General Physician Catering Truck Operator - Medical 06/18/20 Anne-Marie Pike MD [facility] [place] [address] [place] [address] Family Practice 09/19/11 Ricky Munoz PA-C 35257 [address] [place] [address] Assigned PCP 06/26/21 11/05/24 documented as of this encounter
[2024-12-26 14:42] LABS: Amorphous Sediment Urine Moderate; Bacteria Urine Moderate; RBC Urine 0-2 (0-2); Squamous Epithelial Cell Urine Many (None-Few); WBC Clumps Urine Few
[2024-12-26 15:01] LABS: Basophils Absolute Auto 0.05 K/uL (0.00-0.30); Basophils Percent Auto 0.5 % (0.0-3.0); Eosinophils Absolute Auto 0.08 K/uL (0.00-0.50); Eosinophils Percent Auto 0.8 % (0.0-7.0); Hematocrit 43.1 % (33.0-51.0); Hemoglobin* 14.1 gm/dL (12.0-16.0); Immature Granulocytes Abs Auto 0.11 K/uL (0.00-0.30); Lymphocytes Absolute Auto 2.17 K/uL (0.90-2.90); Lymphocytes Percent Auto 20.5 % (20-44); Mean Corpuscular HGB Conc 33 gm/dL (32-36); Mean Corpuscular Hemoglobin 27 pg (26-34); Mean Corpuscular Volume 82 fL (80-100); Monocytes Percent Auto 7.1 % (0.0-11.0); Neutrophils Absolute Auto 7.44 K/uL (1.7-7.0); Neutrophils Percent Auto 70.1 % (42.0-72.0); Platelet Count* 271 K/uL (140-440); RDW Coefficient of Variation % 13.5 % (11.5-15.5); Red Blood Count 5.29 m/uL (4.00-5.20)
[2024-12-26 15:05] LABS: Slide Review Reflex No
[2024-12-26 15:38] LABS: Chloride* 96 mmol/L (96-114)
[2024-12-26 15:39] LABS: Sodium* 134 mmol/L (135-149)
[2024-12-26 15:42] LABS: Anion Gap 12 mEq/L (7-15); Blood Urea Nitrogen* 20 mg/dL (7-30); Calcium* 9.3 mg/dL (8.4-10.6); Carbon Dioxide* 26 mmol/L (20-32); Creatinine* 0.9 mg/dL (0.5-1.5); Est. Creatinine Clearance* 40.68; Estimated Glomerular Filt Rate 66 ml/min; Glucose* 345 mg/dL (60-115)
[2024-12-26 15:55] LABS: Troponin I* < 0.01 ng/mL (0.01-0.04)
[2024-12-26 16:00] VITALS: BP 134/74; PULSE 84; RESP 18; O2SAT 97
== END 2024-12-26 16:18 | disposition home or self-care (01) ==
PROVIDERS: Emergency Provider Internal Medicine; PCP Family Medicine
DX: N39.0 Urinary tract infection, site not specified (principal)
CPT/HCPCS: 36415; 71045; 80048; 81001; 81003; 84484; 85025; 87086; 93005; 99283; 99284; 99285

== ENCOUNTER 2025-08-31 10:31 | Emergency (ER) | payer MEDICARE, BC, SELFPAY ==
[2025-08-31] VITALS (8 sets, daily range): BP systolic 118–151; BP diastolic 52–73; PULSE 57–67; RESP 16; TEMP 36.1; O2SAT 93–97; BMI 36.9
--- NOTE | 2025-08-31 10:37 | ED.ABDPAIN ---
HPI - Abdominal Pain General Chief Complaint: Abdominal Pain Stated Complaint: Abdominal pain Time Seen by Provider: 08/31/25 10:34 Source: old records reviewed History of Present Illness HPI narrative: This 79-year-old female is brought in by ambulance from [place] where she resides with right lower quadrant pain since about 4:00 p.m. yesterday. She did not eat this morning but 8 before that. She sometimes can change positions to provide a little comfort. Her blood sugar was 118 with EMS, patient is diabetic. She has had normal bowel movements the last few days, no diarrhea. She has not had a bowel movement today. She notes no nausea or vomiting. She has not really noticed a change in her appetite but did not eat breakfast this morning thinking that this could be an appendicitis. She notes no urinary symptoms with this. She resides independently in a condominium in [place]. Past medical history is significant for hypertension, stage IIIA chronic kidney disease, type 2 diabetes, osteopenia, hypothyroidism, hyperlipidemia, obesity, diabetic neuropathy, history of benign colon polyp, bipolar type 2 disorder, history of depression, history adjustment disorder, generalized anxiety disorder, rheumatoid arthritis. Outside of colonoscopy, no abdominal surgeries listed. She confirms no history of abdominal surgery. She does have a history of rheumatoid arthritis which has gone quiescent per her report, does not require any medications. Her last creatinine in her chart was 1.42 with an EGFR of 38. MD elicited complaint: abdominal pain Related Data Home Medications ?Medication ?Instructions ?Recorded ?Confirmed aspirin 81 mg tablet,delayed 81 mg PO DAILY 08/26/22 01/31/25 release (Adult Aspirin Regimen) metformin 1,000 mg tablet 1,000 mg PO BID 12/31/23 01/31/25 Previous Rx's ?Medication ?Instructions ?Recorded blood-glucose meter (Blood Glucose #1 ea 09/22/22 Monitoring kit) lancets #100 ea 09/22/22 levothyroxine 88 mcg tablet 88 mcg PO QDAY #90 tabs 09/22/22 losartan 100 mg tablet 100 mg PO QDAY #90 tabs 09/22/22 blood sugar diagnostic (Accu-Chek #100 ea 10/04/22 Guide test strips) bupropion HCl 150 mg 24 hr tablet, 150 - 300 mg (1 - 2 x 150 mg) PO 04/10/23 extended release QAM #60 tabs divalproex 250 mg tablet,delayed 250 - 500 mg (1 - 2 x 250 mg) PO 04/10/23 release (Depakote) BID #100 tabs rosuvastatin 20 mg tablet 20 mg PO DAILY #90 tabs 10/02/23 hydrochlorothiazide 25 mg tablet 25 mg PO DAILY #90 tabs 11/16/23 atenolol 50 mg tablet 50 mg PO DAILY #90 tabs 12/28/23 blood sugar diagnostic (Blood #100 ea 01/14/24 Glucose Test strips) codeine 10 mg-guaifenesin 100 mg/5 10 ml PO Q4-6H PRN cough #118 mL 12/15/24 mL oral liquid fluconazole 150 mg tablet 150 mg PO Q3D 2 doses #2 tabs 12/15/24 albuterol sulfate 90 mcg/actuation 2 puff inhalation Q4-6H PRN 01/22/25 aerosol inhaler shortness of breath or wheezing #8.5 grams Allergies Allergy/AdvReac Type Severity Reaction Status Date / Time NSAIDS (Non-Steroidal AdvReac Low Kidney Verified 08/31/25 11:51 Anti-Inflamma Function Review of Systems Status of ROS Reports: 6 or more systems reviewed and unremarkable except as noted in History and below PFSH PFS Medical History Bipolar depression ?F31.9 - Bipolar disorder, unspecified (ICD-10) Hx of falling ?Z91.81 - History of falling (ICD-10) Hx of gout ?Z87.39 - Personal history of other diseases of the musculoskeletal system and connective tissue (ICD-10) Hx of colonic polyps ?Z86.010 - Personal history of colonic polyps (ICD-10) History of depression ?Z86.59 - Personal history of other mental and behavioral disorders (ICD-10) Medication management ?Z79.899 - Other jail (current) drug therapy (ICD-10) Chronic kidney disease (CKD) stage G3a/A1, moderately decreased glomerular filtration rate (GFR) between 45-59 mL/min/1.73 square meter and albuminuria creatinine ratio less than 30 mg/g ?N18.31 - Chronic kidney disease, stage 3a (ICD-10) Anxiety ?F41.9 - Anxiety disorder, unspecified (ICD-10) Surgical History History of colonoscopy ?Z98.890 - Other specified postprocedural states (ICD-10) Family History Brother Multiple sclerosis Social History Smoking Status: Never smoker Do you use any of these nicotine containing products: None Second hand tobacco smoke exposure: No How often do you have a drink containing alcohol: never How often do you have six or more drinks on one occasion: Never AUDIT-C Alcohol total score: 0 Non-prescribed substance use: denies use service: No Exam Const: Vital Signs, click to edit/add: Vital Signs - 24 hr 08/31/25 10:34 08/31/25 10:52 Temperature 97 F L Pulse Rate [Right Radial] 64 Blood Pressure [Ri ght Upper Arm] 151/52 H Pulse Oximetry 93 93 Oxygen Delivery Me thod Room Air This 79-year-old female is alert, interactive, no apparent distress. She is lying in the bed looking comfortable on exam 5. Sclera clear, conjugate gaze, symmetric facial function come speech is normal. Neck thicker but note noted events tension. No adenopathy or masses. Lungs are clear, good air entry, no wheeze no crackles, tachypnea, no accessory muscle use. CV regular rate and rhythm, hear no murmur, normal S1-S2, no S3-S4. Abdomen is obese but soft, no organomegaly, rebound or guarding, mild right lower quadrant tenderness. I do not feel any masses. Documenting provider has reviewed patient's vital signs: yes Course Course ED Course: This 79-year-old female is presenting with right lower quadrant abdominal pain. We certainly need to do abdominal imaging to rule out acute appendicitis. The imaging should elucidate any other potential etiologies like colitis, diverticulitis, urinary issues such as stone pathology or infectious etiology. She does not have a fever in overall looks quite well. Will get appropriate complement of labs. EMS did place an IV. Will give her 250 mL fluid bolus. She declines any need for pain or nausea management at this time. Reevaluation(s) Time of Reevaluation #1: 13:20 Reevaluation #1: Patient's daughter is here now. We reviewed the CT, did provide them a copy. She does have a hernia on the right side but there is no evidence of any entrapment or strangulation. She was nontender over her groin I palpated. She did finally provide urine, it is pending. If the urinalysis is normal, plan to discharge to home. We did review that there was no evidence of any kidney stone on that side. There is no intra-abdominal pathology or surgical pathology requiring any intervention at this time. We did discuss that perhaps maybe that hernias starting to become symptomatic and could be responsible for some of her symptoms. I would like to see the urine to make sure there is no UTI or other concerning changes. If that is normal, plan to discharge to home. We did discuss about doing an outpatient surgery consultation just to review her hernia. We did discuss signs and symptoms of strangulated hernias that would require emergent re-evaluation. Time of Reevaluation #2: 13:47 Reevaluation #2: Went back to review with them that there is no concerning evidence of UTI on the urinalysis, do see what appears to be some contamination. We will obviously wait for the urine culture. I do wonder if maybe her hernia is becoming symptomatic and she is just feeling it more in in the right lower quadrant. There is no evidence for acute surgical need of this hernia but highly advise them to follow-up with general surgery for consultation. She lives in [place], I do believe our general surgeon goes to [place], did give them the number to call, they would like to stay within the [facility] system to see General surgery. Did review with them that she can go through her [facility] for consultation but she would like to see 1 of our general surgeons. We discussed trying some ice or heat in that right lower quadrant/inguinal area, Tylenol. Signs and symptoms for return were reviewed. Vital Signs Vital signs: Initial Vital Signs Temperature 97 F L 08/31/25 10:34 Temperature Source Temporal Artery Scan 08/31/25 10:34 Pulse Rate 64 08/31/25 10:34 Pulse Rhythm Regular 08/31/25 10:34 Blood Pressure 151/52 H 08/31/25 10:34 Blood Pressure Mean 85 08/31/25 10:34 Pulse Oximetry 93 08/31/25 10:34 Oxygen Delivery Method Room Air 08/31/25 10:34 Vital Signs Temperature 97 F L 08/31/25 10:34 Pulse Rate 64 08/31/25 10:34 Blood Pressure 151/52 H 08/31/25 10:34 Pulse Oximetry 93 08/31/25 10:34 Oxygen Delivery Method Room Air 08/31/25 10:34 Temperature 97 F L 08/31/25 10:34 Pulse Rate 64 08/31/25 10:34 Blood Pressure 151/52 H 08/31/25 10:34 Pulse Oximetry 93 08/31/25 10:52 Oxygen Delivery Method Room Air 08/31/25 10:34 Medications Administered Medications: Discontinued Medications Generic Name Dose Route Start Last Admin Trade Name Freq PRN Reason Stop Dose Admin Sodium Chloride 250 mls @ 250 mls/hr 08/31/25 10:55 08/31/25 11:18 0.9 % Sodium Chloride 250 Ml IV 08/31/25 11:54 250 mls/hr .Q1H ONE Administration MDM - Abdominal Pain Lab Data Attestation: I reviewed the patient's lab results. Labs: Lab Results 08/31/25 08/31/25 08/31/25 Range/Units 10:54 11:02 13:05 WBC 8.99 (4.50-11.00) K/uL RBC 5.05 (4.00-5.20) m/uL Hgb 13.8 (12.0-16.0) gm/dL Hct 43.1 (33.0-51.0) % MCV 85 (80-100) fL MCH 27 (26-34) pg MCHC 32 (32-36) gm/dL RDW Coeff of Jordyn 14.2 (11.5-15.5) % Plt Count 263 (140-440) K/uL Neut % (Auto) 71.7 (42.0-72.0) % Lymph % (Auto) 20.1 (20-44) % Ray % (Auto) 6.2 (0.0-11.0) % Eos % (Auto) 1.3 (0.0-7.0) % Baso % (Auto) 0.6 (0.0-3.0) % Neut # (Auto) 6.44 (1.7-7.0) K/uL Lymph # (Auto) 1.81 (0.90-2.90) K/uL Ray # (Auto) 0.60 (0.00-0.90) K/UL Eos # (Auto) 0.12 (0.00-0.50) K/uL Baso # (Auto) 0.05 (0.00-0.30) K/uL Abs Immat Gran (auto) 0.01 (0.00-0.30) K/uL Imm/Tot Granulo (auto) 0.1 % Sodium 137 (135-149) mmol/L Potassium 3.9 (3.6-5.1) mmol/L Chloride 99 (96-114) mmol/L Carbon Dioxide 28 (20-32) mmol/L Anion Gap 10 (7-15) mEq/L BUN 18 (7-30) mg/dL Creatinine 1.3 (0.5-1.5) mg/dL Estimated Creat Clear 31.29 Estimated GFR 42 ml/min Glucose 108 (60-115) mg/dL Lactate 2.0 H (0.5-1.9) mmol/L Calcium 9.5 (8.4-10.6) mg/dL Total Bilirubin 0.7 (0.1-1.5) mg/dL AST 26 (12-35) U/L ALT 25 (4-35) U/L Alkaline Phosphatase 67 (40-150) U/L Total Protein 7.2 (6.0-8.3) g/dL Albumin 4.0 (3.3-5.0) g/dL Lipase 80 (23-300) U/L Urine Color Yellow (Yellow) Urine Appearance Clear (Clear) Urine pH 6.0 (5.0-8.5) Ur Specific [place] 1.010 (1.000-1.030) Urine Protein Negative (Negative) Urine Glucose (UA) Negative (Negative) Urine Ketones Negative (Negative) Urine Blood Trace-intact A (Negative) Urine Nitrite Negative (Negative) Urine Bilirubin Negative (Negative) Urine Urobilinogen 0.2 (0.2-1.0) Ur Leukocyte Esterase Trace A (Negative) Urine RBC 0-2 (0-2) Urine WBC 2-5 (0-5) Ur Squamous Epith Cells Moderate A (None-Few) Urine Bacteria Moderate A (None) POC Creatinine 1.4 H (0.6-1.3) mg/dl Imaging Data CT scan - abdomen: Attestation: I have reviewed the pertinent imaging results. My impression: Did visualize her CT, did not appreciate any appendicitis on my preliminary review, radiology final read is reviewed. Radiologist's impression: Patient: CHARANJIT GALARZA Facility:?[facility] Patient ID:?[id number] Site Patient ID:?[id number]. Site :?[id number] Study:?CT-Abdomen/Pelvis 106CC ISOVUE 370-08/31/2025 11:50:36 AM Ordering Physician:Dewayne Xie Final Report: Indication: RLQ AND GROIN PAIN. STARTED 20 HOURS AGO Technique: CT abdomen/pelvis with IV contrast utilizing 160 mL Isovue 370 Comparison: None Findings: Motion degraded exam. Lower thorax: Mitral annular calcifications. Minimal bibasilar linear atelectasis/scarring. There are few scattered sub 4 millimeter pulmonary nodules bilaterally, likely benign. Abdomen/pelvis: The liver, gallbladder and biliary system, spleen, pancreas, and adrenal glands are unremarkable. The kidneys are normal in size. No suspicious enhancing renal masses or lesions. Simple appearing 1 centimeter cyst at the interpolar region of the right kidney and additional subcentimeter hypoattenuating lesions in the bilateral kidneys too small to characterize, but likely small benign cysts. No renal calculi or hydroureteronephrosis. The uterus and bilateral ovaries are unremarkable. Small hiatal hernia. No evidence of bowel obstruction or inflammation. The appendix is normal. Colonic diverticulosis without CT evidence of acute diverticulitis. No free air, free fluid, or abscess. No abdominopelvic lymphadenopathy. Mild calcific atherosclerosis of the aortoiliac system. Soft tissue/musculoskeletal: Small fat containing umbilical hernia. Small to moderate-sized right inguinal hernia containing fat and a single loop of small bowel without evidence of bowel obstruction/inflammation/strangulation. No acute fracture or malalignment. Mild degenerative changes of the spine and pelvis. No suspicious osseous lesions. Impression: 1. No CT evidence of an acute intra-abdominal or intrapelvic process. 2. Small to moderate-sized right inguinal hernia containing fat and a single loop of small bowel without evidence of bowel obstruction/inflammation/strangulation. 3. There are few sub 4 millimeter, subpleural pulmonary nodules bilaterally, likely benign. If patient is at high risk for lung malignancy consider optional CT chest in 1 year. Please note that all CT scans at this facility use dose modulation, iterative reconstruction, and/or weight-based dosing when appropriate to reduce radiation dose to as low as reasonably achievable. Dictated by Timothy Hand MD @ 08/31/2025 12:11:22 PM (Electronic Signature) Discharge Plan Discharge Clinical Impression: Abdominal pain, acute, right lower quadrant, Inguinal hernia, right Patient Disposition: Home, Self-Care Condition: Stable Instructions: Inguinal Hernia (ED), Acute Abdominal Pain (ED) Additional Instructions: Can try some Tylenol 1000 mg up to 3 times a day as needed for discomfort. This will not mask developing surgical abdominal symptoms, specifically a strangulated hernia. If you develop severe abdominal pain, abdominal pain is associated with right groin or increasing right lower quadrant abdominal pain, she do develop any fever vomiting with these symptoms, need to return to the ER for further evaluation. Otherwise, recommend having a surgical consultation for this hernia outpatient, you can schedule that through your clinic. Activity Level: Activity as Tolerated Prescriptions: No Action codeine-guaifenesin 10-100 mg/5 mL liquid 10 ml PO Q4-6H PRN (Reason: cough) Qty: 118 0RF fluconazole 150 mg tablet 150 mg PO Q3D 0 Days Qty: 2 0RF Rx Instructions: may repeat second dose 72 hrs after first dose if symptoms persist albuterol sulfate 90 mcg/actuation HFA aerosol inhaler 2 puff inhalation Q4-6H PRN (Reason: shortness of breath or wheezing) Qty: 8.5 0RF levothyroxine 88 mcg tablet 88 mcg PO QDAY Qty: 90 3RF losartan 100 mg tablet 100 mg PO QDAY Qty: 90 3RF divalproex [Depakote] 250 mg tablet,delayed release (DR/EC) 250 - 500 mg PO BID Qty: 100 0RF Rx Instructions: take 1 t po bid x 1 wk then increase to 2 t bid for mood bupropion HCl 150 mg tablet extended release 24 hr 150 - 300 mg PO QAM Qty: 60 0RF Rx Instructions: take 1 t po qam x 1 wk then increase to 2 t po qam for mood aspirin [Adult Aspirin Regimen] 81 mg tablet,delayed release (DR/EC) 81 mg PO DAILY (DME) blood-glucose meter [Blood Glucose Monitoring] Kit See Rx Instructions .Route Qty: 1 0RF Rx Instructions: As directed (DME) lancets Misc See Rx Instructions .Route Qty: 100 3RF Rx Instructions: use once per day (DME) Accu-Chek Guide test strips Strip See Rx Instructions .Route Qty: 100 3RF Rx Instructions: Test once daily rosuvastatin 20 mg tablet 20 mg PO DAILY Qty: 90 0RF hydrochlorothiazide 25 mg tablet 25 mg PO DAILY Qty: 90 0RF atenolol 50 mg tablet 50 mg PO DAILY Qty: 90 0RF metformin 1,000 mg tablet 1,000 mg PO BID (DME) Blood Glucose Test Strip See Rx Instructions .Route Qty: 100 0RF Rx Instructions: Test once per day Follow Up/Referrals: Diego Smyth MD [Primary Care Provider, Family Practice] Stand Alone Forms: [employer] Info Instructions
--- NOTE | 2025-08-31 10:52 | CRLHL7_ITS ---
For Patients: As a result of the Century Cures Act, medical imaging exams and procedure reports are released immediately into your electronic medical record. You may view this report before your referring provider. If you have questions, please contact your health care provider. Indication: RLQ AND GROIN PAIN. STARTED 20 HOURS AGO Technique: CT abdomen/pelvis with IV contrast utilizing 160 mL Isovue 370 Comparison: None Findings: Motion degraded exam. Lower thorax: Mitral annular calcifications. Minimal bibasilar linear atelectasis/scarring. There are few scattered sub 4 millimeter pulmonary nodules bilaterally, likely benign. Abdomen/pelvis: The liver, gallbladder and biliary system, spleen, pancreas, and adrenal glands are unremarkable. The kidneys are normal in size. No suspicious enhancing renal masses or lesions. Simple appearing 1 centimeter cyst at the interpolar region of the right kidney and additional subcentimeter hypoattenuating lesions in the bilateral kidneys too small to characterize, but likely small benign cysts. No renal calculi or hydroureteronephrosis. The uterus and bilateral ovaries are unremarkable. Small hiatal hernia. No evidence of bowel obstruction or inflammation. The appendix is normal. Colonic diverticulosis without CT evidence of acute diverticulitis. No free air, free fluid, or abscess. No abdominopelvic lymphadenopathy. Mild calcific atherosclerosis of the aortoiliac system. Soft tissue/musculoskeletal: Small fat containing umbilical hernia. Small to moderate-sized right inguinal hernia containing fat and a single loop of small bowel without evidence of bowel obstruction/inflammation/strangulation. No acute fracture or malalignment. Mild degenerative changes of the spine and pelvis. No suspicious osseous lesions. Impression: 1. No CT evidence of an acute intra-abdominal or intrapelvic process. 2. Small to moderate-sized right inguinal hernia containing fat and a single loop of small bowel without evidence of bowel obstruction/inflammation/strangulation. 3. There are few sub 4 millimeter, subpleural pulmonary nodules bilaterally, likely benign. If patient is at high risk for lung malignancy consider optional CT chest in 1 year. Please note that all CT scans at this facility use dose modulation, iterative reconstruction, and/or weight-based dosing when appropriate to reduce radiation dose to as low as reasonably achievable. Dictated by Timothy Hand MD @ 08/31/2025 12:11:22 PM (Electronically Signed)
[2025-08-31 11:07] LABS: Lactate* 2.0 mmol/L (0.5-1.9)
[2025-08-31 11:08] LABS: Hematocrit* 43.1 % (33.0-51.0); Hemoglobin* 13.8 gm/dL (12.0-16.0); Immature Granulocytes Abs Auto 0.01 K/uL (0.00-0.30); Immature Granulocytes Pct Auto 0.1 %; Lymphocytes Absolute Auto 1.81 K/uL (0.90-2.90); Mean Corpuscular HGB Conc 32 gm/dL (32-36); Mean Corpuscular Hemoglobin 27 pg (26-34); Mean Corpuscular Volume 85 fL (80-100); RDW Coefficient of Variation % 14.2 % (11.5-15.5); Red Blood Count* 5.05 m/uL (4.00-5.20); White Blood Count* 8.99 K/uL (4.50-11.00)
[2025-08-31 11:13] LABS: Creatinine, Point-of-Care* 1.4 mg/dl (0.6-1.3)
[2025-08-31 11:14] LABS: Slide Review Reflex No
[2025-08-31] MEDS: 0.9 % SODIUM CHLORIDE 250 ml 250 ML IV (11:18)
[2025-08-31 11:24] LABS: Albumin* 4.0 g/dL (3.3-5.0); Chloride* 99 mmol/L (96-114); Potassium* 3.9 mmol/L (3.6-5.1); Sodium* 137 mmol/L (135-149)
[2025-08-31 11:27] LABS: Alanine Aminotransferase* 25 U/L (4-35); Alkaline Phosphatase* 67 U/L (40-150); Anion Gap 10 mEq/L (7-15); Aspartate Amino Transferase* 26 U/L (12-35); Bilirubin Total* 0.7 mg/dL (0.1-1.5); Blood Urea Nitrogen* 18 mg/dL (7-30); Carbon Dioxide* 28 mmol/L (20-32); Creatinine* 1.3 mg/dL (0.5-1.5); Est. Creatinine Clearance* 31.29; Estimated Glomerular Filt Rate 42 ml/min; Total Protein* 7.2 g/dL (6.0-8.3)
[2025-08-31 11:28] LABS: Calcium* 9.5 mg/dL (8.4-10.6); Glucose* 108 mg/dL (60-115)
[2025-08-31 13:06] LABS: Appearance Urine Clear (Clear)
== END 2025-08-31 14:00 | disposition home or self-care (01) ==
PROVIDERS: Emergency Provider Family Medicine; PCP Family Medicine
DX: R10.31 Right lower quadrant pain (principal); K40.90 Unilateral inguinal hernia, without obstruction or gangrene, not specified as recurrent
CPT/HCPCS: 36415; 74177; 80053; 81001; 82565; 83605; 83690; 85025; 87086; 94761; 99284; J7050; Q9967